=== PATIENT | male | born 1950 | race Caucasian/White ===

== ENCOUNTER 2018-03-09 10:58 | Observation (INO) ==
[2018-03-09 11:50] LABS: Basophils # 0.1 K/mcL (0.0-0.2); Basophils % 0.8 %; Eosinophils # 0.2 K/mcL (0.0-0.6); Eosinophils % 2.4 %; Hematocrit 43.9 % (37.5-50.1); Hemoglobin 13.9 g/dL (12.9-16.9); Immature Granulocytes % 0.3 % (0-4); Lymphocytes # 0.6 K/mcL (0.6-4.6); Lymphocytes % 8.3 %; Mean Corpuscular HGB Conc 31.7 g/dL (31.6-35.5); Mean Corpuscular Hemoglobin 28.5 pg (28.0-33.3); Mean Platelet Volume 10.4 fL (9.4-12.4); Monocytes # 0.8 K/mcL (0.0-1.3); Monocytes % 10.8 %; Neutrophils # 5.6 K/mcL (1.6-8.9); Platelet Count 167 K/mcL (140-400); Red Blood Count 4.88 M/mcL (4.19-5.50); Segmented Neutrophils % 77.4 %
--- NOTE | 2018-03-09 12:16 | Emergency Department Note ---
Disposition Clinical Impression: Atrial fibrillation with slow ventricular response, CHF (congestive heart failure) Disposition: Admitted As Inpatient Condition: Fair Time of Disposition: 12:30 General Adult HPI - General Chief complaint: ED Shortness of Breath/Dyspnea Stated complaint: "chf" Time Seen by Provider: 03/09/18 11:01 Source: patient Mode of arrival: ambulatory Limitations: no limitations Nursing Notes Reviewed: Yes Vital Signs Reviewed: Yes - History of Present Illness HPI Narrative: 67-year-old male presents emergency department for further evaluation. Patient states he has had recent weight gain which is consistent with his previous CHF exacerbations. Patient states his vital signs and weight are taken daily and sent to the real estate investment analyst. The cardiology ASSISTANT BOYS TRACK COACH, Rudi Neri, noted the increased weight gain and called the patient to be evaluated in the emergency department. Patient states that he had his diuretics changed within the past week and he has noticed 4 pounds of weight loss and he is actually ambulating better than he had earlier in the week. Patient states he has some mild abdominal pain which occurs with eating and happens every time he has fluid overload from his congestive heart failure. Patient denies any vomiting or diarrhea or hematochezia or melena. No recent trauma. Pain Scale: 0 - Related Data Home Medications Medication Instructions Recorded Confirmed Aspirin [Lo-Dose Aspirin EC] 81 mg PO QAM 02/18/16 02/18/16 Bromocriptine Mesylate [Parlodel] 2.5 mg PO BID 02/18/16 02/18/16 Levothyroxine [Synthroid] 88 mcg PO QAM 02/18/16 02/18/16 Morphine Sulfate 15 mg PO BID PRN 02/18/16 02/26/16 Ondansetron HCl [Zofran] 4 mg PO TID PRN 02/18/16 02/18/16 Phenytoin ER [Dilantin ER] 300 mg PO HS 02/18/16 02/18/16 Previous Rx's Medication Instructions Recorded Docusate [Colace] 100 mg PO BID PRN #60 capsule 02/29/16 Fludrocortisone Acetate [Florinef] 0.1 mg PO BID #60 tablet 02/29/16 Furosemide [Lasix] 40 mg PO DAILY #60 tab 02/29/16 Gabapentin [Neurontin] 300 mg PO BID #60 capsule 02/29/16 Insulin DETEMIR [Levemir] 30 unit SQ HS 30 Days 02/29/16 Insulin LISPRO [Humalog Kwikpen 20 unit SQ ACHS 30 Days 02/29/16 U-100] Morphine Sulfate SR (12 HR) [MS 15 mg PO Q12HR tablet.er 02/29/16 Contin] Potassium Chloride [K-Tab ER] 20 meq PO BID #60 tablet.er 02/29/16 metOLazone [Zaroxolyn] 2.5 mg PO DAILY #30 tablet 02/29/16 predniSONE [PredniSONE] 10 mg PO BID #90 tablet 02/29/16 Allergies Allergy/AdvReac Type Severity Reaction Status Date / Time Penicillins Allergy Hives Verified 03/09/18 11:00 Sulfa (Sulfonamide Allergy Nausea Verified 03/09/18 11:00 Antibiotics) carvedilol [From Coreg] AdvReac Hypotension Verified 03/09/18 11:00 lisinopril AdvReac Hypotension Verified 03/09/18 11:00 All systems ED: reviewed and negative except as stated. Review of Systems: As Per [facility] Past Medical History - Past Medical History Attestation: Yes The following information was validated with the patient. Source: patient Medical history: Reports: arthritis, atrial fibrillation, CHF, diabetes, GERD, hyperlipidemia, hypertension, myocardial infarction, peripheral artery disease, thyroid disease, syncope Surgical history: Reports: angioplasty/stent, appendectomy, cholecystectomy, coronary bypass (CABG) Psychiatric history: Reports: no psych history - Social History Smoking Status: Never smoker Smokeless Tobacco Status: No Alcohol use: Reports: occasionally Drug use: Reports: none Physical Exam General: Alert and in no acute distress Skin: Warm, dry, intact Head: Normocephalic and atraumatic Neck: Supple, trachea midline and no tenderness Cardiovascular: RRR, no murmur, normal perfusion Respiratory: Crackles in the bilateral posterior lung bases, no respiratory distress noted on exam. No wheezing, no cough Musculoskeletal: Normal strength, no tenderness, swelling or deformity GI: Soft, nontender, nondistended. Bowel sounds present Neuro: A&O to person, place, time and situation. No focal deficits noted on exam Psychiatric: cooperative and appropriate mood and affect. Course Vital Signs Temperature 98.1 F 03/09/18 10:59 Pulse Rate 66 03/09/18 10:59 Respiratory Rate 20 03/09/18 10:59 Blood Pressure 128/71 03/09/18 10:59 O2 Sat by Pulse Oximetry 92 03/09/18 10:59 Temperature 98.1 F 03/09/18 11:04 Pulse Rate 53 03/09/18 11:25 Respiratory Rate 16 03/09/18 11:25 Blood Pressure 144/89 03/09/18 11:25 O2 Sat by Pulse Oximetry 94 03/09/18 11:25 Oxygen Delivery Oxygen Delivery Room Air Medical Decision Making - MDM Narrative Medical decision making narrative: 67-year-old male presents with worsening congestive heart failure. Patient does state that he started to improve mildly while taking the Bumex. Patient has atrial fibrillation with a slow ventricular response in the emergency department. I spoke with real estate investment analyst who agreed with the plan for admission to the hospital for further care and evaluation - Medical Records Medical records reviewed: Yes I reviewed the patient's medical records. - Lab Data Lab results reviewed: Yes I reviewed the patient's lab results. Result diagrams: 03/09/18 11:35 Lab Results 03/09/18 03/09/18 Range/Units 11:35 11:35 WBC 7.2 (4.3-11.1) K/mcL RBC 4.88 (4.19-5.50) M/mcL Hgb 13.9 (12.9-16.9) g/dL Hct 43.9 (37.5-50.1) % MCV 90.0 (83.0-100.0) fL MCH 28.5 (28.0-33.3) pg MCHC 31.7 (31.6-35.5) g/dL RDW 15.0 H (11.5-14.5) % Plt Count 167 (140-400) K/mcL MPV 10.4 (9.4-12.4) fL Immature Gran % 0.3 (0-4) % Seg Neutrophils % 77.4 % Lymphocytes % 8.3 % Monocytes % 10.8 % Eosinophils % 2.4 % Basophils % 0.8 % Neutrophils # 5.6 (1.6-8.9) K/mcL Lymphocytes # 0.6 (0.6-4.6) K/mcL Monocytes # 0.8 (0.0-1.3) K/mcL Eosinophils # 0.2 (0.0-0.6) K/mcL Basophils # 0.1 (0.0-0.2) K/mcL Lactic Acid 1.6 (0.5-2.2) mmol/L - Radiology Data Radiology results reviewed: Yes I reviewed the patient's radiology results. - EKG Data EKG #1 EKG attestation: Yes I reviewed and interpreted this EKG. EKG results narrative: ECG - interpreted by ED physician. Rate 57 atrial fibrillation with a slow ventricular response with a rate of 57. Patient has T-wave inversion of lead 3 which is new from previous EKG in 2015.
[2018-03-09 12:18] LABS: Troponin I 0.03 ng/mL (< 0.04)
[2018-03-09 12:37] LABS: Alanine Aminotransferase 27 Units/L (7-52); Albumin/Globulin Ratio 1.3 (1.1-2.2); Alkaline Phosphatase 136 Units/L (34-104); Aspartate Amino Transferase 48 Units/L (13-39); BUN/Creatinine Ratio 18 (6-26); Bilirubin,Direct 0.3 mg/dL (0.0-0.2); Bilirubin,Indirect 0.9 mg/dL (0.0-1.2); Bilirubin,Total 1.2 mg/dL (0.3-1.0); Blood Urea Nitrogen 25 mg/dL (8-23); Calcium 9.5 mg/dL (8.6-10.3); Carbon Dioxide 30 mEq/L (23-29); Chloride 95 mEq/L (98-107); Glucose 109 mg/dL (70-105); Osmolality,Calculated 285 (280-300); Potassium 4.7 mEq/L (3.5-5.1); Sodium 135 mEq/L (136-145); eGFR For Non-African Americans 52 (> 60)
[2018-03-09] MEDS ORDERED: *HR* Heparin 5,000 UNIT/ML VIAL IVP PRN ×2 (12:41)
[2018-03-09] MEDS ORDERED: *HR* Heparin 5,000 UNIT/ML VIAL IVP ONE (12:41)
[2018-03-09 13:09] LABS: Thyroid Stimulating Hormone 0.335 mcIU/mL (0.340-5.600)
[2018-03-09] MEDS ORDERED: Naloxone 0.4 MG/ML INJ IVP PRN (13:22)
--- NOTE | 2018-03-09 13:25 | Internal Med History&Physical ---
Date of Encounter: 03/09/18 Time of Encounter: 12:50 Internal Medicine - H&P: HPI Chief complaint: weight gain History of present illness: Mr. Noriega is a 67 year old male with PMHx of diastolic heart failure, DM, adrenal insufficiency, presented to the ED for progressive weight gain. He states that he gradually gained ~ 20lbs over 1.5 months and also developed mild SOB with it. Last Thursday, he spoke to his home care nurse who, in conjunction with cardiology ELECTRICAL PROJECT ENGINEER, recommended to increase his bumex dose to a total of 5mg/ day. He states that since he was started on higher dose of bumex, he lost 4lbs already and his breathing also improved. Denies fever/chills, sick contacts, cough, sputum production, chest pain, N/V, diaphoresis. No abdominal pain, dysuria, or change in bowel habits. No joint pain or rash. He felt much improved since Thursday but he was specifically instructed by cardiology ELECTRICAL PROJECT ENGINEER to come to the ED for further evaluation. In the ED, he was afebrile and hemodynamically stable. Saturating >92% on RA. Labs revealed normal CBC, Cr around his baseline, and BNP 255 which is actually lower than his usual numbers. Troponin -ve, EKG showed Afib with SVR. TSH 0.335 (mildly suppressed). He was started on heparin in view of new finding of afib and admitted for further management. Past Med Surg Social Fam HX - Past Medical History Attestation: Yes The following information was validated with the patient. Medical history: arthritis, atrial fibrillation, CHF, diabetes, GERD, hyperlipidemia, hypertension, myocardial infarction, peripheral artery disease, thyroid disease, syncope Psychiatric history: no psych history - Past Surgical History Surgical History: angioplasty/stent, appendectomy, cholecystectomy, coronary bypass (CABG) Additional surgical history: tonsilectomy, pituitary tumor removed, exploratory for possible cyst in stomach ( scar tissue ), triple bypass, R BKA, heart stent - Social History Smoking Status: Never smoker Smokeless Tobacco Status: No Alcohol use: occasionally Drug use: none - Family History Father Adopted: No Family Member Ethnicity: Non- Living Status: Hx Family Cardiac Disorders: No Hx Family Respiratory Disorders: No Hx Family Cancer: Yes Hx Family GI Disorders: No Hx Family Endocrine Disorder: No Hx Family Neuromuscular Disorders: No Hx Family Neurologic Disorders: No Hx Family HEENT Disorders: No Hx Family Autoimmune Disorders: No Internal Medicine - H&P: Meds Bromocriptine Mesylate [Parlodel] 2.5 mg PO BID 02/18/16 [History] Levothyroxine [Synthroid] 88 mcg PO QAM 02/18/16 [History] Morphine Sulfate SR (12 HR) [MS Contin] 15 mg PO Q12HR tablet.er 02/29/16 [Rx] Aspirin Enteric Coated [Aspirin EC] 81 mg PO DAILY 03/09/18 [History] Potassium Chloride [K-Tab ER] 20 meq PO QID 03/09/18 [History] 3 Allergy/AdvReac Type Severity Reaction Status Date / Time Penicillins Allergy Hives Verified 03/09/18 11:00 Sulfa (Sulfonamide Allergy Nausea Verified 03/09/18 11:00 Antibiotics) carvedilol [From Coreg] AdvReac Hypotension Verified 03/09/18 11:00 lisinopril AdvReac Hypotension Verified 03/09/18 11:00 All Systems PM: A 10-system review of systems was performed and is negative for pertinent findings except as documented above in the HPI. - Constitutional Vitals: Temp Pulse Resp BP Pulse Ox 98.1 F 59 20 141/80 94 03/09/18 11:04 03/09/18 12:23 03/09/18 12:23 03/09/18 12:23 03/09/18 12:23 Exam: General: Alert and oriented HEENT:EOM, pupils equal, round, and reactive. Cardiovascular:Normal S1 & S2, No JVD. irregular pulse but normal rate. No appreciable L LE edema. R leg amputated Lungs:Normal breath sounds, minimal rales at the bases Abdomen:Soft, non-tender, no rigidity. Extremities:RLE amputated, no joint swelling Neurological:Normal cognition and motor skills. Skin:Normal color, no rash, no lesions. Pulses:Carotid and radial pulses normal +2. Rest of the physical exam is non-contributory Internal Med - H&P Results - Labs CBC & Chem 7: 03/09/18 11:35 03/09/18 11:35 - Assessment and plan (1) Atrial fibrillation with slow ventricular response Current Visit: Yes Status: Acute Assessment and plan: new finding, CHADSVasc score of 4 no RVR, may have had runs of asymptomatic RVR that could have contributed to mild decompensated heart failure TSH 0.335, mildly suppressed. Doubt that it is the cause of afib but will check fT4 started on heparin gtt per discussion between ER and cardiology trend troponin Echocardiogram (2) CHF (congestive heart failure) Current Visit: Yes Status: Acute Assessment and plan: symptomatically improved on increased dosage of bumex BNP lower than his baseline, no O2 requirement currently CXR is reported to show mild CHF continue home dose of bumex Echocardiogram as above follow with cardiology Qualifiers: Heart failure type: diastolic Heart failure chronicity: acute on chronic Qualified Code(s): I50.33 - Acute on chronic diastolic (congestive) heart failure (3) Adrenal insufficiency Current Visit: No Status: Acute Assessment and plan: resume home dose of prednisone (4) CKD (chronic kidney disease) stage 3, GFR 30-59 ml/min Current Visit: No Status: Acute Assessment and plan: stable at baseline resume home dose of bumex (5) DVT prophylaxis Current Visit: No Status: Acute Assessment and plan: on heparin gtt - Time Spent With Patient Total time spent is greater than 50% in coordination of care (as documented) at patient's floor/unit and/or counseling patient:
[2018-03-09] MEDS: Heparin 25,000 UNIT/500 ML D5W 25,000 UNIT/500 ML BAG IVC SCH (13:33)
[2018-03-09] MEDS ORDERED: D5% in Water 1,000 ML IVC PRN (13:37)
[2018-03-09] MEDS ORDERED: Dextrose Gel 15 GM/37.5 ML TUBE PO PRN ×2 (13:37)
[2018-03-09] MEDS ORDERED: *HR* Dextrose 50 % in Water (Syg) 50 ML SYRINGE IVP PRN (13:37)
[2018-03-09] MEDS ORDERED: Nitroglycerin 0.4 MG TAB.SUBL SL PRN (15:25)
--- NOTE | 2018-03-09 15:28 | Cardiology Consult Note ---
Date of Encounter: 03/09/18 Time of Encounter: 15:22 Assessment and Plan (1) Atrial fibrillation with slow ventricular response Current Visit: Yes Status: Acute Presented A-Fib slow ventricular response, HR 57 on admission EKG, new diagnosis. Was on Toprol XL 25mg daily at home, currently held. [id number] is 5 (Age, HTN, CAD, CHF, DM). High CVA risk. Currently on heparin gtt. Discussed Coumadin vs NOAC. Pt would like to think about it. Continue heparin gtt for now. K WNL, TSH 0.335--management per primary team. Check Mag. Most recent TTE 02/2016 EF 55%, moderate-severe TR, moderate-severe phtn. Recheck TTE. Continue to follow. (2) CHF (congestive heart failure) Current Visit: Yes Status: Acute Known hx of diastolic and right sided CHF. TTE 02/2016 moderate LVDD and dilated RV with moderate reduction in function, moderate-severe phtn. Reports compliance with Na and fluid restriction. BNP 225, CXR low grade CHF, small pleural effusion. Recently increased Bumex outpt to total of 10mg/day with improvement in symptoms , but reports he is still ~15 pounds heavier than baseline weight and dyspnea is still mildly worse than baseline. Agree with continuing PO Bumex--hospitalist ordered for 5mg total/day. Re- evaluate in AM to see if pt needs IV diuresis. Recommend strict I/O, Na and fluid restriction, daily weights. Recheck TTE. Qualifiers: Heart failure type: diastolic Heart failure chronicity: acute on chronic Qualified Code(s): I50.33 - Acute on chronic diastolic (congestive) heart failure (3) CAD (coronary artery disease) Current Visit: No Status: Acute Hx CABG then PCI in 2014. Continue ASA and Statin. No BB due to bradycardia. Qualifiers: Coronary Disease-Associated Artery/Lesion type: [place] artery [place] vs. transplanted heart: [place] heart Associated angina: without angina Qualified Code(s): I25.10 - Atherosclerotic heart disease of [place] coronary artery without angina pectoris Discussion w patient/family: The assessment and plan as outlined above was discussed with the patient and/or family members who expressed understanding and agreement. All questions were answered. Thank you for involving us in the care of your patient. Please call with any questions. I will discuss all the above with Dr. Chandra and make changes as necessary. History of Present Illness Consult date: 03/09/18 Requesting physician: Cali Sethi Consult reason: CHF Chief complaint: dyspnea, weight gain History of present illness: Mr. Noriega is a 67 year old male PMHx of diastolic CHF, CAD s/p CABG, DM, adrenal insufficiency, HLD, hypothyroidism, history of right BKA, MELVI, GERD presented to the ED for progressive weight gain. He states that he gradually gained ~ 20lbs over 1.5 months and also developed progressive dyspnea. Last Thursday, he spoke to his home care nurse who, in conjunction with cardiology DENTAL SCHEDULER, recommended to increase his bumex dose to 5mg BID. He states that since he was started on higher dose of bumex, he lost 4lbs and his breathing also improved. Denies palpitations or chest pain. BNP 255 which is actually lower than his usual. Troponin negative. EKG showed Afib with slow ventricular response, which is a new diagnosis. He denies palpitations. On heparin gtt. Cardiology consulted for further recs. Prior CV testing: TTE 02/20/16: Technically challenging study without Apical 2 or 3CH views. Overall , LV systolic function appears normal in views provided EF 55%. There is evidence of moderate diastolic dysfunction of the left ventricle. No aortic stenosis on this study, MG 6 mmHg. Dilated RV with moderate reduction in function. Moderate-severe functional tricuspid regurgitation. Moderate to severe pulmonary hypertension with TR gradient 55 mmHg. IVC not visualized. [facility] [place] 01/02/15: Double vessel coronary artery disease. S/P CABG 3 of 3 patent bypass grafts. The left ventricle is normal and has normal contractility EF 55% . Patient had successful PTCA/Drug-Eluting Stent placement in the proximal 1st Diagonal. Past Med Surg Social Fam HX - Past Medical History Medical history: arthritis, CHF, diabetes, GERD, hyperlipidemia, hypertension, myocardial infarction, peripheral artery disease, thyroid disease, syncope Psychiatric history: no psych history - Past Surgical History Surgical History: angioplasty/stent, appendectomy, cholecystectomy, coronary bypass (CABG) Additional surgical history: tonsilectomy, pituitary tumor removed, exploratory for possible cyst in stomach ( scar tissue ), triple bypass, R BKA, heart stent - Social History Smoking Status: Never smoker Smokeless Tobacco Status: No Alcohol use: occasionally Drug use: none - Family History Father Adopted: No Family Member Ethnicity: Non- Living Status: Hx Family Cardiac Disorders: No Hx Family Respiratory Disorders: No Hx Family Cancer: Yes Hx Family GI Disorders: No Hx Family Endocrine Disorder: No Hx Family Neuromuscular Disorders: No Hx Family Neurologic Disorders: No Hx Family HEENT Disorders: No Hx Family Autoimmune Disorders: No Medications and Allergies Bromocriptine Mesylate [Parlodel] 2.5 mg PO BID 02/18/16 [History] Levothyroxine [Synthroid] 88 mcg PO QAM 02/18/16 [History] Morphine Sulfate SR (12 HR) [MS Contin] 15 mg PO Q12HR tablet.er 02/29/16 [Rx] Aspirin Enteric Coated [Aspirin EC] 81 mg PO DAILY 03/09/18 [History] Atorvastatin [Lipitor] 10 mg PO HS 03/09/18 [History] Bumetanide [Bumex] 2 mg PO 2100 03/09/18 [History] Bumetanide [Bumex] 4 mg PO 0900,1500 03/09/18 [History] Insulin ASPART [NovoLOG] 0 - 12 unit SQ TIDAC 03/09/18 [History] Metoprolol Succinate [Toprol Xl] 25 mg PO DAILY 03/09/18 [History] Multivitamin [One Daily Essential] 1 tab PO DAILY 03/09/18 [History] Nitroglycerin [Nitrostat] 0.4 mg SL Q5MIN PRN 03/09/18 [History] Polyethylene Glycol 3350 [MiraLAX] 17 gm PO DAILY 03/09/18 [History] Potassium Chloride [K-Tab ER] 60 meq PO QID 03/09/18 [History] PredniSONE [Adry] 5 mg PO BID 03/09/18 [History] 3 Allergy/AdvReac Type Severity Reaction Status Date / Time Penicillins Allergy Hives Verified 03/09/18 13:46 Sulfa (Sulfonamide Allergy Nausea Verified 03/09/18 13:46 Antibiotics) carvedilol [From Coreg] AdvReac Hypotension Verified 03/09/18 13:46 lisinopril AdvReac Hypotension Verified 03/09/18 13:46 All Systems Review: The remainder of the systems were reviewed and are negative - Constitutional Constitutional: weight gain - Cardiovascular Cardiovascular: as per HPI, dyspnea at rest, dyspnea on exertion - Respiratory Respiratory: dyspnea Physical Examination Vital Signs, Last 4 Hours Temp Pulse Resp BP Pulse Ox 03/09/18 15:02 98.3 F 78 18 120/74 91 03/09/18 13:36 53 17 124/87 93 Vital Signs Temp Pulse Resp BP Pulse Ox 03/09/18 15:02 98.3 F 78 18 120/74 91 03/09/18 13:36 53 17 124/87 93 03/09/18 12:23 59 20 141/80 94 03/09/18 11:25 53 16 144/89 94 03/09/18 11:04 98.1 F 66 20 128/71 92 03/09/18 10:59 98.1 F 66 20 128/71 92 Intake and Output 03/08/18 03/09/18 03/09/18 23:59 07:59 15:59 Other: Weight 106.4 kg Blood Glucose* 76 Patient Weight 03/09/18 23:59 Weight 106.4 kg General: Conversant, No Apparent Distress HEENT: Atraumatic, Normocephaly, Mucus Membranes Moist Neck: Normal carotid pulses Cardiac: Other (irregularly irregular rhythm 2/6 murmur) Lungs: Other (bibasilar wheezes) Neuro: Alert and responsive, No focal deficits noted Abdomen: Soft, Non-Tender Skin: No rashes noted on visualized skin Musculoskeletal: No Chest Wall Tenderness Extremities: Other (right BKA) Results 03/09/18 11:35 03/09/18 11:35 Short CBC 03/09/18 Range/Units 11:35 WBC 7.2 (4.3-11.1) K/mcL Hgb 13.9 (12.9-16.9) g/dL Hct 43.9 (37.5-50.1) % Plt Count 167 (140-400) K/mcL Neutrophils # 5.6 (1.6-8.9) K/mcL BMP 03/09/18 Range/Units 11:35 Sodium 135 L (136-145) mEq/L Potassium 4.7 (3.5-5.1) mEq/L Chloride 95 L (98-107) mEq/L Carbon Dioxide 30 H (23-29) mEq/L BUN 25 H (8-23) mg/dL Creatinine 1.37 H (0.70-1.30) mg/dL Glucose 109 H (70-105) mg/dL Calcium 9.5 (8.6-10.3) mg/dL Cardiac Enzymes 03/09/18 Range/Units 11:35 Troponin I 0.03 (< 0.04) ng/mL Liver Function 03/09/18 Range/Units 11:35 Total Bilirubin 1.2 H (0.3-1.0) mg/dL Direct Bilirubin 0.3 H (0.0-0.2) mg/dL AST 48 H (13-39) Units/L ALT 27 (7-52) Units/L Alkaline Phosphatase 136 H (34-104) Units/L Albumin 4.0 (3.5-5.7) g/dL Impressions Chest X-Ray 03/09/18 11:05 IMPRESSION: Low-grade CHF with small left pleural effusion D/ / Marcin Elkins MD / Marcin Elkins MD Interpreting Provider: Marcin Elkins MD Active Medications Aspirin (Aspirin Ec) 81 mg PO DAILY [place] Stop: 09/09/18 09:01 Atorvastatin Calcium (Lipitor) 10 mg PO HS [place] Stop: 09/08/18 21:01 Bromocriptine Mesylate (Parlodel) 2.5 mg PO BID [place] Stop: 09/08/18 21:01 Bumetanide (Bumex) 2 mg PO 0900,1500 [place] Stop: 09/08/18 15:01 Bumetanide (Bumex) 1 mg PO HS [place] Stop: 09/08/18 21:01 Dextrose/Water (Dextrose 50% (Syg)) 25 ml IVP AD PRN PRN Reason: Hypoglycemia Stop: 09/08/18 13:38 Glucagon (Glucagen) 1 mg IM ONCE PRN PRN Reason: Hypoglycemia Stop: 09/08/18 13:38 Glucose (Gluctose) 15 gm PO ONCE PRN PRN Reason: Hypoglycemia Stop: 09/08/18 13:38 Glucose (Gluctose) 30 gm PO ONCE PRN PRN Reason: Hypoglycemia Stop: 09/08/18 13:38 Heparin Sodium (Porcine) (Heparin) 4,000 unit IVP Q6HR PRN PRN Reason: SEE COMMENTS Stop: 09/08/18 12:42 Heparin Sodium (Porcine) (Heparin) 2,000 unit IVP Q6H PRN PRN Reason: SEE COMMENTS Stop: 09/08/18 12:42 Heparin Sodium/Dextrose (Heparin 25,000 Unit/500 Ml D5w) 25,000 unit in 500 mls @ 20.08 mls/hr IVC .Q24H [place]; 9.3 UNIT/KG/HR PRN Reason: Protocol Stop: 09/08/18 12:46 Last Admin: 03/09/18 13:33 Dose: 9.3 unit/kg/hr, 20.08 mls/hr Dextrose (Dextrose 5%) 1,000 mls @ 100 mls/hr IVC .Q10H PRN PRN Reason: HYPOGLYCEMIA Stop: 09/08/18 13:38 Insulin Human Lispro (Humalog) 0 units SQ TIDAC [place] PRN Reason: Protocol Stop: 09/08/18 16:31 Levothyroxine Sodium (Synthroid) 88 mcg PO QAM [facility] Stop: 09/09/18 09:01 Morphine Sulfate (Ms Contin) 15 mg PO Q12HR [facility] Stop: 09/08/18 18:01 Naloxone HCl (Narcan) 0.4 mg IVP Q2MIN PRN PRN Reason: SEE COMMENTS Stop: 09/08/18 13:23 Nitroglycerin (Nitroglycerin) 0.4 mg SL Q5MIN PRN PRN Reason: Chest Pain Stop: 09/08/18 15:26 Non-Formulary Medication (Multivitamin [One Daily Essential]) 1 tab PO DAILY [facility] Stop: 09/09/18 09:01 Non-Formulary Medication (Prednisone [Adry]) 5 mg PO BID [facility] Stop: 09/08/18 21:01 - Imaging and Cardiology Echo: report reviewed Cardiac cath: report reviewed - EKG Interpretation EKG results cardiology: personally reviewed (A-Fib, rate 57) Consult Discharge Plan - Plan Referrals: Parrish Galindo DO [Primary Care Provider] -
[2018-03-09] MEDS: Bumetanide 1 MG TABLET PO SCH (16:41)
[2018-03-09] MEDS: Insulin LISPRO 300 UNITS/3 ML VIAL SQ SCH (16:41)
[2018-03-09] MEDS: *HR* Morphine Sulfate SR (12 HR) 15 MG TABLET.ER PO SCH (18:06)
[2018-03-09] MEDS ORDERED: Perflutren Lipid Microsphere 1.3 ML in 0.9 % Sodium Chloride 8.7 ML IVP ONE (19:14)
[2018-03-09] MEDS ORDERED: Bumetanide 1 MG TABLET PO SCH (21:00)
[2018-03-09] MEDS: predniSONE 5 MG TABLET PO SCH (21:09)
[2018-03-09] MEDS ORDERED: Insulin LISPRO 300 UNITS/3 ML VIAL SQ SCH (21:30)
[2018-03-10 01:56] LABS: Basophils # 0.1 K/mcL (0.0-0.2); Basophils % 0.7 %; Eosinophils # 0.1 K/mcL (0.0-0.6); Eosinophils % 1.6 %; Hematocrit 39.6 % (37.5-50.1); Hemoglobin 12.9 g/dL (12.9-16.9); Immature Granulocytes % 0.1 % (0-4); Lymphocytes # 0.8 K/mcL (0.6-4.6); Lymphocytes % 10.7 %; Mean Corpuscular HGB Conc 32.6 g/dL (31.6-35.5); Mean Corpuscular Hemoglobin 29.1 pg (28.0-33.3); Mean Corpuscular Volume 89.4 fL (83.0-100.0); Mean Platelet Volume 10.4 fL (9.4-12.4); Monocytes # 0.7 K/mcL (0.0-1.3); Monocytes % 9.9 %; Neutrophils # 5.7 K/mcL (1.6-8.9); Platelet Count 141 K/mcL (140-400); Red Blood Count 4.43 M/mcL (4.19-5.50); Red Cell Distribution Width 14.7 % (11.5-14.5)
[2018-03-10 02:34] LABS: BUN/Creatinine Ratio 17 (6-26); Blood Urea Nitrogen 22 mg/dL (8-23); Calcium 8.7 mg/dL (8.6-10.3); Carbon Dioxide 34 mEq/L (23-29); Chloride 93 mEq/L (98-107); Glucose 267 mg/dL (70-105); Magnesium 2.4 mg/dL (1.6-2.6); Osmolality,Calculated 289 (280-300); Potassium 3.5 mEq/L (3.5-5.1); Sodium 133 mEq/L (136-145); eGFR For Non-African Americans 57 (> 60)
[2018-03-10] MEDS: *HR* Morphine Sulfate SR (12 HR) 15 MG TABLET.ER PO SCH ×3 (05:49→17:47)
[2018-03-10] MEDS: Insulin LISPRO 300 UNITS/3 ML VIAL SQ SCH ×3 (07:56→16:49)
[2018-03-10] MEDS: Aspirin Enteric Coated 81 MG Tablet PO SCH (07:58)
[2018-03-10] MEDS: Multivit/Ca/Min/Fe/FA 1 TAB TABLET PO SCH (07:58)
[2018-03-10] MEDS: predniSONE 5 MG TABLET PO SCH ×2 (07:58→20:46)
[2018-03-10] MEDS: Bumetanide 1 MG TABLET PO SCH (07:58)
--- NOTE | 2018-03-10 10:45 | Cardiology Progress Note ---
Date of Encounter: 03/10/18 Time of Encounter: 10:42 Assessment and Plan (1) CHF (congestive heart failure) Current Visit: Yes Status: Acute Known hx of diastolic and right sided CHF. TTE 02/2016 moderate LVDD and dilated RV with moderate reduction in function, moderate-severe phtn. Reports compliance with Na and fluid restriction. BNP 225, CXR low grade CHF, small pleural effusion. Recently increased Bumex outpt to total of 10mg/day with improvement in symptoms , but reports he is still ~15 pounds heavier than baseline weight and dyspnea is still mildly worse than baseline. Abdominal distention. Discussed with Dr. Chandra, will start IV diuresis--Lasix IV 80mg BID. Recommend strict I/O, Na and fluid restriction, daily weights. Recheck TTE. Continue to follow. Qualifiers: Heart failure type: diastolic Heart failure chronicity: acute on chronic Qualified Code(s): I50.33 - Acute on chronic diastolic (congestive) heart failure (2) Atrial fibrillation with slow ventricular response Current Visit: Yes Status: Acute Presented A-Fib slow ventricular response, HR 57 on admission EKG, new diagnosis. Was on Toprol XL 25mg daily at home, currently held. [id number] is 5 (Age, HTN, CAD, CHF, DM). High CVA risk. Currently on heparin gtt. Discussed Coumadin vs NOAC. Prefers NOAC. Given his fluctuating renal function, will plan to brewer check Eliquis 5mg BID once echo results. K WNL, TSH 0.335--management per primary team. Check Mag. Most recent TTE 02/2016 EF 55%, moderate-severe TR, moderate-severe phtn. Recheck TTE. (3) CAD (coronary artery disease) Current Visit: No Status: Acute Hx CABG then PCI in 2014. Troponins negative. Continue ASA and Statin. No BB due to bradycardia. Qualifiers: Coronary Disease-Associated Artery/Lesion type: [place] artery [place] vs. transplanted heart: [place] heart Associated angina: without angina Qualified Code(s): I25.10 - Atherosclerotic heart disease of [place] coronary artery without angina pectoris Discussion w patient/family: The assessment and plan as outlined above was discussed with the patient and/or family members who expressed understanding and agreement. All questions were answered. Thank you for involving us in the care of your patient. Please call with any questions. I will discuss all the above with Dr. Chandra and make changes as necessary. Subjective Principal diagnosis: A-Fib, CHF Interval history: TTE pending. Pt reports his dyspnea is near baseline, but weight still increased ~15 pounds from his baseline with abdominal distention. Creatinine improved today. 12 hr tele AVG HR 51, A-Fib, longest pause 2.5 seconds. Objective Vital Signs, Last 4 Hours Temp Pulse Resp BP Pulse Ox 03/10/18 07:39 97.9 F 60 18 131/64 97 Vital Signs Temp Pulse Resp BP Pulse Ox 03/10/18 07:39 97.9 F 60 18 131/64 97 03/10/18 05:19 97.6 F 52 18 128/78 93 03/10/18 01:29 98.0 F 46 18 107/67 96 03/09/18 20:30 98.0 F 63 18 121/70 93 03/09/18 15:02 98.3 F 78 18 120/74 91 03/09/18 13:36 53 17 124/87 93 03/09/18 12:23 59 20 141/80 94 03/09/18 11:25 53 16 144/89 94 03/09/18 11:04 98.1 F 66 20 128/71 92 03/09/18 10:59 98.1 F 66 20 128/71 92 Intake and Output 03/09/18 03/10/18 03/10/18 23:59 07:59 15:59 Intake Total 499 / 499 114 / 114 360 / 360 Output Total 600 / 600 Balance 499 / 499 -486 / -486 360 / 360 Intake: IV Fluids 139 / 139 114 / 114 Heparin 25,000 UNIT/500 ML D5W 139 / 139 114 / 114 25,000 unit In 500 ml @ 9.3 UNIT/KG/HR 20.08 mls/hr IVC . Q24H [place] Rx#:[id number] Oral 360 / 360 360 / 360 Output: Urine 600 / 600 Other: Meal Dinner Breakfast Percent of Meal Consumed 100% 80% Weight 106.8 kg Blood Glucose* 274 298 Patient Weight 03/10/18 23:59 Weight 106.8 kg General: Conversant, No Apparent Distress HEENT: Atraumatic, Normocephaly, Mucus Membranes Moist Neck: Normal carotid pulses Cardiac: Other (irregularly irregular) Lungs: Other (diminished) Neuro: Alert and responsive, No focal deficits noted Abdomen: Soft, Non-Tender Skin: No rashes noted on visualized skin Musculoskeletal: No Chest Wall Tenderness Extremities: Other (right BKA ) Results 03/10/18 01:42 03/10/18 01:42 Lab Results 03/09/18 03/10/18 03/10/18 18:00 01:42 01:42 WBC 7.4 Hgb 12.9 Hct 39.6 Plt Count 141 Sodium 133 L Potassium 3.5 D Chloride 93 L Carbon Dioxide 34 H BUN 22 Creatinine 1.27 Glucose 267 H Calcium 8.7 Magnesium 2.4 Troponin I 0.03 Short CBC 03/10/18 03/09/18 Range/Units 01:42 11:35 WBC 7.4 7.2 (4.3-11.1) K/mcL Hgb 12.9 13.9 (12.9-16.9) g/dL Hct 39.6 43.9 (37.5-50.1) % Plt Count 141 167 (140-400) K/mcL Neutrophils # 5.7 5.6 (1.6-8.9) K/mcL BMP 03/10/18 03/09/18 Range/Units 01:42 11:35 Sodium 133 L 135 L (136-145) mEq/L Potassium 3.5 D 4.7 (3.5-5.1) mEq/L Chloride 93 L 95 L (98-107) mEq/L Carbon Dioxide 34 H 30 H (23-29) mEq/L BUN 22 25 H (8-23) mg/dL Creatinine 1.27 1.37 H (0.70-1.30) mg/dL Glucose 267 H 109 H (70-105) mg/dL Calcium 8.7 9.5 (8.6-10.3) mg/dL Cardiac Enzymes 03/09/18 03/09/18 Range/Units 18:00 11:35 Troponin I 0.03 0.03 (< 0.04) ng/mL Liver Function 03/09/18 Range/Units 11:35 Total Bilirubin 1.2 H (0.3-1.0) mg/dL Direct Bilirubin 0.3 H (0.0-0.2) mg/dL AST 48 H (13-39) Units/L ALT 27 (7-52) Units/L Alkaline Phosphatase 136 H (34-104) Units/L Albumin 4.0 (3.5-5.7) g/dL Impressions Chest X-Ray 03/09/18 11:05 IMPRESSION: Low-grade CHF with small left pleural effusion D/ / Marcin Elkins MD / Marcin Elkins MD Interpreting Provider: Marcin Elkins MD Active Medications Aspirin (Aspirin Ec) 81 mg PO DAILY [place] Stop: 09/09/18 09:01 Last Admin: 03/10/18 07:58 Dose: 81 mg Atorvastatin Calcium (Lipitor) 10 mg PO HS [place] Stop: 09/08/18 21:01 Last Admin: 03/09/18 21:09 Dose: 10 mg Dextrose/Water (Dextrose 50% (Syg)) 25 ml IVP AD PRN PRN Reason: Hypoglycemia Stop: 09/08/18 13:38 Furosemide (Lasix) 80 mg IVP BID [place] Stop: 09/09/18 10:46 Glucagon (Glucagen) 1 mg IM ONCE PRN PRN Reason: Hypoglycemia Stop: 09/08/18 13:38 Glucose (Gluctose) 15 gm PO ONCE PRN PRN Reason: Hypoglycemia Stop: 09/08/18 13:38 Glucose (Gluctose) 30 gm PO ONCE PRN PRN Reason: Hypoglycemia Stop: 09/08/18 13:38 Heparin Sodium (Porcine) (Heparin) 4,000 unit IVP Q6HR PRN PRN Reason: SEE COMMENTS Stop: 09/08/18 12:42 Heparin Sodium (Porcine) (Heparin) 2,000 unit IVP Q6H PRN PRN Reason: SEE COMMENTS Stop: 09/08/18 12:42 Heparin Sodium/Dextrose (Heparin 25,000 Unit/500 Ml D5w) 25,000 unit in 500 mls @ 20.08 mls/hr IVC .Q24H [place]; 9.3 UNIT/KG/HR PRN Reason: Protocol Stop: 09/08/18 12:46 Last Titration: 03/10/18 03:06 Dose: 9.63 unit/kg/hr, 20.8 mls/hr Dextrose (Dextrose 5%) 1,000 mls @ 100 mls/hr IVC .Q10H PRN PRN Reason: HYPOGLYCEMIA Stop: 09/08/18 13:38 Insulin Human Lispro (Humalog) 0 units SQ TIDAC [facility] PRN Reason: Protocol Stop: 09/08/18 16:31 Last Admin: 03/10/18 07:56 Dose: 8 units Insulin Human Lispro (Humalog) 0 units SQ HS [facility] PRN Reason: Protocol Stop: 09/08/18 21:31 Last Admin: 03/09/18 21:57 Dose: 4 unit Levothyroxine Sodium (Synthroid) 88 mcg PO QAM@0630 [facility] Stop: 09/09/18 06:31 Last Admin: 03/10/18 05:50 Dose: 88 mcg Morphine Sulfate (Ms Contin) 15 mg PO Q12HR [facility] Stop: 09/08/18 18:01 Last Admin: 03/10/18 08:03 Dose: 15 mg Multivitamins/Calcium (Thera M Plus) 1 tab PO DAILY [facility] Stop: 09/09/18 09:01 Last Admin: 03/10/18 07:58 Dose: 1 tab Naloxone HCl (Narcan) 0.4 mg IVP Q2MIN PRN PRN Reason: SEE COMMENTS Stop: 09/08/18 13:23 Nitroglycerin (Nitroglycerin) 0.4 mg SL Q5MIN PRN PRN Reason: Chest Pain Stop: 09/08/18 15:26 Prednisone (Prednisone) 5 mg PO BID [facility] Stop: 09/08/18 21:01 Last Admin: 03/10/18 07:58 Dose: 5 mg - Imaging and Cardiology Echo: pending - EKG Interpretation EKG results cardiology: other (12 hr tele AVG HR 51, A-Fib) Consult Discharge Plan - Plan Referrals: Parrish Galindo, [Primary Care Provider] -
[2018-03-10] MEDS: Furosemide 40 MG/4 ML VIAL IVP SCH ×2 (12:17→16:24)
--- NOTE | 2018-03-10 15:27 | Internal Med Progress Note ---
Date of Encounter: 03/10/18 Time of Encounter: 09:45 - Assessment and plan (1) CHF (congestive heart failure) Current Visit: Yes Status: Acute Assessment and plan: Cardiology following. Patient has been placed on IV Lasix at 80 mg twice a day. 2-D echocardiogram done shows EF of 60% with indeterminate diastolic function. Patient has mild to moderate aortic stenosis and moderate tricuspid regurgitation. He also has severe pulmonary hypertension. Moderate risk for complications. Qualifiers: Heart failure type: diastolic Heart failure chronicity: acute on chronic Qualified Code(s): I50.33 - Acute on chronic diastolic (congestive) heart failure (2) CKD (chronic kidney disease) stage 3, GFR 30-59 ml/min Current Visit: No Status: Acute Assessment and plan: Stable. Creatinine is 1.27 today. We will follow renal function closely as patient is receiving IV Lasix (3) DVT prophylaxis Current Visit: Yes Status: Acute Assessment and plan: Currently on IV heparin. May transition to oral anticoagulation per cardiology recommendations prior to discharge (4) Adrenal insufficiency Current Visit: Yes Status: Acute Assessment and plan: continue prednisone (5) Atrial fibrillation with slow ventricular response Current Visit: Yes Status: Acute Assessment and plan: New onset. Heart rate has improved after Toprol-XL held. Thyroid function appears to be normal. - Time Spent With Patient Total time spent is greater than 50% in coordination of care (as documented) at patient's floor/unit and/or counseling patient: - Subjective Interval history: Patient is awake and alert. He is concerned about his lower extremity edema Which appears to be worsening. He did have dizziness yesterday but is feeling better now. No chest pain or palpitations. - Constitutional Vitals: Temp Pulse Resp BP Pulse Ox 98.2 F 78 18 112/56 95 03/10/18 11:20 03/10/18 11:20 03/10/18 11:20 03/10/18 11:20 03/10/18 11:20 General appearance: Present: cooperative, A&O X 3, pleasant, answers questions appropriately - Neck Neck exam general surgery: Present: supple, trachea midline. Absent: lymphadenopathy - Respiratory Respiratory exam: Present: CTAB. Absent: accessory muscle use, rales, rhonchi, wheezes - Cardiovascular Cardiovascular exam: Present: RRR, +S1, +S2. Absent: diastolic murmur, gallop, rubs, systolic murmur - GI/Abdominal GI/Abdominal exam: Present: normal bowel sounds, soft, no peritoneal signs. Absent: distended, tenderness - Extremities Exam Extremities exam: Present: pedal edema, warm, radial pulses palpable and symmetrical. Absent: calf tenderness, cyanotic - Neurological Exam Neurological exam: Present: CN II-XII intact, oriented X3, no focal deficits. Absent: pronater drift, facial droop, speech deficit Internal Medicine: Result - Labs CBC & Chem 7: 03/10/18 01:42 03/10/18 01:42 Labs: Short CBC 03/10/18 Range/Units 01:42 WBC 7.4 (4.3-11.1) K/mcL Hgb 12.9 (12.9-16.9) g/dL Hct 39.6 (37.5-50.1) % Plt Count 141 (140-400) K/mcL Neutrophils # 5.7 (1.6-8.9) K/mcL BMP 03/10/18 01:42 Sodium 133 L Potassium 3.5 D Chloride 93 L Carbon Dioxide 34 H BUN 22 Creatinine 1.27 Glucose 267 H Calcium 8.7 Cardiac Enzymes 03/09/18 Range/Units 18:00 Troponin I 0.03 (< 0.04) ng/mL - Impressions Impressions Echocardiogram 03/10/18 13:23 Impressions: Technically challenging due to body habitus. LVEF 60%. Indeterminate diastolic function. RV size is is foreshortened and function is not optimally evaluated. Bi-atrial enlargement. Mild-moderate aortic stenosis. PV 2.7m/s, MG 14 mmHg, DI 0.39, JANEE 1.2cm2 Moderate tricuspid regurgitation. Mild pulmonic regurgitation. Severe pulmonary hypertension by TR gradient. IVC is not well visualized. Left Ventricular Wall Motion: Rest Echo Findings The apex, apical anterior, mid anterior and basal anterior dunham were not visualized. All other wall segments showed normal motion. Findings: Study Quality * Technically challenging due to body habitus. ECG Findings * Atrial fibrillation. Left Ventricle * LVEF 60%. * Indeterminate diastolic function. * Normal LV chamber size and wall thickness. Right Ventricle * RV size is is foreshortened and function is not optimally evaluated. Left Atrium * Moderately dilated left atrium. Right Atrium * Moderately dilated right atrium. Aortic Valve * No aortic regurgitation. * Moderately thickened/calcified aortic valve leaflets. * Mild-moderate aortic stenosis. PV 2.7m/s, MG 14 mmHg, DI 0.39, JANEE 1.2cm2 Mitral Valve * Normal mitral valve structure. * No mitral regurgitation. * No mitral stenosis. Tricuspid Valve * Tricuspid valve not well visualized. * Moderate-severe tricuspid regurgitation. Pulmonic Valve * Pulmonic valve not well visualized. * Mild pulmonic regurgitation. * Pulmonic valve is not well visualized. Pulmonary Artery * Normal visualized portions of the main pulmonary artery. Aorta * Normally sized aortic root. Pericardium * There is no pericardial effusion present. Consult Discharge Plan - Plan Referrals: Parrish Galindo DO [Primary Care Provider] -
[2018-03-10] MEDS: Heparin 25,000 UNIT/500 ML D5W 25,000 UNIT/500 ML BAG IVC SCH (15:39)
--- NOTE | 2018-03-10 20:05 | Electrocardiograph Report ---
[address] [address] Test Date: 2018-03-09 Pat Name: Kristopher Noriega Department: 103 Room: 2A26 Gender: M School Teacher: ROHAN : 1950 Requested By: Gareth Sam Order Number: [id number] Reading MD: Viri Man Measurements Intervals [place] Rate: 57 P: VT: 0 QRS: 130 QRSD: 112 T: -16 QT: 470 QTc: 465 Interpretive Statements ATRIAL FIBRILLATION WITH SLOW VENTRICULAR RESPONSE POSSIBLE RIGHT VENTRICULAR HYPERTROPHY [SOME/ALL OF: PROMINENT R IN V1, LATE TRANSITION, RAD, OSIRIS, SSS] NONSPECIFIC ST & T-WAVE ABNORMALITY PROLONGED QT INTERVAL Electronically Signed On 03-10-2018 20:04:02 EDT by Viri Man
[2018-03-10] MEDS ORDERED: Insulin LISPRO 300 UNITS/3 ML VIAL SQ SCH (21:00)
[2018-03-11 02:31] LABS: BUN/Creatinine Ratio 18 (6-26); Blood Urea Nitrogen 26 mg/dL (8-23); Calcium 8.9 mg/dL (8.6-10.3); Carbon Dioxide 32 mEq/L (23-29); Chloride 91 mEq/L (98-107); Glucose 163 mg/dL (70-105); Osmolality,Calculated 286 (280-300); Potassium 3.9 mEq/L (3.5-5.1); Sodium 134 mEq/L (136-145); eGFR For Non-African Americans 50 (> 60)
[2018-03-11] MEDS: *HR* Morphine Sulfate SR (12 HR) 15 MG TABLET.ER PO SCH (06:08)
[2018-03-11] MEDS: Insulin LISPRO 300 UNITS/3 ML VIAL SQ SCH ×2 (09:16→12:50)
[2018-03-11] MEDS: predniSONE 5 MG TABLET PO SCH (10:08)
[2018-03-11] MEDS: Multivit/Ca/Min/Fe/FA 1 TAB TABLET PO SCH (10:08)
[2018-03-11] MEDS: Aspirin Enteric Coated 81 MG Tablet PO SCH (10:08)
[2018-03-11] MEDS: Furosemide 40 MG/4 ML VIAL IVP SCH (10:08)
[2018-03-11 11:55] VITALS: BP 121/63
--- NOTE | 2018-03-11 12:50 | Cardiology Progress Note ---
Date of Encounter: 03/11/18 Time of Encounter: 12:00 Assessment and Plan (1) Atrial fibrillation with slow ventricular response Current Visit: Yes Status: Acute Per Cardiology: Presented A-Fib slow ventricular response, HR 57 on admission EKG, new diagnosis. Was on Toprol XL 25mg daily at home, currently off. Telemetry shows average heart rate 51 the past 12 hours-- continue to hold beta sabina. TSH 0.335--management per primary team. Magnesium stable. ECHO: Impressions: Technically challenging due to body habitus. LVEF 60%. Indeterminate diastolic function. RV size is is foreshortened and function is not optimally evaluated. Bi-atrial enlargement. Mild-moderate aortic stenosis. PV 2.7m/s, MG 14 mmHg, DI 0.39, JANEE 1.2cm2 Moderate tricuspid regurgitation. Mild pulmonic regurgitation. Severe pulmonary hypertension by TR gradient. IVC is not well visualized. Left Ventricular Wall Motion: Rest Echo Findings The apex, apical anterior, mid anterior and basal anterior dunham were not visualized. All other wall segments showed normal motion. [id number] is 5 (Age, HTN, CAD, CHF, DM). High CVA risk. Currently on heparin gtt. Discussed Coumadin vs NOAC. Prefers NOAC. Given his fluctuating renal function, Eliquis 5mg BID ~$40+/month, patient agreeable and assistance card provided. We will discontinue IV heparin drip. (2) CHF (congestive heart failure) Current Visit: Yes Status: Chronic Per Cardiology: Known hx of diastolic and right sided CHF. Reports compliance with Na and fluid restriction. BNP only 225, CXR low grade CHF, small pleural effusion. Recently increased Bumex outpt to total of 10mg/day with improvement in symptoms, but reports he is still ~15 pounds heavier than baseline. On IV Bumex 2 mg twice a day. I&O + almost 2L, will add strict I&O and start 1.5 L fluid restriction. Clinically he appears improving. Cardiology will sign off, reconsult as needed , follow-up arranged Qualifiers: Heart failure type: diastolic Heart failure chronicity: acute on chronic Qualified Code(s): I50.33 - Acute on chronic diastolic (congestive) heart failure (3) CAD (coronary artery disease) Current Visit: No Status: Acute Per Cardiology: Hx CABG then PCI in 2014. Troponins negative. Continue ASA and Statin. No BB due to bradycardia. Chest pain-free. Qualifiers: Coronary Disease-Associated Artery/Lesion type: [place] artery [place] vs. transplanted heart: [place] heart Associated angina: without angina Qualified Code(s): I25.10 - Atherosclerotic heart disease of [place] coronary artery without angina pectoris Discussion w patient/family: The assessment and plan as outlined above was discussed with the patient who expressed understanding and agreement. All questions were answered. Thank you for involving us in the care of your patient. Please call with any questions. Subjective Principal diagnosis: A-Fib, CHF Interval history: Patient reports overall short of breath has improved. Reports continues to experience some mild abdominal distention and scrotal swelling. Objective Vital Signs, Last 4 Hours Temp Pulse Resp BP Pulse Ox 03/11/18 11:54 97.6 F 52 18 121/63 100 General: Conversant, No Apparent Distress HEENT: Atraumatic, Normocephaly, Mucus Membranes Moist Neck: No JVD, Normal carotid pulses Cardiac: Normal S1 and S2, No Murmur, Other (Irregularly irregular) Lungs: Normal Breath Sounds, No Wheeze, Rales, Rhonchi Neuro: Alert and responsive, No focal deficits noted Abdomen: Soft, Non-Tender Skin: No rashes noted on visualized skin, Other (mild scrotal swelling noted) Musculoskeletal: No Chest Wall Tenderness Extremities: No Clubbing, No Cyanosis, Normal Pulses, Other (trace pitting R AKA edema and LLE) Results 03/10/18 01:42 03/11/18 01:53 Lab Results Laboratory Tests 06/26/17 03/09/18 03/11/18 08:35 11:35 01:53 Creatinine 1.46 H 1.37 H 1.42 H Est GFR (Non-Af Amer) 48 L 50 L Laboratory Tests 03/09/18 03/09/18 03/11/18 11:35 11:35 01:53 Magnesium 2.4 Total Bilirubin 1.2 H Direct Bilirubin 0.3 H AST 48 H ALT 27 Alkaline Phosphatase 136 H B-Natriuretic Peptide 255 H TSH 0.335 L Free T4 0.94 ITS Impressions Chest X-Ray 03/09/18 11:05 IMPRESSION: Low-grade CHF with small left pleural effusion D/ / Marcin Elkins MD / Marcin Elkins MD Interpreting Provider: Marcin Elkins MD Echocardiogram 03/10/18 13:23 Impressions: Technically challenging due to body habitus. LVEF 60%. Indeterminate diastolic function. RV size is is foreshortened and function is not optimally evaluated. Bi-atrial enlargement. Mild-moderate aortic stenosis. PV 2.7m/s, MG 14 mmHg, DI 0.39, JANEE 1.2cm2 Moderate tricuspid regurgitation. Mild pulmonic regurgitation. Severe pulmonary hypertension by TR gradient. IVC is not well visualized. Left Ventricular Wall Motion: Rest Echo Findings The apex, apical anterior, mid anterior and basal anterior dunham were not visualized. All other wall segments showed normal motion. Findings: Study Quality * Technically challenging due to body habitus. ECG Findings * Atrial fibrillation. Left Ventricle * LVEF 60%. * Indeterminate diastolic function. * Normal LV chamber size and wall thickness. Right Ventricle * RV size is is foreshortened and function is not optimally evaluated. Left Atrium * Moderately dilated left atrium. Right Atrium * Moderately dilated right atrium. Aortic Valve * No aortic regurgitation. * Moderately thickened/calcified aortic valve leaflets. * Mild-moderate aortic stenosis. PV 2.7m/s, MG 14 mmHg, DI 0.39, JANEE 1.2cm2 Mitral Valve * Normal mitral valve structure. * No mitral regurgitation. * No mitral stenosis. Tricuspid Valve * Tricuspid valve not well visualized. * Moderate-severe tricuspid regurgitation. Pulmonic Valve * Pulmonic valve not well visualized. * Mild pulmonic regurgitation. * Pulmonic valve is not well visualized. Pulmonary Artery * Normal visualized portions of the main pulmonary artery. Aorta * Normally sized aortic root. Pericardium * There is no pericardial effusion present. Intake & Output 03/08/18 03/09/18 03/10/18 03/11/18 23:59 23:59 23:59 23:59 Intake Total 499 / 499 1681 / 1681 1582 / 1582 Output Total 600 / 600 1200 / 1200 Balance 499 / 499 1081 / 1081 382 / 382 Weight 106.4 kg 107.2 kg Active Medications Aspirin (Aspirin Ec) 81 mg PO DAILY [place] Stop: 09/09/18 09:01 Last Admin: 03/11/18 10:08 Dose: 81 mg Atorvastatin Calcium (Lipitor) 10 mg PO HS [place] Stop: 09/08/18 21:01 Last Admin: 03/10/18 20:46 Dose: 10 mg Bumetanide (Bumex) 2 mg IVP BIDDIURETIC [facility] Stop: 09/10/18 17:01 Dextrose/Water (Dextrose 50% (Syg)) 25 ml IVP AD PRN PRN Reason: Hypoglycemia Stop: 09/08/18 13:38 Glucagon (Glucagen) 1 mg IM ONCE PRN PRN Reason: Hypoglycemia Stop: 09/08/18 13:38 Glucose (Gluctose) 15 gm PO ONCE PRN PRN Reason: Hypoglycemia Stop: 09/08/18 13:38 Glucose (Gluctose) 30 gm PO ONCE PRN PRN Reason: Hypoglycemia Stop: 09/08/18 13:38 Heparin Sodium (Porcine) (Heparin) 4,000 unit IVP Q6HR PRN PRN Reason: SEE COMMENTS Stop: 09/08/18 12:42 Heparin Sodium (Porcine) (Heparin) 2,000 unit IVP Q6H PRN PRN Reason: SEE COMMENTS Stop: 09/08/18 12:42 Heparin Sodium/Dextrose (Heparin 25,000 Unit/500 Ml D5w) 25,000 unit in 500 mls @ 20.08 mls/hr IVC .Q24H [place]; 9.3 UNIT/KG/HR PRN Reason: Protocol Stop: 09/08/18 12:46 Last Titration: 03/11/18 02:41 Dose: 9.63 unit/kg/hr, 20.8 mls/hr Dextrose (Dextrose 5%) 1,000 mls @ 100 mls/hr IVC .Q10H PRN PRN Reason: HYPOGLYCEMIA Stop: 09/08/18 13:38 Insulin Human Lispro (Humalog) 0 units SQ HS [place] PRN Reason: Protocol Stop: 09/09/18 21:01 Last Admin: 03/10/18 20:43 Dose: Not Given Insulin Human Lispro (Humalog) 0 units SQ TIDAC [facility] PRN Reason: Protocol Stop: 09/09/18 11:31 Last Admin: 03/11/18 09:16 Dose: 8 units Levothyroxine Sodium (Synthroid) 88 mcg PO QAM@0630 [facility] Stop: 09/09/18 06:31 Last Admin: 03/11/18 06:08 Dose: 88 mcg Morphine Sulfate (Ms Contin) 15 mg PO Q12HR [facility] Stop: 09/08/18 18:01 Last Admin: 03/11/18 06:08 Dose: 15 mg Multivitamins/Calcium (Thera M Plus) 1 tab PO DAILY [place] Stop: 09/09/18 09:01 Last Admin: 03/11/18 10:08 Dose: 1 tab Naloxone HCl (Narcan) 0.4 mg IVP Q2MIN PRN PRN Reason: SEE COMMENTS Stop: 09/08/18 13:23 Nitroglycerin (Nitroglycerin) 0.4 mg SL Q5MIN PRN PRN Reason: Chest Pain Stop: 09/08/18 15:26 Polyethylene Glycol (Miralax) 17 gm PO DAILY [facility] Stop: 09/09/18 16:31 Last Admin: 03/11/18 10:07 Dose: 17 gm Potassium Chloride (Potassium Chloride) 40 meq PO BIDWM [facility] Stop: 09/09/18 17:01 Last Admin: 03/11/18 10:07 Dose: 40 meq Prednisone (Prednisone) 5 mg PO BID [facility] Stop: 09/08/18 21:01 Last Admin: 03/11/18 10:08 Dose: 5 mg - Imaging and Cardiology Echo: report reviewed - EKG Interpretation EKG results cardiology: other (Telemetry shows average heart rate the past 12 hours 51, A. fib with slow ventricular response, longest pause 2.7 seconds, slowest HR 41 during nocturnal hrs) - VTE Documentation of Mechanical Device: Graduated compression elastic hosiery Consult Discharge Plan - Plan Referrals: Parrish Galindo DO [Primary Care Provider] -
[2018-03-11] MEDS ORDERED: Apixaban 5 MG TABLET PO SCH (13:00)
--- NOTE | 2018-03-11 14:03 | Discharge Summary ---
- NOTES TO OUTPATIENT PROVIDER Notes to Outpatient Provider: Patient was hospitalized here with acute on chronic diastolic heart failure and atrial fibrillation with slow ventricular response. He was evaluated by cardiology and his Toprol was held. He underwent 2-D echocardiogram which showed EF of 60% with indeterminate diastolic function. He did receive intravenous diuretics with improvement in his lower extremity edema. He is now been stable to be discharged home. He will be on eliquis 5 mg twice daily for anticoagulation due to his atrial fibrillation. With cardiology as outpatient for further management. Toprol remains discontinued. Orders not resulted at time of discharge: Pending orders 03/12/18 02:00 Heparin anti-factor XA UFH [COAG] Timed Date of Encounter: 03/11/18 Time of Encounter: 14:00 - Discharge Diagnosis (1) CHF (congestive heart failure) Priority: Primary Status: Chronic Qualifiers: Heart failure type: diastolic Heart failure chronicity: acute on chronic Qualified Code(s): I50.33 - Acute on chronic diastolic (congestive) heart failure (2) Atrial fibrillation with slow ventricular response Priority: Secondary Status: Acute (3) CKD (chronic kidney disease) stage 3, GFR 30-59 ml/min Priority: Secondary Status: Acute (4) DVT prophylaxis Priority: Secondary Status: Acute (5) Adrenal insufficiency Priority: Secondary Status: Acute Hospital course: Mr. Noriega is a 68 year old male Patient with history of congestive heart failure, coronary artery disease, peripheral artery disease, hypothyroidism, diabetes, atrial fibrillation was hospitalized here with acute on chronic diastolic heart failure and atrial fibrillation with slow ventricular response. He was evaluated by cardiology and his Toprol was held. He underwent 2-D echocardiogram which showed EF of 60% with indeterminate diastolic function. He did receive intravenous diuretics with improvement in his lower extremity edema. He is now been stable to be discharged home. He will be on eliquis 5 mg twice daily for anticoagulation due to his atrial fibrillation. With cardiology as outpatient for further management. Toprol remains discontinued. Discharge discussed with: patient - Time Spent with Patient Total time spent providing and/or coordinating discharge services: Less than 30 minutes (25 min) - Discharge Medications Prescriptions: Apixaban [Eliquis] 5 mg PO BID #60 tablet Home Medications: Bromocriptine Mesylate [Parlodel] 2.5 mg PO BID 02/18/16 [History] Levothyroxine [Synthroid] 88 mcg PO QAM 02/18/16 [History] Morphine Sulfate SR (12 HR) [MS Contin] 15 mg PO Q12HR tablet.er 02/29/16 [Rx] Aspirin Enteric Coated [Aspirin EC] 81 mg PO DAILY 03/09/18 [History] Atorvastatin [Lipitor] 10 mg PO HS 03/09/18 [History] Bumetanide [Bumex] 2 mg PO 2100 03/09/18 [History] Bumetanide [Bumex] 4 mg PO 0900,1500 03/09/18 [History] Insulin ASPART [NovoLOG] 0 - 12 unit SQ TIDAC 03/09/18 [History] Multivitamin [One Daily Essential] 1 tab PO DAILY 03/09/18 [History] Nitroglycerin [Nitrostat] 0.4 mg SL Q5MIN PRN 03/09/18 [History] Polyethylene Glycol 3350 [MiraLAX] 17 gm PO DAILY 03/09/18 [History] Potassium Chloride [K-Tab ER] 60 meq PO QID 03/09/18 [History] PredniSONE [Adry] 5 mg PO BID 03/09/18 [History] Apixaban [Eliquis] 5 mg PO BID #60 tablet 03/11/18 [Rx] Allergies/Adverse Reactions: 3 Allergy/AdvReac Type Severity Reaction Status Date / Time Penicillins Allergy Hives Verified 03/09/18 13:46 Sulfa (Sulfonamide Allergy Nausea Verified 03/09/18 13:46 Antibiotics) carvedilol [From Coreg] AdvReac Hypotension Verified 03/09/18 13:46 lisinopril AdvReac Hypotension Verified 03/09/18 13:46 Date of admission: 03/09/18 13:12 Primary care physician: Parrish Galindo DO Consults: 03/09/18 12:47 Consult to Cardiology [CONS] Stat Comment: Consulting Provider: Cardiology Letty Reason for Consult: Afib with Slow vent response Time Notified: 12:48 Call Completed: Yes Discharging clinician: Alexis Araiza Anticipated date of discharge: 03/11/18 - Constitutional Vitals: Temp Pulse Resp BP Pulse Ox 97.6 F 52 18 121/63 100 03/11/18 11:54 03/11/18 11:54 03/11/18 11:54 03/11/18 11:54 03/11/18 11:54 General appearance: Present: cooperative, A&O X 3, pleasant, answers questions appropriately - Neck Neck exam general surgery: Present: supple, trachea midline. Absent: lymphadenopathy - Respiratory Respiratory exam: Present: CTAB. Absent: accessory muscle use, rales, rhonchi, wheezes - Cardiovascular Cardiovascular exam: Present: irregular rhythm, +S1, +S2. Absent: diastolic murmur, gallop, rubs, systolic murmur - GI/Abdominal GI/Abdominal exam: Present: normal bowel sounds, soft, no peritoneal signs. Absent: distended, tenderness - Extremities Exam Extremities exam: Present: warm, radial pulses palpable and symmetrical. Absent : calf tenderness, cyanotic, pedal edema - Neurological Exam Neurological exam: Present: CN II-XII intact, oriented X3, no focal deficits. Absent: facial droop, speech deficit - Patient Status Disposition: Home, Self-Care Condition: Good Functional capacity at discharge: independent ambulation Overall status at discharge: patient is progressing back to baseline - Discharge Instructions Instructions: Heart Failure (DC), Atrial Fibrillation (DC) Follow Up With: Jose M Neri CNP [Advanced Practice Nurse] - (In 1 week Cardio office will call patient for an appt. per Jose M Marino) Parrish Galindo DO [Primary Care Provider] - (In one to 2 weeks) - Diet and Activity Activity: increase activity as tolerated Diet: advance to your usual diet, low fat, low cholesterol, low salt diet, other (Fluid restriction to 1.5 L per day) - VTE Documentation of Mechanical Device: Graduated compression elastic hosiery
[2018-03-11] MEDS ORDERED: Bumetanide 1 MG/4 ML VIAL IVP SCH (17:00)
== END 2018-03-11 16:19 | disposition home or self-care (01) ==
LOC: EMEROO 10:58 → 2ANU 10:58 → SUATTDRO 13:12 → 2ANU 14:35
PROVIDERS: ADMIT Internal Medicine; ATTEND Internal Medicine

== ENCOUNTER 2018-05-31 14:07 | Inpatient (IN) ==
--- NOTE | 2018-05-31 15:22 | Emergency Department Note ---
Disposition Clinical Impression: Chronic renal insufficiency, Dyspnea on exertion, Peripheral edema, Congestive heart failure Disposition: Admitted As Inpatient Condition: Good Referrals: Parrish Galindo DO [Primary Care Provider] - Forms: ED Satisfaction Letter Time of Disposition: 16:37 General Adult HPI - General Chief complaint: ED Shortness of Breath/Dyspnea Stated complaint: CHF, AFIB Time Seen by Provider: 05/31/18 14:39 Source: patient Mode of arrival: ambulatory Limitations: no limitations Nursing Notes Reviewed: Yes Vital Signs Reviewed: Yes - History of Present Illness HPI Narrative: 68-year-old male presents emergency room for multiple complaints. States he is complaining of swelling and shortness of breath. He notices his left lower extremity as well as his abdomen feels more swollen. It is not affecting his breathing [place] more short of breath. Onset is been 3-4 months. Is also feeling dizzy at times. He does have a history of congestive heart failure. He does take a water pill. He states he takes Bumex 3 times a day. He is gained around 20 pounds over the past couple months. He denies fevers. States he has more short of breath with activity. He denies any actual chest pain to me. Pain Scale: 5 - Related Data Home Medications Medication Instructions Recorded Confirmed Bromocriptine Mesylate [Parlodel] 2.5 mg PO BID 02/18/16 03/09/18 Levothyroxine [Synthroid] 88 mcg PO QAM 02/18/16 03/09/18 Aspirin Enteric Coated [Aspirin EC] 81 mg PO DAILY 03/09/18 03/09/18 Atorvastatin [Lipitor] 10 mg PO HS 03/09/18 03/09/18 Bumetanide [Bumex] 2 mg PO 2100 03/09/18 03/09/18 Bumetanide [Bumex] 4 mg PO 0900,1500 03/09/18 03/09/18 Insulin ASPART [NovoLOG] 0 - 12 unit SQ TIDAC 03/09/18 03/09/18 Multivitamin [One Daily Essential] 1 tab PO DAILY 03/09/18 03/09/18 Nitroglycerin [Nitrostat] 0.4 mg SL Q5MIN PRN 03/09/18 03/09/18 Polyethylene Glycol 3350 [MiraLAX] 17 gm PO DAILY 03/09/18 03/09/18 Potassium Chloride [K-Tab ER] 60 meq PO QID 03/09/18 03/09/18 PredniSONE [Adry] 5 mg PO BID 03/09/18 03/09/18 Previous Rx's Medication Instructions Recorded Morphine Sulfate SR (12 HR) [MS 15 mg PO Q12HR tablet.er 02/29/16 Contin] Apixaban [Eliquis] 5 mg PO BID #60 tablet 03/11/18 Allergies Allergy/AdvReac Type Severity Reaction Status Date / Time Penicillins Allergy Hives Verified 03/09/18 13:46 Sulfa (Sulfonamide Allergy Nausea Verified 03/09/18 13:46 Antibiotics) carvedilol [From Coreg] AdvReac Hypotension Verified 03/09/18 13:46 lisinopril AdvReac Hypotension Verified 03/09/18 13:46 All systems ED: reviewed and negative except as stated. Constitutional: Reports: weakness Eyes: Reports: as per HPI ENT ED: Reports: as per HPI Cardiovascular: Reports: palpitations, dyspnea on exertion, orthopnea. Denies: chest pain Respiratory: Reports: as per HPI, dyspnea Gastrointestinal: Reports: as per HPI, abdominal pain Genitourinary: Reports: as per HPI Musculoskeletal: Reports: as per HPI Integumentary: Reports: as per HPI Neurological: Reports: as per HPI Psychiatric: Reports: as per HPI Endocrine: Reports: as per HPI Hematological/Lymphatic: Reports: as per HPI Past Medical History - Past Medical History Medical history: Reports: arthritis, atrial fibrillation, CHF, diabetes, GERD, hyperlipidemia, hypertension, myocardial infarction, peripheral artery disease, thyroid disease, syncope Surgical history: Reports: angioplasty/stent, appendectomy, cholecystectomy, coronary bypass (CABG) Psychiatric history: Reports: no psych history - Social History Smoking Status: Never smoker Smokeless Tobacco Status: No Alcohol use: Reports: occasionally Drug use: Reports: none Physical Exam - General General appearance: alert, in no apparent distress - Head Head exam: atraumatic, normocephalic - ENT ENT exam: normal exam - Neck Neck exam: Present: normal inspection - Chest Chest inspection: Present: normal inspection, symmetric chest wall rise - Respiratory Respiratory exam: Present: normal lung sounds bilaterally, respiratory distress. Absent: wheezes, stridor - Cardiovascular Cardiovascular exam: Present: regular rate, normal rhythm - Abdominal Exam Abdominal exam: Present: soft, tenderness (Patient has some abdominal distention more consistent with just generalized swelling.). Absent: guarding, rebound, rigidity - Back Exam Back exam: Present: normal inspection - Neurological Exam Neurological exam: Present: alert, oriented X3 - Psychiatric Psychiatric exam: Present: normal affect - Skin Skin exam: Present: warm, dry, intact Course Vital Signs Temperature 98.7 F 05/31/18 14:16 Pulse Rate 78 05/31/18 14:16 Respiratory Rate 15 05/31/18 14:16 Blood Pressure 133/85 05/31/18 14:16 O2 Sat by Pulse Oximetry 94 05/31/18 14:16 Temperature 98.7 F 05/31/18 14:16 Pulse Rate 78 05/31/18 14:16 Respiratory Rate 15 05/31/18 14:16 Blood Pressure 133/85 05/31/18 14:16 O2 Sat by Pulse Oximetry 94 05/31/18 14:16 Oxygen Delivery Oxygen Delivery Room Air Medical Decision Making - MDM Narrative Medical decision making narrative: Due to the patient's weight gain and increasing dyspnea on as well as his abdominal distention we will go ahead and admit the patient workup for CHF. Chest x-ray confirms some pleural effusions and some signs of congestive heart failure on the chest x-ray. He has been compliant with his diuretic medications and his Bumex. Spoke to hospitalist. We will admit. - Medical Records Medical records reviewed: Yes I reviewed the patient's medical records. - Lab Data Lab results reviewed: Yes I reviewed the patient's lab results. Result diagrams: 05/31/18 15:38 05/31/18 15:38 Lab Results 05/31/18 05/31/18 05/31/18 Range/Units 15:38 15:38 15:38 WBC 9.1 (4.3-11.1) K/mcL RBC 4.83 (4.19-5.50) M/mcL Hgb 11.4 L (12.9-16.9) g/dL Hct 36.9 L (37.5-50.1) % MCV 76.4 L (83.0-100.0) fL MCH 23.6 L (28.0-33.3) pg MCHC 30.9 L (31.6-35.5) g/dL RDW 16.9 H (11.5-14.5) % Plt Count 232 (140-400) K/mcL MPV 10.4 (9.4-12.4) fL Immature Gran % 0.3 (0-4) % Seg Neutrophils % 83.0 % Lymphocytes % 7.3 % Monocytes % 7.8 % Eosinophils % 0.9 % Basophils % 0.7 % Neutrophils # 7.5 (1.6-8.9) K/mcL Lymphocytes # 0.7 (0.6-4.6) K/mcL Monocytes # 0.7 (0.0-1.3) K/mcL Eosinophils # 0.1 (0.0-0.6) K/mcL Basophils # 0.1 (0.0-0.2) K/mcL Sodium 133 L (136-145) mEq/L Potassium 3.8 (3.5-5.1) mEq/L Chloride 91 L (98-107) mEq/L Carbon Dioxide 34 H (23-29) mEq/L BUN 27 H (8-23) mg/dL Creatinine 1.52 H (0.70-1.30) mg/dL Est GFR ( Amer) 56 L (> 60) Est GFR (Non-Af Amer) 46 L (> 60) BUN/Creatinine Ratio 18 (6-26) Glucose 152 H (70-105) mg/dL Calculated Osmolality 284 (280-300) Calcium 8.7 (8.6-10.3) mg/dL Total Bilirubin 0.8 (0.3-1.0) mg/dL Direct Bilirubin 0.3 H (0.0-0.2) mg/dL Indirect Bilirubin 0.5 (0.0-1.2) mg/dL AST 28 (13-39) Units/L ALT 11 (7-52) Units/L Alkaline Phosphatase 97 (34-104) Units/L Troponin I 0.03 (< 0.04) ng/mL B-Natriuretic Peptide 221 H (Less than 100) pg/mL Serum Total Protein 6.3 L (6.4-8.9) g/dL Albumin 3.5 (3.5-5.7) g/dL Globulin 2.8 (2.4-3.5) g/dL Albumin/Globulin Ratio 1.3 (1.1-2.2) - Radiology Data Radiology results reviewed: Yes I reviewed the patient's radiology results. - EKG Data EKG #1 EKG attestation: Yes I reviewed and interpreted this EKG. EKG results narrative: EKG shows a rate of 81. Atrial fibrillation. QRS 121. QTC 471. No significant change from previous EKG in February 2018. Patient has a right bundle- branch block. Critical Care Time Critical Care Time: No
[2018-05-31 15:54] LABS: Basophils # 0.1 K/mcL (0.0-0.2); Basophils % 0.7 %; Eosinophils # 0.1 K/mcL (0.0-0.6); Eosinophils % 0.9 %; Hematocrit 36.9 % (37.5-50.1); Hemoglobin 11.4 g/dL (12.9-16.9); Immature Granulocytes % 0.3 % (0-4); Lymphocytes # 0.7 K/mcL (0.6-4.6); Lymphocytes % 7.3 %; Mean Corpuscular HGB Conc 30.9 g/dL (31.6-35.5); Mean Corpuscular Hemoglobin 23.6 pg (28.0-33.3); Mean Corpuscular Volume 76.4 fL (83.0-100.0); Mean Platelet Volume 10.4 fL (9.4-12.4); Monocytes # 0.7 K/mcL (0.0-1.3); Monocytes % 7.8 %; Neutrophils # 7.5 K/mcL (1.6-8.9); Platelet Count 232 K/mcL (140-400); Red Blood Count 4.83 M/mcL (4.19-5.50); Red Cell Distribution Width 16.9 % (11.5-14.5)
[2018-05-31 16:11] LABS: Troponin I 0.03 ng/mL (< 0.04)
[2018-05-31 16:12] LABS: Albumin 3.5 g/dL (3.5-5.7); Albumin/Globulin Ratio 1.3 (1.1-2.2); Bilirubin,Direct 0.3 mg/dL (0.0-0.2); Bilirubin,Indirect 0.5 mg/dL (0.0-1.2); Bilirubin,Total 0.8 mg/dL (0.3-1.0); Calcium 8.7 mg/dL (8.6-10.3); Globulin 2.8 g/dL (2.4-3.5); Potassium 3.8 mEq/L (3.5-5.1); Total Protein 6.3 g/dL (6.4-8.9)
[2018-05-31] MEDS ORDERED: Naloxone 0.4 MG/ML INJ IVP PRN (17:51)
--- NOTE | 2018-05-31 18:02 | Internal Med History&Physical ---
Date of Encounter: 05/31/18 Time of Encounter: 17:00 Internal Medicine - H&P: HPI Chief complaint: Shortness of breath/swelling Admitted From: Home History of present illness: Patient is a 68-year-old male past medical history significant for diastolic and right-sided heart failure, coronary arterial disease (CABG/stents), pulmonary hypertension, diabetes, anemia and recent acute kidney injury who presents to the ER on 05/31/18 due to worsening edema and shortness of breath. Patient reports that after being discharged on 03/11/18 for the same, his symptoms have gradually worsened. Patient reports of seeing cardiology as an outpatient but still with no improvement in lower extremity edema and worsening shortness of breath. Patient decided to come into the ER for further evaluation. In the ER, patient was found to have a BNP of 221 and mild vascular congestion on chest x-ray. Patient appears quiet overloaded on exam with 1+ pitting edema up to knee. Patient will be admitted to medical surgical floor for acute on chronic diastolic and right-sided heart failure. Past Med Surg Social Fam HX - Past Medical History Medical history: arthritis, atrial fibrillation, CHF, diabetes, GERD, hyperlipidemia, hypertension, myocardial infarction, peripheral artery disease, thyroid disease, syncope Psychiatric history: no psych history - Past Surgical History Surgical History: angioplasty/stent, appendectomy, cholecystectomy, coronary bypass (CABG) Additional surgical history: tonsilectomy, pituitary tumor removed, exploratory for possible cyst in stomach ( scar tissue ), triple bypass, R BKA, heart stent - Social History Smoking Status: Never smoker Smokeless Tobacco Status: No Alcohol use: occasionally Drug use: none - Family History Father Adopted: No Family Member Ethnicity: Non- Living Status: Hx Family Cardiac Disorders: No Hx Family Respiratory Disorders: No Hx Family Cancer: Yes Hx Family GI Disorders: No Hx Family Endocrine Disorder: No Hx Family Neuromuscular Disorders: No Hx Family Neurologic Disorders: No Hx Family HEENT Disorders: No Hx Family Autoimmune Disorders: No Internal Medicine - H&P: Meds Bromocriptine Mesylate [Parlodel] 2.5 mg PO BID 02/18/16 [History] Levothyroxine [Synthroid] 88 mcg PO QAM 02/18/16 [History] Morphine Sulfate SR (12 HR) [MS Contin] 15 mg PO Q12HR tablet.er 02/29/16 [Rx] Aspirin Enteric Coated [Aspirin EC] 81 mg PO DAILY 03/09/18 [History] Atorvastatin [Lipitor] 10 mg PO HS 03/09/18 [History] Bumetanide [Bumex] 2 mg PO 2100 03/09/18 [History] Bumetanide [Bumex] 4 mg PO 0900,1500 03/09/18 [History] Insulin ASPART [NovoLOG] 0 - 12 unit SQ TIDAC 03/09/18 [History] Multivitamin [One Daily Essential] 1 tab PO DAILY 03/09/18 [History] Nitroglycerin [Nitrostat] 0.4 mg SL Q5MIN PRN 03/09/18 [History] Polyethylene Glycol 3350 [MiraLAX] 17 gm PO DAILY 03/09/18 [History] Potassium Chloride [K-Tab ER] 60 meq PO QID 03/09/18 [History] PredniSONE [Adry] 5 mg PO BID 03/09/18 [History] Apixaban [Eliquis] 5 mg PO BID #60 tablet 03/11/18 [Rx] 3 Allergy/AdvReac Type Severity Reaction Status Date / Time Penicillins Allergy Hives Verified 03/09/18 13:46 Sulfa (Sulfonamide Allergy Nausea Verified 03/09/18 13:46 Antibiotics) carvedilol [From Coreg] AdvReac Hypotension Verified 03/09/18 13:46 lisinopril AdvReac Hypotension Verified 03/09/18 13:46 All Systems PM: A 10-system review of systems was performed and is negative for pertinent findings except as documented above in the HPI. - Constitutional Vitals: Temp Pulse Resp BP Pulse Ox 98.7 F 78 14 125/91 94 05/31/18 14:16 05/31/18 14:16 05/31/18 17:39 05/31/18 17:39 05/31/18 14:16 Exam: Gen.: Nonacute distress, alert and oriented 3 ENT: Mucosal membranes moist Respiratory: Lungs are clear to auscultation bilaterally without any wheezing rhonchi or rales Cardiovascular: Normal S1 and S2 regular rate rhythm no murmurs rubs or gallops Abdomen: Soft, nontender and nondistended with positive bowel sounds Extremities: Lower extremity 1+ edema up to knee Skin: Normal color Neuro: No neurological deficits Psych: Normal mood Internal Med - H&P Results - Labs CBC & Chem 7: 10/15/18 15:38 05/31/18 15:38 - Assessment and plan (1) Acute on chronic diastolic (congestive) heart failure Current Visit: Yes Status: Acute Assessment and plan: Patient with history of diastolic and right-sided heart failure with no improvement in shortness of breath and lower extremity edema after discharge on 03/11/10 for the same. Patient reports of being on by mouth Bumex 12 mg daily BNP of 221 and mild vascular congestion on chest x-ray. Patient with volume overloaded on exam. Will start IV Bumex 2 mg twice daily. Strict I's and O's and fluid restriction ordered in addition to daily weights Cardiology consulted and appreciate recommendations. (2) CAD (coronary artery disease) Current Visit: No Status: Acute Assessment and plan: Patient with past medical history significant for coronary arterial disease ( CABG/stents) Continue aspirin and statin Qualifiers: Coronary Disease-Associated Artery/Lesion type: [place] artery [place] vs. transplanted heart: [place] heart Associated angina: without angina Qualified Code(s): I25.10 - Atherosclerotic heart disease of [place] coronary artery without angina pectoris (3) Pulmonary hypertension, moderate to severe Current Visit: Yes Status: Acute Assessment and plan: Echocardiogram on 02/2018 revealed severe pulmonary hypertension (4) CKD (chronic kidney disease) stage 3, GFR 30-59 ml/min Current Visit: No Status: Acute Assessment and plan: Patient with a creatinine on admission of 1.52 Continue to monitor (5) Atrial fibrillation Current Visit: Yes Status: Acute Assessment and plan: Controlled; continue oral anticoagulation with Eliquis Qualifiers: Atrial fibrillation type: chronic Qualified Code(s): I48.2 - Chronic atrial fibrillation (6) Anemia Current Visit: Yes Status: Acute Assessment and plan: Hemoglobin at baseline; continue to monitor Qualifiers: Chronic kidney disease stage: stage 3 (moderate) Qualified Code(s): N18.3 - Chronic kidney disease, stage 3 (moderate); D63.1 - Anemia in chronic kidney disease (7) Adrenal insufficiency Current Visit: No Status: Acute Assessment and plan: Continue home dose of prednisone 5 mg twice daily (8) DVT prophylaxis Current Visit: No Status: Acute Assessment and plan: Continue patient's home dose of Eliquis - Time Spent With Patient Total time spent is greater than 50% in coordination of care (as documented) at patient's floor/unit and/or counseling patient:
[2018-05-31] MEDS: Bumetanide 1 MG/4 ML VIAL IVP SCH (18:17)
[2018-05-31] MEDS: Gabapentin 400 MG CAPSULE PO SCH (21:03)
[2018-05-31] MEDS ORDERED: Acetaminophen 325 MG TABLET PO PRN (22:39)
[2018-05-31] MEDS ORDERED: traMADol 50 MG TABLET PO ONE (22:45)
[2018-06-01 05:12] LABS: Hematocrit 35.8 % (37.5-50.1); Hemoglobin 10.9 g/dL (12.9-16.9); Mean Corpuscular HGB Conc 30.4 g/dL (31.6-35.5); Mean Corpuscular Hemoglobin 23.3 pg (28.0-33.3); Mean Corpuscular Volume 76.5 fL (83.0-100.0); Mean Platelet Volume 10.2 fL (9.4-12.4); Platelet Count 211 K/mcL (140-400); Red Blood Count 4.68 M/mcL (4.19-5.50); Red Cell Distribution Width 16.7 % (11.5-14.5)
[2018-06-01 05:13] LABS: Basophils # 0.1 K/mcL (0.0-0.2); Basophils % 1.2 %; Eosinophils # 0.2 K/mcL (0.0-0.6); Eosinophils % 2.6 %; Immature Granulocytes % 0.2 % (0-4); Lymphocytes % 12.4 %; Monocytes % 11.6 %
[2018-06-01 05:26] LABS: Calcium 8.4 mg/dL (8.6-10.3); Potassium 3.4 mEq/L (3.5-5.1)
[2018-06-01] MEDS ORDERED: Potassium Chloride Elixir 20 MEQ/15 ML UDC PO ONE (05:48)
--- NOTE | 2018-06-01 06:50 | Electrocardiograph Report ---
[facility] Test Date: 2018-05-31 Pat Name: Kristopher Noriega Department: EXAMC3 Room: 3B54 Gender: M Prospecting Observer: : 1950 Requested By: Margarito Boothe Order Number: [id number] Reading MD: Ricardo Hall Measurements Intervals [place] Rate: 81 P: [place]: QRS: 128 QRSD: 121 T: -32 QT: 405 QTc: 471 Interpretive Statements Atrial fibrillation Right bundle branch block Electronically Signed On 06-01-2018 6:48:45 EDT by Ricardo Hall
[2018-06-01] MEDS: Bumetanide 1 MG/4 ML VIAL IVP SCH ×2 (07:57→17:41)
[2018-06-01] MEDS: Gabapentin 400 MG CAPSULE PO SCH ×3 (07:58→20:34)
--- NOTE | 2018-06-01 08:00 | Cardiology Consult Note ---
<Jose M Neri - Last Filed: 06/01/18 11:03> Date of Encounter: 06/01/18 Time of Encounter: 08:00 Assessment and Plan (1) Acute on chronic diastolic (congestive) heart failure Current Visit: Yes Status: Acute Per Cardiology: BNP 200's. History of chronic diastolic CHF. On Bumex 4 mg by mouth every 8 hours at home. Baseline weight is high 230 to low 240 pound range-- current weight 255.6 pounds. Currently on Bumex 2 mg IV twice a day. Net I&O +30ml. Will initiate strict I&O, daily weights, 1.5 L fluid restriction. Currently wearing left leg KALEB hose. Discussed with Dre, will increase IV Bumex to 3 mg by mouth twice a day and add metolazone 2.5 mg by mouth daily. Will resume potassium (on at home). (2) Pulmonary hypertension, moderate to severe Current Visit: Yes Status: Chronic Per Cardiology: Severe PHTN on echo 02/2018 by TR gradient. Patient now agreeable to outpatient referral to [facility] advanced HF clinic-- will coordinate as outpatient. Discussed with Dr. Erickson. (3) Atrial fibrillation Current Visit: Yes Status: Chronic Per Cardiology: Recent diagnosis of atrial fibrillation. Had pending outpatient Holter to evaluate symptoms of dizziness to assess for A. fib burden with possible EP referral. Telemetry reviewed with average heart rate the past 12 hours 63, remains A. fib in the 50s to 60s. Can consider outpatient EP evaluation. Regarding long-term anticoagulation, remains anticoagulated with Eliquis 5mg PO BID. H&H stable, denies any active bleeding or blood loss. Continue to monitor. Qualifiers: Atrial fibrillation type: unspecified Qualified Code(s): I48.91 - Unspecified atrial fibrillation (4) CAD (coronary artery disease) Current Visit: No Status: Chronic Per Cardiology: History of CAD with CABG x 3 in 2008. Abnormal stress test 2014 with left heart catheterization status post drug-eluting stent to diagonal 1 lesion with patent 3 of 3 bypass grafts. Now back on aspirin, statin, beta sabina. Chest pain-free, troponin negative 1. Qualifiers: Coronary Disease-Associated Artery/Lesion type: [place] artery [place] vs. transplanted heart: [place] heart Associated angina: without angina Qualified Code(s): I25.10 - Atherosclerotic heart disease of [place] coronary artery without angina pectoris (5) CKD (chronic kidney disease) stage 3, GFR 30-59 ml/min Current Visit: No Status: Chronic Per Cardiology: Kidney function remains about baseline. Continue to monitor with IV diuresis. Discussion w patient/family: The assessment and plan as outlined above was discussed with the patient who expressed understanding and agreement. All questions were answered. Thank you for involving us in the care of your patient. Please call with any questions. History of Present Illness Consult date: 06/01/18 Requesting physician: Sheng Wolfe Consult reason: SOB, Edema Chief complaint: SOB, edema, abdominal distension History of present illness: Mr. Noriega is a 68 year old male with a relevant past medical history of CAD/ CABG, DPM 2, HLD, hypothyroidism, history of right BKA, chronic diastolic CHF, MELVI, GERD, severe pulmonary hypertension, and mild aortic stenosis. I last saw patient March 2018. Of note, the patient contacted cardiology office yesterday with concerns of 12 pound weight gain and increased overall abdominal distention with edema and shortness of breath. Cardiology consult for short of breath, edema, abdominal distention. Patient reports of past few weeks overall increase in weight of about 12 pounds. Reports worsening abdominal distention from baseline, currently now slightly improved with IV diuresis and recent bowel movement. He reports edema to left lower extremity overall worsened from baseline with slight improvement during hospital stay. He reports some mild improvement shortness of breath as well. Reports occasional dizziness, unchanged from baseline and denies any syncope or falls. Patient has pending Holter monitor ordered as outpatient. He denies any active bleeding or blood loss and remains on anticoagulation. He denies any recent infectious process. He denies any recent dietary indiscretion and continues to monitor sodium and fluid ejection. He does utilize left KALEB leg KALEB hose. Past Med Surg Social Fam HX - Past Medical History Attestation: Yes The following information was validated with the patient. Source: patient, old records reviewed Medical history: arthritis, atrial fibrillation, CHF, diabetes, GERD, hyperlipidemia, hypertension, myocardial infarction, peripheral artery disease, thyroid disease, syncope Psychiatric history: no psych history - Past Surgical History Surgical History: angioplasty/stent, appendectomy, cholecystectomy, coronary bypass (CABG) Additional surgical history: tonsilectomy, pituitary tumor removed, exploratory for possible cyst in stomach ( scar tissue ), triple bypass, R BKA, heart stent - Social History Smoking Status: Never smoker Smokeless Tobacco Status: No Alcohol use: occasionally Drug use: none - Family History Father Adopted: No Family Member Ethnicity: Non- Living Status: Hx Family Cardiac Disorders: No Hx Family Respiratory Disorders: No Hx Family Cancer: Yes Hx Family GI Disorders: No Hx Family Endocrine Disorder: No Hx Family Neuromuscular Disorders: No Hx Family Neurologic Disorders: No Hx Family HEENT Disorders: No Hx Family Autoimmune Disorders: No Medications and Allergies Levothyroxine [Synthroid] 88 mcg PO Q48H 02/18/16 [History] Morphine Sulfate SR (12 HR) [MS Contin] 15 mg PO Q12HR tablet.er 02/29/16 [Rx] Aspirin Enteric Coated [Aspirin EC] 81 mg PO DAILY 03/09/18 [History] Atorvastatin [Lipitor] 10 mg PO HS 03/09/18 [History] Insulin ASPART [NovoLOG] 0 - 12 unit SQ TIDAC 03/09/18 [History] Multivitamin [One Daily Essential] 1 tab PO DAILY 03/09/18 [History] Nitroglycerin [Nitrostat] 0.4 mg SL Q5MIN PRN 03/09/18 [History] Polyethylene Glycol 3350 [MiraLAX] 17 gm PO DAILY 03/09/18 [History] Potassium Chloride [K-Tab ER] 60 meq PO QID 03/09/18 [History] Apixaban [Eliquis] 5 mg PO BID #60 tablet 03/11/18 [Rx] Bumetanide 2 mg PO TID 05/31/18 [History] Cabergoline 0.5 mg PO Q7D 05/31/18 [History] Gabapentin [Neurontin] 800 mg PO TID 05/31/18 [History] Metoprolol Succinate 12.5 mg PO DAILY 05/31/18 [History] Torsemide [Demadex] 20 mg PO DAILY 05/31/18 [History] predniSONE [PredniSONE] 5 mg PO DAILY 05/31/18 [History] 3 Allergy/AdvReac Type Severity Reaction Status Date / Time Penicillins Allergy Hives Verified 03/09/18 13:46 Sulfa (Sulfonamide Allergy Nausea Verified 03/09/18 13:46 Antibiotics) carvedilol [From Coreg] AdvReac Hypotension Verified 03/09/18 13:46 lisinopril AdvReac Hypotension Verified 03/09/18 13:46 All Systems Review: The remainder of the systems were reviewed and are negative - Constitutional Constitutional: fatigue, weight gain - Cardiovascular Cardiovascular: as per HPI, dyspnea at rest, dyspnea on exertion, leg edema, lightheadedness - Gastrointestinal Gastrointestinal: constipation, other (Abdominal distention) Physical Examination Vital Signs, Last 4 Hours Temp Pulse Resp BP Pulse Ox 06/01/18 07:52 97.9 F 68 18 133/78 93 General: Conversant, No Apparent Distress HEENT: Atraumatic, Normocephaly, Mucus Membranes Moist Neck: No JVD, Normal carotid pulses Cardiac: Normal S1 and S2, No Murmur, Other (Irregularly irregular) Lungs: Normal Breath Sounds, No Wheeze, Rales, Rhonchi Neuro: Alert and responsive, No focal deficits noted Abdomen: Soft, Non-Tender Skin: No rashes noted on visualized skin Musculoskeletal: No Chest Wall Tenderness Extremities: No Clubbing, No Cyanosis, No Edema, Normal Pulses Results 06/01/18 04:44 06/01/18 04:44 Lab Results Laboratory Tests 05/31/18 05/31/18 06/01/18 15:38 15:38 04:44 Hgb 10.9 L Hct 35.8 L Potassium Creatinine Est GFR (Non-Af Amer) AST 28 ALT 11 Troponin I 0.03 B-Natriuretic Peptide 221 H 06/01/18 04:44 Hgb Hct Potassium 3.4 L Creatinine 1.54 H Est GFR (Non-Af Amer) 45 L AST ALT Troponin I B-Natriuretic Peptide ITS Impressions Chest X-Ray 05/31/18 15:11 IMPRESSION: 1. Left basilar airspace opacity most likely representing atelectasis. 2. Pulmonary vascular congestion with questionable perihilar edema, potentially congestive heart failure given mild cardiomegaly. 3. At least trace bilateral pleural effusions. D/ / Sergio Crenshaw MD / Sergio Crenshaw MD Interpreting Provider: Sergio Crenshaw MD Intake & Output 05/29/18 05/30/18 05/31/18 06/01/18 23:59 23:59 23:59 23:59 Intake Total 800 / 800 Output Total 680 / 680 Balance 120 / 120 Weight 116.2 kg 116.2 kg Active Medications Acetaminophen (Tylenol) 650 mg PO Q6HR PRN PRN Reason: Mild Pain Stop: 11/30/18 22:40 Bumetanide (Bumex) 2 mg IVP BIDDIURETIC [place] Stop: 11/30/18 18:01 Last Admin: 06/01/18 07:57 Dose: 2 mg Gabapentin (Neurontin) 800 mg PO TID [place] Stop: 11/30/18 21:01 Last Admin: 06/01/18 07:58 Dose: 800 mg Naloxone HCl (Narcan) 0.4 mg IVP Q2MIN PRN PRN Reason: SEE COMMENTS Stop: 11/30/18 17:52 - Imaging and Cardiology Chest Xray: report reviewed - EKG Interpretation EKG results cardiology: personally reviewed, other (Telemetry shows average heart rate past 24 hrs 63, atrial fibrillation, currently in A. fib in the 50s to 60s) Consult Discharge Plan - Plan Referrals: Parrish Galindo DO [Primary Care Provider] - 06/09/18 12:30 pm <Conner Erickson - Last Filed: 06/01/18 14:54> Date of Encounter: 06/01/18 - Attending Attestation Patient was seen and evaluated independently by me. Findings, assessment and plan were discussed at length with patient, questions answered. Agree with nurse practitioner's documentation. Addition as follows, 68 yoCM ho CABG (3/3 patent grafts, JON to Diag 2014), HFpEF, severe PH, mod , severe TR; chronic Afib, DM, CKD, hypothryoidism, R-BKA P/w worsening edema, wt gain, NGUYEN. Recent diuretics adjustment of unclear regimen with PCP. BP ok, unable to assess JVP due to body habitus, coarse BS, IR, 3/6 SM LSB, abd distention, NT, 3+ edema LLE Neg trop, BNP 220, K 3.4 Cr 1.5 GFR 55 A: ADHF, HFpEF, suspected medication non-compliance, possible refractory to loop diuretics Severe PH, group unclear, suspected RV dysfunction chronic Afib on A/C, low VR CKD III P: add metolazone, c/w bumex for I/O neg 1L/d till baseline wt K>4, Mg>2 ? digoxin if refractory to diuretics will need further w/u ([facility] after euvolemia) at [facility] outpatient Conner Erickson MD, PhD [phone] Impressions: Technically challenging due to body habitus. LVEF 60%. Indeterminate diastolic function. RV size is is foreshortened and function is not optimally evaluated. Bi-atrial enlargement. Mild-moderate aortic stenosis. PV 2.7m/s, MG 14 mmHg, DI 0.39, JANEE 1.2cm2 Moderate tricuspid regurgitation. Mild pulmonic regurgitation. Severe pulmonary hypertension by TR gradient. IVC is not well visualized. Assessment and Plan Discussion w patient/family: The assessment and plan as outlined above was discussed with the patient and/or family members who expressed understanding and agreement. All questions were answered. Thank you for involving us in the care of your patient. Please call with any questions. History of Present Illness History of present illness: Mr. Noriega is a 68 year old male All Systems Review: The remainder of the systems were reviewed and are negative Physical Examination Vital Signs, Last 4 Hours Temp Pulse Resp BP Pulse Ox 06/01/18 10:52 97.7 F 73 16 120/75 100 Results 06/01/18 04:44 06/01/18 04:44 Lab Results 06/01/18 06/01/18 04:44 04:44 WBC 8.4 Hgb 10.9 L Hct 35.8 L Plt Count 211 Sodium 132 L Potassium 3.4 L Chloride 90 L Carbon Dioxide 33 H BUN 29 H Creatinine 1.54 H Glucose 217 H Calcium 8.4 L
[2018-06-01] MEDS ORDERED: Nitroglycerin 0.4 MG TAB.SUBL SL PRN (10:14)
[2018-06-01] MEDS ORDERED: Cabergoline [Cabergoline] 0.5 MG PO SCH (10:15)
[2018-06-01] MEDS ORDERED: *HR* Dextrose 50 % in Water (Syg) 50 ML SYRINGE IVP PRN (10:25)
[2018-06-01] MEDS ORDERED: Dextrose Gel 15 GM/37.5 ML TUBE PO PRN ×2 (10:25)
[2018-06-01] MEDS ORDERED: D5% in Water 1,000 ML IVC PRN (10:25)
--- NOTE | 2018-06-01 10:41 | Internal Med Progress Note ---
Hospitalist Progress Note - Encounter Date of Encounter: 06/01/18 Time of Encounter: 10:39 - Subjective Interval History: Skin exam at the bedside today. Discussed plan of care. Patient is in agreement and verbalized understanding. Continues to endorse LLE pitting edema , shortness of breath and increased abdominal swelling. - Exam Vitals: Temp Pulse Resp BP Pulse Ox 97.9 F 68 18 133/78 93 06/01/18 07:52 06/01/18 07:52 06/01/18 07:52 06/01/18 07:52 06/01/18 07:52 Exam: Gen.: Nonacute distress, alert and oriented 3 ENT: Mucosal membranes moist Respiratory: Lungs are clear/diminished to auscultation bilaterally without any wheezing rhonchi or rales Cardiovascular: Normal S1 and S2 RRR, with 2+ systolic murmur Abdomen: Soft, nontender and nondistended with positive bowel sounds Extremities: Lower extremity 1+ edema up to knee Skin: Normal color Neuro: No neurological deficits Psych: Normal mood - Assessment and Plan (1) CAD (coronary artery disease) Current Visit: No Status: Chronic Assessment and Plan: Patient with past medical history significant for coronary arterial disease ( CABG/stents) Continue aspirin and statin, BB (2) CKD (chronic kidney disease) stage 3, GFR 30-59 ml/min Current Visit: No Status: Chronic Assessment and Plan: Patient with a creatinine on admission of 1.52, today 06/01 1.54 which reflects baseline SCR, continue to avoid nephrotoxins. Nephrology is seeing in consultation to assist with diuresis and to monitor renal function. Recommendations are to increase metolazone and obtain retroperitoneal ultrasound to rule out obstruction. Continue to monitor (3) Adrenal insufficiency Current Visit: No Status: Acute Assessment and Plan: Continue prednisone 5 mg twice daily (4) Acute on chronic diastolic (congestive) heart failure Current Visit: Yes Status: Acute Assessment and Plan: Patient with history of diastolic and right-sided heart failure with no improvement in shortness of breath and lower extremity edema after discharge on 03/11/10 for the same. Patient reports of being on oral Bumex 6 mg daily; 2 mg Bumex 3 times a day BNP of 221 and mild vascular congestion on chest x-ray Patient with volume overloaded on exam. Continue IV Bumex 3 mg twice daily Nephrology consulted to assist with further evaluation recommendations; appreciate recommendations; pertinent for increased dose of metolazone Strict I's and O's and an 0.5 L fluid restriction ordered in addition to daily weights Cardiology consulted and appreciate recommendations; increased Bumex from 2 mg to IV Bumex 3 mg twice a day, continue wearing KALEB hose on LLE Today 06/01--patient lungs clear/diminished throughout AP and L without wheezes rales or rhonchi. Continues to have abdominal distention and left lower extremity 2+ pitting edema. We will continue with plan as stated above and closely monitor weight and I&O. (5) Atrial fibrillation Current Visit: Yes Status: Chronic Assessment and Plan: Recent diagnosis of A. fib Outpatient Holter evaluation pending for improvement and possible EP referral per cardiology Average HR 63 per 12 are reviewed remains A. fib Continue telemetry continue oral anticoagulation with Eliquis Setup outpatient EP evaluation at [place] (6) Anemia Current Visit: Yes Status: Acute Assessment and Plan: History of anemia , Hemoglobin at baseline; continue to monitor, no S/SX of bleeding (7) Pulmonary hypertension, moderate to severe Current Visit: Yes Status: Chronic Assessment and Plan: TTE on 02/2018 revealed severe pulmonary hypertension Cardiology following, setting up outpatient referral to [facility] advanced HF clinic (8) DVT prophylaxis Current Visit: No Status: Acute Assessment and Plan: Continue home dose of Eliquis - Time Spent with Patient Total time spent is greater than 50% in coordination of care (as documented) at patient's floor/unit and/or counseling patient: less than 15 minutes Plan of Care Discussed with: patient Internal Medicine: Result - Labs CBC & Chem 7: 06/01/18 04:44 06/01/18 04:44 Labs: Short CBC 06/01/18 Range/Units 04:44 WBC 8.4 (4.3-11.1) K/mcL Hgb 10.9 L (12.9-16.9) g/dL Hct 35.8 L (37.5-50.1) % Plt Count 211 (140-400) K/mcL Neutrophils # 6.0 (1.6-8.9) K/mcL BMP 06/01/18 04:44 Sodium 132 L Potassium 3.4 L Chloride 90 L Carbon Dioxide 33 H BUN 29 H Creatinine 1.54 H Glucose 217 H Calcium 8.4 L Consult Discharge Plan - Plan Referrals: Parrish Galindo DO [Primary Care Provider] - 06/09/18 12:30 pm (1) CAD (coronary artery disease) Qualifiers: Coronary Disease-Associated Artery/Lesion type: [place] artery [place] vs. transplanted heart: [place] heart Associated angina: without angina Qualified Code(s): I25.10 - Atherosclerotic heart disease of [place] coronary artery without angina pectoris (5) Atrial fibrillation Qualifiers: Atrial fibrillation type: unspecified Qualified Code(s): I48.91 - Unspecified atrial fibrillation (6) Anemia Qualifiers: Chronic kidney disease stage: stage 3 (moderate) Qualified Code(s): N18.3 - Chronic kidney disease, stage 3 (moderate); D63.1 - Anemia in chronic kidney disease
[2018-06-01] MEDS ORDERED: metOLazone 2.5 MG TABLET PO SCH (10:45)
[2018-06-01] MEDS ORDERED: predniSONE 5 MG TABLET PO ONE (10:53)
[2018-06-01] MEDS ORDERED: *HR* Morphine Sulfate SR (12 HR) 15 MG TABLET.ER PO ONE (10:56)
[2018-06-01] MEDS: Aspirin Enteric Coated 81 MG Tablet PO SCH (11:11)
[2018-06-01] MEDS: Metoprolol XL (24 HR) Succ 25 MG TAB.ER.24H PO SCH ×2 (11:11→11:14)
[2018-06-01] MEDS: Apixaban 5 MG TABLET PO SCH ×2 (11:12→20:34)
[2018-06-01] MEDS: Multivit/Ca/Min/Fe/FA 1 TAB TABLET PO SCH (11:12)
[2018-06-01] MEDS: Insulin LISPRO 300 UNITS/3 ML VIAL SQ SCH ×2 (12:49→16:37)
[2018-06-01] MEDS ORDERED: POTASSIUM CHLORIDE 60 MEQ PO SCH (13:00)
--- NOTE | 2018-06-01 13:15 | Nephrology Consult Note ---
Date of Encounter: 06/01/18 Time of Encounter: 13:02 Assessment and Plan (1) CKD (chronic kidney disease) Current Visit: Yes Status: Acute Was seen by Dr. Doshi in 2014 for CKD. EMR reflects a baseline GFR of approximately 50. Avoid nephrotoxins and renal dose. Metolazone increased. Retroperitoneal US ordered to rule out obstruction. UA ordered. Strict I/O 1.5 Liter fluid restriction. Cardiac/renal diet. Qualifiers: Qualified Code(s): N18.9 - Chronic kidney disease, unspecified (2) Acute on chronic diastolic (congestive) heart failure Current Visit: Yes Status: Acute see above. (3) Dyspnea on exertion Current Visit: Yes Status: Acute Per primary. (4) Peripheral edema Current Visit: Yes Status: Acute Per primary. History of Present Illness - Reason for Consult Consult date: 06/01/18 Chronic Kidney Disease - Chief Complaint swelling/shortness of breath - History of Present Illness Mr. Noriega is a 68 year old male who presented to ED for swelling to LLE and shortness of breath. PMH: arthritis, atrial fibrillation, CHF, diabetes, GERD, hyperlipidemia, hypertension, myocardial infarction, peripheral artery disease, thyroid disease. He has not seen a intravenous therapy nurse outpatient recently, he did see Dr. Doshi in 2015, but decided to f/u with PCP instead. He reports that his swelling and shortness of breath has gotten worse in the past 2 weeks. Is not on home oxygen. Reports that he is voiding "okay" but does have some hesitation with initiating urine stream. Denies dysuria or hematuria. Denies nausea/ vomiting/diarrhea. Denies chronic use of NSAIDs at home. FH: he had a brother (now ) on HD. He lives at home with his . Denies smoking, etoh, or illicit drug use. Past Med Surg Social Fam HX - Past Medical History Medical history: arthritis, atrial fibrillation, CHF, diabetes, GERD, hyperlipidemia, hypertension, myocardial infarction, peripheral artery disease, thyroid disease, syncope Psychiatric history: no psych history - Past Surgical History Surgical History: angioplasty/stent, appendectomy, cholecystectomy, coronary bypass (CABG) Additional surgical history: tonsilectomy, pituitary tumor removed, exploratory for possible cyst in stomach ( scar tissue ), triple bypass, R BKA, heart stent - Social History Smoking Status: Never smoker Smokeless Tobacco Status: No Alcohol use: occasionally Drug use: none - Family History Father Adopted: No Family Member Ethnicity: Non- Living Status: Hx Family Cardiac Disorders: No Hx Family Respiratory Disorders: No Hx Family Cancer: Yes Hx Family GI Disorders: No Hx Family Endocrine Disorder: No Hx Family Neuromuscular Disorders: No Hx Family Neurologic Disorders: No Hx Family HEENT Disorders: No Hx Family Autoimmune Disorders: No Medications and Allergies Levothyroxine [Synthroid] 88 mcg PO Q48H 02/18/16 [History] Morphine Sulfate SR (12 HR) [MS Contin] 15 mg PO Q12HR tablet.er 02/29/16 [Rx] Aspirin Enteric Coated [Aspirin EC] 81 mg PO DAILY 03/09/18 [History] Atorvastatin [Lipitor] 10 mg PO HS 03/09/18 [History] Insulin ASPART [NovoLOG] 0 - 12 unit SQ TIDAC 03/09/18 [History] Multivitamin [One Daily Essential] 1 tab PO DAILY 03/09/18 [History] Nitroglycerin [Nitrostat] 0.4 mg SL Q5MIN PRN 03/09/18 [History] Polyethylene Glycol 3350 [MiraLAX] 17 gm PO DAILY 03/09/18 [History] Potassium Chloride [K-Tab ER] 60 meq PO QID 03/09/18 [History] Apixaban [Eliquis] 5 mg PO BID #60 tablet 03/11/18 [Rx] Bumetanide 2 mg PO TID 05/31/18 [History] Cabergoline 0.5 mg PO Q7D 05/31/18 [History] Gabapentin [Neurontin] 800 mg PO TID 05/31/18 [History] Metoprolol Succinate 12.5 mg PO DAILY 05/31/18 [History] Torsemide [Demadex] 20 mg PO DAILY 05/31/18 [History] predniSONE [PredniSONE] 5 mg PO DAILY 05/31/18 [History] 3 Allergy/AdvReac Type Severity Reaction Status Date / Time Penicillins Allergy Hives Verified 03/09/18 13:46 Sulfa (Sulfonamide Allergy Nausea Verified 03/09/18 13:46 Antibiotics) carvedilol [From Coreg] AdvReac Hypotension Verified 03/09/18 13:46 lisinopril AdvReac Hypotension Verified 03/09/18 13:46 Review of Systems All Systems review (narrative): The remainder of the systems are negative. Constitutional: no chills, no fatigue, no fever(s) Cardiovascular: dyspnea, edema, orthopnea, pedal edema, no chest pain Respiratory: dyspnea, no cough Gastrointestinal: no change in bowel habits, no diarrhea, no nausea, no vomiting Genitourinary Male: urinary hesitancy, no urinary frequency, no urinary incontinence, no urinary urgency Exam - Vital Signs Vital signs: Initial Vital Signs Temp Pulse Resp BP Pulse Ox 98.7 F 78 15 133/85 94 05/31/18 14:16 05/31/18 14:16 05/31/18 14:16 05/31/18 14:16 05/31/18 14:16 Vital Signs - Last 8 Hours Temp Pulse Resp BP Pulse Ox 06/01/18 10:52 97.7 F 73 16 120/75 100 06/01/18 07:52 97.9 F 68 18 133/78 93 Intake and Output 05/31/18 06/01/18 06/01/18 23:59 07:59 15:59 Intake Total 800 / 800 360 / 360 Output Total 680 / 680 450 / 450 Balance 120 / 120 -90 / -90 Intake: Oral 800 / 800 360 / 360 Output: Urine 680 / 680 450 / 450 Other: Meal water pitcher Breakfast Percent of Meal Consumed 100% Stool Size Large Stool Color Brown # Voids 1 1 # Bowel Movements 1 Weight 116.2 kg Blood Glucose* 139 216 338 Patient Weight 06/01/18 23:59 Weight 116.2 kg - General Appearance General appearance: well-developed, well-nourished EENT: ATNC, hearing intact, vision intact Neck: supple Respiratory: clear Cardiology: edema (+2 pitting edema to entire RLE up to level of umbiculus.), normal S1, normal S2 Gastrointestinal: normoactive bowel sounds, no tenderness, no guarding Integumentary: no rash, warm and dry Neurologic: alert and oriented x3 Psychiatric: mood/affect appropriate, cooperative Results - Lab Results 06/01/18 04:44 06/01/18 04:44 Most recent lab results Calcium 8.4 mg/dL (8.6-10.3) L 06/01/18 04:44 Consult Discharge Plan - Plan Referrals: Parrish Galindo DO [Primary Care Provider] - 06/09/18 12:30 pm
[2018-06-01 15:03] LABS: Bilirubin,Urine Negative (Negative); Blood,Urine Trace (Negative); Clarity,Urine Clear (Clear); Color,Urine Yellow (Yellow); Glucose,Urine (UA) 100 mg/dL (Normal); Ketones,Urine Negative (Negative); Leukocyte Esterase,Urine Negative (Negative); Nitrite,Urine Negative (Negative); PH,Urine 6.5 pH Units (5.0-8.0); Protein,Urine Negative (Neg-Trace); Specific Gravity,Urine 1.016 (1.010-1.025); Urobilinogen,Urine Normal (Normal)
[2018-06-01 15:06] LABS: Bacteria,Urine None Seen per hpf (None-Few); Hyaline Casts,Urine None Seen per lpf (None-Few); Squamous Epithelial Cell,Urine None Seen per lpf (None-Few); WBC,Urine 0-3 per hpf (0-3)
[2018-06-01] MEDS: *HR* Morphine Sulfate SR (12 HR) 15 MG TABLET.ER PO SCH (17:41)
[2018-06-01] MEDS ORDERED: Insulin LISPRO 300 UNITS/3 ML VIAL SQ SCH (21:00)
[2018-06-01] MEDS ORDERED: Artificial Tears SOLN 15 ML BOTTLE BOTH EYES ONE (23:27)
[2018-06-02] MEDS: *HR* Morphine Sulfate SR (12 HR) 15 MG TABLET.ER PO SCH ×2 (05:33→17:54)
[2018-06-02] MEDS: Insulin LISPRO 300 UNITS/3 ML VIAL SQ SCH ×5 (07:19→22:01)
[2018-06-02] MEDS: metOLazone 5 MG TABLET PO SCH (07:23)
[2018-06-02] MEDS: Gabapentin 400 MG CAPSULE PO SCH ×3 (07:23→21:58)
[2018-06-02] MEDS: predniSONE 5 MG TABLET PO SCH (07:24)
[2018-06-02] MEDS: Aspirin Enteric Coated 81 MG Tablet PO SCH (07:24)
[2018-06-02] MEDS: Metoprolol XL (24 HR) Succ 25 MG TAB.ER.24H PO SCH (07:24)
[2018-06-02] MEDS: Multivit/Ca/Min/Fe/FA 1 TAB TABLET PO SCH (07:24)
[2018-06-02] MEDS: Apixaban 5 MG TABLET PO SCH ×2 (07:24→21:58)
[2018-06-02] MEDS: Bumetanide 1 MG/4 ML VIAL IVP SCH ×2 (07:41→17:54)
[2018-06-02] MEDS ORDERED: Torsemide 20 MG TABLET PO SCH (09:00)
[2018-06-02 12:10] LABS: Calcium 8.7 mg/dL (8.6-10.3); Potassium 2.9 mEq/L (3.5-5.1)
--- NOTE | 2018-06-02 13:42 | Cardiology Progress Note ---
Date of Encounter: 06/02/18 Time of Encounter: 12:00 Assessment and Plan (1) Acute on chronic diastolic (congestive) heart failure Current Visit: Yes Status: Acute Per Cardiology: -BNP 200's. History of chronic diastolic CHF. -On Bumex 4 mg by mouth every 8 hours at home. -Baseline weight is high 230 to low 240 pound range-- current weight 253.8 pounds, improved from yesterday. -Currently on Bumex 3 mg IV twice a day, metalazone 5mg daily. K 2.9, replaced per primary service. -Net I&O -1600ml. Will initiate strict I&O, daily weights, 1.5 L fluid restriction. Currently wearing left leg KALEB hose. -Renal function stable. -Reports symptoms improvement, however not quite back to baseline. -Continue IV diuresis. -Monitor K closely. -Strict i/os, fluid restriction, daily weights. -Will continue to monitor. (2) CAD (coronary artery disease) Current Visit: No Status: Chronic Per Cardiology: -History of CAD with CABG x 3 in 2008. -Abnormal stress test 2014 with left heart catheterization status post drug- eluting stent to diagonal 1 lesion with patent 3 of 3 bypass grafts. -Now back on aspirin, statin, beta sabina. -Chest pain-free, troponin negative 1. Qualifiers: Coronary Disease-Associated Artery/Lesion type: [place] artery [place] vs. transplanted heart: [place] heart Associated angina: without angina Qualified Code(s): I25.10 - Atherosclerotic heart disease of [place] coronary artery without angina pectoris (3) Atrial fibrillation Current Visit: Yes Status: Chronic Per Cardiology: -Recent diagnosis of atrial fibrillation. -Had pending outpatient Holter to evaluate symptoms of dizziness to assess for A. fib burden with possible EP referral. -Telemetry reviewed with average heart rate the past 12 hours 62, remains A. fib in the 50s to 60s. Rate controlled with BB. -Regarding long-term anticoagulation, remains anticoagulated with Eliquis 5mg PO BID. H&H stable, denies any active bleeding or blood loss. -Continue to monitor. Qualifiers: Atrial fibrillation type: unspecified Qualified Code(s): I48.91 - Unspecified atrial fibrillation (4) Pulmonary hypertension, moderate to severe Current Visit: Yes Status: Chronic Per Cardiology: -Severe PHTN on echo 02/2018 by TR gradient. -Patient now agreeable to outpatient referral to [facility] advanced HF clinic-- will coordinate as outpatient. Discussed with Dr. Erickson. (5) CKD (chronic kidney disease) Current Visit: Yes Status: Chronic Per cardiology: -Known CKD. -Renal function stable. -Nephrology following. -Appreciate nephrology recommendations and assistance. Qualifiers: Chronic kidney disease stage: unspecified stage Qualified Code(s): N18.9 - Chronic kidney disease, unspecified Discussion w patient/family: The assessment and plan as outlined above was discussed with the patient who expressed understanding and agreement. All questions were answered. Thank you for involving us in the care of your patient. Please call with any questions. Discussed and reviewed with . Subjective Principal diagnosis: diastolic CHF Interval history: Patient reports improvement in shortness of breath. Patient also reports abdominal distention is less. Patient states his symptoms are slightly improved from admission. Objective Vital Signs, Last 4 Hours Temp Pulse Resp BP Pulse Ox 06/02/18 10:56 98.2 F 74 18 102/64 91 General: Conversant, No Apparent Distress HEENT: Atraumatic, Normocephaly, Mucus Membranes Moist Neck: No JVD, Normal carotid pulses Cardiac: Normal S1 and S2, No Murmur, Other (Irregularly irregular ) Lungs: Normal Breath Sounds, No Wheeze, Rales, Rhonchi Neuro: Alert and responsive, No focal deficits noted Abdomen: Non-Tender, Other (Firm) Skin: No rashes noted on visualized skin Musculoskeletal: No Chest Wall Tenderness Extremities: No Clubbing, No Cyanosis, No Edema, Normal Pulses, Other (Right BKA. ) Results 06/01/18 04:44 06/02/18 11:16 Lab Results Impressions Retroperitoneum Ultrasound 06/01/18 17:30 IMPRESSION: Grossly unremarkable appearance of the kidneys with no evidence of hydronephrosis. D/ / Jame Norris MD / Jame Norris MD Interpreting Provider: Jame Norris MD Active Medications Acetaminophen (Tylenol) 650 mg PO Q6HR PRN PRN Reason: Mild Pain Stop: 11/30/18 22:40 Apixaban (Eliquis) 5 mg PO BID [place] Stop: 12/01/18 10:16 Last Admin: 06/02/18 07:24 Dose: 5 mg Aspirin (Aspirin Ec) 81 mg PO DAILY [facility] Stop: 12/01/18 10:16 Last Admin: 06/02/18 07:24 Dose: 81 mg Atorvastatin Calcium (Lipitor) 10 mg PO HS [facility] Stop: 12/01/18 21:01 Last Admin: 06/01/18 20:34 Dose: 10 mg Bumetanide (Bumex) 3 mg IVP BIDDIURETIC [facility] Stop: 12/01/18 10:39 Last Admin: 06/02/18 07:41 Dose: 3 mg Dextrose/Water (Dextrose 50% (Syg)) 25 ml IVP AD PRN PRN Reason: Hypoglycemia Stop: 12/01/18 10:26 Gabapentin (Neurontin) 800 mg PO TID [facility] Stop: 11/30/18 21:01 Last Admin: 06/02/18 07:23 Dose: 800 mg Glucagon (Glucagen) 1 mg IM ONCE PRN PRN Reason: Hypoglycemia Stop: 12/01/18 10:26 Glucose (Gluctose) 15 gm PO ONCE PRN PRN Reason: Hypoglycemia Stop: 12/01/18 10:26 Glucose (Gluctose) 30 gm PO ONCE PRN PRN Reason: Hypoglycemia Stop: 12/01/18 10:26 Dextrose (Dextrose 5%) 1,000 mls @ 100 mls/hr IVC .Q10H PRN PRN Reason: HYPOGLYCEMIA Stop: 12/01/18 10:26 Insulin Human Lispro (Humalog) 0 units SQ [facility] PRN Reason: Protocol Stop: 12/01/18 21:01 Last Admin: 06/01/18 20:33 Dose: 4 units Insulin Human Lispro (Humalog) 0 units SQ TIDAC [facility] PRN Reason: Protocol Stop: 12/01/18 11:31 Last Admin: 06/02/18 11:50 Dose: 8 units Levothyroxine Sodium (Synthroid) 88 mcg PO Q48H [facility] Stop: 12/01/18 06:31 Last Admin: 06/01/18 11:11 Dose: 88 mcg Metolazone (Zaroxolyn) 5 mg PO DAILY [facility] Stop: 12/02/18 09:01 Last Admin: 06/02/18 07:23 Dose: 5 mg Metoprolol Succinate (Toprol Xl) 12.5 mg PO DAILY [facility] Stop: 12/01/18 10:16 Last Admin: 06/02/18 07:24 Dose: 12.5 mg Morphine Sulfate (Ms Contin) 15 mg PO Q12HR [place] Stop: 12/01/18 18:01 Last Admin: 06/02/18 05:33 Dose: 15 mg Multivitamins/Calcium (Thera M Plus) 1 tab PO DAILY [place] Stop: 12/01/18 10:16 Last Admin: 06/02/18 07:24 Dose: 1 tab Naloxone HCl (Narcan) 0.4 mg IVP Q2MIN PRN PRN Reason: SEE COMMENTS Stop: 11/30/18 17:52 Nitroglycerin (Nitroglycerin) 0.4 mg SL Q5MIN PRN PRN Reason: Chest Pain Stop: 12/01/18 10:15 Pharmacy Profile Note (Patient Taking Own Medication) 1 each PO Q7D [facility] Stop: 12/01/18 10:16 Last Admin: 06/01/18 11:12 Dose: Not Given Polyethylene Glycol (Miralax) 17 gm PO DAILY [place] Stop: 12/02/18 09:01 Last Admin: 06/02/18 07:23 Dose: 17 gm Potassium Chloride (Potassium Chloride) 40 meq PO BIDWM [place] Stop: 12/01/18 17:01 Last Admin: 06/02/18 07:24 Dose: 40 meq Prednisone (Prednisone) 5 mg PO DAILY [place] Stop: 12/02/18 09:01 Last Admin: 06/02/18 07:24 Dose: 5 mg Laboratory Tests 06/01/18 06/02/18 04:44 11:16 Creatinine 1.54 H 1.52 H - Imaging and Cardiology Chest Xray: report reviewed Echo: report reviewed - EKG Interpretation EKG results cardiology: other (Telemetry reviewed with average HR previous 12 hours noted to be 62, a.fib. PVCs noted.) Consult Discharge Plan - Plan Referrals: Parrish Galindo DO [Primary Care Provider] - 06/09/18 12:30 pm
--- NOTE | 2018-06-02 14:29 | Internal Med Progress Note ---
Hospitalist Progress Note - Encounter Date of Encounter: 06/02/18 Time of Encounter: 14:34 - Subjective Interval History: Skin exam at the bedside today. Discussed plan of care. Patient is in agreement and verbalized understanding. Continues to endorse LLE pitting edema , shortness of breath and increased abdominal swelling. - Exam Vitals: Temp Pulse Resp BP Pulse Ox 98.2 F 74 18 102/64 91 06/02/18 10:56 06/02/18 10:56 06/02/18 10:56 06/02/18 10:56 06/02/18 10:56 Exam: Gen.: Nonacute distress, alert and oriented 3 ENT: Mucosal membranes moist Respiratory: Lungs are clear/diminished to auscultation bilaterally without any wheezing rhonchi or rales Cardiovascular: Normal S1 and S2 RRR, with 2+ systolic murmur Abdomen: Soft, nontender and nondistended with positive bowel sounds, abdominal swelling improving GI/: Scrotal edema Extremities: Persistent Left Lower extremity 1+ edema up to knee Skin: Normal color Neuro: No neurological deficits Psych: Normal mood - Assessment and Plan (1) CAD (coronary artery disease) Current Visit: No Status: Chronic Assessment and Plan: Patient with past medical history significant for coronary arterial disease ( CABG/stents) Continue aspirin and statin, BB Chest pain free cardiology following A/P as above (2) CKD (chronic kidney disease) stage 3, GFR 30-59 ml/min Current Visit: No Status: Chronic Assessment and Plan: Patient with a creatinine on admission of 1.52, today 06/01 1.54 which reflects baseline SCR, continue to avoid nephrotoxins. Nephrology is seeing in consultation to assist with diuresis and to monitor renal function. Recommendations are to increase metolazone and obtain retroperitoneal ultrasound to rule out obstruction. Continue to monitor 06/02- renal function stable, nephrology following. [place]IRA negative for acute findings. Continue as we are continuing diuretics. Serum creatinine 1.5 to, BUN 30 and GFR 46 (3) Adrenal insufficiency Current Visit: No Status: Acute Assessment and Plan: Continue prednisone 5 mg twice daily (4) Acute on chronic diastolic (congestive) heart failure Current Visit: Yes Status: Acute Assessment and Plan: Patient with history of diastolic and right-sided heart failure with no improvement in shortness of breath and lower extremity edema after discharge on 03/11/10 for the same. Patient reports of being on oral Bumex 6 mg daily; 2 mg Bumex 3 times a day BNP of 221 and mild vascular congestion on chest x-ray Patient with volume overloaded on exam. Continue IV Bumex 3 mg twice daily Nephrology consulted to assist with further evaluation recommendations; appreciate recommendations; pertinent for increased dose of metolazone Strict I's and O's and an 0.5 L fluid restriction ordered in addition to daily weights Cardiology consulted and appreciate recommendations; increased Bumex from 2 mg to IV Bumex 3 mg twice a day, continue wearing KALEB hose on LLE Today 06/01--patient lungs clear/diminished throughout AP and L without wheezes rales or rhonchi. Continues to have abdominal distention and left lower extremity 2+ pitting edema. We will continue with plan as stated above and closely monitor weight and I&O. --clinically patient is stable. Slight improvement in left lower extremity edema. Continue KALEB hose at this time. Cardiology and nephrology continuing to follow. Continue with IV Bumex 3 mg twice a day as well as increased dose of metolazone. Patient diuresing appropriately, weight decrease overnight and stable at 115.4kg, negative fluid volume -1610. Continue strictly monitor intake and output, daily weights. (5) Atrial fibrillation Current Visit: Yes Status: Chronic Assessment and Plan: Recent diagnosis of A. fib Outpatient Holter evaluation pending for improvement and possible EP referral per cardiology Average HR 63 per 12 are reviewed remains A. fib Continue telemetry continue oral anticoagulation with Eliquis Setup outpatient EP evaluation at [place] (6) Anemia Current Visit: Yes Status: Acute Assessment and Plan: History of anemia , Hemoglobin at baseline; continue to monitor, no S/SX of bleeding (7) Pulmonary hypertension, moderate to severe Current Visit: Yes Status: Chronic Assessment and Plan: TTE on 02/2018 revealed severe pulmonary hypertension Cardiology following, setting up outpatient referral to [facility] advanced HF clinic (8) DVT prophylaxis Current Visit: No Status: Acute Assessment and Plan: Continue home dose of Eliquis - Time Spent with Patient Total time spent is greater than 50% in coordination of care (as documented) at patient's floor/unit and/or counseling patient: less than 15 minutes Plan of Care Discussed with: patient Internal Medicine: Result - Labs CBC & Chem 7: 06/01/18 04:44 06/02/18 11:16 Labs: BMP 06/02/18 11:16 Sodium 133 L Potassium 2.9 L Chloride 86 L Carbon Dioxide 38 H BUN 30 H Creatinine 1.52 H Glucose 246 H Calcium 8.7 Urine 06/01/18 Range/Units 14:46 Urine Color Yellow (Yellow) Urine Clarity Clear (Clear) Urine pH 6.5 (5.0-8.0) pH Units Ur Specific [place] 1.016 (1.010-1.025) Urine Protein Negative (Neg-Trace) mg/dL Urine Glucose (UA) 100 H (Normal) mg/dL - Impressions Impressions Retroperitoneum Ultrasound 06/01/18 17:30 IMPRESSION: Grossly unremarkable appearance of the kidneys with no evidence of hydronephrosis. D/ / Jame Norris MD / Jame Norris MD Interpreting Provider: Jame Norris MD Consult Discharge Plan - Plan Referrals: Parrish Galindo DO [Primary Care Provider] - 06/09/18 12:30 pm (1) CAD (coronary artery disease) Qualifiers: Coronary Disease-Associated Artery/Lesion type: [place] artery [place] vs. transplanted heart: [place] heart Associated angina: without angina Qualified Code(s): I25.10 - Atherosclerotic heart disease of [place] coronary artery without angina pectoris (5) Atrial fibrillation Qualifiers: Atrial fibrillation type: unspecified Qualified Code(s): I48.91 - Unspecified atrial fibrillation (6) Anemia Qualifiers: Chronic kidney disease stage: stage 3 (moderate) Qualified Code(s): N18.3 - Chronic kidney disease, stage 3 (moderate); D63.1 - Anemia in chronic kidney disease
[2018-06-03 11:41] LABS: Basophils # 0.1 K/mcL (0.0-0.2); Basophils % 1.4 %; Eosinophils # 0.2 K/mcL (0.0-0.6); Eosinophils % 3.2 %; Hematocrit 35.5 % (37.5-50.1); Hemoglobin 10.9 g/dL (12.9-16.9); Immature Granulocytes % 0.3 % (0-4); Immature Platelets 3.1 % (1.1-6.1); Lymphocytes % 13.5 %; Mean Corpuscular HGB Conc 30.7 g/dL (31.6-35.5); Mean Corpuscular Hemoglobin 23.6 pg (28.0-33.3); Mean Platelet Volume 10.1 fL (9.4-12.4); Monocytes # 1.1 K/mcL (0.0-1.3); Monocytes % 14.6 %; Platelet Count 218 K/mcL (140-400); Red Blood Count 4.61 M/mcL (4.19-5.50); Red Cell Distribution Width 16.8 % (11.5-14.5)
[2018-06-03 11:49] LABS: Potassium 2.8 mEq/L (3.5-5.1)
[2018-06-03] MEDS: *HR* Morphine Sulfate SR (12 HR) 15 MG TABLET.ER PO SCH ×2 (12:06→16:25)
[2018-06-03] MEDS: Bumetanide 1 MG/4 ML VIAL IVP SCH ×2 (12:06→16:25)
[2018-06-03] MEDS: Apixaban 5 MG TABLET PO SCH ×2 (12:07→20:04)
[2018-06-03] MEDS: Aspirin Enteric Coated 81 MG Tablet PO SCH (12:07)
[2018-06-03] MEDS: predniSONE 5 MG TABLET PO SCH (12:08)
[2018-06-03] MEDS: Insulin LISPRO 300 UNITS/3 ML VIAL SQ SCH ×3 (12:08→20:04)
[2018-06-03] MEDS: Metoprolol XL (24 HR) Succ 25 MG TAB.ER.24H PO SCH (12:08)
[2018-06-03] MEDS: Gabapentin 400 MG CAPSULE PO SCH ×3 (12:08→20:03)
[2018-06-03] MEDS: Multivit/Ca/Min/Fe/FA 1 TAB TABLET PO SCH (12:08)
[2018-06-03] MEDS: metOLazone 5 MG TABLET PO SCH (12:08)
[2018-06-03] MEDS ORDERED: LIDOCAINE 1% IVPB ONE (12:43)
[2018-06-03] MEDS ORDERED: POTASSIUM CHLORIDE IVPB ONE (12:43)
[2018-06-03] MEDS ORDERED: D5 IVPB ONE (12:43)
[2018-06-03] MEDS ORDERED: WATER IVPB ONE (12:43)
--- NOTE | 2018-06-03 12:49 | Event Note ---
Date of Encounter: 06/03/18 Time of Encounter: 08:45 - Cardiology Event Note [employer] system down today, please see note on chart. Laboratory Tests 06/03/18 06/03/18 05:05 05:05 Hgb 10.9 L Hct 35.5 L Potassium 2.8 L Creatinine 1.61 H Est GFR (Non-Af Amer) 43 L Home dose: "Potassium Chloride 20 MEQ Tablet 3 Tablets Orally Four times per day". Will increase potassium to 80 mEq by mouth twice a day-- actually taking higher dose at home. We will give potassium 40 meq by mouth 1 now and K rider 40 mEq over 4 hours. Telemetry shows average heart rate 62 the past 24 hours, no ventricular arrhythmias noted. Continue to monitor kidney function closely with diuresis. Discussed with nephrology service. Will continue to follow.
[2018-06-03] MEDS ORDERED: POTASSIUM CHLORIDE IVC ONE (13:45)
[2018-06-03] MEDS ORDERED: SODIUM CHLORIDE 0.9% IVC ONE (13:45)
--- NOTE | 2018-06-03 15:25 | Internal Med Progress Note ---
Hospitalist Progress Note - Encounter Date of Encounter: 06/03/18 Time of Encounter: 15:22 - Subjective Interval History: No acute changes overnight. Lower extremity swelling persistent, abdominal swelling persistent. Denies any shortness of breath. Reporting an increase in urinary output with diuretics. - Exam Vitals: Temp Pulse Resp BP Pulse Ox 98.0 F 64 18 115/62 93 06/03/18 15:20 06/03/18 15:20 06/03/18 15:20 06/03/18 15:20 06/03/18 15:20 Exam: Gen.: Nonacute distress, alert and oriented 3 ENT: Mucosal membranes moist Respiratory: Lungs are clear/diminished to auscultation bilaterally without any wheezing rhonchi or rales Cardiovascular: Normal S1 and S2 RRR, with 2+ systolic murmur Abdomen: Soft, nontender and nondistended with positive bowel sounds, abdominal swelling without appreciable changes overnight GI/: Scrotal edema is persistent Extremities: Persistent Left Lower extremity 1+ edema up to knee with no improvement overnight Skin: Normal color Neuro: No neurological deficits Psych: Normal mood - Assessment and Plan (1) Acute on chronic diastolic (congestive) heart failure Current Visit: Yes Status: Acute Assessment and Plan: Patient with history of diastolic and right-sided heart failure with no improvement in shortness of breath and lower extremity edema after discharge on 03/11/10 for the same. Patient reports of being on oral Bumex 6 mg daily; 2 mg Bumex 3 times a day BNP of 221 and mild vascular congestion on chest x-ray Patient with volume overloaded on exam. Continue IV Bumex 3 mg twice daily Nephrology consulted to assist with further evaluation recommendations; appreciate recommendations; pertinent for increased dose of metolazone Strict I's and O's and an 0.5 L fluid restriction ordered in addition to daily weights Cardiology consulted and appreciate recommendations; increased Bumex from 2 mg to IV Bumex 3 mg twice a day, continue wearing KALEB hose on E 06/03--left lower extremity edema and abdominal edema without appreciable changes overnight. Weight stable 253.9 pounds, no negative fluid volume -2815. Urinary output increasing with IV Bumex 3 mg twice a day and metolazone that increased dose of 5 mg. Strictly monitor intake and output, continue fluid restriction, continue daily weights. No change in medication at this time. Nephrology and cardiology continued to follow, thank you (2) CAD (coronary artery disease) Current Visit: No Status: Chronic Assessment and Plan: Patient with past medical history significant for coronary arterial disease (CABG/stents) Continue aspirin and statin, BB Remains Chest pain free cardiology following A/P as above (3) CKD (chronic kidney disease) stage 3, GFR 30-59 ml/min Current Visit: No Status: Chronic Assessment and Plan: Patient with a creatinine on admission of 1.52, today 06/01 1.54 which reflects baseline SCR, continue to avoid nephrotoxins. Nephrology is seeing in consultation to assist with diuresis and to monitor renal function. Recommendations are to increase metolazone and obtain retroperitoneal ultrasound to rule out obstruction. Retroperitoneal US negative for obstruction 06/03--renal function stable, SCR 1.61. Nephrology continuing to follow. Continue diuretics at this time. [facility] monitor intake and output as well as daily weight. (4) Adrenal insufficiency Current Visit: No Status: Acute Assessment and Plan: Continue prednisone 5 mg twice daily (5) Atrial fibrillation Current Visit: Yes Status: Chronic Assessment and Plan: Recent diagnosis of A. fib Outpatient Holter evaluation pending for improvement and possible EP referral per cardiology Average HR 63 per 12 are reviewed remains A. fib Continue telemetry continue oral anticoagulation with Eliquis Setup outpatient EP evaluation at [place] (6) Anemia Current Visit: Yes Status: Acute Assessment and Plan: History of anemia , Hemoglobin stable and at baseline; continue to monitor, no S/SX of bleeding (7) Pulmonary hypertension, moderate to severe Current Visit: Yes Status: Chronic Assessment and Plan: TTE on 02/2018 revealed severe pulmonary hypertension Cardiology following, setting up outpatient referral to [facility] clinic (8) Hypokalemia Current Visit: Yes Status: Acute Assessment and Plan: In the setting of potassium wasting diuretics Pericardial patient started on potassium 80 MEQ by mouth twice a day This is actually less than home dose of 60 MEQ 3 times a day Continue to closely monitor Regular rate and rhythm, no abnormalities noted on telemetry Give 40 MEQ K rider now recheck K this evening (9) DVT prophylaxis Current Visit: No Status: Acute Assessment and Plan: Taking Eliquis - Time Spent with Patient Total time spent is greater than 50% in coordination of care (as documented) at patient's floor/unit and/or counseling patient: Internal Medicine: Result - Labs CBC & Chem 7: 06/03/18 05:05 06/03/18 05:05 Labs: Short CBC 06/03/18 Range/Units 05:05 WBC 7.4 (4.3-11.1) K/mcL Hgb 10.9 L (12.9-16.9) g/dL Hct 35.5 L (37.5-50.1) % Plt Count 218 (140-400) K/mcL Neutrophils # 5.0 (1.6-8.9) K/mcL BMP 06/02/18 06/03/18 16:45 05:05 Sodium 139 Potassium 3.3 L 2.8 L Chloride 86 L Carbon Dioxide 45 H* BUN 30 H Creatinine 1.61 H Glucose 83 Calcium 9.0 Consult Discharge Plan - Plan Referrals: Parrish Galindo DO [Primary Care Provider] - 06/09/18 12:30 pm (2) CAD (coronary artery disease) Qualifiers: Coronary Disease-Associated Artery/Lesion type: [place] artery [place] vs. transplanted heart: [place] heart Associated angina: without angina Qualified Code(s): I25.10 - Atherosclerotic heart disease of [place] coronary artery without angina pectoris (5) Atrial fibrillation Qualifiers: Atrial fibrillation type: unspecified Qualified Code(s): I48.91 - Unspecified atrial fibrillation (6) Anemia Qualifiers: Chronic kidney disease stage: stage 3 (moderate) Qualified Code(s): N18.3 - Chronic kidney disease, stage 3 (moderate); D63.1 - Anemia in chronic kidney disease
[2018-06-03] MEDS ORDERED: predniSONE 5 MG TABLET PO ONE (17:11)
[2018-06-03] MEDS ORDERED: Apixaban 5 MG TABLET PO ONE (17:11)
[2018-06-03] MEDS ORDERED: Multivit/Ca/Min/Fe/FA 1 TAB TABLET PO ONE (17:11)
[2018-06-03] MEDS ORDERED: Aspirin Enteric Coated 81 MG Tablet PO ONE (17:11)
[2018-06-03] MEDS ORDERED: Gabapentin 400 MG CAPSULE PO ONE (17:11)
[2018-06-03] MEDS ORDERED: *HR* Morphine Sulfate SR (12 HR) 15 MG TABLET.ER PO ONE (17:11)
[2018-06-03] MEDS ORDERED: Bumetanide 1 MG/4 ML VIAL IVP ONE (17:11)
[2018-06-03] MEDS ORDERED: metOLazone 5 MG TABLET PO ONE (17:11)
[2018-06-03] MEDS ORDERED: Metoprolol XL (24 HR) Succ 25 MG TAB.ER.24H PO ONE (17:11)
[2018-06-03] MEDS ORDERED: Insulin LISPRO 300 UNITS/3 ML VIAL SQ SCH (21:00)
[2018-06-04 04:15] LABS: Basophils # 0.1 K/mcL (0.0-0.2); Basophils % 0.8 %; Eosinophils # 0.2 K/mcL (0.0-0.6); Eosinophils % 2.5 %; Hematocrit 38.4 % (37.5-50.1); Hemoglobin 11.4 g/dL (12.9-16.9); Immature Granulocytes % 0.4 % (0-4); Lymphocytes % 12.8 %; Mean Corpuscular HGB Conc 29.7 g/dL (31.6-35.5); Mean Corpuscular Hemoglobin 22.8 pg (28.0-33.3); Mean Corpuscular Volume 76.6 fL (83.0-100.0); Mean Platelet Volume 10.1 fL (9.4-12.4); Monocytes # 1.1 K/mcL (0.0-1.3); Monocytes % 13.9 %; Neutrophils # 5.6 K/mcL (1.6-8.9); Platelet Count 217 K/mcL (140-400); Red Blood Count 5.01 M/mcL (4.19-5.50); Red Cell Distribution Width 16.9 % (11.5-14.5); Segmented Neutrophils % 69.6 %
[2018-06-04 04:40] LABS: BUN/Creatinine Ratio 21 (6-26); Blood Urea Nitrogen 35 mg/dL (8-23); Calcium 9.3 mg/dL (8.6-10.3); Carbon Dioxide > 45 mEq/L (23-29); Chloride 82 mEq/L (98-107); Glucose 299 mg/dL (70-105); Osmolality,Calculated 297 (280-300); Potassium 3.3 mEq/L (3.5-5.1); Sodium 134 mEq/L (136-145); eGFR For Non-African Americans 41 (> 60)
--- NOTE | 2018-06-04 08:22 | Nephrology Progress Note ---
Date of Encounter: 06/04/18 Time of Encounter: 08:20 - Assessment and Plan (1) CKD (chronic kidney disease) Current Visit: Yes Status: Chronic Was seen by Dr. Doshi in 2015 for CKD. EMR reflects a baseline GFR of approximately 50. Avoid nephrotoxins and renal dose. Metolazone increased. Strict I/O 1.5 Liter fluid restriction. Cardiac/renal diet. Stable in the face of diuresis. Qualifiers: Chronic kidney disease stage: unspecified stage Qualified Code(s): N18.9 - Chronic kidney disease, unspecified (2) Acute on chronic diastolic (congestive) heart failure Current Visit: Yes Status: Acute see above. Patient tolerating diuretics after metolazone increased. He has hypokalemia and potassium supplementation has been ordered. Will add spironolactone. (3) Dyspnea on exertion Current Visit: Yes Status: Acute Per primary. (4) Peripheral edema Current Visit: Yes Status: Acute Per primary. Subjective Principal diagnosis: diastolic CHF Interval history: Patient seen. No new complaint. He still feels swollen. He thinks his urine output has decreased. Objective - Vital Signs Vital signs: Vital Signs Temp Pulse Resp BP Pulse Ox 06/04/18 07:46 97.8 F 61 15 111/66 92 06/04/18 04:49 98.3 F 73 16 132/72 92 06/03/18 22:37 97.9 F 57 15 119/73 91 06/03/18 19:05 98.0 F 69 15 115/60 94 06/03/18 15:20 98.0 F 64 18 115/62 93 Intake and Output 06/03/18 06/04/18 06/04/18 23:59 07:59 15:59 Intake Total 820 / 820 120 / 120 Output Total 420 / 420 Balance 819 / 819 -300 / -300 Intake: Oral 820 / 820 120 / 120 Output: Urine 420 / 420 Other: Stool Size Moderate Stool Consistency soft Stool Color Brown # Bowel Movements 2 Weight 113 kg Blood Glucose* 316 328 Patient Weight 06/04/18 23:59 Weight 113 kg - General Appearance General appearance: Present: well-developed, well-nourished EENT: Present: ATNC Neck: Present: supple Respiratory: Present: wheezing (occasional scattered wheezing) Cardiology: Present: edema (2+ on the left leg), regular rate Integumentary: Present: warm and dry Neurologic: Present: alert and oriented x3 Musculoskeletal: Present: no cyanosis Psychiatric: Present: mood/affect appropriate - Lab 06/04/18 04:01 06/04/18 04:01 Most recent lab results Calcium 9.3 mg/dL (8.6-10.3) 06/04/18 04:01 Consult Discharge Plan - Plan Referrals: Parrish Galindo DO [Primary Care Provider] - 06/09/18 12:30 pm
[2018-06-04] MEDS ORDERED: Spironolactone 25 MG TABLET PO SCH (09:00)
[2018-06-04] MEDS: Gabapentin 400 MG CAPSULE PO SCH ×3 (09:26→21:31)
[2018-06-04] MEDS: Apixaban 5 MG TABLET PO SCH ×2 (09:26→21:30)
[2018-06-04] MEDS: Multivit/Ca/Min/Fe/FA 1 TAB TABLET PO SCH (09:26)
[2018-06-04] MEDS: predniSONE 5 MG TABLET PO SCH (09:27)
[2018-06-04] MEDS: metOLazone 5 MG TABLET PO SCH (09:27)
[2018-06-04] MEDS: Aspirin Enteric Coated 81 MG Tablet PO SCH (09:27)
[2018-06-04] MEDS: Metoprolol XL (24 HR) Succ 25 MG TAB.ER.24H PO SCH (09:27)
[2018-06-04] MEDS: Insulin LISPRO 300 UNITS/3 ML VIAL SQ SCH ×4 (09:28→21:31)
[2018-06-04] MEDS: Bumetanide 1 MG/4 ML VIAL IVP SCH ×2 (09:29→16:37)
[2018-06-04] MEDS: *HR* Morphine Sulfate SR (12 HR) 15 MG TABLET.ER PO SCH ×2 (09:34→21:31)
--- NOTE | 2018-06-04 10:05 | Internal Med Progress Note ---
Hospitalist Progress Note - Encounter Date of Encounter: 06/04/18 Time of Encounter: 10:04 - Subjective Interval History: No acute changes overnight. Reporting dyspnea has subsided. - Exam Vitals: Temp Pulse Resp BP Pulse Ox 97.8 F 61 15 111/66 92 06/04/18 07:46 06/04/18 07:46 06/04/18 07:46 06/04/18 07:46 06/04/18 07:46 Exam: Gen.: Nonacute distress, alert and oriented 3 ENT: Mucosal membranes moist Respiratory: Lungs are clear/diminished to auscultation bilaterally without any wheezing rhonchi or rales Cardiovascular: Normal S1 and S2 RRR, with 2+ systolic murmur Abdomen: Soft, nontender and nondistended with NABS, positive for abdominal swelling without appreciable changes overnight GI/: Scrotal edema is persistent Extremities: Persistent Left Lower extremity 1+ edema up to knee with no improvement overnight Skin: Normal color Neuro: No neurological deficits Psych: Normal mood - Assessment and Plan (1) Acute on chronic diastolic (congestive) heart failure Current Visit: Yes Status: Acute Assessment and Plan: Patient with history of diastolic and right-sided heart failure with no improvement in shortness of breath and lower extremity edema after discharge on 03/11/10 for the same. Patient reports of being on oral Bumex 6 mg daily; 2 mg Bumex 3 times a day BNP of 221 and mild vascular congestion on chest x-ray Patient with volume overloaded on exam. Strict I's and O's and an 1.5 L fluid restriction ordered in addition to daily weights 06/04--left lower extremity edema persistent as well as abdominal edema without appreciable changes overnight. Weight 245 pounds this morning. Continuous downtrend. Net negative fluid volume -2771. Cardiology and nephrology continued to follow. Continue diuretics with IV Bumex 3 mg twice a day, a telephone. Nephrology had inspiratory lactam. Continue strict I's and O's and fluid restriction. (2) CAD (coronary artery disease) Current Visit: No Status: Chronic Assessment and Plan: Patient with past medical history significant for coronary arterial disease (CABG/stents) Continue aspirin and statin, BB Continues to be chest pain-free cardiology following A/P as above (3) CKD (chronic kidney disease) stage 3, GFR 30-59 ml/min Current Visit: No Status: Chronic Assessment and Plan: Patient with a creatinine on admission of 1.52, today 06/01 1.54 which reflects baseline SCR, continue to avoid nephrotoxins. Nephrology is seeing in consultation to assist with diuresis and to monitor renal function. Recommendations are to increase metolazone and obtain retroperitoneal ultrasound to rule out obstruction. Retroperitoneal US negative for obstruction 06/03--renal function stable, SCR 1.61. Nephrology continuing to follow. C ontinue diuretics at this time. Vianey monitor intake and output as well as daily weight. 06/04--renal function stable SCR 1.68. Follows with obtained nephrology. Nephrology seeing in consultation, thank you appreciate recommendations. Continue diuresis with Lasix and metolazone. Metolazone dose increased by nephrology, nephrology adding spironolactone. Continue to closely monitor. Wit h the need for continued diuresis and hypokalemia patient remain overnight for further monitoring. (4) Adrenal insufficiency Current Visit: No Status: Acute Assessment and Plan: Continue prednisone 5 mg twice daily (5) Atrial fibrillation Current Visit: Yes Status: Chronic Assessment and Plan: Recent diagnosis of A. fib Outpatient Holter evaluation pending for improvement and possible EP referral per cardiology Her 12 hour Review average heart rate is 63, no events noted on telemetry Continue telemetry continue oral anticoagulation with Eliquis Setup outpatient EP evaluation at [place] (6) Anemia Current Visit: Yes Status: Acute Assessment and Plan: Chronic anemia, hemoglobin and hematocrit stable and at baseline, continue to monitor, no S/SX of bleeding (7) Pulmonary hypertension, moderate to severe Current Visit: Yes Status: Chronic Assessment and Plan: TTE on 02/2018 revealed severe pulmonary hypertension Cardiology following, setting up outpatient referral to [facility] advanced HF clinic (8) Hypokalemia Current Visit: Yes Status: Acute Assessment and Plan: In the setting of potassium wasting diuretics Pericardial patient started on potassium 80 MEQ by mouth twice a day This is actually less than home dose of 60 MEQ 3 times a day Continue to closely monitor Regular rate and rhythm, no abnormalities noted on telemetry Give 40 MEQ K rider now recheck K this evening 06/04-hypokalemia persists, serum potassium 3.3 this morning. Continue 80 MEQ potassium twice a day and monitor. (9) DVT prophylaxis Current Visit: No Status: Acute Assessment and Plan: Taking Eliquis - Time Spent with Patient Total time spent is greater than 50% in coordination of care (as documented) at patient's floor/unit and/or counseling patient: less than 15 minutes Plan of Care Discussed with: patient Internal Medicine: Result - Labs CBC & Chem 7: 06/04/18 04:01 06/04/18 04:01 Labs: Short CBC 06/03/18 06/04/18 Range/Units 05:05 04:01 WBC 7.4 8.0 (4.3-11.1) K/mcL Hgb 10.9 L 11.4 L (12.9-16.9) g/dL Hct 35.5 L 38.4 (37.5-50.1) % Plt Count 218 217 (140-400) K/mcL Neutrophils # 5.0 5.6 (1.6-8.9) K/mcL BMP 06/03/18 06/04/18 05:05 04:01 Sodium 139 134 L Potassium 2.8 L 3.3 L Chloride 86 L 82 L Carbon Dioxide 45 H* > 45 H* BUN 30 H 35 H Creatinine 1.61 H 1.68 H Glucose 83 299 H Calcium 9.0 9.3 Consult Discharge Plan - Plan Referrals: Parrish Galindo DO [Primary Care Provider] - 06/09/18 12:30 pm (2) CAD (coronary artery disease) Qualifiers: Coronary Disease-Associated Artery/Lesion type: [place] artery [place] vs[place] heart: [place] heart Associated angina: without angina Qualified Code(s): I25.10 - Atherosclerotic heart disease of [place] coronary artery without angina pectoris (5) Atrial fibrillation Qualifiers: Atrial fibrillation type: unspecified Qualified Code(s): I48.91 - Unspecified atrial fibrillation (6) Anemia Qualifiers: Chronic kidney disease stage: stage 3 (moderate) Qualified Code(s): N18.3 - Chronic kidney disease, stage 3 (moderate); D63.1 - Anemia in chronic kidney disease
--- NOTE | 2018-06-04 10:33 | Cardiology Progress Note ---
Date of Encounter: 06/04/18 Time of Encounter: 09:00 Assessment and Plan (1) Acute on chronic diastolic (congestive) heart failure Current Visit: Yes Status: Acute Per Cardiology: -BNP 200's. History of chronic diastolic CHF. -On Bumex 4 mg by mouth every 8 hours at home. -Baseline weight is high 230 to low 240 pound range-- current weight 245 pounds, improved from yesterday. -Currently on Bumex 3 mg IV twice a day, metalazone 5mg daily. K 3.3, replaced per primary service. -Net I&O -3371ml. Will initiate strict I&O, daily weights, 1.5 L fluid restriction. Recommend wearing left leg KALEB hose. -Renal function stable. Nephrology following. -Reports symptoms improvement, however not quite back to baseline. -Continue IV diuresis, spironolactone added per nephrology. Recommend continuing IV diuresis until back to baseline weight, as tolerated. -Monitor K closely. -Strict i/os, fluid restriction, daily weights. -Cardiology will sign off and will follow in outpatient setting, follow up set. Of note, has penidng OP referral to [facility] for advanced heart failure per primary cardiology provider. (2) CAD (coronary artery disease) Current Visit: No Status: Chronic Per Cardiology: -History of CAD with CABG x 3 in 2008. -Abnormal stress test 2014 with left heart catheterization status post drug- eluting stent to diagonal 1 lesion with patent 3 of 3 bypass grafts. -Now back on aspirin, statin, beta sabina. -Chest pain-free, troponin negative 1. Qualifiers: Coronary Disease-Associated Artery/Lesion type: [place] artery [place] vs. transplanted heart: [place] heart Associated angina: without angina Qualified Code(s): I25.10 - Atherosclerotic heart disease of [place] coronary artery without angina pectoris (3) Atrial fibrillation Current Visit: Yes Status: Chronic Per Cardiology: -Recent diagnosis of atrial fibrillation. -Had pending outpatient Holter to evaluate symptoms of dizziness to assess for A. fib burden with possible EP referral. -Telemetry reviewed with average heart rate the past 12 hours 62, remains A. fib in the 50s to 60s. Rate controlled with BB. -Regarding long-term anticoagulation, remains anticoagulated with Eliquis 5mg PO BID. H&H stable, denies any active bleeding or blood loss. -Continue telemetry Qualifiers: Atrial fibrillation type: unspecified Qualified Code(s): I48.91 - Uns pecified atrial fibrillation (4) Pulmonary hypertension, moderate to severe Current Visit: Yes Status: Chronic Per Cardiology: -Severe PHTN on echo 02/2018 by TR gradient. -Patient now agreeable to outpatient referral to [facility] advanced HF clinic-- will coordinate as outpatient. (5) CKD (chronic kidney disease) Current Visit: Yes Status: Chronic Per cardiology: -Known CKD. -Renal function stable. -Nephrology following. -Appreciate nephrology recommendations and assistance. Qualifiers: Chronic kidney disease stage: unspecified stage Qualified Code(s): N18.9 - Chronic kidney disease, unspecified Discussion w patient/family: The assessment and plan as outlined above was discussed with the patient who expressed understanding and agreement. All questions were answered. Thank you for involving us in the care of your patient. Please call with any questions. Discussed and reviewed with Dr.John Seay. Subjective Principal diagnosis: diastolic CHF Interval history: Patient reports improvement in breathing anf volume status. Denies complaints today. Objective Vital Signs, Last 4 Hours Temp Pulse Resp BP Pulse Ox 06/04/18 07:46 97.8 F 61 15 111/66 92 General: Conversant, No Apparent Distress HEENT: Atraumatic, Normocephaly, Mucus Membranes Moist Neck: No JVD, Normal carotid pulses Cardiac: Normal S1 and S2, No Murmur, Other (Irregularly irregular ) Lungs: Normal Breath Sounds, No Wheeze, Rales, Rhonchi Neuro: Alert and responsive, No focal deficits noted Abdomen: Soft, Non-Tender Skin: No rashes noted on visualized skin Musculoskeletal: No Chest Wall Tenderness Extremities: No Clubbing, No Cyanosis, Normal Pulses, Other (2+ left lower extremity pitting edema noted. ) Results 06/04/18 04:01 06/04/18 04:01 Lab Results Active Medications Acetaminophen (Tylenol) 650 mg PO Q6HR PRN PRN Reason: Mild Pain Stop: 11/30/18 22:40 Apixaban (Eliquis) 5 mg PO BID [facility] Stop: 12/01/18 10:16 Last Admin: 06/04/18 09:26 Dose: 5 mg Aspirin (Aspirin Ec) 81 mg PO DAILY [place] Stop: 12/01/18 10:16 Last Admin: 06/04/18 09:27 Dose: 81 mg Atorvastatin Calcium (Lipitor) 10 mg PO HS [facility] Stop: 12/01/18 21:01 Last Admin: 06/03/18 20:04 Dose: 10 mg Bumetanide (Bumex) 3 mg IVP BIDDIURETIC [facility] Stop: 12/01/18 10:39 Last Admin: 06/04/18 09:29 Dose: 3 mg Dextrose/Water (Dextrose 50% (Syg)) 25 ml IVP AD PRN PRN Reason: Hypoglycemia Stop: 12/01/18 10:26 Gabapentin (Neurontin) 800 mg PO TID [facility] Stop: 11/30/18 21:01 Last Admin: 06/04/18 09:26 Dose: 800 mg Glucagon (Glucagen) 1 mg IM ONCE PRN PRN Reason: Hypoglycemia Stop: 12/01/18 10:26 Glucose (Gluctose) 15 gm PO ONCE PRN PRN Reason: Hypoglycemia Stop: 12/01/18 10:26 Glucose (Gluctose) 30 gm PO ONCE PRN PRN Reason: Hypoglycemia Stop: 12/01/18 10:26 Dextrose (Dextrose 5%) 1,000 mls @ 100 mls/hr IVC .Q10H PRN PRN Reason: HYPOGLYCEMIA Stop: 12/01/18 10:26 Insulin Human Lispro (Humalog) 0 units SQ TIDAC [facility]; Protocol Stop: 12/03/18 07:31 Last Admin: 06/04/18 09:28 Dose: 14 units Insulin Human Lispro (Humalog) 0 units SQ [facility]; Protocol Stop: 12/02/18 21:56 Last Admin: 06/03/18 20:04 Dose: 5 units Levothyroxine Sodium (Synthroid) 88 mcg PO Q48H [facility] Stop: 12/01/18 06:31 Last Admin: 06/03/18 12:06 Dose: Not Given Metolazone (Zaroxolyn) 5 mg PO DAILY [facility] Stop: 12/02/18 09:01 Last Admin: 06/04/18 09:27 Dose: 5 mg Metoprolol Succinate (Toprol Xl) 12.5 mg PO DAILY [facility] Stop: 12/01/18 10:16 Last Admin: 06/04/18 09:27 Dose: 12.5 mg Morphine Sulfate (Ms Contin) 15 mg PO Q12H [facility] Stop: 12/04/18 09:01 Last Admin: 06/04/18 09:34 Dose: 15 mg Multivitamins/Calcium (Thera M Plus) 1 tab PO DAILY [facility] Stop: 12/01/18 10:16 Last Admin: 06/04/18 09:26 Dose: 1 tab Naloxone HCl (Narcan) 0.4 mg IVP Q2MIN PRN PRN Reason: SEE COMMENTS Stop: 11/30/18 17:52 Nitroglycerin (Nitroglycerin) 0.4 mg SL Q5MIN PRN PRN Reason: Chest Pain Stop: 12/01/18 10:15 Pharmacy Profile Note (Patient Taking Own Medication) 1 each PO Q7D [facility] Stop: 12/01/18 10:16 Last Admin: 06/01/18 11:12 Dose: Not Given Polyethylene Glycol (Miralax) 17 gm PO DAILY [facility] Stop: 12/02/18 09:01 Last Admin: 06/04/18 09:28 Dose: 17 gm Potassium Chloride (Potassium Chloride) 80 meq PO BIDWM [facility] Stop: 12/03/18 17:01 Last Admin: 06/04/18 09:28 Dose: 80 meq Prednisone (Prednisone) 5 mg PO DAILY [facility] Stop: 12/02/18 09:01 Last Admin: 06/04/18 09:27 Dose: 5 mg Spironolactone (Aldactone) 25 mg PO DAILY [facility] Stop: 12/04/18 09:01 Last Admin: 06/04/18 09:39 Dose: 25 mg Laboratory Tests 06/02/18 06/03/18 06/04/18 11:16 05:05 04:01 Hgb 11.4 L Potassium Creatinine 1.52 H 1.61 H 06/04/18 04:01 Hgb Potassium 3.3 L Creatinine 1.68 H - Imaging and Cardiology Chest Xray: report reviewed Echo: report reviewed - EKG Interpretation EKG results cardiology: other (Telemetry reviewed with average HR previous 12 hours noted to be 56, a.fib. PVCs noted.) Consult Discharge Plan - Plan Referrals: Parrish Galindo DO [Primary Care Provider] - 06/09/18 12:30 pm
[2018-06-04] MEDS ORDERED: *HR* Promethazine 25 MG/ML VIAL IVP PRN (12:54)
[2018-06-04 16:17] LABS: BUN/Creatinine Ratio 21 (6-26); Blood Urea Nitrogen 35 mg/dL (8-23); Calcium 9.4 mg/dL (8.6-10.3); Chloride 80 mEq/L (98-107); Glucose 208 mg/dL (70-105); Magnesium 2.2 mg/dL (1.6-2.6); Osmolality,Calculated 294 (280-300); Potassium 2.6 mEq/L (3.5-5.1); Sodium 135 mEq/L (136-145); eGFR For Non-African Americans 40 (> 60)
[2018-06-04 16:20] LABS: Carbon Dioxide > 45 mEq/L (23-29)
[2018-06-05 04:25] LABS: Basophils # 0.1 K/mcL (0.0-0.2); Basophils % 0.9 %; Eosinophils # 0.3 K/mcL (0.0-0.6); Immature Granulocytes % 0.2 % (0-4); Lymphocytes # 1.3 K/mcL (0.6-4.6); Lymphocytes % 14.7 %; Mean Corpuscular HGB Conc 30.8 g/dL (31.6-35.5); Mean Corpuscular Hemoglobin 23.3 pg (28.0-33.3); Mean Corpuscular Volume 75.9 fL (83.0-100.0); Mean Platelet Volume 10.4 fL (9.4-12.4); Monocytes % 11.2 %; Neutrophils # 6.2 K/mcL (1.6-8.9); Platelet Count 237 K/mcL (140-400); Red Blood Count 5.14 M/mcL (4.19-5.50); Red Cell Distribution Width 17.5 % (11.5-14.5)
[2018-06-05 05:32] LABS: BUN/Creatinine Ratio 22 (6-26); Blood Urea Nitrogen 38 mg/dL (8-23); Calcium 9.6 mg/dL (8.6-10.3); Carbon Dioxide > 45 mEq/L (23-29); Chloride 81 mEq/L (98-107); Glucose 127 mg/dL (70-105); Osmolality,Calculated 295 (280-300); Potassium 3.3 mEq/L (3.5-5.1); Sodium 137 mEq/L (136-145); eGFR For Non-African Americans 39 (> 60)
[2018-06-05] MEDS ORDERED: Potassium Chloride 40 MEQ, Lidocaine 1% 2 ML in D5% in Water 500 ML IVPB ONE (06:37)
[2018-06-05] MEDS: Aspirin Enteric Coated 81 MG Tablet PO SCH (07:53)
[2018-06-05] MEDS: Gabapentin 400 MG CAPSULE PO SCH ×3 (07:53→20:35)
[2018-06-05] MEDS: Apixaban 5 MG TABLET PO SCH ×2 (07:53→20:35)
[2018-06-05] MEDS: predniSONE 5 MG TABLET PO SCH (07:53)
[2018-06-05] MEDS: Multivit/Ca/Min/Fe/FA 1 TAB TABLET PO SCH (07:53)
[2018-06-05] MEDS: Bumetanide 1 MG/4 ML VIAL IVP SCH ×2 (07:54→17:44)
[2018-06-05] MEDS: Insulin LISPRO 300 UNITS/3 ML VIAL SQ SCH ×4 (07:54→20:36)
[2018-06-05] MEDS: Spironolactone 25 MG TABLET PO SCH (07:54)
[2018-06-05] MEDS: metOLazone 5 MG TABLET PO SCH (07:54)
[2018-06-05] MEDS: Metoprolol XL (24 HR) Succ 25 MG TAB.ER.24H PO SCH (07:55)
--- NOTE | 2018-06-05 08:00 | Nephrology Progress Note ---
Date of Encounter: 06/05/18 Time of Encounter: 07:59 - Assessment and Plan (1) CKD (chronic kidney disease) Current Visit: Yes Status: Chronic Was seen by Dr. Doshi in 2015 for CKD. EMR reflects a baseline GFR of approximately 50. Avoid nephrotoxins and renal dose. Diuretics adjusted. Strict I/O 1.5 Liter fluid restriction. Cardiac/renal diet. Creatinine increasing. Will decrease zaroxolyn and change bumex to po with reduced dose Qualifiers: Chronic kidney disease stage: unspecified stage Qualified Code(s): N18.9 - Chronic kidney disease, unspecified (2) Acute on chronic diastolic (congestive) heart failure Current Visit: Yes Status: Acute see above. Patient tolerating diuretics after metolazone increased, but now with slightly worsened creatinine will adjust diuretics. He has hypokalemia and potassium supplementation has been ordered. Will add and titrate spironolactone. (3) Dyspnea on exertion Current Visit: Yes Status: Acute (4) Peripheral edema Current Visit: Yes Status: Acute Improving. Subjective Principal diagnosis: diastolic CHF Interval history: Patient seen. No new complaint. He still feels swollen. He thinks his urine output has decreased. Objective - Vital Signs Vital signs: Vital Signs Temp Pulse Resp BP Pulse Ox 06/05/18 07:52 111/64 06/05/18 07:27 97.6 F 60 15 92/51 90 06/05/18 02:45 97.9 F 77 16 116/65 91 06/04/18 23:30 97.9 F 58 16 116/66 93 06/04/18 18:51 98.5 F 53 16 117/62 93 06/04/18 16:38 98.1 F 55 16 109/67 98 06/04/18 15:52 98.3 F 56 18 96/58 94 Intake and Output 06/04/18 06/04/18 06/05/18 15:59 23:59 07:59 Intake Total 960 / 960 530 / 530 840 / 840 Output Total 1250 / 1250 1225 / 1225 Balance -290 / -290 -695 / -695 840 / 840 Intake: IV Fluids 220 / 220 Oral 960 / 960 530 / 530 620 / 620 Output: Urine 1250 / 1250 1225 / 1225 Other: Meal Lunch Dinner Percent of Meal Consumed 100% 100% # Voids 1 Weight 111.4 kg 107.683 kg Blood Glucose* 168 101 129 Patient Weight 06/05/18 23:59 Weight 107.683 kg - General Appearance General appearance: Present: well-developed, well-nourished EENT: Present: ATNC Neck: Present: supple Cardiology: Present: edema, regular rate Integumentary: Present: warm and dry Neurologic: Present: alert and oriented x3 Psychiatric: Present: mood/affect appropriate - Lab 06/05/18 04:09 06/05/18 14:46 Most recent lab results Calcium 9.6 mg/dL (8.6-10.3) 06/05/18 04:09 Magnesium 2.2 mg/dL (1.6-2.6) 06/04/18 15:10 Consult Discharge Plan - Plan Referrals: Parrish Galindo DO [Primary Care Provider] - 06/09/18 12:30 pm
[2018-06-05] MEDS: *HR* Morphine Sulfate SR (12 HR) 15 MG TABLET.ER PO SCH ×2 (09:03→20:35)
--- NOTE | 2018-06-05 10:37 | Internal Med Progress Note ---
Hospitalist Progress Note - Encounter Date of Encounter: 06/05/18 Time of Encounter: 10:18 - Subjective Interval History: No acute changes overnight. Reporting dyspnea has subsided. LLE swelling improving, abdominal swelling improving. Denies concerns regarding UOP - Exam Vitals: Temp Pulse Resp BP Pulse Ox 97.6 F 60 15 109/71 90 06/05/18 07:27 06/05/18 07:27 06/05/18 07:27 06/05/18 09:03 06/05/18 07:27 Exam: Gen.: Nonacute distress, alert and oriented 3 ENT: Mucosal membranes moist Respiratory: Lungs are clear to auscultation bilaterally without any wheezing rhonchi or rales Cardiovascular: Normal S1 and S2 RRR, with 2+ systolic murmur Abdomen: Soft, nontender and nondistended with NABS, positive for abdominal swelling improving GI/: Scrotal edema is persistent without appreciable change overnight Extremities: Persistent Left Lower extremity 1+ edema up to knee with no improvement overnight Skin: Normal color Neuro: No neurological deficits Psych: Normal mood - Assessment and Plan (1) Acute on chronic diastolic (congestive) heart failure Current Visit: Yes Status: Acute Assessment and Plan: Patient with history of diastolic and right-sided heart failure with no improvement in shortness of breath and lower extremity edema after discharge on 03/11/10 for the same. Patient reports of being on oral Bumex 6 mg daily; 2 mg Bumex 3 times a day BNP of 221 and mild vascular congestion on chest x-ray Patient with volume overloaded on exam. Strict I's and O's and an 1.5 L fluid restriction ordered in addition to daily weights 06/05--clinically, patient remains stable. Weight improving 237.82 pounds, that negative fluid volume -3196 mL. He is without dyspnea and stable on room air without any distress. Urinary output improving. Continue strict I's and O's and 1.5 L fluid restriction. Her reticulocyte dose changing per nephrology, continue Bumex at 3 mg twice a day, decrease metolazone to 2.5 mg daily, increase spironolactone to 50 mg daily. He will likely need diuresis throughout the weekend and consider discharging early next week. Continue to closely monitor electrolytes and replete as necessary. Replacing potassium this morning. Cardiology signed off. (2) CAD (coronary artery disease) Current Visit: No Status: Chronic Assessment and Plan: Patient with past medical history significant for coronary arterial disease (CABG/stents) Continue aspirin and statin, BB Continues to be chest pain-free cardiology following A/P as above (3) CKD (chronic kidney disease) stage 3, GFR 30-59 ml/min Current Visit: No Status: Chronic Assessment and Plan: Patient with a creatinine on admission of 1.52, today 06/01 1.54 which reflects baseline SCR, continue to avoid nephrotoxins. Nephrology is seeing in consultation to assist with diuresis and to monitor renal function. Recommendations are to increase metolazone and obtain retroperitoneal ultrasound to rule out obstruction. Retroperitoneal US negative for obstruction 06/03--renal function stable, SCR 1.61. Nephrology continuing to follow. Continue diuretics at this time. [place] monitor intake and output as well as daily weight. 06/05--renal function stable SCR 1.74. Nephrology seeing in consultation, diuretic doses changed per recommendations of nephrology as above, continue to monitor renal function (4) Adrenal insufficiency Current Visit: No Status: Acute Assessment and Plan: Continue prednisone 5 mg twice daily (5) Atrial fibrillation Current Visit: Yes Status: Chronic Assessment and Plan: Recent diagnosis of A. fib Outpatient Holter evaluation pending for improvement and possible EP referral per cardiology Her 12 hour Review average heart rate is 63, no events noted on telemetry Continue telemetry continue oral anticoagulation with Eliquis Setup outpatient EP evaluation at [place] (6) Anemia Current Visit: Yes Status: Acute Assessment and Plan: Chronic anemia, hemoglobin and hematocrit stable and at baseline, continue to monitor, no S/SX of bleeding (7) Pulmonary hypertension, moderate to severe Current Visit: Yes Status: Chronic Assessment and Plan: TTE on 02/2018 revealed severe pulmonary hypertension Cardiology following, setting up outpatient referral to [facility] advanced HF clinic (8) Hypokalemia Current Visit: Yes Status: Acute Assessment and Plan: Continue to replete as necessary, continue twice a day 80 MEQ potassium (9) DVT prophylaxis Current Visit: No Status: Acute Assessment and Plan: Taking Eliquis - Time Spent with Patient Total time spent is greater than 50% in coordination of care (as documented) at patient's floor/unit and/or counseling patient: less than 15 minutes Plan of Care Discussed with: patient Internal Medicine: Result - Labs CBC & Chem 7: 06/05/18 04:09 06/05/18 04:09 Labs: Short CBC 06/05/18 Range/Units 04:09 WBC 8.9 (4.3-11.1) K/mcL Hgb 12.0 L (12.9-16.9) g/dL Hct 39.0 (37.5-50.1) % Plt Count 237 (140-400) K/mcL Neutrophils # 6.2 (1.6-8.9) K/mcL BMP 06/04/18 06/05/18 15:10 04:09 Sodium 135 L 137 Potassium 2.6 L 3.3 L D Chloride 80 L 81 L Carbon Dioxide > 45 H* > 45 H* BUN 35 H 38 H Creatinine 1.70 H 1.74 H Glucose 208 H 127 H Calcium 9.4 9.6 Consult Discharge Plan - Plan Referrals: Parrish Galindo DO [Primary Care Provider] - 06/09/18 12:30 pm (2) CAD (coronary artery disease) Qualifiers: Coronary Disease-Associated Artery/Lesion type: [place] artery [place] vs. transplanted heart: [place] heart Associated angina: without angina Qualified Code(s): I25.10 - Atherosclerotic heart disease of [place] coronary artery without angina pectoris (5) Atrial fibrillation Qualifiers: Atrial fibrillation type: unspecified Qualified Code(s): I48.91 - Unspecified atrial fibrillation (6) Anemia Qualifiers: Chronic kidney disease stage: stage 3 (moderate) Qualified Code(s): N18.3 - Chronic kidney disease, stage 3 (moderate); D63.1 - Anemia in chronic kidney disease
[2018-06-05 15:26] LABS: Potassium 3.9 mEq/L (3.5-5.1)
--- NOTE | 2018-06-05 21:01 | Event Note ---
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 Using Miralax on daily basis. However, requesting stool softner as well Ducolax 10 mg qhs prn
--- NOTE | 2018-06-05 21:53 | Event Note ---
Date of Encounter: 06/05/18 Time of Encounter: 21:44 Nursing staff reports that patient states has had tremors, and muscle cramps in bilateral arm for the past 2 days. States knows when his potassium is low or blood sugar is low with these s/s at home. Potassium normal @ 3.9, received 80 meq bid today, and blood glucose is 342. Received 5 units of coverage for hyperglycemia @ 20:36. Discussed normal results of potassium with patient, and he stated that the s/s of muscle spasms, and tremors had resolved. He denied chest pain , shortness of breath, dizziness, blurred vision. PE: irregular regular rhythm noted lungs CTAB A/A/ O negative for tremors of upper extremity, with extended hands, negative Romberg. Will continue with current medications regimen of potassium of 80 meq bid
[2018-06-06] MEDS: Insulin LISPRO 300 UNITS/3 ML VIAL SQ SCH ×4 (07:14→20:56)
--- NOTE | 2018-06-06 07:37 | Nephrology Progress Note ---
Date of Encounter: 06/06/18 Time of Encounter: 07:34 - Assessment and Plan (1) CKD (chronic kidney disease) Current Visit: Yes Status: Chronic Was seen by Dr. Doshi in 2015 for CKD. EMR reflects a baseline GFR of approximately 50. Avoid nephrotoxins and renal dose. Diuretics adjusted. Strict I/O 1.5 Liter fluid restriction. Cardiac/renal diet. Creatinine increasing. Decreased zaroxolyn and changed bumex to po with reduced dose. Awaiting labs today 06/06/2018. Qualifiers: Chronic kidney disease stage: unspecified stage Qualified Code(s): N18.9 - Chronic kidney disease, unspecified (2) Acute on chronic diastolic (congestive) heart failure Current Visit: Yes Status: Acute (3) Dyspnea on exertion Current Visit: Yes Status: Acute (4) Peripheral edema Current Visit: Yes Status: Acute Subjective Principal diagnosis: diastolic CHF Interval history: Patient seen. No new complaint. He feels well. Objective - Vital Signs Vital signs: Vital Signs Temp Pulse Resp BP Pulse Ox 06/06/18 07:04 97.7 F 52 16 116/68 100 06/06/18 03:36 97.7 F 50 15 110/63 99 06/05/18 23:07 98.2 F 61 15 109/57 92 06/05/18 19:16 98.2 F 60 15 106/57 98 06/05/18 15:13 97.8 F 65 16 97/63 97 06/05/18 11:21 98.3 F 77 18 91/56 95 06/05/18 09:03 109/71 06/05/18 07:52 111/64 Intake and Output 06/05/18 06/05/18 06/06/18 15:59 23:59 07:59 Intake Total 1342 / 1342 240 / 240 120 / 120 Output Total 1825 / 1825 1425 / 1425 600 / 600 Balance -483 / -483 -1185 / -1185 -480 / -480 Intake: IV Fluids 522 / 522 KCl 40 MEQ Xylocaine 2 ML In 522 / 522 Dextrose 5% 500 ML @ 130.5 mls/ hr IVPB ONCE ONE Rx#:[id number] Oral 820 / 820 240 / 240 120 / 120 Output: Urine 1825 / 1825 1425 / 1425 600 / 600 Other: Meal Lunch Dinner Percent of Meal Consumed 60% 100% Stool Size Moderate Stool Consistency soft Stool Characteristics Normal for Patient Stool Color Brown # Voids 1 # Bowel Movements 1 Weight 108.136 kg 105.8 kg Blood Glucose* 336 342 64 Patient Weight 06/06/18 23:59 Weight 105.8 kg - General Appearance General appearance: Present: well-developed, well-nourished EENT: Present: ATNC Neck: Present: supple Cardiology: Present: regular rate Integumentary: Present: warm and dry Neurologic: Present: alert and oriented x3 Musculoskeletal: Present: no cyanosis Psychiatric: Present: mood/affect appropriate - Lab 06/05/18 04:09 06/05/18 14:46 Most recent lab results Calcium 9.0 mg/dL (8.6-10.3) 06/05/18 14:46 Magnesium 2.2 mg/dL (1.6-2.6) 06/04/18 15:10 Consult Discharge Plan - Plan Referrals: Parrish Galindo DO [Primary Care Provider] - 06/09/18 12:30 pm
[2018-06-06] MEDS: Metoprolol XL (24 HR) Succ 25 MG TAB.ER.24H PO SCH (07:45)
[2018-06-06] MEDS: Aspirin Enteric Coated 81 MG Tablet PO SCH (08:22)
[2018-06-06] MEDS: Spironolactone 25 MG TABLET PO SCH (08:23)
[2018-06-06] MEDS: Gabapentin 400 MG CAPSULE PO SCH ×3 (08:23→20:55)
[2018-06-06] MEDS: Bumetanide 1 MG TABLET PO SCH ×2 (08:23→17:24)
[2018-06-06] MEDS: metOLazone 5 MG TABLET PO SCH (08:23)
[2018-06-06] MEDS: *HR* Morphine Sulfate SR (12 HR) 15 MG TABLET.ER PO SCH ×2 (08:23→20:55)
[2018-06-06] MEDS: predniSONE 5 MG TABLET PO SCH (08:24)
[2018-06-06] MEDS: Apixaban 5 MG TABLET PO SCH ×2 (08:24→20:55)
[2018-06-06] MEDS: Multivit/Ca/Min/Fe/FA 1 TAB TABLET PO SCH (08:24)
[2018-06-06 08:30] LABS: Albumin 3.6 g/dL (3.5-5.7); BUN/Creatinine Ratio 24 (6-26); Blood Urea Nitrogen 36 mg/dL (8-23); Calcium 9.5 mg/dL (8.6-10.3); Carbon Dioxide > 45 mEq/L (23-29); Chloride 82 mEq/L (98-107); Glucose 89 mg/dL (70-105); Osmolality,Calculated 294 (280-300); Sodium 138 mEq/L (136-145); eGFR For Non-African Americans 46 (> 60)
[2018-06-06] MEDS ORDERED: Potassium Chloride 40 MEQ, Lidocaine 1% 2 ML in D5% in Water 500 ML IVPB ONE (09:38)
--- NOTE | 2018-06-06 11:43 | Internal Med Progress Note ---
Hospitalist Progress Note - Encounter Date of Encounter: 06/06/18 Time of Encounter: 11:42 - Subjective Interval History: No acute changes overnight. LLE swelling improving, abdominal swelling improving. - Exam Vitals: Temp Pulse Resp BP Pulse Ox 97.7 F 52 16 116/68 100 06/06/18 07:04 06/06/18 07:04 06/06/18 07:04 06/06/18 07:04 06/06/18 08:34 Exam: Gen.: Nonacute distress, alert and oriented 3 ENT: Mucosal membranes moist Respiratory: Lungs are clear to auscultation bilaterally without any wheezing rhonchi or rales Cardiovascular: Normal S1 and S2 RRR, with 2+ systolic murmur Abdomen: Soft, nontender and nondistended with NABS, positive for abdominal swelling continuing to improve overnight GI/: Scrotal edema proving overnight Extremities: Persistent Left Lower extremity 1+ edema up to knee without Skin: Normal color Neuro: No neurological deficits Psych: Normal mood - Assessment and Plan (1) Acute on chronic diastolic (congestive) heart failure Current Visit: Yes Status: Acute Assessment and Plan: Patient with history of diastolic and right-sided heart failure with no improvement in shortness of breath and lower extremity edema after discharge on 03/11/10 for the same. Patient reports of being on oral Bumex 6 mg daily; 2 mg Bumex 3 times a day BNP of 221 and mild vascular congestion on chest x-ray Patient with volume overloaded on exam. Strict I's and O's and an 1.5 L fluid restriction ordered in addition to daily weights 06/06--clinically, patient remains stable. Neck negative for fluid volume - 5354 Weight improving overnight 232.76 pounds Nephrology following, adjusting diuretics 3 mg IVP Bumex stopped, start 2 mg by mouth twice a day Bumex now conditions of nephrology Continue metolazone 2.5 mg by mouth daily Continue Aldactone 50 mg by mouth daily Continue 1.5 L fluid restriction and strict I's and O's as well as daily weights Replete electrolytes as necessary If patient continues to improve overnight and consider discharge tomorrow if okay with nephrology (2) CAD (coronary artery disease) Current Visit: No Status: Chronic Assessment and Plan: Patient with past medical history significant for coronary arterial disease (CABG/stents) Continue aspirin and statin, BB Continues to be chest pain-free cardiology following A/P as above (3) CKD (chronic kidney disease) stage 3, GFR 30-59 ml/min Current Visit: No Status: Chronic Assessment and Plan: CKD III per history Follows with Dr. Glenda Guerra following in consultation Continue to avoid nephrotoxins and renally dose Continue diuretics per nephrology Continue strict I's and O's 1.5 L fluid restriction and daily weights Repeat labs show stable renal function Hypokalemia; replete as necessary; taking 80 MEQ PO potassium twice a day, given additional 40 MEQ K rider now Recheck potassium at 1400 (4) Adrenal insufficiency Current Visit: No Status: Acute Assessment and Plan: Continue prednisone 5 mg twice daily (5) Atrial fibrillation Current Visit: Yes Status: Chronic Assessment and Plan: Recent diagnosis of A. fib Outpatient Holter evaluation pending for improvement and possible EP referral per cardiology Her 12 hour Review average heart rate is 63, no events noted on telemetry Continue telemetry continue oral anticoagulation with Eliquis Setup outpatient EP evaluation at [facility] (6) Anemia Current Visit: Yes Status: Acute Assessment and Plan: Chronic anemia, hemoglobin and hematocrit stable and at baseline, continue to monitor, no S/SX of bleeding (7) Pulmonary hypertension, moderate to severe Current Visit: Yes Status: Chronic Assessment and Plan: TTE on 02/2018 revealed severe pulmonary hypertension Cardiology following, setting up outpatient referral to [facility] (8) Hypokalemia Current Visit: Yes Status: Acute Assessment and Plan: Continue to replete as necessary, continue twice a day 80 MEQ potassium, getting 40 MEQ K rider 1 now, recheck K at 1400 (9) DVT prophylaxis Current Visit: No Status: Acute Assessment and Plan: Taking Eliquis - Time Spent with Patient Total time spent is greater than 50% in coordination of care (as documented) at patient's floor/unit and/or counseling patient: less than 15 minutes Plan of Care Discussed with: patient Internal Medicine: Result - Labs CBC & Chem 7: 06/05/18 04:09 06/06/18 07:34 Labs: BMP 06/05/18 06/06/18 14:46 07:34 Sodium 131 L 138 Potassium 3.9 3.0 L Chloride 79 L 82 L Carbon Dioxide 45 H* > 45 H* BUN 40 H 36 H Creatinine 1.80 H 1.51 H Glucose 479 H 89 Calcium 9.0 9.5 Liver Function 06/06/18 Range/Units 07:34 Albumin 3.6 (3.5-5.7) g/dL Consult Discharge Plan - Plan Referrals: Parrish Galindo DO [Primary Care Provider] - 06/09/18 12:30 pm (2) CAD (coronary artery disease) Qualifiers: Coronary Disease-Associated Artery/Lesion type: [place] artery [place] vs. transplanted heart: [place] heart Associated angina: without angina Qualified Code(s): I25.10 - Atherosclerotic heart disease of [place] coronary artery without angina pectoris (5) Atrial fibrillation Qualifiers: Atrial fibrillation type: unspecified Qualified Code(s): I48.91 - Unspecified atrial fibrillation (6) Anemia Qualifiers: Chronic kidney disease stage: stage 3 (moderate) Qualified Code(s): N18.3 - Chronic kidney disease, stage 3 (moderate); D63.1 - Anemia in chronic kidney disease
[2018-06-06 17:19] LABS: BUN/Creatinine Ratio 24 (6-26); Blood Urea Nitrogen 39 mg/dL (8-23); Calcium 9.5 mg/dL (8.6-10.3); Carbon Dioxide > 45 mEq/L (23-29); Chloride 80 mEq/L (98-107); Glucose 508 mg/dL (70-105); Osmolality,Calculated 306 (280-300); Sodium 132 mEq/L (136-145); eGFR For Non-African Americans 42 (> 60)
[2018-06-07 06:28] LABS: Albumin 3.4 g/dL (3.5-5.7); BUN/Creatinine Ratio 23 (6-26); Blood Urea Nitrogen 35 mg/dL (8-23); Calcium 9.5 mg/dL (8.6-10.3); Carbon Dioxide > 45 mEq/L (23-29); Chloride 82 mEq/L (98-107); Glucose 150 mg/dL (70-105); Osmolality,Calculated 297 (280-300); Phosphorous 3.8 mg/dL (2.7-4.5); Sodium 138 mEq/L (136-145); eGFR For Non-African Americans 46 (> 60)
[2018-06-07] MEDS: Metoprolol XL (24 HR) Succ 25 MG TAB.ER.24H PO SCH (08:44)
[2018-06-07] MEDS: *HR* Morphine Sulfate SR (12 HR) 15 MG TABLET.ER PO SCH (08:44)
[2018-06-07] MEDS: predniSONE 5 MG TABLET PO SCH (08:44)
[2018-06-07] MEDS: Multivit/Ca/Min/Fe/FA 1 TAB TABLET PO SCH (08:44)
[2018-06-07] MEDS: metOLazone 5 MG TABLET PO SCH (08:44)
[2018-06-07] MEDS: Apixaban 5 MG TABLET PO SCH (08:44)
[2018-06-07] MEDS: Aspirin Enteric Coated 81 MG Tablet PO SCH (08:44)
[2018-06-07] MEDS: Gabapentin 400 MG CAPSULE PO SCH ×2 (08:44→13:08)
[2018-06-07] MEDS: Spironolactone 25 MG TABLET PO SCH (08:45)
[2018-06-07] MEDS: Insulin LISPRO 300 UNITS/3 ML VIAL SQ SCH ×3 (08:46→15:09)
[2018-06-07] MEDS: Bumetanide 1 MG TABLET PO SCH ×2 (08:47→15:49)
[2018-06-07] MEDS ORDERED: Potassium Chloride 40 MEQ, Lidocaine 1% 2 ML in D5% in Water 500 ML IVPB ONE (10:23)
[2018-06-07] MEDS ORDERED: Insulin DETEMIR 100 UNIT/ML X5UNITS SQ SCH (10:30)
--- NOTE | 2018-06-07 11:00 | Nephrology Progress Note ---
Addendum entered and electronically signed by Rex Hernandez DO 06/07/18 15:22: I have personally performed a face to face evaluation on this patient. I have reviewed and agree with the care plan. History and Exam by me shows: CKD stage III with chronic respiratory acidosis and compensatory metabolic alkalosis, which appears stable. He is also chronically hypokalemic: agree with recent addition of spironolactone, plus I discussed his KCl requirements with the primary team by phone and in person. We'll work on setting up a [facility] follow up appt. The pt requested [place], [place], location, if this is available soon enough ([place] site often has quicker availability). Thank you. Original Note: Date of Encounter: 06/07/18 Time of Encounter: 10:55 - Assessment and Plan (1) CKD (chronic kidney disease) Current Visit: Yes Status: Chronic Was seen by Dr. Doshi in 2014 for CKD. EMR reflects a baseline GFR of approximately 50. Avoid nephrotoxins and renal dose. Diuretics adjusted. Strict I/O 1.5 Liter fluid restriction. Cardiac/renal diet. Potassium continues to be low. Is receiving 80 meq po BID now, as well as 40 meq IV. Continue 80 meq BID at home per Dr. Hernandez. BMP and Magnesium in 7 days and f/u in [place] with any of the [facility] providers. We will sign off at this time. Please reconsult as needed. Qualifiers: Chronic kidney disease stage: unspecified stage Qualified Code(s): N18.9 - Chronic kidney disease, unspecified (2) Dyspnea on exertion Current Visit: Yes Status: Acute Per primary. (3) Peripheral edema Current Visit: Yes Status: Acute Improving. (4) Acute on chronic diastolic (congestive) heart failure Current Visit: Yes Status: Acute see above. Subjective Principal diagnosis: diastolic CHF Interval history: Pt seen and examined, doing well. Asks when he can go home. Objective - Vital Signs Vital signs: Vital Signs Temp Pulse Resp BP Pulse Ox 06/07/18 07:05 97.7 F 56 16 100 06/07/18 04:09 97.5 F L 63 15 118/61 99 06/06/18 23:15 97.5 F L 60 16 122/73 99 06/06/18 19:10 97.9 F 71 16 112/63 98 06/06/18 16:07 98.1 F 69 18 130/71 95 06/06/18 12:15 98.4 F 78 18 119/63 96 Intake and Output 06/06/18 06/07/18 06/07/18 23:59 07:59 15:59 Intake Total 672 / 672 60 / 60 Output Total 1800 / 1800 600 / 600 Balance -1128 / -1128 -540 / -540 Intake: IV Fluids 522 / 522 KCl 40 MEQ Xylocaine 2 ML In 522 / 522 Dextrose 5% 500 ML @ 130.5 mls/ hr IVPB ONCE ONE Rx#:[id number] Oral 150 / 150 60 / 60 Output: Urine 1800 / 1800 600 / 600 Other: Stool Size Moderate Stool Consistency soft formed Stool Characteristics Normal for Patient Stool Color Brown Weight 103.2 kg Blood Glucose* 384 116 Patient Weight 06/07/18 23:59 Weight 103.2 kg - General Appearance General appearance: Present: well-developed, well-nourished EENT: Present: ATNC, hearing intact, vision intact Neck: Present: supple Cardiology: Present: edema (+1 pitting edema noted to LLE. ), normal S1, normal S2 Gastrointestinal: Present: normoactive bowel sounds, no tenderness, no guarding Integumentary: Present: no rash, warm and dry Neurologic: Present: alert and oriented x3 Psychiatric: Present: mood/affect appropriate, cooperative - Lab 06/05/18 04:09 06/07/18 05:01 Most recent lab results Calcium 9.5 mg/dL (8.6-10.3) 06/07/18 05:01 Phosphorus 3.8 mg/dL (2.7-4.5) 06/07/18 05:01 Magnesium 2.2 mg/dL (1.6-2.6) 06/04/18 15:10 Consult Discharge Plan - Plan Instructions: Spironolactone (By mouth), Metolazone (By mouth), Heart Failure (DC), Atrial Fibrillation (DC) Referrals: Parrish Galindo DO [Primary Care Provider] - 06/09/18 12:30 pm Prescriptions: metOLazone [Zaroxolyn] 2.5 mg PO DAILY 30 Days #15 tablet Spironolactone [Aldactone] 50 mg PO DAILY 30 Days #60 tablet
[2018-06-07 11:14] VITALS: BP 109/58
--- NOTE | 2018-06-07 12:05 | Discharge Summary ---
- NOTES TO OUTPATIENT PROVIDER Notes to Outpatient Provider: Discuss monitoring for s/sx of CHF/Fluid overload, fluid restriction, and low sodium diet. Hypokalemic; on multiple diuretics; Please f/u with repeat BMP. Aldactone added to daily diuretic regimen Date of Encounter: 06/07/18 Time of Encounter: 12:01 - Discharge Diagnosis (1) Acute on chronic diastolic (congestive) heart failure Priority: Primary Status: Acute (2) CAD (coronary artery disease) Priority: Secondary Status: Chronic Qualifiers: Coronary Disease-Associated Artery/Lesion type: [place] artery [place] vs. transplanted heart: [place] heart Associated angina: without angina Qualified Code(s): I25.10 - Atherosclerotic heart disease of [place] coronary artery without angina pectoris (3) CKD (chronic kidney disease) stage 3, GFR 30-59 ml/min Priority: Secondary Status: Chronic (4) Adrenal insufficiency Priority: Secondary Status: Acute (5) Atrial fibrillation Priority: Secondary Status: Chronic Qualifiers: Atrial fibrillation type: unspecified Qualified Code(s): I48.91 - Unspecified atrial fibrillation (6) Anemia Priority: Secondary Status: Acute Qualifiers: Chronic kidney disease stage: stage 3 (moderate) Qualified Code(s): N18.3 - Chronic kidney disease, stage 3 (moderate); D63.1 - Anemia in chronic kidney disease (7) Pulmonary hypertension, moderate to severe Priority: Secondary Status: Chronic (8) Hypokalemia Priority: Secondary Status: Acute (9) DVT prophylaxis Priority: Secondary Status: Acute Hospital course: Mr. Noriega is a 68 year old male who presented on 05/31/18 due to worsening edema, increasing abdominal girth, dyspnea, weight gain. This is his second admission since February 2018 for CHF exacerbation. On admission the patient was found to be profoundly fluid overloaded with abdominal swelling, 1-2+ pitting edema in left lower extremity, BNP of 221 and a weight of 255.64 pounds. The patient's baseline weight is 230 lbs. throughout stay he received IV Bumex, metolazone and spironolactone. Successfully diuresed, patient returning to baseline weight, left lower extremity swelling improving. No longer dyspneic, lungs clear/diminished throughout without crackles. Renal function stable. He has chronic hypokalemia and is on oral potassium supplementation at home. This is managed by his PCP and manager client. He required IV potassium and oral K replacement and received 40meq k-rider on day of d/c with a K of 3.0. Histological Illustrator Dr. Goodman following and aware of hypokalemia of 3.0. Recommendations to d/c on home dose of oral Potassium 60meq QID and have f/u BMP in 2-3 days. He will f/u with nephrology in 1-2 weeks of d/c. Results of BMP to be sent to nephrologiss to follow. With added aldactone potassium should correct. Uneventful hospital course, in stable condition on day of d/c. Please PCP in 1 week. Discharge discussed with: patient, nurse, senior safety management consultant - Time Spent with Patient Total time spent providing and/or coordinating discharge services: Less than 30 minutes - Discharge Medications Prescriptions: metOLazone [Zaroxolyn] 2.5 mg PO DAILY 30 Days #15 tablet Spironolactone [Aldactone] 50 mg PO DAILY 30 Days #60 tablet Home Medications: Levothyroxine [Synthroid] 88 mcg PO Q48H 02/18/16 [History] Morphine Sulfate SR (12 HR) [MS Contin] 15 mg PO Q12HR tablet.er 02/29/16 [Rx] Aspirin Enteric Coated [Aspirin EC] 81 mg PO DAILY 03/09/18 [History] Atorvastatin [Lipitor] 10 mg PO HS 03/09/18 [History] Insulin ASPART [NovoLOG] 0 - 12 unit SQ TIDAC 03/09/18 [History] Multivitamin [One Daily Essential] 1 tab PO DAILY 03/09/18 [History] Nitroglycerin [Nitrostat] 0.4 mg SL Q5MIN PRN 03/09/18 [History] Polyethylene Glycol 3350 [MiraLAX] 17 gm PO DAILY 03/09/18 [History] Potassium Chloride [K-Tab ER] 60 meq PO QID 03/09/18 [History] Apixaban [Eliquis] 5 mg PO BID #60 tablet 03/11/18 [Rx] Bumetanide 2 mg PO TID 05/31/18 [History] Cabergoline 0.5 mg PO Q7D 05/31/18 [History] Gabapentin [Neurontin] 800 mg PO TID 05/31/18 [History] Metoprolol Succinate 12.5 mg PO DAILY 05/31/18 [History] predniSONE [PredniSONE] 5 mg PO DAILY 05/31/18 [History] Spironolactone [Aldactone] 50 mg PO DAILY 30 Days #60 tablet 06/07/18 [Rx] metOLazone [Zaroxolyn] 2.5 mg PO DAILY 30 Days #15 tablet 06/07/18 [Rx] Allergies/Adverse Reactions: Allergy/AdvReac Type Severity Reaction Status Date / Time Penicillins Allergy Hives Verified 03/09/18 13:46 Sulfa (Sulfonamide Allergy Nausea Verified 03/09/18 13:46 Antibiotics) carvedilol [From Coreg] AdvReac Hypotension Verified 03/09/18 13:46 lisinopril AdvReac Hypotension Verified 03/09/18 13:46 Date of admission: 05/31/18 18:44 Primary care physician: Parrish Galindo DO Consults: 05/31/18 17:53 Consult to Cardiology [CONS] Routine Comment: Consulting Provider: Cardiology Letty Reason for Consult: Acute on chronic diastolic/right sided heart failure with pulmonary hypertension Call Completed: Yes 06/01/18 09:43 Consult to Nurse Navigator [CONS] Routine Comment: CHF 06/01/18 10:37 Consult to Nephrology [CONS] Routine Consulting Provider: Kidney Letty/RONNIE/RANDY/CHERI Reason for Consult: Assist with diuresis Time Notified: 10:38 Call Completed: Yes Discharging clinician: Julian Carbone Anticipated date of discharge: 06/07/18 - Constitutional Vitals: Temp Pulse Resp BP Pulse Ox 98.1 F 71 15 109/58 98 06/07/18 11:13 06/07/18 11:13 06/07/18 11:13 06/07/18 11:13 06/07/18 11:13 Exam: Gen.: Nonacute distress, alert and oriented 3 ENT: Mucosal membranes moist Respiratory: Lungs are clear to auscultation bilaterally without any wheezing rhonchi or rales Cardiovascular: Normal S1 and S2 RRR, with 2+ systolic murmur Abdomen: Soft, nontender and nondistended with NABS, positive for abdominal swelling resolving GI/: Scrotal edema resolving Extremities: LLE pitting edema improving Skin: Normal color Neuro: No neurological deficits Psych: Normal mood - Patient Status Disposition: Home, Self-Care Condition: Good Functional capacity at discharge: uses cane/walker Overall status at discharge: patient is progressing back to baseline - Discharge Instructions Instructions: Heart Failure (DC), Atrial Fibrillation (DC) Follow Up With: Parrish Galindo DO [Primary Care Provider] - 06/09/18 12:30 pm - Diet and Activity Activity: increase activity as tolerated, resume usual activities as tolerated Diet: diabetic diet, low fat, low cholesterol, low salt diet
--- NOTE | 2018-06-07 13:31 | Physician Discharge Referral ---
Home Health/Hosp Referral Info Transfer to: Home Health Attending Provider: JULISA - Diagnosis (1) Acute on chronic diastolic (congestive) heart failure Priority: Primary Status: Acute (2) CAD (coronary artery disease) Priority: Secondary Status: Chronic (3) CKD (chronic kidney disease) stage 3, GFR 30-59 ml/min Priority: Secondary Status: Chronic (4) Adrenal insufficiency Priority: Secondary Status: Acute (5) Atrial fibrillation Priority: Secondary Status: Chronic (6) Anemia Priority: Secondary Status: Acute (7) Pulmonary hypertension, moderate to severe Priority: Secondary Status: Chronic (8) Hypokalemia Priority: Secondary Status: Acute (9) DVT prophylaxis Priority: Secondary Status: Acute - Respiratory Orders Smoking Cessation: Smoking cessation has been advised. For more information, call the [employer] Tobacco Quit Line at 0-438-NMVY-NOW. - Diet/Nutrition Diet/Nutrition Orders: No Added Salt (VALENTINE), Renal, Cardiac, No Concentrated Sweets - Activity Activity Orders: Ambulate - Services Needed Following services are medically necessary services: Nursing, Physical Therapy, Occupational Therapy - Transfer Medications Prescriptions: metOLazone [Zaroxolyn] 2.5 mg PO DAILY 30 Days #15 tablet Spironolactone [Aldactone] 50 mg PO DAILY 30 Days #60 tablet Home Medications: Levothyroxine [Synthroid] 88 mcg PO Q48H 02/18/16 [History] Morphine Sulfate SR (12 HR) [MS Contin] 15 mg PO Q12HR tablet.er 02/29/16 [Rx] Aspirin Enteric Coated [Aspirin EC] 81 mg PO DAILY 03/09/18 [History] Atorvastatin [Lipitor] 10 mg PO HS 03/09/18 [History] Insulin ASPART [NovoLOG] 0 - 12 unit SQ TIDAC 03/09/18 [History] Multivitamin [One Daily Essential] 1 tab PO DAILY 03/09/18 [History] Nitroglycerin [Nitrostat] 0.4 mg SL Q5MIN PRN 03/09/18 [History] Polyethylene Glycol 3350 [MiraLAX] 17 gm PO DAILY 03/09/18 [History] Potassium Chloride [K-Tab ER] 60 meq PO QID 03/09/18 [History] Apixaban [Eliquis] 5 mg PO BID #60 tablet 03/11/18 [Rx] Bumetanide 2 mg PO TID 05/31/18 [History] Cabergoline 0.5 mg PO Q7D 05/31/18 [History] Gabapentin [Neurontin] 800 mg PO TID 05/31/18 [History] Metoprolol Succinate 12.5 mg PO DAILY 05/31/18 [History] predniSONE [PredniSONE] 5 mg PO DAILY 05/31/18 [History] Spironolactone [Aldactone] 50 mg PO DAILY 30 Days #60 tablet 06/07/18 [Rx] metOLazone [Zaroxolyn] 2.5 mg PO DAILY 30 Days #15 tablet 06/07/18 [Rx] Allergies/Adverse Reactions: Allergy/AdvReac Type Severity Reaction Status Date / Time Penicillins Allergy Hives Verified 03/09/18 13:46 Sulfa (Sulfonamide Allergy Nausea Verified 03/09/18 13:46 Antibiotics) carvedilol [From Coreg] AdvReac Hypotension Verified 03/09/18 13:46 lisinopril AdvReac Hypotension Verified 03/09/18 13:46 Certification: Further, I certify that my clinical findings support that this patient is homebound (i.e. absences from home require considerable and taxing effort and are for medical reasons or religion services or infrequently or short duration when for other reasons) because: Homebound Reason: Patient requires assistance of a person or device to safely leave home Attestation: My signature below is to certify that this patient is under my care and that I, or nurse practitioner, or a physician's corporate legal assistant working with me, has a [id number] encounter with this patient.
[2018-06-07] MEDS ORDERED: Insulin Regular, Human 100 UNIT/ML SQ ONE (15:10)
== END 2018-06-07 17:12 | disposition home or self-care (01) | DRG 291 ==
LOC: EMEROOARM 14:07 → 3BNU 14:07
PROVIDERS: ADMIT Internal Medicine; ATTEND Internal Medicine

== ENCOUNTER 2018-07-04 21:56 | Observation (INO) ==
--- NOTE | 2018-07-04 22:20 | Emergency Department Note ---
Disposition Clinical Impression: Chest pain Qualifiers: Chest pain type: other chest pain Qualified Code(s): R07.89 - Other chest pain Disposition: Admitted As Inpatient Condition: Fair Referrals: Parrish Galindo DO [Primary Care Provider] - Time of Disposition: 23:45 Chest Pain HPI - General Stated Complaint: Chest Pain Time Seen by Provider: 07/04/18 22:08 Source: patient, family Mode of arrival: private vehicle Vital Signs Reviewed: Yes Nursing Notes Reviewed: Yes - History of Present Illness HPI Narrative: 68 y/o male with history of CAD, CABG, DM, and a fib presents to the ED with complaints of midsternal chest burning radiating into his neck bilaterally that developed an hour prior to arrival while patient was at rest. Patient states that the pain was accompanied with a sensation of warmth, but denies dyspnea, numbness, nausea, diaphoresis. Patient states that he took 3 sublingual nitroglcerin at home that did not offer relief. While his was driving him here, he states his chest pain began to resolve and his currently 4/10 from 10 10 at onset. Patient reports that this pain is different from the pain he had with previous MT's and does not feel like his normal GERD. Patient notes that he was significantly more active today than he normally he is. Patient was admitted two months ago with a CHF exacerbation and has been taking a diuretic since. Patient states that since admission he is down 40 pounds and is down one pound today compared to yesterday. He has history of A. Fib and is on Eliquis. Patient states he was seen by both of his last cardiologists within in the past week and is scheduled to have a cardiac MRI next month. Patient denies chills, history of blood clots, urinary or bowel changes, abdominal pain. Pt complaint: chest pain Onset (ago): hour(s) (1) Duration: other (improving) Onset: during rest Pain Location: substernal Severity: severe Severity scale (1-10): 10 (at onset, currently 4/10) Quality: other (burning) Pain Radiation: neck Improves with: rest Worsens with: nothing Associated symptoms: Reports: fever. Denies: nausea, vomiting, diaphoresis, dyspnea, palpitations, cough, leg swelling Treatments prior to arrival chest pain: nitroglycerin - Related Data Home Medications Medication Instructions Recorded Confirmed Levothyroxine [Synthroid] 88 mcg PO Q48H 02/18/16 05/31/18 Aspirin Enteric Coated [Aspirin EC] 81 mg PO DAILY 03/09/18 05/31/18 Atorvastatin [Lipitor] 10 mg PO HS 03/09/18 05/31/18 Insulin ASPART [NovoLOG] 0 - 12 unit SQ TIDAC 03/09/18 06/01/18 Multivitamin [One Daily Essential] 1 tab PO DAILY 03/09/18 06/01/18 Nitroglycerin [Nitrostat] 0.4 mg SL Q5MIN PRN 03/09/18 05/31/18 Polyethylene Glycol 3350 [MiraLAX] 17 gm PO DAILY 03/09/18 06/01/18 Potassium Chloride [K-Tab ER] 60 meq PO QID 03/09/18 05/31/18 Bumetanide 2 mg PO TID 05/31/18 05/31/18 Cabergoline 0.5 mg PO Q7D 05/31/18 05/31/18 Gabapentin [Neurontin] 800 mg PO TID 05/31/18 05/31/18 Metoprolol Succinate 12.5 mg PO DAILY 05/31/18 05/31/18 predniSONE [PredniSONE] 5 mg PO DAILY 05/31/18 05/31/18 Albuterol Sulfate [Ventolin Hfa] 1 puff IH Q6H PRN 07/04/18 07/04/18 Budesonide/Formoterol 80/4.5 1 puff IH BID 07/04/18 07/04/18 [Symbicort 80/4.5] Metoclopramide [Reglan] 10 mg PO Q6HR 07/04/18 07/04/18 Previous Rx's Medication Instructions Recorded Morphine Sulfate SR (12 HR) [MS 15 mg PO Q12HR tablet.er 02/29/16 Contin] Apixaban [Eliquis] 5 mg PO BID #60 tablet 03/11/18 Spironolactone [Aldactone] 50 mg PO DAILY 30 Days #60 tablet 06/07/18 metOLazone [Zaroxolyn] 2.5 mg PO DAILY 30 Days #15 tablet 06/07/18 Allergies Allergy/AdvReac Type Severity Reaction Status Date / Time Penicillins Allergy Hives Verified 03/09/18 13:46 Sulfa (Sulfonamide Allergy Nausea Verified 03/09/18 13:46 Antibiotics) carvedilol [From Coreg] AdvReac Hypotension Verified 03/09/18 13:46 lisinopril AdvReac Hypotension Verified 03/09/18 13:46 Constitutional: Reports: fever, weight change (weight loss secondary to diuretic). Denies: chills (subjective sensation of warmth) Eyes: Denies: vision change ENT ED: Reports: throat pain. Denies: dysphagia Cardiovascular: Reports: chest pain, edema (improving). Denies: palpitations, dyspnea on exertion Respiratory: Denies: cough, dyspnea, wheezes Gastrointestinal: Denies: abdominal pain, nausea, vomiting, diarrhea, constipation Genitourinary: Denies: dysuria (chronic, improving), frequency, hematuria Musculoskeletal: Reports: joint swelling Integumentary: Reports: as per HPI Neurological: Denies: numbness, paresthesias Psychiatric: Denies: anxiety, depression Endocrine: Denies: fatigue Hematological/Lymphatic: Reports: as per HPI Chest Pain PMH - Past Medical History Medical history: Reports: arthritis, atrial fibrillation, CHF, diabetes, GERD, hyperlipidemia, hypertension, myocardial infarction, peripheral artery disease, thyroid disease, syncope Surgical history: Reports: angioplasty/stent, appendectomy, cholecystectomy, coronary bypass (CABG) Psychiatric history: Reports: no psych history - Social History Smoking Status: Never smoker Alcohol use: Reports: occasionally Drug use: Reports: none Physical Exam - General Limitations: no limitations General appearance: alert, in no apparent distress - Head Head exam: atraumatic, normocephalic - Eye Eye exam: Present: normal appearance, EOMI - ENT ENT exam: mucous membranes moist - Neck Neck exam: Present: trachea midline. Absent: tenderness - Chest Chest inspection: Present: symmetric chest wall rise. Absent: tenderness - Respiratory Respiratory exam: Present: normal lung sounds bilaterally. Absent: respiratory distress, wheezes, stridor - Cardiovascular Cardiovascular exam: Present: irregular rhythm, normal heart sounds - Abdominal Exam Abdominal exam: Present: soft, Non-Tender, distention (mildly distended). Absent: tenderness, guarding, rebound - Extremities Exam Extremities exam: Present: pedal edema (1+ bilaterally). Absent: joint swelling, calf tenderness - Neurological Exam Neurological exam: Present: alert, oriented X3 - Psychiatric Psychiatric exam: Present: normal affect, normal mood - Skin Skin exam: Present: warm, dry, intact, normal color Course Course Narrative: Heart score 6. Patient's history is concerning. EKG dated 07/04/2018 at 22:07 interpreted as atrial fibrillation with a rate of 67. QRS 131, QTC 451. Right axis. Right bundle branch block. Nonspecific ST- T changes. Compared to previous EKG dated 05/31/2018 showing no acute ischemic changes or comparison. Chest x-ray is unremarkable. There is left lower lobe pleural effusion however, this is also demonstrated chest CT several months ago as well as in 2014; this is a chronic and stable effusion. EKG shows no acute ischemic changes. Initial troponin below upper limit of normal. I discussed the above the patient and at bedside. Discussed in detail the meaning of an EKG as well as troponin as well as the window with certainty of troponin and the need for serial troponins. He agrees for admission for continued evaluation management for chest pain. I discussed the above with the admitting hospitalist. He agrees to accept the patient for chest pain rule out ACS. Chest X-Ray 07/04/18 22:12 IMPRESSION: No evidence of edema. Persistent left costophrenic blunting corresponding to a loculated pleural collection seen on the prior chest CT. D/ / 07/04/2018 22:44:33 Kiko Fried MD / kerrie Interpreting Provider: Kiko Fried MD Vital Signs Temperature 98.6 F 07/04/18 21:56 Pulse Rate 70 07/04/18 21:56 Respiratory Rate 16 07/04/18 21:56 Blood Pressure 139/78 07/04/18 21:56 O2 Sat by Pulse Oximetry 98 07/04/18 21:56 Temperature 98.6 F 07/04/18 22:16 Pulse Rate 75 07/04/18 23:37 Respiratory Rate 18 07/04/18 23:37 Blood Pressure 125/75 07/04/18 23:37 O2 Sat by Pulse Oximetry 92 07/04/18 23:37 Oxygen Delivery Oxygen Delivery Room Air Chest Pain - Lab Data Result diagrams: 07/04/18 22:26 07/04/18 22:26 Lab Results 07/04/18 07/04/18 07/04/18 Range/Units 22:26 22:26 22:26 WBC 11.0 (4.3-11.1) K/mcL RBC 5.79 H (4.19-5.50) M/mcL Hgb 13.4 (12.9-16.9) g/dL Hct 42.6 (37.5-50.1) % MCV 73.6 L (83.0-100.0) fL MCH 23.1 L (28.0-33.3) pg MCHC 31.5 L (31.6-35.5) g/dL RDW 19.7 H (11.5-14.5) % Plt Count 233 (140-400) K/mcL MPV 9.4 (9.4-12.4) fL Immature Gran % 0.5 (0-4) % Seg Neutrophils % 69.2 % Lymphocytes % 15.3 % Monocytes % 13.3 % Eosinophils % 1.1 % Basophils % 0.6 % Neutrophils # 7.6 (1.6-8.9) K/mcL Lymphocytes # 1.7 (0.6-4.6) K/mcL Monocytes # 1.5 H (0.0-1.3) K/mcL Eosinophils # 0.1 (0.0-0.6) K/mcL Basophils # 0.1 (0.0-0.2) K/mcL PT 12.7 H (9.4-12.1) Seconds INR 1.1 APTT 34.2 (26.0-36.0) Seconds Sodium (136-145) mEq/L Potassium (3.5-5.1) mEq/L Chloride (98-107) mEq/L Carbon Dioxide (23-29) mEq/L BUN (8-23) mg/dL Creatinine (0.70-1.30) mg/dL Est GFR ( Amer) (> 60) Est GFR (Non-Af Amer) (> 60) BUN/Creatinine Ratio (6-26) Glucose (70-105) mg/dL Calculated Osmolality (280-300) Calcium (8.6-10.3) mg/dL Total Bilirubin (0.3-1.0) mg/dL Direct Bilirubin (0.0-0.2) mg/dL Indirect Bilirubin (0.0-1.2) mg/dL AST (13-39) Units/L ALT (7-52) Units/L Alkaline Phosphatase (34-104) Units/L Troponin I (< 0.04) ng/mL B-Natriuretic Peptide 239 H (Less than 100) pg/mL Serum Total Protein (6.4-8.9) g/dL Albumin (3.5-5.7) g/dL Globulin (2.4-3.5) g/dL Albumin/Globulin Ratio (1.1-2.2) Lipase (11-82) Units/L 18/18 Range/Units 22:26 WBC (4.3-11.1) K/mcL RBC (4.19-5.50) M/mcL Hgb (12.9-16.9) g/dL Hct (37.5-50.1) % MCV (83.0-100.0) fL MCH (28.0-33.3) pg MCHC (31.6-35.5) g/dL RDW (11.5-14.5) % Plt Count (140-400) K/mcL MPV (9.4-12.4) fL Immature Gran % (0-4) % Seg Neutrophils % % Lymphocytes % % Monocytes % % Eosinophils % % Basophils % % Neutrophils # (1.6-8.9) K/mcL Lymphocytes # (0.6-4.6) K/mcL Monocytes # (0.0-1.3) K/mcL Eosinophils # (0.0-0.6) K/mcL Basophils # (0.0-0.2) K/mcL PT (9.4-12.1) Seconds INR APTT (26.0-36.0) Seconds Sodium 128 L (136-145) mEq/L Potassium 3.7 (3.5-5.1) mEq/L Chloride 83 L (98-107) mEq/L Carbon Dioxide 36 H (23-29) mEq/L BUN 32 H (8-23) mg/dL Creatinine 1.29 (0.70-1.30) mg/dL Est GFR ( Amer) > 60 (> 60) Est GFR (Non-Af Amer) 56 L (> 60) BUN/Creatinine Ratio 25 (6-26) Glucose 51 L (70-105) mg/dL Calculated Osmolality 270 L (280-300) Calcium 9.5 (8.6-10.3) mg/dL Total Bilirubin 0.7 (0.3-1.0) mg/dL Direct Bilirubin 0.2 (0.0-0.2) mg/dL Indirect Bilirubin 0.5 (0.0-1.2) mg/dL AST 34 (13-39) Units/L ALT 16 (7-52) Units/L Alkaline Phosphatase 100 (34-104) Units/L Troponin I 0.03 (< 0.04) ng/mL B-Natriuretic Peptide (Less than 100) pg/mL Serum Total Protein 7.5 (6.4-8.9) g/dL Albumin 4.1 (3.5-5.7) g/dL Globulin 3.4 (2.4-3.5) g/dL Albumin/Globulin Ratio 1.2 (1.1-2.2) Lipase 13 (11-82) Units/L Heart Score - Score History: Moderately Suspicious EKG: Non Specific repolarisation Disturbance Age: Greater than 65 Risk Factors: Equal/Greater than 3 risk factor or history of atherosclerotic disease Troponin: Less than normal limit HEART Score Total: 6 Attestation Statement - Attestation Attestation: I examined this patient and my medical decision-making was reviewed with the R taiwo Physician. I agree with the documented findings, disposition and treatment plan as described except to the extent set forth below. Findings consistent with chest pain. Possibly related to underlying loculated effusion. We will admit for cardiac consultation and further management.
[2018-07-04 22:57] LABS: Basophils # 0.1 K/mcL (0.0-0.2); Basophils % 0.6 %; Eosinophils # 0.1 K/mcL (0.0-0.6); Eosinophils % 1.1 %; Hematocrit 42.6 % (37.5-50.1); Hemoglobin 13.4 g/dL (12.9-16.9); Immature Granulocytes % 0.5 % (0-4); Lymphocytes # 1.7 K/mcL (0.6-4.6); Lymphocytes % 15.3 %; Mean Corpuscular HGB Conc 31.5 g/dL (31.6-35.5); Mean Corpuscular Hemoglobin 23.1 pg (28.0-33.3); Mean Corpuscular Volume 73.6 fL (83.0-100.0); Mean Platelet Volume 9.4 fL (9.4-12.4); Monocytes # 1.5 K/mcL (0.0-1.3); Monocytes % 13.3 %; Neutrophils # 7.6 K/mcL (1.6-8.9); Platelet Count 233 K/mcL (140-400); Red Blood Count 5.79 M/mcL (4.19-5.50); Red Cell Distribution Width 19.7 % (11.5-14.5); Segmented Neutrophils % 69.2 %
[2018-07-04 23:04] LABS: INR 1.1; Prothrombin Time 12.7 Seconds (9.4-12.1)
[2018-07-04 23:07] LABS: Activated Partial Thrombo Time 34.2 Seconds (26.0-36.0)
[2018-07-04 23:18] LABS: Alanine Aminotransferase 16 Units/L (7-52); Albumin 4.1 g/dL (3.5-5.7); Albumin/Globulin Ratio 1.2 (1.1-2.2); Alkaline Phosphatase 100 Units/L (34-104); Aspartate Amino Transferase 34 Units/L (13-39); BUN/Creatinine Ratio 25 (6-26); Bilirubin,Direct 0.2 mg/dL (0.0-0.2); Bilirubin,Indirect 0.5 mg/dL (0.0-1.2); Bilirubin,Total 0.7 mg/dL (0.3-1.0); Blood Urea Nitrogen 32 mg/dL (8-23); Calcium 9.5 mg/dL (8.6-10.3); Carbon Dioxide 36 mEq/L (23-29); Chloride 83 mEq/L (98-107); Globulin 3.4 g/dL (2.4-3.5); Glucose 51 mg/dL (70-105); Lipase 13 Units/L (11-82); Osmolality,Calculated 270 (280-300); Potassium 3.7 mEq/L (3.5-5.1); Sodium 128 mEq/L (136-145); Total Protein 7.5 g/dL (6.4-8.9); Troponin I 0.03 ng/mL (< 0.04); eGFR For Non-African Americans 56 (> 60)
[2018-07-04] MEDS ORDERED: Aspirin 325 MG TABLET PO ONE (23:20)
--- NOTE | 2018-07-04 23:57 | Internal Med History&Physical ---
Date of Encounter: 07/04/18 Time of Encounter: 23:57 Internal Medicine - H&P: HPI Chief complaint: Chest pain Admitted From: Emergency Dept Plans for Post Hospital Care: Home History of present illness: Mr. Noriega is a 68 year old male with history of CAD s/p stents and CABG, DM, hypothyroidism, CKD 3, severe pulm, HLD, PAD, hypertension, diastolic HF, right BKA, and a fib on eliquis presents to the ED with complaints of midsternal chest burning radiating into his neck bilaterally that developed an hour prior to ar rival while patient was at rest. He denies dyspnea, numbness, nausea, diaphoresis. Patient states that he took 3 sublingual nitroglcerin at home that did not help him initially but he felt significant decrease in pain while in route while his was driving. Patient was admitted two months ago with a CHF exacerbation and has been taking a diuretic since. Patient states that since admission he is down 40 pounds and is down one pound today compared to yesterday. In the ED, he was hemodynamically stable. Labs were remarkable for a sodium of 128. Other labs were around baseline. Trops were >.03. EKG with no acute ST or T wave changes. CXR showed loculated left pleural effusion that seems chronic. Denies fever, chills, nausea, vomiting, headache, blurry vision, abdominal pain, diarrhea, constipation, urinary symptoms, or neurological symptoms. He was given aspirin 325 mg in the ED. Past Med Surg Social Fam HX - Past Medical History Medical history: arthritis, atrial fibrillation, CHF, diabetes, GERD, hyperlipidemia, hypertension, myocardial infarction, peripheral artery disease, thyroid disease, syncope Psychiatric history: no psych history - Past Surgical History Surgical History: angioplasty/stent, appendectomy, cholecystectomy, coronary bypass (CABG) Additional surgical history: tonsilectomy, pituitary tumor removed, exploratory for possible cyst in stomach ( scar tissue ), triple bypass, R BKA, heart stent - Social History Smoking Status: Never smoker Smokeless Tobacco Status: No Alcohol use: occasionally Drug use: none - Family History Father Adopted: No Family Member Ethnicity: Non- Living Status: Hx Family Cardiac Disorders: No Hx Family Respiratory Disorders: No Hx Family Cancer: Yes Hx Family GI Disorders: No Hx Family Endocrine Disorder: No Hx Family Neuromuscular Disorders: No Hx Family Neurologic Disorders: No Hx Family HEENT Disorders: No Hx Family Autoimmune Disorders: No Internal Medicine - H&P: Meds Levothyroxine [Synthroid] 88 mcg PO Q48H 02/18/16 [History] Morphine Sulfate SR (12 HR) [MS Contin] 15 mg PO Q12HR tablet.er 02/29/16 [Rx] Aspirin Enteric Coated [Aspirin EC] 81 mg PO DAILY 03/09/18 [History] Atorvastatin [Lipitor] 10 mg PO HS 03/09/18 [History] Insulin ASPART [NovoLOG] 0 - 12 unit SQ TIDAC 03/09/18 [History] Multivitamin [One Daily Essential] 1 tab PO DAILY 03/09/18 [History] Nitroglycerin [Nitrostat] 0.4 mg SL Q5MIN PRN 03/09/18 [History] Polyethylene Glycol 3350 [MiraLAX] 17 gm PO DAILY 03/09/18 [History] Potassium Chloride [K-Tab ER] 60 meq PO TID 03/09/18 [History] Apixaban [Eliquis] 5 mg PO BID #60 tablet 03/11/18 [Rx] Bumetanide 4 mg PO TID 05/31/18 [History] Cabergoline 0.5 mg PO Q7D 05/31/18 [History] Gabapentin [Neurontin] 800 mg PO BID 05/31/18 [History] Metoprolol Succinate 12.5 mg PO DAILY 05/31/18 [History] predniSONE [PredniSONE] 5 mg PO DAILY 05/31/18 [History] Spironolactone [Aldactone] 50 mg PO DAILY 30 Days #60 tablet 06/07/18 [Rx] metOLazone [Zaroxolyn] 2.5 mg PO DAILY 30 Days #15 tablet 06/07/18 [Rx] Albuterol Sulfate [Ventolin Hfa] 1 puff IH Q6H PRN 07/04/18 [History] Budesonide/Formoterol 80/4.5 [Symbicort 80/4.5] 1 puff IH BID 07/04/18 [History] Metoclopramide [Reglan] 10 mg PO Q6HR 07/04/18 [History] 3 Allergy/AdvReac Type Severity Reaction Status Date / Time Penicillins Allergy Hives Verified 03/09/18 13:46 Sulfa (Sulfonamide Allergy Nausea Verified 03/09/18 13:46 Antibiotics) carvedilol [From Coreg] AdvReac Hypotension Verified 03/09/18 13:46 lisinopril AdvReac Hypotension Verified 03/09/18 13:46 All Systems PM: A 10-system review of systems was performed and is negative for pertinent findings except as documented above in the HPI. Review of systems: All systems reviewed are negative except as mentioned above - Constitutional Vitals: Temp Pulse Resp BP Pulse Ox 98.6 F 75 18 125/75 92 07/04/18 22:16 07/04/18 23:37 07/04/18 23:37 07/04/18 23:37 07/04/18 23:37 Exam: GEN: NAD HEENT: AT, NC, No cyanosis, oral mucosa is moist, No JVD Lymphatics: No lymphadenoapthy Eyes: Extrocular muscles intact, anicteric CVS:RRR. S1, S2, No m/r/g RESP: CTAB ABD: Soft, NT, ND, +BS EXT:Trace LE edema, No rashes, 2+ DP. Right BKA noted NEURO: Nonfocal, CN II-XII intact, No focal motor or sensory deficits Psych: Cooperative, Not anxious or depressed Internal Med - H&P Results - Labs CBC & Chem 7: 07/05/18 04:43 07/05/18 04:43 Labs: Short CBC 07/04/18 Range/Units 22:26 WBC 11.0 (4.3-11.1) K/mcL Hgb 13.4 (12.9-16.9) g/dL Hct 42.6 (37.5-50.1) % Plt Count 233 (140-400) K/mcL Neutrophils # 7.6 (1.6-8.9) K/mcL BMP 07/04/18 22:26 Sodium 128 L Potassium 3.7 Chloride 83 L Carbon Dioxide 36 H BUN 32 H Creatinine 1.29 Glucose 51 L Calcium 9.5 Cardiac Enzymes 07/04/18 Range/Units 22:26 Troponin I 0.03 (< 0.04) ng/mL Liver Function 07/04/18 Range/Units 22:26 Total Bilirubin 0.7 (0.3-1.0) mg/dL Direct Bilirubin 0.2 (0.0-0.2) mg/dL AST 34 (13-39) Units/L ALT 16 (7-52) Units/L Alkaline Phosphatase 100 (34-104) Units/L Albumin 4.1 (3.5-5.7) g/dL - Impressions ITS Impressions Chest X-Ray 07/04/18 22:12 IMPRESSION: No evidence of edema. Persistent left costophrenic blunting corresponding to a loculated pleural collection seen on the prior chest CT. D/ / 07/04/2018 22:44:33 Kiko Fried MD / kerrie Interpreting Provider: Kiko Fried MD - Assessment and plan (1) Chest pain Current Visit: Yes Status: Acute Assessment and plan: Admit to Tele. NPO. Stress test in am. Trend cardiac enzymes. Got ASA in ED. Resumed home ASA. SL nitro PRN. Qualifiers: Chest pain type: unspecified Qualified Code(s): R07.9 - Chest pain, unspecified (2) Hyponatremia Current Visit: No Status: Acute Assessment and plan: I think he is overdiuresed with meds. I have cut down bumex to once a day for now. Hold aldactone. Fluid restriction 1500 mL/24 hours. Labs in am. (3) CHF (congestive heart failure) Current Visit: No Status: Chronic Assessment and plan: Patient seems mostly euvolemic. He has trace LE edema on the left side. Has chronic left pleural effusion. With his hyponatremia, I think he maybe overdiuresed. I have cut down bumex to daily from TID while he's hospitalized. This can be looked at prior to d/c. Holding aldactone as well due to hyponatremia. Qualifiers: Heart failure type: diastolic Heart failure chronicity: chronic Qualified Code(s): I50.32 - Chronic diastolic (congestive) heart failure (4) COPD (chronic obstructive pulmonary disease) Current Visit: No Status: Acute Assessment and plan: Not in exacerbation. Resumed home inhalers Qualifiers: COPD type: unspecified COPD Qualified Code(s): J44.9 - Chronic obstructive pulmonary disease, unspecified (5) Adrenal insufficiency Current Visit: No Status: Acute Assessment and plan: On chronic prednisone (6) Chronic renal insufficiency Current Visit: No Status: Acute Assessment and plan: Will monitor. Stable for now Qualifiers: Chronic kidney disease stage: stage 3 (moderate) Qualified Code(s): N18.3 - Chronic kidney disease, stage 3 (moderate) (7) Atrial fibrillation Current Visit: No Status: Chronic Assessment and plan: c/w home meds. On eliquis for anticoagulation. On BB Qualifiers: Atrial fibrillation type: unspecified Qualified Code(s): I48.91 - Unspecified atrial fibrillation (8) CAD (coronary artery disease) Current Visit: No Status: Chronic Assessment and plan: Resume cardiac meds Qualifiers: Coronary Disease-Associated Artery/Lesion type: [place] artery [place] vs. transplanted heart: [place] heart Associated angina: without angina Qualified Code(s): I25.10 - Atherosclerotic heart disease of [place] coronary artery without angina pectoris (9) Diabetes Current Visit: No Status: Chronic Assessment and plan: Will put on SSI for now since NPO. Hold basal insulin Qualifiers: Diabetes mellitus type: type 2 Diabetes mellitus manager long term care insulin use: unspecified m[facility] insulin use status Diabetes mellitus complication status: with unspecified complications Qualified Code(s): E11.8 - Type 2 diabetes mellitus with unspecified complications (10) HTN (hypertension) Current Visit: No Status: Chronic Assessment and plan: Resume home meds Qualifiers: Hypertension type: essential hypertension Qualified Code(s): I10 - Essential (primary) hypertension (11) Hyperlipemia Current Visit: No Status: Chronic Assessment and plan: Resume atorvastatin Qualifiers: Hyperlipidemia type: unspecified Qualified Code(s): E78.5 - Hyperlipidemia, unspecified (12) DVT prophylaxis Current Visit: No Status: Acute Assessment and plan: On eliquis - Time Spent With Patient Total time spent is greater than 50% in coordination of care (as documented) at patient's floor/unit and/or counseling patient:
[2018-07-05] MEDS ORDERED: Naloxone 0.4 MG/ML INJ IVP PRN (00:10)
[2018-07-05] MEDS ORDERED: Acetaminophen 325 MG TABLET PO PRN (00:10)
[2018-07-05] MEDS ORDERED: Dextrose Gel 15 GM/37.5 ML TUBE PO PRN ×2 (00:11)
[2018-07-05] MEDS ORDERED: Nitroglycerin 0.4 MG TAB.SUBL SL PRN (00:11)
[2018-07-05] MEDS ORDERED: *HR* Dextrose 50 % in Water (Syg) 50 ML SYRINGE IVP PRN (00:11)
[2018-07-05] MEDS ORDERED: D5% in Water 1,000 ML IVC PRN (00:11)
[2018-07-05 04:57] LABS: Basophils # 0.1 K/mcL (0.0-0.2); Basophils % 0.7 %; Eosinophils # 0.1 K/mcL (0.0-0.6); Eosinophils % 1.5 %; Hematocrit 42.2 % (37.5-50.1); Hemoglobin 12.8 g/dL (12.9-16.9); Immature Granulocytes % 0.4 % (0-4); Lymphocytes # 1.1 K/mcL (0.6-4.6); Lymphocytes % 11.7 %; Mean Corpuscular HGB Conc 30.3 g/dL (31.6-35.5); Mean Corpuscular Hemoglobin 22.4 pg (28.0-33.3); Mean Corpuscular Volume 73.9 fL (83.0-100.0); Mean Platelet Volume 9.7 fL (9.4-12.4); Monocytes % 10.8 %; Neutrophils # 7.2 K/mcL (1.6-8.9); Platelet Count 205 K/mcL (140-400); Red Blood Count 5.71 M/mcL (4.19-5.50); Red Cell Distribution Width 19.8 % (11.5-14.5); Segmented Neutrophils % 74.9 %
[2018-07-05 05:22] LABS: BUN/Creatinine Ratio 25 (6-26); Blood Urea Nitrogen 31 mg/dL (8-23); Calcium 9.3 mg/dL (8.6-10.3); Carbon Dioxide 32 mEq/L (23-29); Chloride 86 mEq/L (98-107); Glucose 133 mg/dL (70-105); Magnesium 2.3 mg/dL (1.6-2.6); Osmolality,Calculated 272 (280-300); Potassium 3.9 mEq/L (3.5-5.1); Sodium 127 mEq/L (136-145); eGFR For Non-African Americans 57 (> 60)
[2018-07-05] MEDS ORDERED: Regadenoson 0.4 MG/5 ML SYRINGE IVP ONE (05:33)
[2018-07-05] MEDS ORDERED: *HR* Morphine Sulfate SR (12 HR) 15 MG TABLET.ER PO SCH (06:00)
[2018-07-05 06:45] VITALS: BP 101/62
[2018-07-05] MEDS: Insulin LISPRO 300 UNITS/3 ML VIAL SQ SCH ×2 (07:18→12:18)
[2018-07-05] MEDS ORDERED: Metoprolol XL (24 HR) Succ 25 MG TAB.ER.24H PO SCH (09:00)
[2018-07-05] MEDS ORDERED: Multivit/Ca/Min/Fe/FA 1 TAB TABLET PO SCH (09:00)
[2018-07-05] MEDS ORDERED: predniSONE 5 MG TABLET PO SCH (09:00)
[2018-07-05] MEDS ORDERED: metOLazone 5 MG TABLET PO SCH (09:00)
[2018-07-05] MEDS ORDERED: NON-FORMULARY MEDICATION 1 EACH EACH (Gabapentin [Neurontin] 800 MG) PO SCH (09:00)
[2018-07-05] MEDS ORDERED: CABERGOLINE 0.5 MG PO SCH (09:00)
[2018-07-05] MEDS ORDERED: Budesonide/Formoterol 80/4.5 MDI IH SCH (09:00)
[2018-07-05] MEDS ORDERED: Apixaban 5 MG TABLET PO SCH (09:00)
[2018-07-05] MEDS ORDERED: Bumetanide 1 MG TABLET PO SCH (09:00)
[2018-07-05] MEDS ORDERED: Aspirin Enteric Coated 81 MG Tablet PO SCH (09:00)
[2018-07-05] MEDS ORDERED: Gabapentin 400 MG CAPSULE PO SCH (09:15)
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
== END 2018-07-05 12:29 | disposition home or self-care (01) ==
LOC: EMEROOARM 21:56 → 3BNU 21:56
PROVIDERS: ADMIT Internal Medicine; ATTEND Internal Medicine

== ENCOUNTER 2018-07-22 10:34 | Inpatient (IN) ==
[2018-07-22] MEDS ORDERED: *HR* Midazolam HCl 2 MG/2 ML VIAL IV ONE (10:35)
[2018-07-22 11:57] LABS: ABG Base Excess 3 mEq/L (-2 to 3); ABG HCO3 33 mEq/L (21-27); ABG Oxygen Saturation 82 % (95-98); ABG PCO2 79 mmHg (35-45); ABG PH 7.23 pH Units (7.32-7.45); ABG PO2 58 mmHg (85-104); ABG TCO2 35 mEq/L (20-26)
[2018-07-22] MEDS ORDERED: 0.9 % Sodium Chloride 2,000 ML ONE (12:05)
[2018-07-22 12:13] LABS: Hematocrit 38.2 % (37.5-50.1); Hemoglobin 11.5 g/dL (12.9-16.9); Mean Corpuscular HGB Conc 30.1 g/dL (31.6-35.5); Mean Corpuscular Volume 79.6 fL (83.0-100.0); Mean Platelet Volume 10.4 fL (9.4-12.4); Nucleated Red Blood Cells 0.2 /100 WBC (0); Platelet Count 121 K/mcL (140-400); Red Cell Distribution Width 22.7 % (11.5-14.5)
[2018-07-22 12:19] LABS: INR 2.4; Prothrombin Time 27.6 Seconds (9.4-12.1)
[2018-07-22 12:22] LABS: Activated Partial Thrombo Time 53.5 Seconds (26.0-36.0)
--- NOTE | 2018-07-22 12:25 | Emergency Department Note ---
Disposition Clinical Impression: Cardiac arrest, Hyperkalemia, Elevated lactic acid level, Elevated troponin, Respiratory acidosis Respiratory failure Qualifiers: Chronicity: acute on chronic Respiratory failure complication: hypoxia and hypercapnia Qualified Code(s): J96.21 - Acute and chronic respiratory failure with hypoxia; J96.22 - Acute and chronic respiratory failure with hypercapnia Pulmonary edema Qualifiers: Chronicity: acute Qualified Code(s): J81.0 - Acute pulmonary edema Leukocytosis Qualifiers: Leukocytosis type: unspecified Qualified Code(s): D72.829 - Elevated white blood cell count, unspecified Disposition: Admitted As Inpatient Condition: Critical General Adult HPI - General Chief complaint: ED Nausea/Vomiting/Diarrhea Stated complaint: NVD/weakness Time Seen by Provider: 07/22/18 10:45 Nursing Notes Reviewed: Yes Vital Signs Reviewed: Yes - History of Present Illness HPI Narrative: 68-year-old male past medical history of chronic kidney disease, type 2 diabetes mellitus, hyperlipidemia, with scheduled heart catheterization today at [facility] for chest pain. Patient has had issues with his potassium. Patient currently takes 60 mEq of potassium 3 times daily according to his medication list. Patient's also had reported issues with fluid overload. Has been having his diuretics adjusted. Reports the patient has had severe nausea, vomiting, diarrhea and generalized weakness over the last 2 days. Reports that he has not urinated in the last 48 hours according to family. Family denies any recent URI symptoms such as cough, sputum production, fever. Pain Scale: 9 - Related Data Home Medications Medication Instructions Recorded Confirmed Levothyroxine [Synthroid] 88 mcg PO Q48H 02/18/16 07/22/18 Aspirin Enteric Coated [Aspirin EC] 81 mg PO DAILY 03/09/18 07/22/18 Atorvastatin [Lipitor] 10 mg PO HS 03/09/18 07/22/18 Insulin ASPART [NovoLOG] 4 - 18 unit SQ TIDAC 03/09/18 07/22/18 Multivitamin [One Daily Essential] 1 tab PO DAILY 03/09/18 07/22/18 Nitroglycerin [Nitrostat] 0.4 mg SL Q5MIN PRN 03/09/18 07/22/18 Polyethylene Glycol 3350 [MiraLAX] 17 gm PO DAILY 03/09/18 07/22/18 Potassium Chloride [K-Tab ER] 60 meq PO TID 03/09/18 07/22/18 Bumetanide 4 mg PO TID 05/31/18 07/22/18 Cabergoline 0.5 mg PO MALDONADO 05/31/18 07/22/18 Gabapentin [Neurontin] 800 mg PO BID 05/31/18 07/22/18 Metoprolol Succinate 12.5 mg PO DAILY 05/31/18 07/05/18 predniSONE [PredniSONE] 5 mg PO DAILY 05/31/18 07/22/18 Albuterol Sulfate [Ventolin Hfa] 2 puff IH Q6H PRN 07/04/18 07/22/18 Budesonide/Formoterol 80/4.5 2 puff IH BID 07/04/18 07/22/18 [Symbicort 80/4.5] Metoclopramide [Reglan] 10 mg PO DAILY 07/04/18 07/22/18 Previous Rx's Medication Instructions Recorded Morphine Sulfate SR (12 HR) [MS 15 mg PO Q12HR tablet.er 02/29/16 Contin] Apixaban [Eliquis] 5 mg PO BID #60 tablet 03/11/18 Spironolactone [Aldactone] 50 mg PO DAILY 30 Days #60 tablet 06/07/18 metOLazone [Zaroxolyn] 2.5 mg PO DAILY 30 Days #15 tablet 06/07/18 Allergies Allergy/AdvReac Type Severity Reaction Status Date / Time Penicillins Allergy Hives Verified 03/09/18 13:46 Sulfa (Sulfonamide Allergy Nausea Verified 03/09/18 13:46 Antibiotics) carvedilol [From Coreg] AdvReac Hypotension Verified 03/09/18 13:46 lisinopril AdvReac Hypotension Verified 03/09/18 13:46 All systems ED: reviewed and negative except as stated. Review of Systems: As Per HPI Limitations: ROS unobtainable due to patients medical condition Past Medical History - Past Medical History Medical history: Reports: arthritis, atrial fibrillation, CHF, diabetes, GERD, hyperlipidemia, hypertension, myocardial infarction, peripheral artery disease, thyroid disease, syncope Surgical history: Reports: angioplasty/stent, appendectomy, cholecystectomy, coronary bypass (CABG) Psychiatric history: Reports: no psych history - Social History Smoking Status: Never smoker Smokeless Tobacco Status: No Alcohol use: Reports: occasionally Drug use: Reports: none Physical Exam - General Limitations: other (Patient unresponsive) - Head Head exam: normocephalic - Eye Eye exam: Present: PERRL - Neck Neck exam: Present: trachea midline - Chest Chest inspection: Present: symmetric chest wall rise - Respiratory Respiratory exam: Present: other (Rales throughout) - Cardiovascular Cardiovascular exam: Present: other (Treatment: Bizarre, Wide complex ventricular tachycardia) - Abdominal Exam Abdominal exam: Present: soft. Absent: distention - Extremities Exam Extremities exam: Present: other (Pulseless) - Skin Skin exam: Present: mottled Course Vital Signs Temperature 97.8 F 07/22/18 10:47 Pulse Rate 46 07/22/18 10:47 Respiratory Rate 20 07/22/18 10:47 Blood Pressure 93/51 07/22/18 10:47 O2 Sat by Pulse Oximetry 95 07/22/18 10:47 Temperature 96.7 F L 07/22/18 19:00 Pulse Rate 68 07/22/18 19:59 Respiratory Rate 19 07/22/18 19:59 Blood Pressure 109/70 07/22/18 19:59 O2 Sat by Pulse Oximetry 99 07/22/18 19:59 Oxygen Delivery Oxygen Delivery Ventilator Procedures - ABG Interpretation ABG Interpretation 1 Interpretation: respiratory acidosis - Central Line Placement Right Femoral Central Line Inserted*: Yes Central Line Catheter Replacement*: Yes Central Line Insertion: emergent Procedural Pause: tarun and assess the site, perform hand hygiene Ultrasound Used for Placement: Yes Central Line Lumen Inserted: triple Post Procedure: sutured in place, good blood return, all ports aspirated, flushed, capped, guide wire removed and visualized Complications: other (This procedure was not done under sterile conditions. It was performed under emergent conditions via assistance by ultrasound.) Name of Clinician Inserting Central Line: Ernesto Laguerre D.O. Clinician Assisting/Completing Checklist: Dr. Margarito Boothe - Intubation Time out performed: Yes sedative: none Laryngoscope: Marta ET Tube Size: 7.5 Tube Placement Confirmation: equal breath sounds bilaterally, no breath sounds over epigastrium, confirmation by capnometry Patient Tolerated Procedure: well, no complications Intubation Complications: none Medical Decision Making - MDM Narrative Medical decision making narrative: 68-year-old male presents to the emergency department with concern for generalized weakness, nausea, vomiting, diarrhea. Patient, once he arrived in the room, began to have agonal breathing, became unresponsive, lost his pulse. Telemetry revealed a very wide, bizarre, slow ventricular tachycardia that is typically seen with hyperkalemia or drug overdoses. Patient known history of chronic kidney disease and reported electrolyte abnormalities that have been being sorted out on an outpatient basis. ACLS protocol was followed. Patient was given several rounds of epinephrine, approximately 13 A of sodium bicarbonate, 4g of calcium chloride, magnesium, and multiple rounds of chest compressions for over an hour. Patient had ROSC several times while in the emergency department. At those times, the QRS was narrow. Prior to patient becoming pulseless, his QRS was widened significantly, and he began to want to slow ventricular tachycardia, and at times went to ventricular fibrillation. Patient was defibrillated at least 4 times during ACLS. Patient was also given amiodarone bolus and drip as well as an epinephrine drip as patient would become hypotensive at times. Family was updated multiple times, they went into the room as patient was undergoing ACLS. Patient was also intubated initially during ACLS as he did not have definitive airway and did not appear to be being bagged effectively. Patient was cooled as this was witnessed V. tach/V. fib arrest. Chest x-ray revealed concerns by radiology for congestive heart failure, large, diffuse infection, cardiomegaly, with good tube placement. Patient was initially treated with vancomycin and cefepime for coverage of pneumonia. Patient had leukocytosis of 22.9. Lactic acid of 10. No cough or sputum production reported by family, however, clinically, we decided to come for pneumonia at this time. Labs are obtained over one hour after patient arrival revealed hyperkalemia with a potassium of 6.1. I anticipate, that his initial potassium was much higher than this. Patient was also given insulin and dextrose to address his hyperkalemia other than previous after mentioned sodium bicarbonate and calcium chloride. Patient had a troponin of 0.15. BNP of 691. I did speak with Dr. Gray, the log roller on the phone to explain the patient's case. He said to repeated EKG in 20 minutes and to call him back if there are any new ischemic changes. Repeat EKG 20 minutes not reveal any ischemic changes. No reported chest pain by the patient when discussed with family members. I spoke with Dr. Whitley, the ICU attending regarding admission to the intensive care unit. He requested that prior to admission to intensive care unit, to obtain a stat echocardiogram in the emergency department as he was concerned that patient may require heart catheterization catheterization on an emergent basis. Heart catheterization was obtained and revealed normal ejection fraction with concern for severe tricuspid regurgitation which was reported back to him and he accepted patient for admission. I discussed with the family how critical patient was and they understood. They agreed with plan for admission to our intensive care unit. Chest X-Ray 07/22/18 11:52 IMPRESSION: 1. Findings typical of congestive heart failure, ARDS or diffuse infection; correlate with history. 2. Cardiomegaly. 3. Life support appliances appear appropriately positioned. D/ / Joon Magallon / Joon Magallon Interpreting Provider: Joon Magallon Vital Signs Temperature 97.8 F 07/22/18 10:47 Pulse Rate 46 07/22/18 10:47 Respiratory Rate 20 07/22/18 10:47 Blood Pressure 93/51 07/22/18 10:47 O2 Sat by Pulse Oximetry 95 07/22/18 10:47 Temperature 97.8 F 07/22/18 10:58 Pulse Rate 46 07/22/18 10:58 Respiratory Rate 15 07/22/18 12:23 Blood Pressure 93/51 07/22/18 10:58 O2 Sat by Pulse Oximetry 100 07/22/18 12:23 Oxygen Delivery Oxygen Delivery Room Air - Lab Data Result diagrams: 07/22/18 17:00 07/22/18 17:00 Lab Results 07/22/18 07/22/18 07/22/18 Range/Units 11:04 11:52 11:53 WBC 22.9 H (4.3-11.1) K/mcL RBC 4.80 (4.19-5.50) M/mcL Hgb 11.5 L (12.9-16.9) g/dL Hct 38.2 (37.5-50.1) % MCV 79.6 L (83.0-100.0) fL MCH 24.0 L (28.0-33.3) pg MCHC 30.1 L (31.6-35.5) g/dL RDW 22.7 H (11.5-14.5) % Plt Count 121 L (140-400) K/mcL MPV 10.4 (9.4-12.4) fL Seg Neutrophils % 84.0 % Band Neutrophils % 10.0 H (0-4) % Lymphocytes % 6.0 % Neutrophils # 21.5 H (1.6-8.9) K/mcL Lymphocytes # 1.4 (0.6-4.6) K/mcL Nucleated RBCs/100 WBC 0.2 H (0) /100 WBC Platelet Estimate Slight Decrease L (Normal) PT (9.4-12.1) Seconds INR APTT (26.0-36.0) Seconds ABG pH 7.23 L (7.32-7.45) pH Units ABG pCO2 79 H* (35-45) mmHg ABG pO2 58 L (85-104) mmHg ABG HCO3 33 H (21-27) mEq/L ABG Total CO2 35 H (20-26) mEq/L ABG O2 Saturation 82 L (95-98) % ABG Base Excess 3 (-2 to 3) mEq/L O2 Delivery Device Bagging Inspired O2 100.0 (1-15=lpm [id number]=%) Sodium (136-145) mEq/L Potassium (3.5-5.1) mEq/L Chloride (98-107) mEq/L Carbon Dioxide (23-29) mEq/L BUN (8-23) mg/dL Creatinine (0.70-1.30) mg/dL Est GFR ( Amer) (> 60) Est GFR (Non-Af Amer) (> 60) BUN/Creatinine Ratio (6-26) Glucose (70-105) mg/dL POC Glucose 212 H (70-99) mg/dL Calculated Osmolality (280-300) Lactic Acid (0.5-2.2) mmol/L Calcium (8.6-10.3) mg/dL Phosphorus (2.7-4.5) mg/dL Magnesium (1.6-2.6) mg/dL Total Bilirubin (0.3-1.0) mg/dL Direct Bilirubin (0.0-0.2) mg/dL Indirect Bilirubin (0.0-1.2) mg/dL AST (13-39) Units/L ALT (7-52) Units/L Alkaline Phosphatase (34-104) Units/L Troponin I (< 0.04) ng/mL B-Natriuretic Peptide (Less than 100) pg/mL Serum Total Protein (6.4-8.9) g/dL Albumin (3.5-5.7) g/dL Globulin (2.4-3.5) g/dL Albumin/Globulin Ratio (1.1-2.2) Blood Type Antibody Screen 07/22/18 07/22/18 07/22/18 Range/Units 11:53 11:53 11:53 WBC (4.3-11.1) K/mcL RBC (4.19-5.50) M/mcL Hgb (12.9-16.9) g/dL Hct (37.5-50.1) % MCV (83.0-100.0) fL MCH (28.0-33.3) pg MCHC (31.6-35.5) g/dL RDW (11.5-14.5) % Plt Count (140-400) K/mcL MPV (9.4-12.4) fL Seg Neutrophils % % Band Neutrophils % (0-4) % Lymphocytes % % Neutrophils # (1.6-8.9) K/mcL Lymphocytes # (0.6-4.6) K/mcL Nucleated RBCs/100 WBC (0) /100 WBC Platelet Estimate (Normal) PT (9.4-12.1) Seconds INR APTT (26.0-36.0) Seconds ABG pH (7.32-7.45) pH Units ABG pCO2 (35-45) mmHg ABG pO2 (85-104) mmHg ABG HCO3 (21-27) mEq/L ABG Total CO2 (20-26) mEq/L ABG O2 Saturation (95-98) % ABG Base Excess (-2 to 3) mEq/L O2 Delivery Device Inspired O2 (1-15=lpm [id number]=%) Sodium 133 L (136-145) mEq/L Potassium 6.1 H (3.5-5.1) mEq/L Chloride 91 L (98-107) mEq/L Carbon Dioxide 27 (23-29) mEq/L BUN 54 H (8-23) mg/dL Creatinine 2.84 H (0.70-1.30) mg/dL Est GFR ( Amer) 27 L (> 60) Est GFR (Non-Af Amer) 22 L (> 60) BUN/Creatinine Ratio 19 (6-26) Glucose 320 H (70-105) mg/dL POC Glucose (70-99) mg/dL Calculated Osmolality 303 H (280-300) Lactic Acid 10.0 H* (0.5-2.2) mmol/L Calcium 12.3 H (8.6-10.3) mg/dL Phosphorus (2.7-4.5) mg/dL Magnesium (1.6-2.6) mg/dL Total Bilirubin (0.3-1.0) mg/dL Direct Bilirubin (0.0-0.2) mg/dL Indirect Bilirubin (0.0-1.2) mg/dL AST (13-39) Units/L ALT (7-52) Units/L Alkaline Phosphatase (34-104) Units/L Troponin I 0.15 H* (< 0.04) ng/mL B-Natriuretic Peptide 691 H (Less than 100) pg/mL Serum Total Protein (6.4-8.9) g/dL Albumin (3.5-5.7) g/dL Globulin (2.4-3.5) g/dL Albumin/Globulin Ratio (1.1-2.2) Blood Type Antibody Screen 07/22/18 07/22/18 07/22/18 Range/Units 11:53 11:53 11:53 WBC (4.3-11.1) K/mcL RBC (4.19-5.50) M/mcL Hgb (12.9-16.9) g/dL Hct (37.5-50.1) % MCV (83.0-100.0) fL MCH (28.0-33.3) pg MCHC (31.6-35.5) g/dL RDW (11.5-14.5) % Plt Count (140-400) K/mcL MPV (9.4-12.4) fL Seg Neutrophils % % Band Neutrophils % (0-4) % Lymphocytes % % Neutrophils # (1.6-8.9) K/mcL Lymphocytes # (0.6-4.6) K/mcL Nucleated RBCs/100 WBC (0) /100 WBC Platelet Estimate (Normal) PT 27.6 H (9.4-12.1) Seconds INR 2.4 APTT 53.5 H (26.0-36.0) Seconds ABG pH (7.32-7.45) pH Units ABG pCO2 (35-45) mmHg ABG pO2 (85-104) mmHg ABG HCO3 (21-27) mEq/L ABG Total CO2 (20-26) mEq/L ABG O2 Saturation (95-98) % ABG Base Excess (-2 to 3) mEq/L O2 Delivery Device Inspired O2 (1-15=lpm [id number]=%) Sodium (136-145) mEq/L Potassium (3.5-5.1) mEq/L Chloride (98-107) mEq/L Carbon Dioxide (23-29) mEq/L BUN (8-23) mg/dL Creatinine (0.70-1.30) mg/dL Est GFR ( Amer) (> 60) Est GFR (Non-Af Amer) (> 60) BUN/Creatinine Ratio (6-26) Glucose (70-105) mg/dL POC Glucose (70-99) mg/dL Calculated Osmolality (280-300) Lactic Acid (0.5-2.2) mmol/L Calcium Cancelled (8.6-10.3) mg/dL Phosphorus 9.1 H (2.7-4.5) mg/dL Magnesium 3.2 H (1.6-2.6) mg/dL Total Bilirubin 0.9 (0.3-1.0) mg/dL Direct Bilirubin 0.3 H (0.0-0.2) mg/dL Indirect Bilirubin 0.6 (0.0-1.2) mg/dL AST 92 H (13-39) Units/L ALT 46 (7-52) Units/L Alkaline Phosphatase 89 (34-104) Units/L Troponin I (< 0.04) ng/mL B-Natriuretic Peptide (Less than 100) pg/mL Serum Total Protein 4.8 L (6.4-8.9) g/dL Albumin 2.6 L (3.5-5.7) g/dL Globulin 2.2 L (2.4-3.5) g/dL Albumin/Globulin Ratio 1.2 (1.1-2.2) Blood Type A POSITIVE Antibody Screen NEGATIVE - EKG Data EKG #1 EKG attestation: Yes I reviewed and interpreted this EKG. EKG results narrative: EKG #1 This was right before patient lost pulse. Heart rate 103 bpm, no P waves, QRS duration 192 ms, QT 375 ms indeterminate axis Very wide, irregular, ventricular tachycardia with a rate of 103 bpm. Final EKG 13:117 Heart rate 83 bpm, HI interval 253 ms, QRS duration 127 ms, QT 385 ms, R axis deviation. First-degree heart block. When in comparison with previous EKG obtained on 05/31/2018, no new ischemic ST changes noted.
[2018-07-22 12:28] LABS: Lymphocytes # 1.4 K/mcL (0.6-4.6); Neutrophils # 21.5 K/mcL (1.6-8.9); Platelet Estimate Slight Decrease (Normal)
[2018-07-22 12:34] LABS: Calcium 12.3 mg/dL (8.6-10.3); Potassium 6.1 mEq/L (3.5-5.1)
[2018-07-22 12:37] LABS: Albumin 2.6 g/dL (3.5-5.7); Albumin/Globulin Ratio 1.2 (1.1-2.2); Bilirubin,Direct 0.3 mg/dL (0.0-0.2); Bilirubin,Indirect 0.6 mg/dL (0.0-1.2); Bilirubin,Total 0.9 mg/dL (0.3-1.0); Globulin 2.2 g/dL (2.4-3.5); Phosphorous 9.1 mg/dL (2.7-4.5); Total Protein 4.8 g/dL (6.4-8.9); Troponin I 0.15 ng/mL (< 0.04)
[2018-07-22 12:38] LABS: Magnesium 3.2 mg/dL (1.6-2.6)
[2018-07-22] MEDS ORDERED: *HR* Midazolam HCl 5 MG/5 ML VIAL IVP ONE ×2 (12:42→12:52)
[2018-07-22] MEDS ORDERED: Cefepime HCl 2,000 MG in Water for inj. (sterile) 20 ML 20 ML IVP SCH (13:00)
[2018-07-22] MEDS ORDERED: Naloxone 0.4 MG/ML INJ IVP PRN (13:36)
[2018-07-22] MEDS ORDERED: Artificial Tears SOLN 15 ML BOTTLE BOTH EYES PRN (13:39)
--- NOTE | 2018-07-22 14:03 | Emergency Department Note ---
Disposition Clinical Impression: Cardiac arrest, Respiratory failure, Hyperkalemia, Pulmonary edema, Leukocytosis Disposition: Admitted As Inpatient General Adult HPI - General Chief complaint: ED Nausea/Vomiting/Diarrhea Stated complaint: NVD/weakness Time Seen by Provider: 07/22/18 10:45 Source: patient, family Limitations: no limitations - History of Present Illness Pain Scale: 9 - Related Data Home Medications Medication Instructions Recorded Confirmed Levothyroxine [Synthroid] 88 mcg PO Q48H 02/18/16 07/05/18 Aspirin Enteric Coated [Aspirin EC] 81 mg PO DAILY 03/09/18 07/05/18 Atorvastatin [Lipitor] 10 mg PO HS 03/09/18 07/05/18 Insulin ASPART [NovoLOG] 4 - 18 unit SQ TIDAC 03/09/18 07/05/18 Multivitamin [One Daily Essential] 1 tab PO DAILY 03/09/18 07/05/18 Nitroglycerin [Nitrostat] 0.4 mg SL Q5MIN PRN 03/09/18 07/05/18 Polyethylene Glycol 3350 [MiraLAX] 17 gm PO DAILY 03/09/18 07/05/18 Potassium Chloride [K-Tab ER] 60 meq PO TID 03/09/18 07/05/18 Bumetanide 4 mg PO TID 05/31/18 07/05/18 Cabergoline 0.5 mg PO MALDONADO 05/31/18 07/05/18 Gabapentin [Neurontin] 800 mg PO BID 05/31/18 07/05/18 Metoprolol Succinate 12.5 mg PO DAILY 05/31/18 07/05/18 predniSONE [PredniSONE] 5 mg PO DAILY 05/31/18 07/05/18 Albuterol Sulfate [Ventolin Hfa] 2 puff IH Q6H PRN 07/04/18 07/05/18 Budesonide/Formoterol 80/4.5 2 puff IH BID 07/04/18 07/05/18 [Symbicort 80/4.5] Metoclopramide [Reglan] 10 mg PO DAILY 07/04/18 07/05/18 Previous Rx's Medication Instructions Recorded Morphine Sulfate SR (12 HR) [MS 15 mg PO Q12HR tablet.er 02/29/16 Contin] Apixaban [Eliquis] 5 mg PO BID #60 tablet 03/11/18 Spironolactone [Aldactone] 50 mg PO DAILY 30 Days #60 tablet 06/07/18 metOLazone [Zaroxolyn] 2.5 mg PO DAILY 30 Days #15 tablet 06/07/18 Allergies Allergy/AdvReac Type Severity Reaction Status Date / Time Penicillins Allergy Hives Verified 03/09/18 13:46 Sulfa (Sulfonamide Allergy Nausea Verified 03/09/18 13:46 Antibiotics) carvedilol [From Coreg] AdvReac Hypotension Verified 03/09/18 13:46 lisinopril AdvReac Hypotension Verified 03/09/18 13:46 Past Medical History - Past Medical History Medical history: Reports: arthritis, atrial fibrillation, CHF, diabetes, GERD, hyperlipidemia, hypertension, myocardial infarction, peripheral artery disease, thyroid disease, syncope Surgical history: Reports: angioplasty/stent, appendectomy, cholecystectomy, co ronary bypass (CABG) Psychiatric history: Reports: no psych history - Social History Smoking Status: Never smoker Smokeless Tobacco Status: No Alcohol use: Reports: occasionally Drug use: Reports: none Physical Exam - General Limitations: no limitations General appearance: in distress Course Vital Signs Temperature 97.8 F 07/22/18 10:47 Pulse Rate 46 07/22/18 10:47 Respiratory Rate 20 07/22/18 10:47 Blood Pressure 93/51 07/22/18 10:47 O2 Sat by Pulse Oximetry 95 07/22/18 10:47 Temperature 97.8 F 07/22/18 10:58 Pulse Rate 46 07/22/18 10:58 Respiratory Rate 15 07/22/18 12:23 Blood Pressure 93/51 07/22/18 10:58 O2 Sat by Pulse Oximetry 100 07/22/18 12:23 Oxygen Delivery Oxygen Delivery Room Air Medical Decision Making - Lab Data Result diagrams: 07/22/18 11:53 07/22/18 11:53 Lab Results 07/22/18 07/22/18 07/22/18 Range/Units 11:52 11:53 11:53 WBC 22.9 H (4.3-11.1) K/mcL RBC 4.80 (4.19-5.50) M/mcL Hgb 11.5 L (12.9-16.9) g/dL Hct 38.2 (37.5-50.1) % MCV 79.6 L (83.0-100.0) fL MCH 24.0 L (28.0-33.3) pg MCHC 30.1 L (31.6-35.5) g/dL RDW 22.7 H (11.5-14.5) % Plt Count 121 L (140-400) K/mcL MPV 10.4 (9.4-12.4) fL Seg Neutrophils % 84.0 % Band Neutrophils % 10.0 H (0-4) % Lymphocytes % 6.0 % Neutrophils # 21.5 H (1.6-8.9) K/mcL Lymphocytes # 1.4 (0.6-4.6) K/mcL Nucleated RBCs/100 WBC 0.2 H (0) /100 WBC Platelet Estimate Slight Decrease L (Normal) PT (9.4-12.1) Seconds INR APTT (26.0-36.0) Seconds ABG pH 7.23 L (7.32-7.45) pH Units ABG pCO2 79 H* (35-45) mmHg ABG pO2 58 L (85-104) mmHg ABG HCO3 33 H (21-27) mEq/L ABG Total CO2 35 H (20-26) mEq/L ABG O2 Saturation 82 L (95-98) % ABG Base Excess 3 (-2 to 3) mEq/L O2 Delivery Device Bagging Inspired O2 100.0 (1-15=lpm [id number]=%) Sodium 133 L (136-145) mEq/L Potassium 6.1 H (3.5-5.1) mEq/L Chloride 91 L (98-107) mEq/L Carbon Dioxide 27 (23-29) mEq/L BUN 54 H (8-23) mg/dL Creatinine 2.84 H (0.70-1.30) mg/dL Est GFR ( Amer) 27 L (> 60) Est GFR (Non-Af Amer) 22 L (> 60) BUN/Creatinine Ratio 19 (6-26) Glucose 320 H (70-105) mg/dL Calculated Osmolality 303 H (280-300) Lactic Acid (0.5-2.2) mmol/L Calcium 12.3 H (8.6-10.3) mg/dL Phosphorus (2.7-4.5) mg/dL Magnesium (1.6-2.6) mg/dL Total Bilirubin (0.3-1.0) mg/dL Direct Bilirubin (0.0-0.2) mg/dL Indirect Bilirubin (0.0-1.2) mg/dL AST (13-39) Units/L ALT (7-52) Units/L Alkaline Phosphatase (34-104) Units/L Troponin I 0.15 H* (< 0.04) ng/mL B-Natriuretic Peptide (Less than 100) pg/mL Serum Total Protein (6.4-8.9) g/dL Albumin (3.5-5.7) g/dL Globulin (2.4-3.5) g/dL Albumin/Globulin Ratio (1.1-2.2) Blood Type Antibody Screen 07/22/18 07/22/18 07/22/18 Range/Units 11:53 11:53 11:53 WBC (4.3-11.1) K/mcL RBC (4.19-5.50) M/mcL Hgb (12.9-16.9) g/dL Hct (37.5-50.1) % MCV (83.0-100.0) fL MCH (28.0-33.3) pg MCHC (31.6-35.5) g/dL RDW (11.5-14.5) % Plt Count (140-400) K/mcL MPV (9.4-12.4) fL Seg Neutrophils % % Band Neutrophils % (0-4) % Lymphocytes % % Neutrophils # (1.6-8.9) K/mcL Lymphocytes # (0.6-4.6) K/mcL Nucleated RBCs/100 WBC (0) /100 WBC Platelet Estimate (Normal) PT 27.6 H (9.4-12.1) Seconds INR 2.4 APTT 53.5 H (26.0-36.0) Seconds ABG pH (7.32-7.45) pH Units ABG pCO2 (35-45) mmHg ABG pO2 (85-104) mmHg ABG HCO3 (21-27) mEq/L ABG Total CO2 (20-26) mEq/L ABG O2 Saturation (95-98) % ABG Base Excess (-2 to 3) mEq/L O2 Delivery Device Inspired O2 (1-15=lpm aq36-075=%) Sodium (136-145) mEq/L Potassium (3.5-5.1) mEq/L Chloride (98-107) mEq/L Carbon Dioxide (23-29) mEq/L BUN (8-23) mg/dL Creatinine (0.70-1.30) mg/dL Est GFR ( Amer) (> 60) Est GFR (Non-Af Amer) (> 60) BUN/Creatinine Ratio (6-26) Glucose (70-105) mg/dL Calculated Osmolality (280-300) Lactic Acid 10.0 H* (0.5-2.2) mmol/L Calcium (8.6-10.3) mg/dL Phosphorus (2.7-4.5) mg/dL Magnesium (1.6-2.6) mg/dL Total Bilirubin (0.3-1.0) mg/dL Direct Bilirubin (0.0-0.2) mg/dL Indirect Bilirubin (0.0-1.2) mg/dL AST (13-39) Units/L ALT (7-52) Units/L Alkaline Phosphatase (34-104) Units/L Troponin I (< 0.04) ng/mL B-Natriuretic Peptide 691 H (Less than 100) pg/mL Serum Total Protein (6.4-8.9) g/dL Albumin (3.5-5.7) g/dL Globulin (2.4-3.5) g/dL Albumin/Globulin Ratio (1.1-2.2) Blood Type Antibody Screen 07/22/18 07/22/18 Range/Units 11:53 11:53 WBC (4.3-11.1) K/mcL RBC (4.19-5.50) M/mcL Hgb (12.9-16.9) g/dL Hct (37.5-50.1) % MCV (83.0-100.0) fL MCH (28.0-33.3) pg MCHC (31.6-35.5) g/dL RDW (11.5-14.5) % Plt Count (140-400) K/mcL MPV (9.4-12.4) fL Seg Neutrophils % % Band Neutrophils % (0-4) % Lymphocytes % % Neutrophils # (1.6-8.9) K/mcL Lymphocytes # (0.6-4.6) K/mcL Nucleated RBCs/100 WBC (0) /100 WBC Platelet Estimate (Normal) PT (9.4-12.1) Seconds INR APTT (26.0-36.0) Seconds ABG pH (7.32-7.45) pH Units ABG pCO2 (35-45) mmHg ABG pO2 (85-104) mmHg ABG HCO3 (21-27) mEq/L ABG Total CO2 (20-26) mEq/L ABG O2 Saturation (95-98) % ABG Base Excess (-2 to 3) mEq/L O2 Delivery Device Inspired O2 (1-15=lpm cn70-247=%) Sodium (136-145) mEq/L Potassium (3.5-5.1) mEq/L Chloride (98-107) mEq/L Carbon Dioxide (23-29) mEq/L BUN (8-23) mg/dL Creatinine (0.70-1.30) mg/dL Est GFR ( Amer) (> 60) Est GFR (Non-Af Amer) (> 60) BUN/Creatinine Ratio (6-26) Glucose (70-105) mg/dL Calculated Osmolality (280-300) Lactic Acid (0.5-2.2) mmol/L Calcium Cancelled (8.6-10.3) mg/dL Phosphorus 9.1 H (2.7-4.5) mg/dL Magnesium 3.2 H (1.6-2.6) mg/dL Total Bilirubin 0.9 (0.3-1.0) mg/dL Direct Bilirubin 0.3 H (0.0-0.2) mg/dL Indirect Bilirubin 0.6 (0.0-1.2) mg/dL AST 92 H (13-39) Units/L ALT 46 (7-52) Units/L Alkaline Phosphatase 89 (34-104) Units/L Troponin I (< 0.04) ng/mL B-Natriuretic Peptide (Less than 100) pg/mL Serum Total Protein 4.8 L (6.4-8.9) g/dL Albumin 2.6 L (3.5-5.7) g/dL Globulin 2.2 L (2.4-3.5) g/dL Albumin/Globulin Ratio 1.2 (1.1-2.2) Blood Type A POSITIVE Antibody Screen NEGATIVE Critical Care Time Critical Care Time: Yes Total Critical Care Time: 70 Attestation: Critical care time 70 min spent in full cardiac resuscitation measures for c ardiac arrest as well as treatment of hyperkalemia in consultation with cardiology and the business solution analyst. This time excluding procedures which included intubation and central venous catheter placement. Attestation Statement - Attestation Attestation: I examined this patient and my medical decision-making was reviewed with the Resident Physician. I agree with the documented findings, disposition and treatment plan as described except to the extent set forth below. 68 yo M presented to ER for weakness, concerns for vomiting and diarrhea. pt was scheduled to have cardiac cath today at [facility] for chest pain issues. they told him to come to ER due to his weakness complaints. Was called in the room upon patient arrival. This was placed on the monitor. They found him to be in a slow rhythm. When I walked in the room and appeared the patient was in a junctional rhythm. Patient was slow to respond. I could tell that he was beginning to lose consciousness. His monitor showed sinusoidal and then patient went into a V. fib. This was a witnessed ventricular fibrillation arrest. Patient initially was given atropine. We had to place a left humerus intraosseous line as he had poor peripheral access. Patient then was defibrillated. He underwent ACLS guidelines and treatment for a V. fib arr est. He was given 300 mg of IV amiodarone. Patient had a repeat dose of 150 mg of IV in the room. Patient was given multiple rounds of sodium bicarbonate. Patient went in and out of the fib arrest. He also had runs of PEA. Patient was also given multiple rounds of epinephrine during his cardiac arrest. Patient was intubated by Dr. Siegel to obtain a definitive airway. There were no complications. We also did a left femoral venous puncture to obtain blood. This was done by myself under nonsterile conditions secondary to the status of the patient. This was done to obtain blood. A right femoral central venous catheter was placed by Dr. Siegel under my supervision as well. This was done due to poor peripheral access and the fact that we had the patient on a amiodarone and epinephrine drip. Patient was also given 3 rounds of calcium chloride. He was also given insulin 10 units and an amp of D50. I was concerned initially on the initial rhythm for possible hyperkalemia as the cause of his cardiac arrest. They were reports of him having vomiting and diarrhea lead me to believe he might be dehydrated which in turn could have given him an elevated potassium. His EKG initially had that sinusoidal hyper K presentation. I elected to go down that route with him in and treatment. In doing so we have got the patient back on full life support. He is maintaining well at this time on the amiodarone and epinephrine drip. Patient will be admitted to the ICU. We did provide Versed for sedation purposes. Our total code time was around 1 hour and 20 min. We consulted with Dr. Gray with cardiology. He wanted the patient be admitted to the intensive care unit. We did speak with the indirect sales representative. He did come down and see the patient in the emergency room. We also did a stat cardiac echo. This showed good wall motion as well as in it ejection fraction greater than 60%. We did provide a definitive airway with endotracheal intubation that was done successfully by Dr. Siegel. There were no complications and the tube was passed successfully to the cords. This was under my supervision. There were no complications with the procedure. Right femoral central venous catheter placement was done by Dr. Siegel under my supervision. This was done under ultrasound guidance. A nonsterile fashion due to the acuity of the patient. Patient tolerated the procedure well with no complications. Patient's last EKG showed an underlying atrial fibrillation with a right bundle branch block but no signs of any ST elevation CT. In review of his lab work did show a potassium of 6.1. This is about 45 minutes after treating his potassium with multiple rounds of sodium bicarbonate, insulin and D50. In short, I feel the patient underwent cardiac arrest secondary to hyperkalemia. In our robust efforts to reverse this potassium patient eventually stabilized into a sustainable rhythm with a good blood pressure. pt to be admitted to ICU under Dr Elizabeth's care
[2018-07-22 14:11] LABS: ABG Base Excess 17 mEq/L (-2 to 3); ABG HCO3 43 mEq/L (21-27); ABG Oxygen Saturation 100 % (95-98); ABG PCO2 55 mmHg (35-45); ABG PO2 458 mmHg (85-104); ABG TCO2 45 mEq/L (20-26); Blood Gas Modality ASSIST CONTROL; Blood Gas PEEP 5 cm H2O; Blood Gas Respiration Rate 16; Blood Gas VT 550 cc
--- NOTE | 2018-07-22 14:18 | Electrocardiograph Report ---
[place] [facility] Test Date: 2018-07-22 Pat Name: Kristopher Noriega Department: EXAM19 Room: 09 Gender: M Telephone Clerks Supervisor: : 1950 Requested By: Margarito Boothe Order Number: [id number] Reading MD: Kaushal Epperson Measurements Intervals [place] Rate: 90 P: 239 AR: 189 QRS: -166 QRSD: 209 T: 27 QT: 464 QTc: 568 Interpretive Statements Sinus or ectopic atrial rhythm, consider electrolyte abnormality Right bundle branch block ST depr, consider ischemia, inferior leads Electronically Signed On 07-22-2018 14:17:34 EST by Kaushal Epperson
--- NOTE | 2018-07-22 14:19 | Electrocardiograph Report ---
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
--- NOTE | 2018-07-22 14:19 | Electrocardiograph Report ---
[place] Test Date: 2018-07-22 Pat Name: Kristopher Noriega Department: EXAM19 Room: 09 Gender: M Benefits Consultant: : 1950 Requested By: Margarito Boothe Order Number: [id number] Reading MD: Kaushal Epperson Measurements Intervals [place] Rate: 85 P: [place]: QRS: 147 QRSD: 115 T: 23 QT: 472 QTc: 562 Interpretive Statements Regular wide complex rhythm, consider electrolyte abnormality Nonspecific intraventricular conduction delay Lateral infarct, old Anteroseptal infarct, acute Electronically Signed On 07-22-2018 14:18:13 EST by Kaushal Epperson
[2018-07-22 14:51] LABS: Hematocrit 38.5 % (37.5-50.1); Mean Corpuscular HGB Conc 31.2 g/dL (31.6-35.5); Mean Corpuscular Hemoglobin 23.8 pg (28.0-33.3); Mean Corpuscular Volume 76.4 fL (83.0-100.0); Mean Platelet Volume 10.4 fL (9.4-12.4); Nucleated Red Blood Cells 0.1 /100 WBC (0); Platelet Count 171 K/mcL (140-400); Red Blood Count 5.04 M/mcL (4.19-5.50); Red Cell Distribution Width 22.5 % (11.5-14.5)
[2018-07-22 15:08] LABS: Albumin 2.8 g/dL (3.5-5.7); Bilirubin,Total 1.5 mg/dL (0.3-1.0); Calcium 10.4 mg/dL (8.6-10.3); Globulin 2.7 g/dL (2.4-3.5); Magnesium 2.6 mg/dL (1.6-2.6); Potassium 5.3 mEq/L (3.5-5.1); Total Protein 5.5 g/dL (6.4-8.9)
[2018-07-22 15:15] LABS: Lymphocytes # 0.6 K/mcL (0.6-4.6); Monocytes # 1.3 K/mcL (0.0-1.3); Neutrophils # 29.9 K/mcL (1.6-8.9); Platelet Estimate Normal (Normal)
[2018-07-22 15:17] LABS: Troponin I 0.51 ng/mL (< 0.04)
--- NOTE | 2018-07-22 15:28 | Cardiology Consult Note ---
Date of Encounter: 07/22/18 Time of Encounter: 15:26 Assessment and Plan (1) Cardiac arrest Current Visit: Yes Status: Acute Cardiopulmonary arrest in the setting of persistent nausea, vomiting, diarrhea. Metabolic acidosis, hyperkalemia, acute/chronic kidney disease noted. Post arrest TTE demonstrates preserved LV function. Presentation is not consis tent with ACS. Suspect dehydration and resultant metabolic issues are the culprit. Your medical management. No compelling indication for invasive cardiac intervention at this time. (2) CAD (coronary artery disease) Current Visit: No Status: Chronic [place] CAD, prior CABG, prior PCI. Preserved LVEF. Continue aspirin. Hold statin given elevated LFTs. Resume beta sabian if heart rate and blood pressure remained stable. Qualifiers: Qualified Code(s): I25.10 - Atherosclerotic heart disease of [place] coronary artery without angina pectoris (3) Pulmonary hypertension, moderate to severe Current Visit: No Status: Chronic Chronic pulmonary hypertension. Likely group II, related to diastolic dysfunction, although other etiologies cannot be excluded. Continue supportive care at this time. Patient was scheduled for an outpatient right heart catheterization to evaluate. This can be reconsidered pending his hopeful functional recovery. Discussion w patient/family: The assessment and plan as outlined above was discussed with the patient and/or family members who expressed understanding and agreement. All questions were answered. Thank you for involving us in the care of your patient. Please call with any questions. History of Present Illness Consult date: 07/22/18 Requesting physician: Margarito Boothe Consult reason: Arrest Chief complaint: Arrest History of present illness: Mr. Noriega is a 68 year old male with a history of chronic diastolic heart failure, severe pulmonary hypertension, atrial fibrillation, CAD status post previous three-vessel CABG in 2008. Recently referred on an outpatient basis to the advanced heart failure clinic at [facility]. Patient was scheduled for a right heart catheterization today, but presented to the ER here instead. Per family, patient had at least 12 episodes of diarrhea last evening as well as 4 episodes of vomiting. He attempted hydration, but was unable to keep anything down. This morning, family reports he was very frail, unable to stand on his own, decreased level of consciousness. He was mainly brought to the ER. After being placed on telemetry, she was noted to have a sinusoidal pattern to his heart rhythm. His condition deteriorated quickly. He was ultimately given ACLS therapy for up to nearly for up to 1.5 hours. Potassium elevated, leukocytosis, lactic acidosis, A/CKD. Stat TTE - LVEF 55-60%. Moderate diastolic dysfunction. Mildly dilated RV with mild RV hypokinesis. Moderate right atrial enlargement. Moderate aortic stenosis described, peak velocity 3 m/s, mean gradient 16 mmHg. Severe TR, severe pulmonary hypertension. Past Med Surg Social Fam HX - Past Medical History Medical history: arthritis, atrial fibrillation, CHF, diabetes, GERD, hyperlipidemia, hypertension, myocardial infarction, peripheral artery disease, thyroid disease, syncope Psychiatric history: no psych history - Past Surgical History Surgical History: angioplasty/stent, appendectomy, cholecystectomy, coronary bypass (CABG) Additional surgical history: tonsilectomy, pituitary tumor removed, exploratory for possible cyst in stomach ( scar tissue ), triple bypass, R BKA, heart stent - Social History Smoking Status: Never smoker Smokeless Tobacco Status: No Alcohol use: occasionally Drug use: none - Family History Father Adopted: No Family Member Ethnicity: Non- Living Status: Hx Family Cardiac Disorders: No Hx Family Respiratory Disorders: No Hx Family Cancer: Yes Hx Family GI Disorders: No Hx Family Endocrine Disorder: No Hx Family Neuromuscular Disorders: No Hx Family Neurologic Disorders: No Hx Family HEENT Disorders: No Hx Family Autoimmune Disorders: No Medications and Allergies Levothyroxine [Synthroid] 88 mcg PO Q48H 02/18/16 [History] Morphine Sulfate SR (12 HR) [MS Contin] 15 mg PO Q12HR tablet.er 02/29/16 [Rx] Aspirin Enteric Coated [Aspirin EC] 81 mg PO DAILY 03/09/18 [History] Atorvastatin [Lipitor] 10 mg PO HS 03/09/18 [History] Insulin ASPART [NovoLOG] 4 - 18 unit SQ TIDAC 03/09/18 [History] Multivitamin [One Daily Essential] 1 tab PO DAILY 03/09/18 [History] Nitroglycerin [Nitrostat] 0.4 mg SL Q5MIN PRN 03/09/18 [History] Polyethylene Glycol 3350 [MiraLAX] 17 gm PO DAILY 03/09/18 [History] Potassium Chloride [K-Tab ER] 60 meq PO TID 03/09/18 [History] Apixaban [Eliquis] 5 mg PO BID #60 tablet 03/11/18 [Rx] Bumetanide 4 mg PO TID 05/31/18 [History] Cabergoline 0.5 mg PO MALDONADO 05/31/18 [History] Gabapentin [Neurontin] 800 mg PO BID 05/31/18 [History] Metoprolol Succinate 12.5 mg PO DAILY 05/31/18 [History] predniSONE [PredniSONE] 5 mg PO DAILY 05/31/18 [History] Spironolactone [Aldactone] 50 mg PO DAILY 30 Days #60 tablet 06/07/18 [Rx] metOLazone [Zaroxolyn] 2.5 mg PO DAILY 30 Days #15 tablet 06/07/18 [Rx] Albuterol Sulfate [Ventolin Hfa] 2 puff IH Q6H PRN 07/04/18 [History] Budesonide/Formoterol 80/4.5 [Symbicort 80/4.5] 2 puff IH BID 07/04/18 [History] Metoclopramide [Reglan] 10 mg PO DAILY 07/04/18 [History] Allergy/AdvReac Type Severity Reaction Status Date / Time Penicillins Allergy Hives Verified 03/09/18 13:46 Sulfa (Sulfonamide Allergy Nausea Verified 03/09/18 13:46 Antibiotics) carvedilol [From Coreg] AdvReac Hypotension Verified 03/09/18 13:46 lisinopril AdvReac Hypotension Verified 03/09/18 13:46 ROS unobtainable: due to endotracheal tube All Systems Review: The remainder of the systems were reviewed and are negative Physical Examination Vital Signs, Last 4 Hours Temp Pulse Resp BP Pulse Ox 07/22/18 14:25 97.4 F L 79 12 143/83 97 07/22/18 13:55 14 154/89 07/22/18 12:23 15 100 General: No Apparent Distress HEENT: Atraumatic, Normocephaly, Mucus Membranes Moist Neck: No JVD, Normal carotid pulses Cardiac: Other (Distant, regular rate and rhythm, difficult to appreciate murmurs) Lungs: Other (Scattered rhonchi) Neuro: Other (Sedated) Abdomen: Soft, Other (Obese) Skin: No rashes noted on visualized skin Musculoskeletal: No Chest Wall Tenderness Extremities: No Clubbing, No Cyanosis, No Edema Results 07/22/18 14:35 07/22/18 14:35 Lab Results 07/22/18 07/22/1818 11:53 11:53 11:53 WBC 22.9 H Hgb 11.5 L Hct 38.2 Plt Count 121 L INR APTT Sodium 133 L Potassium 6.1 H Chloride 91 L Carbon Dioxide 27 BUN 54 H Creatinine 2.84 H Glucose 320 H Calcium 12.3 H Magnesium Total Bilirubin AST ALT Alkaline Phosphatase Troponin I 0.15 H* B-Natriuretic Peptide 691 H 07/22/18 07/22/18 07/22/18 11:53 11:53 14:35 WBC 31.8 H* Hgb 12.0 L Hct 38.5 Plt Count 171 INR 2.4 APTT 53.5 H Sodium Potassium Chloride Carbon Dioxide BUN Creatinine Glucose Calcium Cancelled Magnesium 3.2 H Total Bilirubin 0.9 AST 92 H ALT 46 Alkaline Phosphatase 89 Troponin I B-Natriuretic Peptide 07/22/18 07/22/18 14:35 14:35 WBC Hgb Hct Plt Count INR APTT Sodium 140 Potassium 5.3 H Chloride 86 L Carbon Dioxide 40 H* BUN 56 H Creatinine 2.90 H Glucose 294 H Calcium 10.4 H Magnesium 2.6 Total Bilirubin 1.5 H AST 165 H ALT 69 H Alkaline Phosphatase 112 H Troponin I 0.51 H* B-Natriuretic Peptide - Imaging and Cardiology Stress Test: report reviewed Echo: report reviewed - EKG Interpretation EKG results cardiology: personally reviewed Consult Discharge Plan - Plan Referrals: NONE,PCP [Primary Care Provider] -
[2018-07-22] MEDS: EPINEPHrine 5 MG in D5% in Water 250 ML IVC SCH (15:38)
--- NOTE | 2018-07-22 15:45 | Electrocardiograph Report ---
[address] [address] Test Date: 2018-07-22 Pat Name: Kristopher Noriega Department: EXAM19 Room: 09 Gender: M Solar Designer/Installer: : 1950 Requested By: Daphne Suarez Order Number: [id number] Reading MD: Conner Erickson Measurements Intervals [place] Rate: 42 P: [place]: QRS: 69 QRSD: 211 T: 82 QT: 375 QTc: 489 Interpretive Statements Atrial fibrillation with slow ventricular response with significant intraventricular conduction delay or ventricular escape rhythm Metabolic/electrolytes derrangment or drug effect Electronically Signed On 07-22-2018 15:44:16 EST by Conner Erickson
--- NOTE | 2018-07-22 15:59 | Electrocardiograph Report ---
[address] [place], [place] [address] Test Date: 2018-07-22 Pat Name: Kristopher Noriega Department: EXAM19 Room: 09 Gender: M Footwear Factory Worker: : 1950 Requested By: Ernesto Laguerre Order Number: [id number] Reading MD: Conner Erickson Measurements Intervals [place] Rate: 83 P: 97 [place]: 253 QRS: 134 QRSD: 127 T: -33 QT: 385 QTc: 453 Interpretive Statements Sinus rhythm with 1st degree AV block Right axis deviation Nonspecific intraventricular conduction delay Nonspecific repol abnormality, inferior leads Electronically Signed On 07-22-2018 15:58:01 EST by Conner Erickson
--- NOTE | 2018-07-22 16:10 | Pulmonology History & Physical ---
<Edel Navarro - Last Filed: 07/22/18 17:13> Date of Encounter: 07/22/18 Time of Encounter: 14:30 Assessment and Plan (1) Respiratory failure Current visit: Yes Status: Acute Likely secondary to cardiac arrest and pulmonary edema/pneumonia. On presentation, respiratory acidosis with ABG 7.23/79/58/33. CXR shows diffuse bilateral consolidation, CHF vs ARDS vs PNA. Patient is intubated under sedation. After intubation, metabolic alkalosis with ABG 7.50/55/458/43. Likely secondary to bicarb administration during cardiac arrest. Vent settings optimized to correct alkalosis. Recheck ABG. Qualifiers: Respiratory failure complication: hypoxia and hypercapnia Qualified Code(s): J96.01 - Acute respiratory failure with hypoxia; J96.22 - Acute and chronic respiratory failure with hypercapnia (2) Cardiac arrest Current visit: Yes Status: Acute Possibly secondary to hyperkalemia in setting of dehydration from vomiting/diarrhea. On presentation, bradycardia at 46. Then had runs of V-fib and PEA. Patient was given atropine. ACLS was performed. Patient was intubated. Potassium level was 6.1. Was given amiodarone, bicarb, epi, calcium chloride, insulin, and D50. Placed on amiodarone and epi drip. Cardiology consulted and following. (3) Pneumonia Current visit: Yes Status: Suspected CXR shows diffuse bilateral consolidation, possible pneumonia. On presentation, no fever/hypothermia, tachycardia, or tachypnea. Does not meet SIRS criteria. Leukocytosis of 22.9. Lactic acidosis of 10.0 Continue day 1 of cefepime and vanc. Qualifiers: Laterality: bilateral Qualified Code(s): J18.9 - Pneumonia, unspecified organism (4) Hyperkalemia Current visit: No Status: Acute On presentation, K elevated at 6.1. Likely secondary to ARCAIDO. Given insulin in ED. Received IVF. Potassium improved to 5.3. Continue to monitor. (5) ARCADIO (acute kidney injury) Current visit: No Status: Acute On presentation, Cr of 2.84. On 07/05, Cr of 1.26. Likely secondary to dehydration in setting of vomiting/diarrhea. Received 3L IVF in ED. Do not give more as patient has history of diastolic CHF. Continue to monitor. Avoid nephrotoxins as able. (6) Elevated troponin Current visit: Yes Status: Acute Likely secondary to demand ischemia and ARCADIO. EKG shows no signs of acute ischemia. Trend troponin. Cardiology consulted and following. (7) Hyperglycemia Current visit: Yes Status: Acute History of diabetes. On presentation, glucose of 320. Received insulin in ED. Med SSI. (8) CHF (congestive heart failure) Current visit: No Status: Chronic History of diastolic CHF. Patient had appt today at [facility] for right heart cath for evaluation of worsening dCHF. Echo 07/22 shows LVEF 55-60% with moderate LV diastolic dysfunction. Severe tricuspid regurgitation. Severe pulmonary HTN. CXR shows diffuse bilateral consolidation, possible CHF. Hold diuresis. Cardiology consulted and following. Qualifiers: Heart failure type: diastolic Heart failure chronicity: chronic Qualified Code(s): I50.32 - Chronic diastolic (congestive) heart failure (9) Adrenal insufficiency Current visit: No Status: Chronic History of adrenal insufficiency, on prednisone 5mg daily. Start solu-cortef 50 q6h in setting of acute illness. (10) DVT prophylaxis Current visit: No Status: Acute Heparin SQ History of Present Illness HPI: 68 year old male with medical history of A-fib, CHF, DM, HTN, HLD, GERD, AR, PAD, thyroid disease, arthritis. He had diarrhea and vomiting yesterday. states he vomited 4 times and had 10-12 episodes of diarrhea. states that his blood sugar was all over the place yesterday. Patient was scheduled to have right heart cath at [facility] today for evaluation of worsening dCHF. He rescheduled due to not feeling well. Patient presented to [facility] today for weakness and not feeling well. He walked into ER and spoke with a nurse for 10 minutes. Then his eyes rolled back and he coded with V-fib and PEA on/off for 1-1.5 hours. Patient was found to be hyperkalemic at 6.1. Patient was given 15 amp bicarb, Mg, D50, calcium. Patient was intubated and central line placed. CXR showed diffuse consolidation bilaterally. Patient was started on cefepime and vanc. Cardiology was consulted. Echo showed preserved EF with severe tricuspid regurg and severe pHTN. Patient was transferred to ICU. Patient seen and examined. Patient is intubated under sedation. Patient cannot provide any history or ROS. He does not follow commands. Nursing reports that patient shows purposeful movements in trying to remove endotracheal tube. Also grimaces when hes rolled. states that patient is DNR. Does not know what type, will send someone home for advance directive. Past Med Surg Social Fam HX - Past Medical History Medical history: arthritis, atrial fibrillation, CHF, diabetes, GERD, hyperlipidemia, hypertension, myocardial infarction, peripheral artery disease, thyroid disease, syncope Psychiatric history: no psych history - Past Surgical History Surgical History: angioplasty/stent, appendectomy, cholecystectomy, coronary bypass (CABG) Additional surgical history: tonsilectomy, pituitary tumor removed, exploratory for possible cyst in stomach ( scar tissue ), triple bypass, R BKA, heart stent - Social History Smoking Status: Never smoker Smokeless Tobacco Status: No Alcohol use: occasionally Drug use: none - Family History Father Adopted: No Family Member Ethnicity: Non- Living Status: Hx Family Cardiac Disorders: No Hx Family Respiratory Disorders: No Hx Family Cancer: Yes Hx Family GI Disorders: No Hx Family Endocrine Disorder: No Hx Family Neuromuscular Disorders: No Hx Family Neurologic Disorders: No Hx Family HEENT Disorders: No Hx Family Autoimmune Disorders: No Medications and Allergies RX: Levothyroxine [Synthroid] 88 mcg PO Q48H 02/18/16 [History] RX: Morphine Sulfate SR (12 HR) [MS Contin] 15 mg PO Q12HR tablet.er 02/29/16 [Rx] RX: Aspirin Enteric Coated [Aspirin EC] 81 mg PO DAILY 03/09/18 [History] RX: Atorvastatin [Lipitor] 10 mg PO HS 03/09/18 [History] RX: Insulin ASPART [NovoLOG] 4 - 18 unit SQ TIDAC 03/09/18 [History] RX: Multivitamin [One Daily Essential] 1 tab PO DAILY 03/09/18 [History] RX: Nitroglycerin [Nitrostat] 0.4 mg SL Q5MIN PRN 03/09/18 [History] RX: Polyethylene Glycol 3350 [MiraLAX] 17 gm PO DAILY 03/09/18 [History] RX: Potassium Chloride [K-Tab ER] 60 meq PO TID 03/09/18 [History] RX: Apixaban [Eliquis] 5 mg PO BID #60 tablet 03/11/18 [Rx] RX: Bumetanide 4 mg PO TID 05/31/18 [History] RX: Cabergoline 0.5 mg PO MALDONADO 05/31/18 [History] RX: Gabapentin [Neurontin] 800 mg PO BID 05/31/18 [History] RX: Metoprolol Succinate 12.5 mg PO DAILY 05/31/18 [History] RX: predniSONE [PredniSONE] 5 mg PO DAILY 05/31/18 [History] RX: Spironolactone [Aldactone] 50 mg PO DAILY 30 Days #60 tablet 06/07/18 [Rx] RX: metOLazone [Zaroxolyn] 2.5 mg PO DAILY 30 Days #15 tablet 06/07/18 [Rx] RX: Albuterol Sulfate [Ventolin Hfa] 2 puff IH Q6H PRN 07/04/18 [History] RX: Budesonide/Formoterol 80/4.5 [Symbicort 80/4.5] 2 puff IH BID 07/04/18 [History] RX: Metoclopramide [Reglan] 10 mg PO DAILY 07/04/18 [History] Allergy/AdvReac Type Severity Reaction Status Date / Time Penicillins Allergy Hives Verified 03/09/18 13:46 Sulfa (Sulfonamide Allergy Nausea Verified 03/09/18 13:46 Antibiotics) carvedilol [From Coreg] AdvReac Hypotension Verified 03/09/18 13:46 lisinopril AdvReac Hypotension Verified 03/09/18 13:46 ROS unobtainable: due to mental status All Systems: The remainder of the systems were reviewed and are negative Physical Examination Vital Signs: Vital Signs, Last 4 Hours Temp Pulse Resp BP Pulse Ox 07/22/18 16:08 14 113/83 99 07/22/18 15:00 67 12 108/78 99 07/22/18 14:25 97.4 F L 79 12 143/83 97 07/22/18 14:15 97.4 F L 90 12 143/83 97 07/22/18 13:55 14 154/89 07/22/18 13:45 80 12 146/84 100 07/22/18 13:30 81 12 132/89 100 07/22/18 13:20 85 14 146/80 100 07/22/18 12:23 15 100 General appearance: no acute distress, other (under sedation) Eyes: nonicteric Neck: supple Effort: normal Auscultation: bilateral: clear Cardiovascular: regular rate and rhythm Gastrointestinal: normoactive bowel sounds, soft, non-tender Integumentary: normal Extremities: no cyanosis, no edema, no clubbing, pink and warm Musculoskeletal: no deformities unable to assess due to mental status Results - Laboratory Findings CBC and BMP: 07/22/18 14:35 07/22/18 14:35 ABG ABG pH 7.50 pH Units (7.32-7.45) H D 07/22/18 14:07 ABG pCO2 55 mmHg (35-45) H D 07/22/18 14:07 ABG pO2 458 mmHg (85-104) H D 07/22/18 14:07 ABG O2 Saturation 100 % (95-98) H 07/22/18 14:07 PT/INR, D-dimer PT 27.6 Seconds (9.4-12.1) H 07/22/18 11:53 Abnormal lab findings: Abnormal lab results WBC 31.8 K/mcL (4.3-11.1) H* 07/22/18 14:35 Hgb 12.0 g/dL (12.9-16.9) L 07/22/18 14:35 MCV 76.4 fL (83.0-100.0) L 07/22/18 14:35 MCH 23.8 pg (28.0-33.3) L 07/22/18 14:35 MCHC 31.2 g/dL (31.6-35.5) L 07/22/18 14:35 RDW 22.5 % (11.5-14.5) H 07/22/18 14:35 Band Neutrophils % 18.0 % (0-4) H 07/22/18 14:35 Neutrophils # 29.9 K/mcL (1.6-8.9) H 07/22/18 14:35 Nucleated RBCs/100 WBC 0.1 /100 WBC (0) H 07/22/18 14:35 PT 27.6 Seconds (9.4-12.1) H 07/22/18 11:53 APTT 53.5 Seconds (26.0-36.0) H 07/22/18 11:53 ABG pH 7.50 pH Units (7.32-7.45) H D 07/22/18 14:07 ABG pCO2 55 mmHg (35-45) H D 07/22/18 14:07 ABG pO2 458 mmHg (85-104) H D 07/22/18 14:07 ABG HCO3 43 mEq/L (21-27) H 07/22/18 14:07 ABG Total CO2 45 mEq/L (20-26) H 07/22/18 14:07 ABG O2 Saturation 100 % (95-98) H 07/22/18 14:07 ABG Base Excess 17 mEq/L (-2 to 3) H 07/22/18 14:07 Potassium 5.3 mEq/L (3.5-5.1) H 07/22/18 14:35 Chloride 86 mEq/L (98-107) L 07/22/18 14:35 Carbon Dioxide 40 mEq/L (23-29) H* 07/22/18 14:35 BUN 56 mg/dL (8-23) H 07/22/18 14:35 Creatinine 2.90 mg/dL (0.70-1.30) H 07/22/18 14:35 Est GFR ( Amer) 26 (> 60) L 07/22/18 14:35 Est GFR (Non-Af Amer) 22 (> 60) L 07/22/18 14:35 Glucose 294 mg/dL (70-105) H 07/22/18 14:35 POC Glucose 229 mg/dL (70-99) H 07/22/18 14:28 Calculated Osmolality 316 (280-300) H 07/22/18 14:35 Lactic Acid 9.1 mmol/L (0.5-2.2) H* 07/22/18 14:35 Calcium 10.4 mg/dL (8.6-10.3) H 07/22/18 14:35 Phosphorus 9.1 mg/dL (2.7-4.5) H 07/22/18 11:53 Total Bilirubin 1.5 mg/dL (0.3-1.0) H 07/22/18 14:35 Direct Bilirubin 0.3 mg/dL (0.0-0.2) H 07/22/18 11:53 AST 165 Units/L (13-39) H 07/22/18 14:35 ALT 69 Units/L (7-52) H 07/22/18 14:35 Alkaline Phosphatase 112 Units/L (34-104) H 07/22/18 14:35 Troponin I 0.51 ng/mL (< 0.04) H* 07/22/18 14:35 B-Natriuretic Peptide 691 pg/mL (Less than 100) H 07/22/18 11:53 Serum Total Protein 5.5 g/dL (6.4-8.9) L 07/22/18 14:35 Albumin 2.8 g/dL (3.5-5.7) L 07/22/18 14:35 Albumin/Globulin Ratio 1.0 (1.1-2.2) L 07/22/18 14:35 <Mona Whitley M - Last Filed: 07/23/18 09:32> Date of Encounter: 07/23/18 History of Present Illness HPI: Mr. Noriega is a 68 year old male All Systems: The remainder of the systems were reviewed and are negative Physical Examination Vital Signs: Vital Signs, Last 4 Hours Temp Pulse Resp BP Pulse Ox 07/22/18 16:08 14 113/83 99 07/22/18 15:00 67 12 108/78 99 07/22/18 14:25 97.4 F L 79 12 143/83 97 07/22/18 14:15 97.4 F L 90 12 143/83 97 07/22/18 13:55 14 154/89 07/22/18 13:45 80 12 146/84 100 07/22/18 13:30 81 12 132/89 100 07/22/18 13:20 85 14 146/80 100 07/22/18 12:23 15 100 Results - Laboratory Findings CBC and BMP: 07/23/18 03:55 07/23/18 03:55 ABG ABG pH 7.50 pH Units (7.32-7.45) H D 07/22/18 14:07 ABG pCO2 55 mmHg (35-45) H D 07/22/18 14:07 ABG pO2 458 mmHg (85-104) H D 07/22/18 14:07 ABG O2 Saturation 100 % (95-98) H 07/22/18 14:07 PT/INR, D-dimer PT 27.6 Seconds (9.4-12.1) H 07/22/18 11:53 Abnormal lab findings: Abnormal lab results WBC 31.8 K/mcL (4.3-11.1) H* 07/22/18 14:35 Hgb 12.0 g/dL (12.9-16.9) L 07/22/18 14:35 MCV 76.4 fL (83.0-100.0) L 07/22/18 14:35 MCH 23.8 pg (28.0-33.3) L 07/22/18 14:35 MCHC 31.2 g/dL (31.6-35.5) L 07/22/18 14:35 RDW 22.5 % (11.5-14.5) H 07/22/18 14:35 Band Neutrophils % 18.0 % (0-4) H 07/22/18 14:35 Neutrophils # 29.9 K/mcL (1.6-8.9) H 07/22/18 14:35 Nucleated RBCs/100 WBC 0.1 /100 WBC (0) H 07/22/18 14:35 PT 27.6 Seconds (9.4-12.1) H 07/22/18 11:53 APTT 53.5 Seconds (26.0-36.0) H 07/22/18 11:53 ABG pH 7.50 pH Units (7.32-7.45) H D 07/22/18 14:07 ABG pCO2 55 mmHg (35-45) H D 07/22/18 14:07 ABG pO2 458 mmHg (85-104) H D 07/22/18 14:07 ABG HCO3 43 mEq/L (21-27) H 07/22/18 14:07 ABG Total CO2 45 mEq/L (20-26) H 07/22/18 14:07 ABG O2 Saturation 100 % (95-98) H 07/22/18 14:07 ABG Base Excess 17 mEq/L (-2 to 3) H 07/22/18 14:07 Potassium 5.3 mEq/L (3.5-5.1) H 07/22/18 14:35 Chloride 86 mEq/L (98-107) L 07/22/18 14:35 Carbon Dioxide 40 mEq/L (23-29) H* 07/22/18 14:35 BUN 56 mg/dL (8-23) H 07/22/18 14:35 Creatinine 2.90 mg/dL (0.70-1.30) H 07/22/18 14:35 Est GFR ( Amer) 26 (> 60) L 07/22/18 14:35 Est GFR (Non-Af Amer) 22 (> 60) L 07/22/18 14:35 Glucose 294 mg/dL (70-105) H 07/22/18 14:35 POC Glucose 229 mg/dL (70-99) H 07/22/18 14:28 Calculated Osmolality 316 (280-300) H 07/22/18 14:35 Lactic Acid 9.1 mmol/L (0.5-2.2) H* 07/22/18 14:35 Calcium 10.4 mg/dL (8.6-10.3) H 07/22/18 14:35 Phosphorus 9.1 mg/dL (2.7-4.5) H 07/22/18 11:53 Total Bilirubin 1.5 mg/dL (0.3-1.0) H 07/22/18 14:35 Direct Bilirubin 0.3 mg/dL (0.0-0.2) H 07/22/18 11:53 AST 165 Units/L (13-39) H 07/22/18 14:35 ALT 69 Units/L (7-52) H 07/22/18 14:35 Alkaline Phosphatase 112 Units/L (34-104) H 07/22/18 14:35 Troponin I 0.51 ng/mL (< 0.04) H* 07/22/18 14:35 B-Natriuretic Peptide 691 pg/mL (Less than 100) H 07/22/18 11:53 Serum Total Protein 5.5 g/dL (6.4-8.9) L 07/22/18 14:35 Albumin 2.8 g/dL (3.5-5.7) L 07/22/18 14:35 Albumin/Globulin Ratio 1.0 (1.1-2.2) L 07/22/18 14:35 - Attending Attestation I examined this patient and my medical decision-making was reviewed with the Resident Physician. I agree with the documented findings, disposition and treatment plan as described except to the extent set forth below. Patient seen and examined. I was called by the emergency room physician to evaluate this patient and he was seen and evaluated in the emergency room department as well as in ICU Labs, radiology, chart personally reviewed. 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 GI: Nutrition per dietary and GI prophylaxis per routine Heme: DVT prophylaxis per routine ID: Continue antibiotics and plan to de-escalation Renal; urine out put and renal funtion reviewed. Patient has significant combined metabolic and acute respiratory alkalosis and this is dangerous as this can lead to seizure and also electrolytes abnormalities. Patient has received significant amount of sodium bicarbonate during resuscitation. Patient respirat ory component was treated with lowering minute ventilation and metabolic alkalosis was treated with acetazolamide. Endorcine: blood glucose is monitored Lines: all lines checked and no evidence of infections. Hopefully be able to remove his left femoral line as soon as stabilized. Skin: skin care to prevent pressure ulcers per nursing routine care Overall prognosis is very poor for this patient. I spent 40 min of Critical Care time with this patient. It involved decision making of high complexity to assess, manipulate, and support vital organ system failure and/or to prevent further life threatening deterioration of the patient's condition. The time involved in the performance of separately reportable procedures was not counted toward critical care time.
[2018-07-22 16:13] LABS: Bilirubin,Urine Negative (Negative); Blood,Urine Large (Negative); Clarity,Urine Turbid (Clear); Color,Urine Yellow (Yellow); Glucose,Urine (UA) 250 mg/dL (Normal); Ketones,Urine Negative (Negative); Leukocyte Esterase,Urine Negative (Negative); Nitrite,Urine Negative (Negative); PH,Urine 6.5 pH Units (5.0-8.0); Protein,Urine 30 mg/dL (Neg-Trace); Specific Gravity,Urine 1.013 (1.010-1.025); Urobilinogen,Urine Normal (Normal)
[2018-07-22 16:15] LABS: Bacteria,Urine None Seen per hpf (None-Few); Hyaline Casts,Urine None Seen per lpf (None-Few); RBC,Urine 50-100 per hpf (0-3); Squamous Epithelial Cell,Urine Moderate per lpf (None-Few); WBC,Urine 50-100 per hpf (0-3)
[2018-07-22] MEDS: Pantoprazole 40 MG VIAL IVP SCH (16:48)
[2018-07-22] MEDS: Artificial Tears SOLN 15 ML BOTTLE BOTH EYES SCH ×3 (16:49→23:27)
[2018-07-22] MEDS: Hydrocortisone Sodium Succ 100 MG/2 ML VIAL IVP SCH ×2 (16:49→23:28)
[2018-07-22] MEDS ORDERED: *HR* Dextrose 50 % in Water (Syg) 50 ML SYRINGE IVP PRN (17:08)
[2018-07-22] MEDS ORDERED: D5% in Water 1,000 ML IVC PRN (17:08)
[2018-07-22] MEDS ORDERED: Dextrose Gel 15 GM/37.5 ML TUBE PO PRN ×2 (17:08)
[2018-07-22 17:14] LABS: Basophils % 0.2 %; Hematocrit 39.7 % (37.5-50.1); Hemoglobin 12.6 g/dL (12.9-16.9); Immature Granulocytes % 1.7 % (0-4); Lymphocytes # 0.3 K/mcL (0.6-4.6); Lymphocytes % 1.1 %; Mean Corpuscular HGB Conc 31.7 g/dL (31.6-35.5); Mean Corpuscular Volume 75.8 fL (83.0-100.0); Mean Platelet Volume 10.2 fL (9.4-12.4); Monocytes # 0.9 K/mcL (0.0-1.3); Monocytes % 3.7 %; Platelet Count 141 K/mcL (140-400); Red Blood Count 5.24 M/mcL (4.19-5.50); Red Cell Distribution Width 21.9 % (11.5-14.5); Segmented Neutrophils % 93.3 %
[2018-07-22 17:18] LABS: Basophils # 0.1 K/mcL (0.0-0.2); Neutrophils # 21.9 K/mcL (1.6-8.9)
[2018-07-22 17:34] LABS: ABG Base Excess 19 mEq/L (-2 to 3); ABG HCO3 42 mEq/L (21-27); ABG Oxygen Saturation 99 % (95-98); ABG PCO2 37 mmHg (35-45); ABG PH 7.65 pH Units (7.32-7.45); ABG PO2 116 mmHg (85-104); ABG TCO2 43 mEq/L (20-26); Blood Gas Modality ASSIST CONTROL; Blood Gas PEEP 5 cm H2O; Blood Gas Respiration Rate 12; Blood Gas VT 500 cc
[2018-07-22] MEDS ORDERED: Amiodarone Premix 360 MG/200 ML BAG IVC ONE (17:35)
[2018-07-22 17:37] LABS: Albumin 2.8 g/dL (3.5-5.7); Bilirubin,Total 1.7 mg/dL (0.3-1.0); Calcium 10.4 mg/dL (8.6-10.3); Globulin 2.8 g/dL (2.4-3.5); Magnesium 2.6 mg/dL (1.6-2.6); Potassium 5.6 mEq/L (3.5-5.1); Total Protein 5.6 g/dL (6.4-8.9)
[2018-07-22 17:38] LABS: Large Platelets Present (Not Present); Polychromasia 1+ (Not Present)
[2018-07-22 18:16] LABS: Estimated Average Glucose 203 mg/dl; Hemoglobin A1C 8.7 %
[2018-07-22] MEDS: Amiodarone Premix 360 MG/200 ML BAG IVC SCH (18:20)
[2018-07-22] MEDS: *HR* Heparin 5,000 UNIT/ML VIAL SQ SCH (18:22)
[2018-07-22] MEDS: Insulin LISPRO 300 UNITS/3 ML VIAL SQ SCH (18:25)
[2018-07-22] MEDS: Norepinephrine 4 MG in D5% in Water 250 ML IVC SCH (18:32)
[2018-07-22] MEDS: Chlorhexidine Rinse 15 ML MOUTHWASH MM SCH (19:56)
[2018-07-22 21:03] LABS: ABG Base Excess 23 mEq/L (-2 to 3); ABG HCO3 45 mEq/L (21-27); ABG Oxygen Saturation 100 % (95-98); ABG PCO2 37 mmHg (35-45); ABG PH 7.69 pH Units (7.32-7.45); ABG PO2 125 mmHg (85-104); ABG TCO2 46 mEq/L (20-26); Blood Gas Modality ASSIST CONTROL; Blood Gas PEEP 5 cm H2O; Blood Gas Respiration Rate 10; Blood Gas VT 400 cc
[2018-07-23] MEDS: Amiodarone Premix 360 MG/200 ML BAG IVC SCH (03:06)
[2018-07-23] MEDS: Artificial Tears SOLN 15 ML BOTTLE BOTH EYES SCH ×5 (03:07→21:05)
[2018-07-23 04:21] LABS: Basophils % 0.2 %; Hemoglobin 12.1 g/dL (12.9-16.9); Monocytes % 3.6 %
[2018-07-23 04:22] LABS: Enterococcus by PCR Not Detected (Not Detect); Staphylococcus aureus by PCR Not Detected (Not Detect); Staphylococcus by PCR Not Detected (Not Detect)
[2018-07-23 04:23] LABS: Acinetobacter baumannii by PCR Not Detected (Not Detect); Candida albicans by PCR Not Detected (Not Detect); Candida glabrata by PCR Not Detected (Not Detect); Candida krusei by PCR Not Detected (Not Detect); Candida parapsilosis by PCR Not Detected (Not Detect); Candida tropicalis by PCR Not Detected (Not Detect); Enterobacter cloacae Cmplx PCR Not Detected (Not Detect); Enterobacteriaceae by PCR Not Detected (Not Detect); Escherichia coli by PCR Not Detected (Not Detect); Klebsiella oxytoca by PCR Not Detected (Not Detect); Klebsiella pneumoniae by PCR Not Detected (Not Detect); Proteus by PCR Not Detected (Not Detect); Pseudomonas aeruginosa by PCR Not Detected (Not Detect); Serratia marcescens by PCR Not Detected (Not Detect); Streptococcus agalactiae(B)PCR Not Detected (Not Detect); Streptococcus by PCR DETECTED (Not Detect); Streptococcus pneumoniae PCR Not Detected (Not Detect); Streptococcus pyogenes (A) PCR Not Detected (Not Detect)
[2018-07-23 04:23] LABS: Hematocrit 38.2 % (37.5-50.1); Immature Granulocytes % 0.9 % (0-4); Immature Platelets 3.3 % (1.1-6.1); Lymphocytes # 0.4 K/mcL (0.6-4.6); Mean Corpuscular HGB Conc 31.7 g/dL (31.6-35.5); Mean Corpuscular Hemoglobin 23.8 pg (28.0-33.3); Mean Corpuscular Volume 75.2 fL (83.0-100.0); Mean Platelet Volume 11.2 fL (9.4-12.4); Monocytes # 0.7 K/mcL (0.0-1.3); Neutrophils # 17.2 K/mcL (1.6-8.9); Platelet Count 123 K/mcL (140-400); Red Blood Count 5.08 M/mcL (4.19-5.50); Red Cell Distribution Width 22.1 % (11.5-14.5); Segmented Neutrophils % 93.3 %
[2018-07-23 04:39] LABS: Albumin 2.8 g/dL (3.5-5.7); Bilirubin,Total 1.2 mg/dL (0.3-1.0); Calcium 9.7 mg/dL (8.6-10.3); Globulin 2.7 g/dL (2.4-3.5); Magnesium 2.4 mg/dL (1.6-2.6); Potassium 4.9 mEq/L (3.5-5.1); Total Protein 5.5 g/dL (6.4-8.9)
[2018-07-23 04:58] LABS: ABG Base Excess 20 mEq/L (-2 to 3); ABG HCO3 45 mEq/L (21-27); ABG Oxygen Saturation 100 % (95-98); ABG PCO2 48 mmHg (35-45); ABG PH 7.58 pH Units (7.32-7.45); ABG PO2 154 mmHg (85-104); ABG TCO2 46 mEq/L (20-26); Blood Gas Modality ASSIST CONTROL; Blood Gas PEEP 5 cm H2O; Blood Gas Respiration Rate 10; Blood Gas VT 380 cc
[2018-07-23 05:19] LABS: Anisocytosis 2+ (Not Present); Hypochromasia Present (Not Present); Platelet Estimate Slight Decrease (Normal); Polychromasia 1+ (Not Present)
[2018-07-23] MEDS: Hydrocortisone Sodium Succ 100 MG/2 ML VIAL IVP SCH ×3 (05:29→18:18)
[2018-07-23] MEDS: *HR* Heparin 5,000 UNIT/ML VIAL SQ SCH ×2 (05:29→18:18)
[2018-07-23] MEDS ORDERED: *HR* FentaNYL (PF) 100 MCG/2 ML VIAL IVP PRN ×2 (07:47→14:23)
[2018-07-23] MEDS: Pantoprazole 40 MG VIAL IVP SCH (08:10)
[2018-07-23] MEDS: Chlorhexidine Rinse 15 ML MOUTHWASH MM SCH ×2 (08:10→21:05)
[2018-07-23] MEDS: Insulin LISPRO 300 UNITS/3 ML VIAL SQ SCH ×4 (08:20→22:52)
--- NOTE | 2018-07-23 08:27 | Electrocardiograph Report ---
[address] [place], [place] [address] Test Date: 2018-07-22 Pat Name: Kristopher Noriega Department: [id number] Room: 09 Gender: M [employer] Functional Analyst: : 1950 Requested By: Edel Navarro Order Number: [id number] Reading MD: Conner Erickson Measurements Intervals [place] Rate: 105 P: AR: QRS: 142 QRSD: 150 T: -18 QT: 363 QTc: 480 Interpretive Statements Atrial fibrillation with rapid ventricular response Right axis deviation Nonspecific intraventricular conduction delay Cannot rule out lateral infarct, age indeterminate Electronically Signed On 07-23-2018 8:25:24 EST by Conner Erickson
--- NOTE | 2018-07-23 08:48 | Pulmonology Progress Note ---
Addendum entered and electronically signed by Daphne Herbert 07/28/18 06:26: Original Note: <Edel Navarro - Last Filed: 07/23/18 11:55> Date of Encounter: 07/23/18 Time of Encounter: 08:20 Assessment and Plan (1) Respiratory failure Current Visit: Yes Status: Acute Likely secondary to cardiac arrest and pulmonary edema/pneumonia. On presentation, respiratory acidosis with ABG 7.23/79/58/33. CXR shows diffuse bilateral consolidation, CHF vs ARDS vs PNA. Patient was intubated under sedation. Patient is off sedation, but is not alert. Patient is on CPAP since 6:30am this morning. Monitor neuro/mental status and metabolic alkalosis. Extubate as able. Qualifiers: Chronicity: acute on chronic Respiratory failure complication: hypoxia and hypercapnia Qualified Code(s): J96.21 - Acute and chronic respiratory failure with hypoxia; J96.22 - Acute and chronic respiratory failure with hypercapnia (2) Cardiac arrest Current Visit: Yes Status: Acute Secondary to hyperkalemia in setting of dehydration from vomiting/diarrhea. Had runs of V-fib and PEA. ACLS was performed. Patient was intubated. Potassium level was 6.1. Was given amiodarone, bicarb, epi, calcium chloride, insulin, and D50. Placed on amiodarone and epi drip. Stop amiodarone, per Cardiology. Fentanyl q2h prn pain. Cardiology consulted and following. (3) Metabolic alkalosis Current Visit: Yes Status: Acute Secondary to bicarb administration during cardiac arrest. On presentation, respiratory acidosis with ABG 7.23/79/58/33. After bicarb and intubation, ABG showed pH elevated at 7.50, pCO2 elevated at 55, pO2 elevated at 458, and HCO3 elevated at 43. Vent settings were optimized to improve metabolic alkalosis. Repeat ABG showed worsening alkalosis with pH 7.65. Acetazolamide was given. Repeat ABG showed worsening alkalosis with pH 7.69. Acetazolamide given again. This morning, ABG shows improved alkalosis with pH 7.58, pCO2 elevated at 48, pO2 elevated at 154, and HCO3 elevated at 45. Continue to monitor. (4) Pneumonia Current Visit: Yes Status: Suspected Causative organism: possibly strep species CXR shows diffuse bilateral consolidation, possible pneumonia. On presentation, no fever/hypothermia, tachycardia, or tachypnea. Does not meet SIRS criteria. Leukocytosis of 22.9. Lactic acidosis of 10.0 Serology shows strep species. Blood cultures drawn 07/22 x2 sets shows one growing gram positive cocci. Other is NGTD. Likely contaminant. Today, leukocytosis and lactic acidosis improved. CXR this morning shows improved aeration. Check Legionella and Strep pneumoniae antigens. Was given cefepime and vanc. Discontinue cefepime. Start rocephin 2g q24h. Qualifiers: Laterality: bilateral Qualified Code(s): J18.9 - Pneumonia, unspecified organism (5) Hyperkalemia Current Visit: No Status: Acute On presentation, K elevated at 6.1. Likely secondary to ARCADIO. Given insulin in ED. Potassium improved to 5.3. Today, K is normal at 4.9. Continue to monitor. (6) ARCADIO (acute kidney injury) Current Visit: No Status: Acute On presentation, Cr of 2.84. On 07/05, Cr of 1.26. Likely secondary to decreased perfusion from cardiac arrest and dehydration from vomiting/diarrhea. Received 3L IVF in ED. Do not give more as patient has history of diastolic CHF. Today, Cr worsened at 2.94. Continue to monitor. Avoid nephrotoxins as able. (7) Elevated troponin Current Visit: Yes Status: Acute Likely secondary to cardiac arrest for 1.5 hours. Troponin elevated: 0.15 --> 0.51 --> 0.85. EKG shows no signs of acute ischemia. Cardiology consulted and following. (8) Hyperglycemia Current Visit: Yes Status: Acute History of diabetes. On presentation, glucose of 320. Received insulin in ED. SSI low. (9) CHF (congestive heart failure) Current Visit: No Status: Chronic History of diastolic CHF. Patient had appt today at [facility] for right heart cath for evaluation of worsening dCHF. Echo 07/22 shows LVEF 55-60% with moderate LV diastolic dysfunction. Severe tricuspid regurgitation. Severe pulmonary HTN. CXR shows diffuse bilateral consolidation, possible CHF. Hold diuresis. Cardiology consulted and following. Qualifiers: Heart failure type: diastolic Heart failure chronicity: chronic Qualified Code(s): I50.32 - Chronic diastolic (congestive) heart failure (10) Adrenal insufficiency Current Visit: No Status: Chronic History of adrenal insufficiency, on prednisone 5mg daily. Continue solu-cortef 50 q6h in setting of acute illness. (11) DVT prophylaxis Current Visit: No Status: Acute Heparin SQ Subjective Interval history: Patient seen and examined. Patient is intubated without sedation. He is on CPAP. Patient is not alert. Patient cannot provide any history or ROS. He does not follow commands. Patient moves when he is disturbed. Living will states that patient is to be taken off life-saving measures if patient will be permanently unconscious. is power of sports attorney. Objective PUL Vital signs: Last Vital Signs Temp 97.4 F L 07/23/18 07:20 Pulse 66 07/23/18 08:00 Resp 20 07/23/18 08:02 BP 88/61 07/23/18 08:02 Pulse Ox 96 07/23/18 08:02 General appearance: no acute distress, other (not alert ) Eyes: nonicteric Neck: supple Effort: normal Auscultation: bilateral: clear Cardiovascular: regular rate and rhythm Gastrointestinal: normoactive bowel sounds, soft, non-tender Integumentary: normal Extremities: no cyanosis, no edema, no clubbing, pink and warm, other (right BKA ) Musculoskeletal: no deformities unable to assess due to mental status Ventilator Settings Ventilator Settings: Ventilator Settings, Last 8 Hours Ventilator Tidal Volume 380 Setting Ventilator Tidal Volume 380 Setting Ventilator Tidal Volume 380 Setting Ventilator Tidal Volume 380 Setting Ventilator Tidal Volume 380 Setting Ventilator Tidal Volume 380 Setting Ventilator Tidal Volume 380 Setting Ventilator Tidal Volume 380 Setting Ventilator Tidal Volume 380 Setting Ventilator Respiratory Rate 10 Setting Ventilator Respiratory Rate 10 Setting Ventilator Respiratory Rate 10 Setting Ventilator Respiratory Rate 10 Setting Ventilator Respiratory Rate 10 Setting Ventilator Respiratory Rate 10 Setting Ventilator Respiratory Rate 10 Setting Ventilator Respiratory Rate 10 Setting Ventilator Respiratory Rate 10 Setting Actual Respiratory Rate 30 Actual Respiratory Rate 27 Actual Respiratory Rate 30 Actual Respiratory Rate 28 Actual Respiratory Rate 14 Actual Respiratory Rate 15 Actual Respiratory Rate 17 Actual Respiratory Rate 17 Actual Respiratory Rate 21 Actual Respiratory Rate 19 Actual Respiratory Rate 20 Actual Respiratory Rate 20 Positive End Expiratory 5 Pressure Positive End Expiratory 5 Pressure Positive End Expiratory 5 Pressure Positive End Expiratory 5 Pressure Positive End Expiratory 5 Pressure Positive End Expiratory 5 Pressure Positive End Expiratory 5 Pressure Positive End Expiratory 5 Pressure Positive End Expiratory 5 Pressure Positive End Expiratory 5 Pressure Positive End Expiratory 5 Pressure Positive End Expiratory 5 Pressure Positive End Expiratory 5 Pressure Peak Inspiratory Airway 30 Pressure Peak Inspiratory Airway 30 Pressure Peak Inspiratory Airway 30 Pressure Peak Inspiratory Airway 20 Pressure Peak Inspiratory Airway 26 Pressure Peak Inspiratory Airway 26 Pressure Peak Inspiratory Airway 26 Pressure Peak Inspiratory Airway 25 Pressure Peak Inspiratory Airway 26 Pressure Peak Inspiratory Airway 26 Pressure Peak Inspiratory Airway 26 Pressure Peak Inspiratory Airway 26 Pressure Results - Laboratory Findings CBC and BMP: 07/23/18 03:55 07/23/18 03:55 ABG ABG pH 7.58 pH Units (7.32-7.45) H 07/23/18 04:54 ABG pCO2 48 mmHg (35-45) H 07/23/18 04:54 ABG pO2 154 mmHg (85-104) H 07/23/18 04:54 ABG O2 Saturation 100 % (95-98) H 07/23/18 04:54 PT/INR, D-dimer PT 27.6 Seconds (9.4-12.1) H 07/22/18 11:53 Abnormal lab findings: Abnormal lab results WBC 18.4 K/mcL (4.3-11.1) H 07/23/18 03:55 Hgb 12.1 g/dL (12.9-16.9) L 07/23/18 03:55 MCV 75.2 fL (83.0-100.0) L 07/23/18 03:55 MCH 23.8 pg (28.0-33.3) L 07/23/18 03:55 RDW 22.1 % (11.5-14.5) H 07/23/18 03:55 Plt Count 123 K/mcL (140-400) L 07/23/18 03:55 Band Neutrophils % 18.0 % (0-4) H 07/22/18 14:35 Neutrophils # 17.2 K/mcL (1.6-8.9) H 07/23/18 03:55 Lymphocytes # 0.4 K/mcL (0.6-4.6) L 07/23/18 03:55 Nucleated RBCs/100 WBC 0.1 /100 WBC (0) H 07/22/18 14:35 Platelet Estimate Slight Decrease (Normal) L 07/23/18 03:55 Large Platelets Present (Not Present) A 07/22/18 17:00 Polychromasia 1+ (Not Present) A 07/23/18 03:55 Hypochromasia Present (Not Present) A 07/23/18 03:55 Anisocytosis 2+ (Not Present) A 07/23/18 03:55 PT 27.6 Seconds (9.4-12.1) H 07/22/18 11:53 APTT 53.5 Seconds (26.0-36.0) H 07/22/18 11:53 ABG pH 7.58 pH Units (7.32-7.45) H 07/23/18 04:54 ABG pCO2 48 mmHg (35-45) H 07/23/18 04:54 ABG pO2 154 mmHg (85-104) H 07/23/18 04:54 ABG HCO3 45 mEq/L (21-27) H 07/23/18 04:54 ABG Total CO2 46 mEq/L (20-26) H 07/23/18 04:54 ABG O2 Saturation 100 % (95-98) H 07/23/18 04:54 ABG Base Excess 20 mEq/L (-2 to 3) H 07/23/18 04:54 Chloride 91 mEq/L (98-107) L 07/23/18 03:55 Carbon Dioxide 42 mEq/L (23-29) H* 07/23/18 03:55 BUN 63 mg/dL (8-23) H 07/23/18 03:55 Creatinine 2.94 mg/dL (0.70-1.30) H 07/23/18 03:55 Est GFR ( Amer) 26 (> 60) L 07/23/18 03:55 Est GFR (Non-Af Amer) 21 (> 60) L 07/23/18 03:55 Glucose 231 mg/dL (70-105) H 07/23/18 03:55 POC Glucose 248 mg/dL (70-99) H 07/23/18 08:17 Hemoglobin A1c 8.7 % (-5.6) H 07/22/18 17:00 Calculated Osmolality 321 (280-300) H 07/23/18 03:55 Lactic Acid 2.4 mmol/L (0.5-2.2) H 07/23/18 03:55 Phosphorus 9.1 mg/dL (2.7-4.5) H 07/22/18 11:53 Total Bilirubin 1.2 mg/dL (0.3-1.0) H 07/23/18 03:55 Direct Bilirubin 0.3 mg/dL (0.0-0.2) H 07/22/18 11:53 AST 188 Units/L (13-39) H 07/23/18 03:55 ALT 84 Units/L (7-52) H 07/23/18 03:55 Troponin I 0.85 ng/mL (< 0.04) H* 07/22/18 19:45 B-Natriuretic Peptide 691 pg/mL (Less than 100) H 07/22/18 11:53 Serum Total Protein 5.5 g/dL (6.4-8.9) L 07/23/18 03:55 Albumin 2.8 g/dL (3.5-5.7) L 07/23/18 03:55 Albumin/Globulin Ratio 1.0 (1.1-2.2) L 07/23/18 03:55 Urine Clarity Turbid (Clear) A 07/22/18 16:00 Urine Protein 30 mg/dL (Neg-Trace) H 07/22/18 16:00 Urine Glucose (UA) 250 mg/dL (Normal) H 07/22/18 16:00 Urine Blood Large (Negative) H 07/22/18 16:00 Urine Microscopic RBC 50-100 per hpf (0-3) H 07/22/18 16:00 Urine Microscopic WBC 50-100 per hpf (0-3) H 07/22/18 16:00 Ur Squamous Epith Cells Moderate per lpf (None-Few) H 07/22/18 16:00 Streptococcus sp PCR DETECTED (Not Detect) A 07/22/18 11:53 - Microbiology Findings Microbiology Findings: Microbiology, Last 48 Hours 07/22/18 11:53 Blood Culture - Preliminary Peripheral Venipuncture Gram Positive Cocci 07/22/18 11:53 Blood Culture - Preliminary Peripheral Venipuncture Culture is incubating and being continuously monitored for growth. Final report to follow. - Clinical Findings Intake & Output: Intake & Output 07/22/18 07/23/18 07/23/18 23:59 07:59 15:59 Intake Total 34 / 34 258 / 258 Output Total 2800 / 2800 800 / 800 Balance -2766 / -2766 -542 / -542 Weight 99.6 kg Consult Discharge Plan - Plan Referrals: NONE,PCP [Primary Care Provider] - <Mona Whitley - Last Filed: 07/23/18 22:39> Date of Encounter: 07/23/18 Objective PUL Vital signs: Last Vital Signs Temp 97.4 F L 07/23/18 07:20 Pulse 67 07/23/18 09:00 Resp 27 07/23/18 09:00 BP 96/62 07/23/18 09:00 Pulse Ox 96 07/23/18 09:00 Ventilator Settings Ventilator Settings: Ventilator Settings, Last 8 Hours Ventilator Tidal Volume 380 Setting Ventilator Tidal Volume 380 Setting Ventilator Tidal Volume 380 Setting Ventilator Tidal Volume 380 Setting Ventilator Tidal Volume 380 Setting Ventilator Tidal Volume 380 Setting Ventilator Tidal Volume 380 Setting Ventilator Respiratory Rate 10 Setting Ventilator Respiratory Rate 10 Setting Ventilator Respiratory Rate 10 Setting Ventilator Respiratory Rate 10 Setting Ventilator Respiratory Rate 10 Setting Ventilator Respiratory Rate 10 Setting Ventilator Respiratory Rate 10 Setting Actual Respiratory Rate 28 Actual Respiratory Rate 30 Actual Respiratory Rate 27 Actual Respiratory Rate 30 Actual Respiratory Rate 28 Actual Respiratory Rate 14 Actual Respiratory Rate 15 Actual Respiratory Rate 17 Actual Respiratory Rate 17 Actual Respiratory Rate 21 Actual Respiratory Rate 19 Positive End Expiratory 5 Pressure Positive End Expiratory 5 Pressure Positive End Expiratory 5 Pressure Positive End Expiratory 5 Pressure Positive End Expiratory 5 Pressure Positive End Expiratory 5 Pressure Positive End Expiratory 5 Pressure Positive End Expiratory 5 Pressure Positive End Expiratory 5 Pressure Positive End Expiratory 5 Pressure Positive End Expiratory 5 Pressure Positive End Expiratory 5 Pressure Peak Inspiratory Airway 30 Pressure Peak Inspiratory Airway 30 Pressure Peak Inspiratory Airway 30 Pressure Peak Inspiratory Airway 30 Pressure Peak Inspiratory Airway 20 Pressure Peak Inspiratory Airway 26 Pressure Peak Inspiratory Airway 26 Pressure Peak Inspiratory Airway 26 Pressure Peak Inspiratory Airway 25 Pressure Peak Inspiratory Airway 26 Pressure Peak Inspiratory Airway 26 Pressure Results - Laboratory Findings CBC and BMP: 07/23/18 03:55 07/23/18 03:55 ABG ABG pH 7.58 pH Units (7.32-7.45) H 07/23/18 04:54 ABG pCO2 48 mmHg (35-45) H 07/23/18 04:54 ABG pO2 154 mmHg (85-104) H 07/23/18 04:54 ABG O2 Saturation 100 % (95-98) H 07/23/18 04:54 PT/INR, D-dimer PT 27.6 Seconds (9.4-12.1) H 07/22/18 11:53 Abnormal lab findings: Abnormal lab results WBC 18.4 K/mcL (4.3-11.1) H 07/23/18 03:55 Hgb 12.1 g/dL (12.9-16.9) L 07/23/18 03:55 MCV 75.2 fL (83.0-100.0) L 07/23/18 03:55 MCH 23.8 pg (28.0-33.3) L 07/23/18 03:55 RDW 22.1 % (11.5-14.5) H 07/23/18 03:55 Plt Count 123 K/mcL (140-400) L 07/23/18 03:55 Band Neutrophils % 18.0 % (0-4) H 07/22/18 14:35 Neutrophils # 17.2 K/mcL (1.6-8.9) H 07/23/18 03:55 Lymphocytes # 0.4 K/mcL (0.6-4.6) L 07/23/18 03:55 Nucleated RBCs/100 WBC 0.1 /100 WBC (0) H 07/22/18 14:35 Platelet Estimate Slight Decrease (Normal) L 07/23/18 03:55 Large Platelets Present (Not Present) A 07/22/18 17:00 Polychromasia 1+ (Not Present) A 07/23/18 03:55 Hypochromasia Present (Not Present) A 07/23/18 03:55 Anisocytosis 2+ (Not Present) A 07/23/18 03:55 PT 27.6 Seconds (9.4-12.1) H 07/22/18 11:53 APTT 53.5 Seconds (26.0-36.0) H 07/22/18 11:53 ABG pH 7.58 pH Units (7.32-7.45) H 07/23/18 04:54 ABG pCO2 48 mmHg (35-45) H 07/23/18 04:54 ABG pO2 154 mmHg (85-104) H 07/23/18 04:54 ABG HCO3 45 mEq/L (21-27) H 07/23/18 04:54 ABG Total CO2 46 mEq/L (20-26) H 07/23/18 04:54 ABG O2 Saturation 100 % (95-98) H 07/23/18 04:54 ABG Base Excess 20 mEq/L (-2 to 3) H 07/23/18 04:54 Chloride 91 mEq/L (98-107) L 07/23/18 03:55 Carbon Dioxide 42 mEq/L (23-29) H* 07/23/18 03:55 BUN 63 mg/dL (8-23) H 07/23/18 03:55 Creatinine 2.94 mg/dL (0.70-1.30) H 07/23/18 03:55 Est GFR ( Amer) 26 (> 60) L 07/23/18 03:55 Est GFR (Non-Af Amer) 21 (> 60) L 07/23/18 03:55 Glucose 231 mg/dL (70-105) H 07/23/18 03:55 POC Glucose 248 mg/dL (70-99) H 07/23/18 08:17 Hemoglobin A1c 8.7 % (-5.6) H 07/22/18 17:00 Calculated Osmolality 321 (280-300) H 07/23/18 03:55 Lactic Acid 2.4 mmol/L (0.5-2.2) H 07/23/18 03:55 Phosphorus 9.1 mg/dL (2.7-4.5) H 07/22/18 11:53 Total Bilirubin 1.2 mg/dL (0.3-1.0) H 07/23/18 03:55 Direct Bilirubin 0.3 mg/dL (0.0-0.2) H 07/22/18 11:53 AST 188 Units/L (13-39) H 07/23/18 03:55 ALT 84 Units/L (7-52) H 07/23/18 03:55 Troponin I 0.85 ng/mL (< 0.04) H* 07/22/18 19:45 B-Natriuretic Peptide 691 pg/mL (Less than 100) H 07/22/18 11:53 Serum Total Protein 5.5 g/dL (6.4-8.9) L 07/23/18 03:55 Albumin 2.8 g/dL (3.5-5.7) L 07/23/18 03:55 Albumin/Globulin Ratio 1.0 (1.1-2.2) L 07/23/18 03:55 Urine Clarity Turbid (Clear) A 07/22/18 16:00 Urine Protein 30 mg/dL (Neg-Trace) H 07/22/18 16:00 Urine Glucose (UA) 250 mg/dL (Normal) H 07/22/18 16:00 Urine Blood Large (Negative) H 07/22/18 16:00 Urine Microscopic RBC 50-100 per hpf (0-3) H 07/22/18 16:00 Urine Microscopic WBC 50-100 per hpf (0-3) H 07/22/18 16:00 Ur Squamous Epith Cells Moderate per lpf (None-Few) H 07/22/18 16:00 Streptococcus sp PCR DETECTED (Not Detect) A 07/22/18 11:53 - Microbiology Findings Microbiology Findings: Microbiology, Last 48 Hours 07/22/18 11:53 Blood Culture - Preliminary Peripheral Venipuncture Gram Positive Cocci 07/22/18 11:53 Blood Culture - Preliminary Peripheral Venipuncture Culture is incubating and being continuously monitored for growth. Final report to follow. - Clinical Findings Intake & Output: Intake & Output 07/22/18 07/23/18 07/23/18 23:59 07:59 15:59 Intake Total 34 / 34 258 / 258 Output Total 2800 / 2800 800 / 800 Balance -2766 / -2766 -542 / -542 Weight 99.6 kg - Attending Attestation examined this patient and my medical decision-making was reviewed with the Resident Physician. I agree with the documented findings, disposition and treatment plan as described except to the extent set forth below. Patient seen and examined. Labs, radiology, chart personally reviewed. 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 There is a possibility we will extubate patient. I suspect his underlying pulmonary hypertension and its WHO group 2 and possible group 3, suspect sleep-disordered breathing. We need to discuss re-intubation question to the family before we extubate pateint. Cardiovascular: Patient with significant underlying cardiovascular disease and currently he remains stable on amiodarone and will defer management of his underlying cardiac problems to cardiology. Stop Amiodarone. GI: Nutrition per dietary and GI prophylaxis per routine Heme: DVT prophylaxis per routine ID: Continue antibiotics and plan to de-escalation. Change to Ceftriaxone for the Strep. Renal; urine out put and renal funtion reviewed. Diuresis as tolerated. Patient has received acetazolamide for his metabolic alkalosis. Endorcine: blood glucose is monitored Lines: all lines checked and no evidence of infections. Remove of the femoral line. Skin: skin care to prevent pressure ulcers per nursing routine care Overall prognosis is poor and need to meet with family regarding extubation. I have met with the family and we discussed different options for plan of care and stated he doesn't want to live like this and they wish pt to be comfort care only. Code status changed to DNR CC-DNI.
--- NOTE | 2018-07-23 11:17 | Cardiology Progress Note ---
Addendum entered and electronically signed by Adan Chandra DO 07/23/18 11:40: I have personally performed a face to face evaluation on this patient. I have reviewed and agree with the care plan. History and Exam by me shows: Seen/examined earlier this morning. He was on CPAP breathing trial, no sedation. Hemodynamics appear stable. No significant arrhythmias reported. Dehydration due to vomiting/diarrhea. [place] Hyperkalemia Resultant PEA arrest. VDRF currently Mild troponin elevation related to the above. Presentation not c/w ACS. Baseline pHTN, diastolic heart failure. Stop amiodarone. No compelling indication. LVEF is preserved. No further cardiac recommendations at this time. Please call with any questions or concerns. Prognosis appears guarded. Thanks, Adan Chandra DO, [facility] Original Note: Date of Encounter: 07/23/18 Time of Encounter: 11:15 Assessment and Plan (1) Cardiac arrest Current Visit: Yes Status: Acute Cardiopulmonary arrest in the setting of persistent nausea, vomiting, diarrhea. Metabolic acidosis, hyperkalemia, acute/chronic kidney disease noted. Post arrest TTE demonstrates preserved LV function. Presentation is not consistent with ACS. Suspect dehydration and resultant metabolic issues are the culprit. Your medical management. No compelling indication for invasive cardiac intervention at this time. Will stop amiodarone gtt. No events on tele. Will discuss and review with Dr. Chandra. (2) Elevated troponin Current Visit: Yes Status: Acute Troponins 0.15, 0.51, 0.85 in setting of above. TTE EF preserved. (3) CAD (coronary artery disease) Current Visit: No Status: Chronic [place] CAD, prior CABG, prior PCI. Preserved LVEF. Continue aspirin. Hold statin given elevated LFTs. Resume beta sabina if heart rate and blood pressure remained stable. Qualifiers: Coronary Disease-Associated Artery/Lesion type: [place] artery [place] vs. transplanted heart: [place] heart Associated angina: without angina Qualified Code(s): I25.10 - Atherosclerotic heart disease of [place] coronary artery without angina pectoris (4) Pulmonary hypertension, moderate to severe Current Visit: No Status: Chronic Chronic pulmonary hypertension. Likely group II, related to diastolic dysfunction, although other etiologies cannot be excluded. Continue supportive care at this time. Patient was scheduled for an outpatient right heart catheterization to evaluate. This can be reconsidered pending his hopeful functional recovery. Discussion w patient/family: The assessment and plan as outlined above was discussed with the patient and/or family members who expressed understanding and agreement. All questions were answered. Thank you for involving us in the care of your patient. Please call with any questions. I will discuss and review with Dr. Chandra and make changes as necessary. Subjective Principal diagnosis: cardiac arrest Interval history: Pt remains intubated and sedated. Objective Vital Signs, Last 4 Hours Temp Pulse Resp BP Pulse Ox 07/23/18 11:00 71 23 99/62 96 07/23/18 10:53 23 96/60 96 07/23/18 10:00 67 25 96/57 96 07/23/18 09:00 67 27 96/62 96 07/23/18 08:02 20 88/61 96 07/23/18 08:00 66 27 88/61 96 07/23/18 07:35 64 31 95/58 96 07/23/18 07:20 97.4 F L Vital Signs Temp Pulse Resp BP Pulse Ox 07/23/18 11:00 71 23 99/62 96 07/23/18 10:53 23 96/60 96 07/23/18 10:00 67 25 96/57 96 07/23/18 09:00 67 27 96/62 96 07/23/18 08:02 20 88/61 96 07/23/18 08:00 66 27 88/61 96 07/23/18 07:35 64 31 95/58 96 07/23/18 07:20 97.4 F L 07/23/18 06:30 28 110/71 97 07/23/18 06:00 64 14 108/68 98 07/23/18 05:00 63 16 98/67 98 07/23/18 04:00 65 17 98/65 99 07/23/18 03:50 17 87/71 99 07/23/18 02:59 97.6 F 61 21 105/67 99 07/23/18 02:00 57 19 99/66 99 07/23/18 01:25 20 100/64 99 07/23/18 01:00 58 20 97/66 99 07/22/18 23:58 61 20 102/65 100 07/22/18 23:40 20 109/67 100 07/22/18 23:00 97.4 F L 60 20 106/69 100 07/22/18 22:00 62 21 112/70 99 07/22/18 21:50 21 112/70 98 07/22/18 21:00 65 21 112/71 99 07/22/18 19:59 68 19 109/70 99 07/22/18 19:58 19 109/70 98 07/22/18 19:00 96.7 F L 68 18 113/71 99 07/22/18 18:00 67 10 123/80 98 07/22/18 17:13 17 115/83 99 07/22/18 16:55 67 12 124/81 99 07/22/18 16:08 14 113/83 99 07/22/18 16:00 65 12 113/83 99 07/22/18 15:00 67 12 108/78 99 07/22/18 14:25 97.4 F L 79 12 143/83 97 07/22/18 14:15 97.4 F L 90 12 143/83 97 07/22/18 13:55 14 154/89 07/22/18 13:45 80 12 146/84 100 07/22/18 13:30 81 12 132/89 100 07/22/18 13:20 85 14 146/80 100 07/22/18 12:23 15 100 Intake and Output 07/22/18 07/23/18 07/23/18 23:59 07:59 15:59 Intake Total 34 / 34 258 / 258 0 / 0 Output Total 2800 / 2800 800 / 800 Balance -2766 / -2766 -542 / -542 0 / 0 Intake: IV Fluids 34 / 34 258 / 258 Amiodarone Drip Premix 360mg/ 200 / 200 200mL 360 mg In 200 ml @ 0.5 MG /MIN 16.667 mls/hr IVC CONT [place] Rx#:[id number] Versed 50 MG In 0.9 % Sodium 34 / 34 58 / 58 Chloride 90 ML @ 2 MG/HR 4 mls/ hr IVC CONT [place] Rx#:[id number] Oral 0 / 0 0 / 0 Output: Catheter 2600 / 2600 800 / 800 Gastric Drainage 200 / 200 Other: Weight 99.6 kg Blood Glucose* 195 Patient Weight 07/23/18 23:59 Weight 99.6 kg General: Other (intubated and sedated) HEENT: Atraumatic, Normocephaly, Mucus Membranes Moist Neck: No JVD, Normal carotid pulses Cardiac: Reg Rate and Rhythm, Normal S1 and S2, No Murmur Lungs: Other (intubated and sedated) Neuro: Other (intubaed and sedated) Abdomen: Soft, Non-Tender Skin: No rashes noted on visualized skin Musculoskeletal: No Chest Wall Tenderness Extremities: No Clubbing, No Cyanosis, No Edema, Normal Pulses Results 07/23/18 03:55 07/23/18 03:55 Lab Results 07/22/18 07/22/18 07/22/18 11:53 11:53 11:53 WBC 22.9 H Hgb 11.5 L Hct 38.2 Plt Count 121 L INR APTT Sodium 133 L Potassium 6.1 H Chloride 91 L Carbon Dioxide 27 BUN 54 H Creatinine 2.84 H Glucose 320 H Calcium 12.3 H Magnesium Total Bilirubin AST ALT Alkaline Phosphatase Troponin I 0.15 H* B-Natriuretic Peptide 691 H 07/22/18 07/22/18 07/22/18 11:53 11:53 14:35 WBC 31.8 H* Hgb 12.0 L Hct 38.5 Plt Count 171 INR 2.4 APTT 53.5 H Sodium Potassium Chloride Carbon Dioxide BUN Creatinine Glucose Calcium Cancelled Magnesium 3.2 H Total Bilirubin 0.9 AST 92 H ALT 46 Alkaline Phosphatase 89 Troponin I B-Natriuretic Peptide 07/22/18 07/22/18 07/22/18 14:35 14:35 17:00 WBC Hgb Hct Plt Count INR APTT Sodium 140 141 Potassium 5.3 H 5.6 H Chloride 86 L 88 L Carbon Dioxide 40 H* 42 H* BUN 56 H 59 H Creatinine 2.90 H 2.96 H Glucose 294 H 251 H Calcium 10.4 H 10.4 H Magnesium 2.6 2.6 Total Bilirubin 1.5 H 1.7 H AST 165 H 193 H ALT 69 H 74 H Alkaline Phosphatase 112 H 105 H Troponin I 0.51 H* B-Natriuretic Peptide 07/22/18 07/22/18 07/23/18 17:00 19:45 03:55 WBC 23.5 H 18.4 H Hgb 12.6 L 12.1 L Hct 39.7 38.2 Plt Count 141 123 L INR APTT Sodium Potassium Chloride Carbon Dioxide BUN Creatinine Glucose Calcium Magnesium Total Bilirubin AST ALT Alkaline Phosphatase Troponin I 0.85 H* B-Natriuretic Peptide 07/23/18 03:55 WBC Hgb Hct Plt Count INR APTT Sodium 143 Potassium 4.9 Chloride 91 L Carbon Dioxide 42 H* BUN 63 H Creatinine 2.94 H Glucose 231 H Calcium 9.7 Magnesium 2.4 Total Bilirubin 1.2 H AST 188 H ALT 84 H Alkaline Phosphatase 94 Troponin I B-Natriuretic Peptide Short CBC 07/23/18 07/22/18 07/22/18 Range/Units 03:55 17:00 14:35 WBC 18.4 H 23.5 H 31.8 H* (4.3-11.1) K/mcL Hgb 12.1 L 12.6 L 12.0 L (12.9-16.9) g/dL Hct 38.2 39.7 38.5 (37.5-50.1) % Plt Count 123 L 141 171 (140-400) K/mcL Neutrophils # 17.2 H 21.9 H 29.9 H (1.6-8.9) K/mcL 07/22/18 Range/Units 11:53 WBC 22.9 H (4.3-11.1) K/mcL Hgb 11.5 L (12.9-16.9) g/dL Hct 38.2 (37.5-50.1) % Plt Count 121 L (140-400) K/mcL Neutrophils # 21.5 H (1.6-8.9) K/mcL BMP 07/23/18 07/22/18 07/22/18 Range/Units 03:55 17:00 14:35 Sodium 143 141 140 (136-145) mEq/L Potassium 4.9 5.6 H 5.3 H (3.5-5.1) mEq/L Chloride 91 L 88 L 86 L (98-107) mEq/L Carbon Dioxide 42 H* 42 H* 40 H* (23-29) mEq/L BUN 63 H 59 H 56 H (8-23) mg/dL Creatinine 2.94 H 2.96 H 2.90 H (0.70-1.30) mg/dL Glucose 231 H 251 H 294 H (70-105) mg/dL Calcium 9.7 10.4 H 10.4 H (8.6-10.3) mg/dL 07/22/18 07/22/18 Range/Units 11:53 11:53 Sodium 133 L (136-145) mEq/L Potassium 6.1 H (3.5-5.1) mEq/L Chloride 91 L (98-107) mEq/L Carbon Dioxide 27 (23-29) mEq/L BUN 54 H (8-23) mg/dL Creatinine 2.84 H (0.70-1.30) mg/dL Glucose 320 H (70-105) mg/dL Calcium Cancelled 12.3 H (8.6-10.3) mg/dL Cardiac Enzymes 07/22/18 07/22/18 07/22/18 Range/Units 19:45 14:35 11:53 Troponin I 0.85 H* 0.51 H* 0.15 H* (< 0.04) ng/mL Liver Function 07/23/18 07/22/18 07/22/18 Range/Units 03:55 17:00 14:35 Total Bilirubin 1.2 H 1.7 H 1.5 H (0.3-1.0) mg/dL Direct Bilirubin (0.0-0.2) mg/dL AST 188 H 193 H 165 H (13-39) Units/L ALT 84 H 74 H 69 H (7-52) Units/L Alkaline Phosphatase 94 105 H 112 H (34-104) Units/L Albumin 2.8 L 2.8 L 2.8 L (3.5-5.7) g/dL 07/22/18 Range/Units 11:53 Total Bilirubin 0.9 (0.3-1.0) mg/dL Direct Bilirubin 0.3 H (0.0-0.2) mg/dL AST 92 H (13-39) Units/L ALT 46 (7-52) Units/L Alkaline Phosphatase 89 (34-104) Units/L Albumin 2.6 L (3.5-5.7) g/dL Urine 07/22/18 Range/Units 16:00 Urine Color Yellow (Yellow) Urine Clarity Turbid A (Clear) Urine pH 6.5 (5.0-8.0) pH Units Ur Specific [place] 1.013 (1.010-1.025) Urine Protein 30 H (Neg-Trace) mg/dL Urine Glucose (UA) 250 H (Normal) mg/dL Impressions Chest X-Ray 07/22/18 11:52 IMPRESSION: 1. Findings typical of congestive heart failure, ARDS or diffuse infection; correlate with history. 2. Cardiomegaly. 3. Life support appliances appear appropriately positioned. D/ / Joon Magallon / Joon Magallon Interpreting Provider: Joon Magallon Echocardiogram 07/22/18 12:36 Impressions: LVEF 55-60%. Normal LV chamber size and wall thickness. Atypical septal motion consistent with post-operative status. Moderate left ventricular diastolic dysfunction. Mildly dilated right ventricle with mild right ventricular hypokinesis. Moderately dilated right atrium. Moderate aortic stenosis with pealk velocity of 3m/s and mean gradient of 16mmHg Severe tricuspid regurgitation. Severe pulmonary hypertension. Left Ventricular Wall Motion: Rest Echo Findings All wall segments showed normal motion. Findings: Study Quality * Technically sub-optimal due to clinical status. ECG Findings * Normal sinus rhythm. Left Ventricle * LVEF 55-60%. * Normal LV chamber size and wall thickness. * Atypical septal motion consistent with post-operative status. * Moderate left ventricular diastolic dysfunction. Right Ventricle * Mild right ventricular hypokinesis. * Mildly dilated right ventricle. Left Atrium * Mildly dilated left atrium. Right Atrium * Moderately dilated right atrium. Aortic Valve * Trileaflet aortic valve. * Moderately calcified aortic valve leaflets. * Moderate aortic stenosis with pealk velocity of 3m/s and mean gradient of 16mmHg Mitral Valve * Normal mitral valve structure. * No mitral regurgitation. * No mitral stenosis. Tricuspid Valve * Normal tricuspid valve structure. * Severe tricuspid regurgitation. * Severe pulmonary hypertension. * Estimated RVSP is 84 mmHg. * Estimated RA pressure is 10 mmHg. Pulmonic Valve * Normal pulmonic valve structure. * No pulmonic regurgitation. Aorta * Normally sized aortic root. Pericardium * The pericardium appears normal. IVC * The IVC is dilated. KUB X-Ray 07/22/18 17:41 IMPRESSION: Unremarkable limited KUB. NG tube tip projects at the left upper quadrant, overlying the expected location of the stomach. D/ / Joon Magallon / Joon Magallon Interpreting Provider: Joon Magallon Chest X-Ray 07/23/18 06:54 IMPRESSION: Improving aeration of the lungs since the prior exam. D/ / Ernie Matute MD / Ernie Matute MD Interpreting Provider: Ernie Matute MD Active Medications Artificial Tears (Akwa Tears) 1 drop BOTH EYES Q2HR PRN; Protocol PRN Reason: Dry Eyes Stop: 01/21/19 13:40 Artificial Tears ([place]wa Tears) 1 drop BOTH EYES Q4HR [place]; Protocol Stop: 01/21/19 16:01 Last Admin: 07/23/18 08:10 Dose: 1 drop Chlorhexidine Gluconate (Chlorhexidine Rinse) 15 ml MM BID [place] Stop: 01/21/19 21:01 Last Admin: 07/23/18 08:10 Dose: 15 ml Dextrose/Water (Dextrose 50% (Syg)) 25 ml IVP AD PRN PRN Reason: Hypoglycemia Stop: 01/21/19 17:09 Fentanyl Citrate (Fentanyl (Pf)) 50 mcg IVP Q2H PRN PRN Reason: Pain Stop: 01/22/19 07:48 Last Admin: 07/23/18 09:35 Dose: 50 mcg Glucagon (Glucagen) 1 mg IM ONCE PRN PRN Reason: Hypoglycemia Stop: 01/21/19 17:09 Glucose (Gluctose) 15 gm PO ONCE PRN PRN Reason: Hypoglycemia Stop: 01/21/19 17:09 Glucose (Gluctose) 30 gm PO ONCE PRN PRN Reason: Hypoglycemia Stop: 01/21/19 17:09 Heparin Sodium (Porcine) (Heparin) 5,000 unit SQ Q12HCO [place] Stop: 01/21/19 18:01 Last Admin: 07/23/18 05:29 Dose: 5,000 unit Hydrocortisone Sodium Succinate (Solu-Cortef) 50 mg IVP Q6HR [place] Stop: 01/21/19 18:01 Last Admin: 07/23/18 05:29 Dose: 50 mg Cefepime HCl 2,000 mg/ Sterile (Water) 20 mls @ 300 mls/hr IVP Q24H [place] Stop: 01/21/19 13:01 Last Infusion: 07/22/18 13:07 Dose: Infused Midazolam HCl 50 mg/ Sodium (Chloride) 100 mls @ 4 mls/hr IVC CONT [place]; Protocol Stop: 01/21/19 12:46 Last Admin: 07/23/18 03:09 Dose: 2 mg/hr, 4 mls/hr Epinephrine HCl 5 mg/ Dextrose 255 mls @ 15.3 mls/hr IVC CONT [place]; Protocol Stop: 01/21/19 14:31 Last Admin: 07/22/18 15:38 Dose: Not Given Norepinephrine Bitartrate 4 mg (/ Dextrose) 254 mls @ 30.48 mls/hr IVC CONT [place]; Protocol Stop: 01/21/19 14:46 Last Admin: 07/22/18 18:32 Dose: Not Given Amiodarone HCl/Dextrose (Amiodarone Drip Premix 360mg/200ml) 360 mg in 200 mls @ 16.667 mls/hr IVC CONT [place] Stop: 01/21/19 17:01 Last Admin: 07/23/18 03:06 Dose: 0.5 mg/min, 16.667 mls/hr Dextrose (Dextrose 5%) 1,000 mls @ 100 mls/hr IVC .Q10H PRN PRN Reason: HYPOGLYCEMIA Stop: 01/21/19 17:09 Insulin Human Lispro (Humalog) 0 units SQ Q6H [facility]; Protocol Stop: 01/22/19 08:31 Last Admin: 07/23/18 09:35 Dose: Not Given Naloxone HCl (Narcan) 0.4 mg IVP Q2MIN PRN PRN Reason: SEE COMMENTS Stop: 01/21/19 13:37 Pantoprazole Sodium (Protonix) 40 mg IVP DAILY [facility] Stop: 01/21/19 13:46 Last Admin: 07/23/18 08:10 Dose: 40 mg - Imaging and Cardiology Echo: report reviewed - EKG Interpretation EKG results cardiology: other (12 hr tele AVG HR 63, SR) Consult Discharge Plan - Plan Referrals: NONE,PCP [Primary Care Provider] -
[2018-07-23] MEDS: cefTRIAXone 2,000 MG in Water for inj. (sterile) 20 ML 20 ML IVP SCH (12:27)
[2018-07-23] MEDS ORDERED: *HR* LORazepam 2 MG/ML VIAL IVP ONE (14:02)
--- NOTE | 2018-07-23 14:04 | Palliative - Consult Note ---
Date of Encounter: 07/23/18 Time of Encounter: 14:01 - Assessment and Plan (1) Goals of care, counseling/discussion Current Visit: Yes Status: Acute Assessment and plan: Met with pt's Nery, daughter Brook, sister Eleni, [id number] and grand-son. Family was updated on current medical condition, trajectory of illnes s, overall poor prognosis and treatment options. stated that pt has been sick on and off for the last few years, and she believes he is tired. She states he never wanted to be resuscitated in a first place, and demanded palliative extubation. Discussed further planning if pt survives extubation, including hospice care. Will discontinue all orders not related to comfort. will give Ativan 4 mg and Fentanyl 50mcg IV and proceed with extubation. Ativan q1hr prn for agitation and anxiety Fentanyl 50 mcg q15 minprn for dyspnea and pain Glycopyrrolate 0.2mg prn for secretions (2) CHF (congestive heart failure) Current Visit: Yes Status: Chronic Qualifiers: Heart failure type: diastolic Heart failure chronicity: chronic Qualified Code(s): I50.32 - Chronic diastolic (congestive) heart failure (3) ARCADIO (acute kidney injury) Current Visit: No Status: Acute (4) Adrenal insufficiency Current Visit: No Status: Chronic Assessment and plan: will continue prenisone 5mg qd if pt stabilizes. (5) Respiratory failure Current Visit: Yes Status: Acute Qualifiers: Chronicity: acute on chronic Respiratory failure complication: hypoxia and hypercapnia Qualified Code(s): J96.21 - Acute and chronic respiratory failure with hypoxia; J96.22 - Acute and chronic respiratory failure with hypercapnia (6) Pneumonia Current Visit: Yes Status: Suspected Assessment and plan: will discontinue antibiotics. Qualifiers: Pneumonia type: due to unspecified organism Laterality: bilateral Lung location: unspecified part of lung Qualified Code(s): J18.9 - Pneumonia, unspecified organism Palliative-CN HPI - Data of Consult Consult date: 07/23/18 Requesting Physician: Mona Whitley MD Primary Care Provider: PCP NONE - Consult Narrative Palliative Care/Comfort Measures: Palliative care Reason for consult: goals of care, palliative extubation History of present illness: Mr. Noriega is a 68 year old male with medical history of A-fib, CHF, DM, HTN, HLD, GERD, ME, PAD, thyroid disease, arthritis. Pt prsented to the ED yesterday complaining of 4 episodes of vomiting and 10-12 episodes of diarrhea. While being evaluated by nurse, pt collapsed suddenly. He coded with V-fib and PEA on/off for 1-1.5 hours. Patient was found to be hyperkalemic at 6.1. Patient was given 15 amp bicarb, Mg, D50, calcium. Patient was intubated and central line placed. CXR showed diffuse consolidation bilaterally. Patient was started on cefepime and vanc. Cardiology was consulted. Echo showed preserved EF with severe tricuspid regurgitation and severe pHTN. Subsequent labs showed ARCADIO and metabolic alkalosis. Afterward disclosed that pt was DNR. Palliative care consult to define goals of care. At the time of exam, pt is supine, intubated and not sedated, not opening eyes. He moves extremities to painful stimuli, but does not follow commands. CC: Mona Whitley MD - Time Spent with Patient Time: Total time spent is greater than 50% in coordination of care (as documented) at patient's floor/unit and/or counseling patient: Time with patient: 75 minutes Past Med Surg Social Fam HX - Past Medical History Medical history: arthritis, atrial fibrillation, CHF, diabetes, GERD, hyper lipidemia, hypertension, myocardial infarction, peripheral artery disease, thyroid disease, syncope Psychiatric history: no psych history - Past Surgical History Surgical History: angioplasty/stent, appendectomy, cholecystectomy, coronary bypass (CABG) Additional surgical history: tonsilectomy, pituitary tumor removed, exploratory for possible cyst in stomach ( scar tissue ), triple bypass, R BKA, heart stent - Social History Smoking Status: Never smoker Smokeless Tobacco Status: No Alcohol use: occasionally Drug use: none - Family History Father Adopted: No Family Member Ethnicity: Non- Living Status: Hx Family Cardiac Disorders: No Hx Family Respiratory Disorders: No Hx Family Cancer: Yes Hx Family GI Disorders: No Hx Family Endocrine Disorder: No Hx Family Neuromuscular Disorders: No Hx Family Neurologic Disorders: No Hx Family HEENT Disorders: No Hx Family Autoimmune Disorders: No Medications and Allergies Levothyroxine [Synthroid] 88 mcg PO Q48H 02/18/16 [History] Morphine Sulfate SR (12 HR) [MS Contin] 15 mg PO Q12HR tablet.er 02/29/16 [Rx] Aspirin Enteric Coated [Aspirin EC] 81 mg PO DAILY 03/09/18 [History] Atorvastatin [Lipitor] 10 mg PO HS 03/09/18 [History] Insulin ASPART [NovoLOG] 4 - 18 unit SQ TIDAC 03/09/18 [History] Multivitamin [One Daily Essential] 1 tab PO DAILY 03/09/18 [History] Nitroglycerin [Nitrostat] 0.4 mg SL Q5MIN PRN 03/09/18 [History] Polyethylene Glycol 3350 [MiraLAX] 17 gm PO DAILY 03/09/18 [History] Potassium Chloride [K-Tab ER] 60 meq PO TID 03/09/18 [History] Apixaban [Eliquis] 5 mg PO BID #60 tablet 03/11/18 [Rx] Bumetanide 4 mg PO TID 05/31/18 [History] Cabergoline 0.5 mg PO MALDONADO 05/31/18 [History] Gabapentin [Neurontin] 800 mg PO BID 05/31/18 [History] Metoprolol Succinate 12.5 mg PO DAILY 05/31/18 [History] predniSONE [PredniSONE] 5 mg PO DAILY 05/31/18 [History] Spironolactone [Aldactone] 50 mg PO DAILY 30 Days #60 tablet 06/07/18 [Rx] metOLazone [Zaroxolyn] 2.5 mg PO DAILY 30 Days #15 tablet 06/07/18 [Rx] Albuterol Sulfate [Ventolin Hfa] 2 puff IH Q6H PRN 07/04/18 [History] Budesonide/Formoterol 80/4.5 [Symbicort 80/4.5] 2 puff IH BID 07/04/18 [History] Metoclopramide [Reglan] 10 mg PO DAILY 07/04/18 [History] Allergy/AdvReac Type Severity Reaction Status Date / Time Penicillins Allergy Hives Verified 03/09/18 13:46 Sulfa (Sulfonamide Allergy Nausea Verified 03/09/18 13:46 Antibiotics) carvedilol [From Coreg] AdvReac Hypotension Verified 03/09/18 13:46 lisinopril AdvReac Hypotension Verified 03/09/18 13:46 ROS unobtainable: due to endotracheal tube, due to mental status Palliative Care-Exam - Constitutional Vitals: Temp Pulse Resp BP Pulse Ox 98.0 F 71 25 95/60 96 07/23/18 12:15 07/23/18 13:00 07/23/18 13:00 07/23/18 13:00 07/23/18 13:00 Exam: General appearance: orally intubated, not following commands Eyes: nonicteric, pupils non reactive, + corneal relex. Neck: supple, + GAG Effort: mechanical breath Auscultation: bilateral rales Cardiovascular: regular rate and rhythm Gastrointestinal: normoactive bowel sounds, soft, non-tender Integumentary: normal Extremities: no cyanosis, + LE edema (right BKA ) Musculoskeletal: R BKA Neurology: moves to pain, not opening eyes or following commands. Internal Medicine - CN: Reslt - Labs CBC & Chem 7: 07/23/18 03:55 07/23/18 03:55 Labs: Short CBC 07/22/18 07/22/18 07/23/18 Range/Units 14:35 17:00 03:55 WBC 31.8 H* 23.5 H 18.4 H (4.3-11.1) K/mcL Hgb 12.0 L 12.6 L 12.1 L (12.9-16.9) g/dL Hct 38.5 39.7 38.2 (37.5-50.1) % Plt Count 171 141 123 L (140-400) K/mcL Neutrophils # 29.9 H 21.9 H 17.2 H (1.6-8.9) K/mcL BMP 07/22/18 07/22/18 07/23/18 14:35 17:00 03:55 Sodium 140 141 143 Potassium 5.3 H 5.6 H 4.9 Chloride 86 L 88 L 91 L Carbon Dioxide 40 H* 42 H* 42 H* BUN 56 H 59 H 63 H Creatinine 2.90 H 2.96 H 2.94 H Glucose 294 H 251 H 231 H Calcium 10.4 H 10.4 H 9.7 Cardiac Enzymes 07/22/18 07/22/18 Range/Units 14:35 19:45 Troponin I 0.51 H* 0.85 H* (< 0.04) ng/mL Liver Function 07/22/18 07/22/18 07/23/18 Range/Units 14:35 17:00 03:55 Total Bilirubin 1.5 H 1.7 H 1.2 H (0.3-1.0) mg/dL AST 165 H 193 H 188 H (13-39) Units/L ALT 69 H 74 H 84 H (7-52) Units/L Alkaline Phosphatase 112 H 105 H 94 (34-104) Units/L Albumin 2.8 L 2.8 L 2.8 L (3.5-5.7) g/dL Urine 07/22/18 Range/Units 16:00 Urine Color Yellow (Yellow) Urine Clarity Turbid A (Clear) Urine pH 6.5 (5.0-8.0) pH Units Ur Specific [place] 1.013 (1.010-1.025) Urine Protein 30 H (Neg-Trace) mg/dL Urine Glucose (UA) 250 H (Normal) mg/dL - ABG Interpretation ABG results: ABG ABG pH 7.58 pH Units (7.32-7.45) H 07/23/18 04:54 ABG pCO2 48 mmHg (35-45) H 07/23/18 04:54 ABG pO2 154 mmHg (85-104) H 07/23/18 04:54 ABG O2 Saturation 100 % (95-98) H 07/23/18 04:54 PT/INR, D-dimer PT 27.6 Seconds (9.4-12.1) H 07/22/18 11:53 - Impressions Impressions Echocardiogram 07/22/18 12:36 Impressions: LVEF 55-60%. Normal LV chamber size and wall thickness. Atypical septal motion consistent with post-operative status. Moderate left ventricular diastolic dysfunction. Mildly dilated right ventricle with mild right ventricular hypokinesis. Moderately dilated right atrium. Moderate aortic stenosis with pealk velocity of 3m/s and mean gradient of 16mmHg Severe tricuspid regurgitation. Severe pulmonary hypertension. Left Ventricular Wall Motion: Rest Echo Findings All wall segments showed normal motion. Findings: Study Quality * Technically sub-optimal due to clinical status. ECG Findings * Normal sinus rhythm. Left Ventricle * LVEF 55-60%. * Normal LV chamber size and wall thickness. * Atypical septal motion consistent with post-operative status. * Moderate left ventricular diastolic dysfunction. Right Ventricle * Mild right ventricular hypokinesis. * Mildly dilated right ventricle. Left Atrium * Mildly dilated left atrium. Right Atrium * Moderately dilated right atrium. Aortic Valve * Trileaflet aortic valve. * Moderately calcified aortic valve leaflets. * Moderate aortic stenosis with pealk velocity of 3m/s and mean gradient of 16mmHg Mitral Valve * Normal mitral valve structure. * No mitral regurgitation. * No mitral stenosis. Tricuspid Valve * Normal tricuspid valve structure. * Severe tricuspid regurgitation. * Severe pulmonary hypertension. * Estimated RVSP is 84 mmHg. * Estimated RA pressure is 10 mmHg. Pulmonic Valve * Normal pulmonic valve structure. * No pulmonic regurgitation. Aorta * Normally sized aortic root. Pericardium * The pericardium appears normal. IVC * The IVC is dilated. KUB X-Ray 07/22/18 17:41 IMPRESSION: Unremarkable limited KUB. NG tube tip projects at the left upper quadrant, overlying the expected location of the stomach. D/ / Joon Magallon / Joon Magallon Interpreting Provider: Joon Magallon Chest X-Ray 07/23/18 06:54 IMPRESSION: Improving aeration of the lungs since the prior exam. D/ / Ernie Matute MD / Ernie Matute MD Interpreting Provider: Ernie Matute MD Consult Discharge Plan - Plan Referrals: NONE,PCP [Primary Care Provider] - Palliative Quality Palliative Quality: Screen for Code Status: Yes, Screen for Goals of Care: Yes, Screen for Pain: Yes, If Pain Regimen Started, Initiate Bowel Regimen: NA, Screen for Nausea/Vomitting: NA Code Status: 07/22/18 16:06 CODE [Resuscitation Status: Active] [RES] Routine Comment: Resuscitation Status: DNR-Comfort Care-Arrest 07/23/18 11:01 CODE [Resuscitation Status: Active] [RES] Routine Comment: Resuscitation Status: [id number] Palliative Scale - Palliative Performance Scale How ambulatory is this patient?: Totally bed bound What is patient's level of activity and evidence of disease?: Unable to do any activity, Extensive disease How much self-care assistance does patient require?: Total care How much oral intake does the patient have?: Mouth care only Palliative Performance Score: 10 %
[2018-07-23] MEDS ORDERED: *HR* LORazepam 2 MG/ML VIAL IVP PRN (14:24)
[2018-07-23] MEDS: EPINEPHrine 5 MG in D5% in Water 250 ML IVC SCH (14:47)
[2018-07-23] MEDS: Norepinephrine 4 MG in D5% in Water 250 ML IVC SCH (14:47)
[2018-07-24] MEDS: Artificial Tears SOLN 15 ML BOTTLE BOTH EYES SCH ×6 (00:40→20:32)
[2018-07-24] MEDS: Insulin LISPRO 300 UNITS/3 ML VIAL SQ SCH ×4 (01:45→18:32)
[2018-07-24] MEDS: Hydrocortisone Sodium Succ 100 MG/2 ML VIAL IVP SCH ×4 (01:45→18:33)
[2018-07-24] MEDS: *HR* Heparin 5,000 UNIT/ML VIAL SQ SCH ×2 (06:11→18:31)
--- NOTE | 2018-07-24 11:14 | Pulmonology Progress Note ---
Date of Encounter: 07/24/18 Time of Encounter: 11:14 Assessment and Plan (1) Cardiac arrest Current Visit: Yes Status: Acute 68-year-old gentleman past medical history of heart failure surgery ejection fraction chronic kidney disease who presented with the PE arrest possibly from electronic abnormalities versus sepsis with shock and had to shock with m ultiorgan system failure which is resolved was intubated with plan for compassionate liberation yesterday patient has done remarkably well overnight is unclear what his overall prognosis is at this time but family wants to continue treatment with likely no escalation of care. He does have evidence of strep bacteremia is unclear if this is a contaminant or covering with ceftriaxone white count is trending down his been weaned off vasopressors Greater than the right now on 3-4 L nasal cannula with saturation in the high 90s we can wean this down to keep oxygen saturation around 94% Acute on chronic kidney injury for which we will recheck his BMP today and follow-up electrolyte profile he had severe metabolic alkalosis secondary to iatrogenic toxicity from use of bicarbonate Neurologically appears intact without any focal gross neurological deficit Continue hydrocortisone for adrenal insufficiency and with acute stress response continued to be tapered over the upcoming days Palliative care following plan to transition patient to 2A for ongoing care if worsens would not result in hospice measures current CODE STATUS is do not attempt resuscitation/DO NOT INTUBATE He does not want to pursue this patient could use CPAP with naps and with the sleeping current CPAP setting should be 6 cm H2O with FiO2 bleed to keep saturation greater than 89% Patient stable from critical care standpoint to go to 2A for ongoing care report will be called to the admitting hospitalist (2) Adrenal insufficiency Current Visit: No Status: Chronic (3) Acute on chronic diastolic (congestive) heart failure Current Visit: No Status: Acute (4) Respiratory failure Current Visit: Yes Status: Acute Qualifiers: Chronicity: acute on chronic Respiratory failure complication: hypoxia and hypercapnia Qualified Code(s): J96.21 - Acute and chronic respiratory failure with hypoxia; J96.22 - Acute and chronic respiratory failure with hypercapnia (5) Pneumonia Current Visit: Yes Status: Suspected Qualifiers: Pneumonia type: due to unspecified organism Laterality: bilateral Lung location: unspecified part of lung Qualified Code(s): J18.9 - Pneumonia, unspecified organism (6) Metabolic alkalosis Current Visit: Yes Status: Acute (7) Sleep disorder breathing Current Visit: Yes Status: Acute (8) Goals of care, counseling/discussion Current Visit: Yes Status: Acute Subjective Principal diagnosis: cardiac arrest Interval history: Patient has done surprisingly well overnight he is able to open his eyes follow commands his been having simple conversations with the family at bedside remains otherwise hemodynamically stable. Objective PUL Vital signs: Last Vital Signs Temp 99.3 F 07/24/18 09:00 Pulse 67 07/24/18 09:00 Resp 12 07/24/18 09:00 BP 114/68 07/24/18 09:00 Pulse Ox 99 07/24/18 09:00 General appearance: no acute distress Eyes: nonicteric ENT: oropharynx dry Neck: supple Auscultation: bilateral: rhonchi Cardiovascular: regular rate and rhythm Gastrointestinal: hypoactive bowel sounds, soft, non-tender Integumentary: normal Extremities: edema (Trace lower extremity edema) Musculoskeletal: no deformities non-focal exam, pupils equal and round mood appropriate Results - Laboratory Findings CBC and BMP: 07/23/18 03:55 07/23/18 03:55 ABG ABG pH 7.58 pH Units (7.32-7.45) H 07/23/18 04:54 ABG pCO2 48 mmHg (35-45) H 07/23/18 04:54 ABG pO2 154 mmHg (85-104) H 07/23/18 04:54 ABG O2 Saturation 100 % (95-98) H 07/23/18 04:54 PT/INR, D-dimer PT 27.6 Seconds (9.4-12.1) H 07/22/18 11:53 Abnormal lab findings: Abnormal lab results WBC 18.4 K/mcL (4.3-11.1) H 07/23/18 03:55 Hgb 12.1 g/dL (12.9-16.9) L 07/23/18 03:55 MCV 75.2 fL (83.0-100.0) L 07/23/18 03:55 MCH 23.8 pg (28.0-33.3) L 07/23/18 03:55 RDW 22.1 % (11.5-14.5) H 07/23/18 03:55 Plt Count 123 K/mcL (140-400) L 07/23/18 03:55 Band Neutrophils % 18.0 % (0-4) H 07/22/18 14:35 Neutrophils # 17.2 K/mcL (1.6-8.9) H 07/23/18 03:55 Lymphocytes # 0.4 K/mcL (0.6-4.6) L 07/23/18 03:55 Nucleated RBCs/100 WBC 0.1 /100 WBC (0) H 07/22/18 14:35 Platelet Estimate Slight Decrease (Normal) L 07/23/18 03:55 Large Platelets Present (Not Present) A 07/22/18 17:00 Polychromasia 1+ (Not Present) A 07/23/18 03:55 Hypochromasia Present (Not Present) A 07/23/18 03:55 Anisocytosis 2+ (Not Present) A 07/23/18 03:55 PT 27.6 Seconds (9.4-12.1) H 07/22/18 11:53 APTT 53.5 Seconds (26.0-36.0) H 07/22/18 11:53 ABG pH 7.58 pH Units (7.32-7.45) H 07/23/18 04:54 ABG pCO2 48 mmHg (35-45) H 07/23/18 04:54 ABG pO2 154 mmHg (85-104) H 07/23/18 04:54 ABG HCO3 45 mEq/L (21-27) H 07/23/18 04:54 ABG Total CO2 46 mEq/L (20-26) H 07/23/18 04:54 ABG O2 Saturation 100 % (95-98) H 07/23/18 04:54 ABG Base Excess 20 mEq/L (-2 to 3) H 07/23/18 04:54 Chloride 91 mEq/L (98-107) L 07/23/18 03:55 Carbon Dioxide 42 mEq/L (23-29) H* 07/23/18 03:55 BUN 63 mg/dL (8-23) H 07/23/18 03:55 Creatinine 2.94 mg/dL (0.70-1.30) H 07/23/18 03:55 Est GFR ( Amer) 26 (> 60) L 07/23/18 03:55 Est GFR (Non-Af Amer) 21 (> 60) L 07/23/18 03:55 Glucose 231 mg/dL (70-105) H 07/23/18 03:55 POC Glucose 220 mg/dL (70-99) H 07/23/18 23:58 Hemoglobin A1c 8.7 % (-5.6) H 07/22/18 17:00 Calculated Osmolality 321 (280-300) H 07/23/18 03:55 Lactic Acid 2.4 mmol/L (0.5-2.2) H 07/23/18 03:55 Phosphorus 9.1 mg/dL (2.7-4.5) H 07/22/18 11:53 Total Bilirubin 1.2 mg/dL (0.3-1.0) H 07/23/18 03:55 Direct Bilirubin 0.3 mg/dL (0.0-0.2) H 07/22/18 11:53 AST 188 Units/L (13-39) H 07/23/18 03:55 ALT 84 Units/L (7-52) H 07/23/18 03:55 Troponin I 0.85 ng/mL (< 0.04) H* 07/22/18 19:45 B-Natriuretic Peptide 691 pg/mL (Less than 100) H 07/22/18 11:53 Serum Total Protein 5.5 g/dL (6.4-8.9) L 07/23/18 03:55 Albumin 2.8 g/dL (3.5-5.7) L 07/23/18 03:55 Albumin/Globulin Ratio 1.0 (1.1-2.2) L 07/23/18 03:55 Urine Clarity Turbid (Clear) A 07/22/18 16:00 Urine Protein 30 mg/dL (Neg-Trace) H 07/22/18 16:00 Urine Glucose (UA) 250 mg/dL (Normal) H 07/22/18 16:00 Urine Blood Large (Negative) H 07/22/18 16:00 Urine Microscopic RBC 50-100 per hpf (0-3) H 07/22/18 16:00 Urine Microscopic WBC 50-100 per hpf (0-3) H 07/22/18 16:00 Ur Squamous Epith Cells Moderate per lpf (None-Few) H 07/22/18 16:00 Streptococcus sp PCR DETECTED (Not Detect) A 07/22/18 11:53 - Microbiology Findings Microbiology Findings: Microbiology, Last 48 Hours 07/22/18 11:53 Blood Culture - Preliminary Peripheral Venipuncture Gram Positive Cocci 07/22/18 11:53 Blood Culture - Preliminary Peripheral Venipuncture Culture is incubating and being continuously monitored for growth. Final report to follow. - Clinical Findings Intake & Output: Intake & Output 07/23/18 07/24/18 07/24/18 23:59 07:59 15:59 Intake Total 0 / 0 Output Total 250 / 250 250 / 250 Balance -250 / -250 -250 / -250 Weight 99.6 kg Consult Discharge Plan - Plan Referrals: NONE,PCP [Primary Care Provider] -
[2018-07-24] MEDS: Chlorhexidine Rinse 15 ML MOUTHWASH MM SCH ×2 (11:25→20:31)
[2018-07-24] MEDS: cefTRIAXone 2,000 MG in Water for inj. (sterile) 20 ML 20 ML IVP SCH (11:48)
[2018-07-24] MEDS: Pantoprazole 40 MG VIAL IVP SCH (11:48)
--- NOTE | 2018-07-24 11:48 | Palliative Progress Note ---
Date of Encounter: 07/24/18 Time of Encounter: 11:00 - Assessment and plan (1) Leukocytosis Current Visit: Yes Status: Acute Assessment and plan: BC+ x1. Continues treatment with IV Ceftriaxone. Monitor Qualifiers: Leukocytosis type: unspecified Qualified Code(s): D72.829 - Elevated white blood cell count, unspecified (2) Dyspnea Current Visit: Yes Status: Acute Assessment and plan: Currently on 4L O2 and oxygenating well. Has low dose Fentanyl boluses if needed for increased work of breathing (3) Generalized pain Current Visit: Yes Status: Acute Assessment and plan: Utilize Fentanyl PRN. Had x1 last 24 hours (4) Pulmonary hypertension, moderate to severe Current Visit: No Status: Chronic (5) CKD (chronic kidney disease) Current Visit: No Status: Chronic Qualifiers: Chronic kidney disease stage: unspecified stage Qualified Code(s): N18.9 - Chronic kidney disease, unspecified (6) Respiratory failure Current Visit: Yes Status: Acute Qualifiers: Chronicity: acute on chronic Respiratory failure complication: hypoxia and hypercapnia Qualified Code(s): J96.21 - Acute and chronic respiratory failure with hypoxia; J96.22 - Acute and chronic respiratory failure with hypercapnia (7) Goals of care, counseling/discussion Current Visit: Yes Status: Acute Assessment and plan: D/W at bedside. He is alert this am and interacting with family. Follows commands. Goals of care rediscussed. does not want heroic measures (Code status remains DNR/DNI) but would like to continue current treatment with IV antibiotics/solucortef and monitor him over the next few days to see how he does. If he does not progress, she would transition to comfort care only and likely hospice. Will follow closely. D/W Dr. Herbert and Dr. Pugh. Patient can transition to 2A bed, but will remain under hospitalist care for continued treatment. - Time Spent With Patient Total time spent is greater than 50% in coordination of care (as documented) at patient's floor/unit and/or counseling patient: - Subjective Interval history: Patient is sleeping on my arrival - awakens when name spoke. Able to answer simple questions, recognizes , follows simple commands. Denies discomfort. states that he did complain of chest soreness earlier. Multiple family members at bedside. - Constitutional Vitals: Abnormal lab results WBC 18.4 K/mcL (4.3-11.1) H 07/23/18 03:55 Hgb 12.1 g/dL (12.9-16.9) L 07/23/18 03:55 MCV 75.2 fL (83.0-100.0) L 07/23/18 03:55 MCH 23.8 pg (28.0-33.3) L 07/23/18 03:55 RDW 22.1 % (11.5-14.5) H 07/23/18 03:55 Plt Count 123 K/mcL (140-400) L 07/23/18 03:55 Band Neutrophils % 18.0 % (0-4) H 07/22/18 14:35 Neutrophils # 17.2 K/mcL (1.6-8.9) H 07/23/18 03:55 Lymphocytes # 0.4 K/mcL (0.6-4.6) L 07/23/18 03:55 Nucleated RBCs/100 WBC 0.1 /100 WBC (0) H 07/22/18 14:35 Platelet Estimate Slight Decrease (Normal) L 07/23/18 03:55 Large Platelets Present (Not Present) A 07/22/18 17:00 Polychromasia 1+ (Not Present) A 07/23/18 03:55 Hypochromasia Present (Not Present) A 07/23/18 03:55 Anisocytosis 2+ (Not Present) A 07/23/18 03:55 PT 27.6 Seconds (9.4-12.1) H 07/22/18 11:53 APTT 53.5 Seconds (26.0-36.0) H 07/22/18 11:53 ABG pH 7.58 pH Units (7.32-7.45) H 07/23/18 04:54 ABG pCO2 48 mmHg (35-45) H 07/23/18 04:54 ABG pO2 154 mmHg (85-104) H 07/23/18 04:54 ABG HCO3 45 mEq/L (21-27) H 07/23/18 04:54 ABG Total CO2 46 mEq/L (20-26) H 07/23/18 04:54 ABG O2 Saturation 100 % (95-98) H 07/23/18 04:54 ABG Base Excess 20 mEq/L (-2 to 3) H 07/23/18 04:54 Chloride 91 mEq/L (98-107) L 07/23/18 03:55 Carbon Dioxide 42 mEq/L (23-29) H* 07/23/18 03:55 BUN 63 mg/dL (8-23) H 07/23/18 03:55 Creatinine 2.94 mg/dL (0.70-1.30) H 07/23/18 03:55 Est GFR ( Amer) 26 (> 60) L 07/23/18 03:55 Est GFR (Non-Af Amer) 21 (> 60) L 07/23/18 03:55 Glucose 231 mg/dL (70-105) H 07/23/18 03:55 POC Glucose 220 mg/dL (70-99) H 07/23/18 23:58 Hemoglobin A1c 8.7 % (-5.6) H 07/22/18 17:00 Calculated Osmolality 321 (280-300) H 07/23/18 03:55 Lactic Acid 2.4 mmol/L (0.5-2.2) H 07/23/18 03:55 Phosphorus 9.1 mg/dL (2.7-4.5) H 07/22/18 11:53 Total Bilirubin 1.2 mg/dL (0.3-1.0) H 07/23/18 03:55 Direct Bilirubin 0.3 mg/dL (0.0-0.2) H 07/22/18 11:53 AST 188 Units/L (13-39) H 07/23/18 03:55 ALT 84 Units/L (7-52) H 07/23/18 03:55 Troponin I 0.85 ng/mL (< 0.04) H* 07/22/18 19:45 B-Natriuretic Peptide 691 pg/mL (Less than 100) H 07/22/18 11:53 Serum Total Protein 5.5 g/dL (6.4-8.9) L 07/23/18 03:55 Albumin 2.8 g/dL (3.5-5.7) L 07/23/18 03:55 Albumin/Globulin Ratio 1.0 (1.1-2.2) L 07/23/18 03:55 Urine Clarity Turbid (Clear) A 07/22/18 16:00 Urine Protein 30 mg/dL (Neg-Trace) H 07/22/18 16:00 Urine Glucose (UA) 250 mg/dL (Normal) H 07/22/18 16:00 Urine Blood Large (Negative) H 07/22/18 16:00 Urine Microscopic RBC 50-100 per hpf (0-3) H 07/22/18 16:00 Urine Microscopic WBC 50-100 per hpf (0-3) H 07/22/18 16:00 Ur Squamous Epith Cells Moderate per lpf (None-Few) H 07/22/18 16:00 Streptococcus sp PCR DETECTED (Not Detect) A 07/22/18 11:53 General appearance: Present: no acute distress - Respiratory Respiratory exam: Present: decreased breath sounds, CTAB - Cardiovascular Cardiovascular exam: Present: +S1, +S2 - GI/Abdominal GI/Abdominal exam: Present: diminished bowel sounds, soft - Additional comments: Todd with light tahir urine - Extremities Exam Additional comments: 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 - Neurological Exam Neurological exam: Present: alert Additional comments: Oriented to name only, but able to answer questions. Recognized and speaking some to and brother in room. BHATTI - patternmaker all around weak but equal bilaterally - Skin Skin exam: Present: dry, warm Palliative Quality Palliative Quality: Screen for Code Status: Yes, Screen for Goals of Care: Yes, Screen for Pain: Yes, If Pain Regimen Started, Initiate Bowel Regimen: NA, Screen for Nausea/Vomitting: NA Code Status: 07/22/18 16:06 CODE [Resuscitation Status: Active] [RES] Routine Comment: Resuscitation Status: DNR-Comfort Care-Arrest 07/23/18 11:01 CODE [Resuscitation Status: Active] [RES] Routine Comment: Resuscitation Status: QUS-[id number]-[id number] - Labs CBC & Chem 7: 07/23/18 03:55 07/23/18 03:55 Labs: Laboratory Results - last 24 hr 07/23/18 07/23/18 07/23/18 11:44 22:40 23:58 POC Glucose 211 H 223 H 220 H - ABG Interpretation ABG results: ABG ABG pH 7.58 pH Units (7.32-7.45) H 07/23/18 04:54 ABG pCO2 48 mmHg (35-45) H 07/23/18 04:54 ABG pO2 154 mmHg (85-104) H 07/23/18 04:54 ABG O2 Saturation 100 % (95-98) H 07/23/18 04:54 PT/INR, D-dimer PT 27.6 Seconds (9.4-12.1) H 07/22/18 11:53 Palliative Scale - Palliative Performance Scale How ambulatory is this patient?: Totally bed bound What is patient's level of activity and evidence of disease?: Unable to do any activity, Extensive disease How much self-care assistance does patient require?: Total care How much oral intake does the patient have?: Mouth care only Palliative Performance Score: 10 % Consult Discharge Plan - Plan Referrals: NONE,PCP [Primary Care Provider] -
[2018-07-24 15:26] LABS: Basophils % 0.1 %; Hemoglobin 11.5 g/dL (12.9-16.9); Immature Granulocytes % 0.8 % (0-4)
[2018-07-24 15:28] LABS: Hematocrit 38.3 % (37.5-50.1); Immature Platelets 3.3 % (1.1-6.1); Lymphocytes # 0.3 K/mcL (0.6-4.6); Lymphocytes % 2.3 %; Mean Corpuscular Hemoglobin 23.9 pg (28.0-33.3); Mean Corpuscular Volume 79.5 fL (83.0-100.0); Mean Platelet Volume 11.2 fL (9.4-12.4); Monocytes # 0.7 K/mcL (0.0-1.3); Monocytes % 4.5 %; Neutrophils # 13.4 K/mcL (1.6-8.9); Red Blood Count 4.82 M/mcL (4.19-5.50); Red Cell Distribution Width 22.6 % (11.5-14.5); Segmented Neutrophils % 92.3 %
[2018-07-24 15:42] LABS: Platelet Count 104 K/mcL (140-400); Platelet Estimate Decreased (Normal)
[2018-07-24 15:46] LABS: Calcium 8.5 mg/dL (8.6-10.3)
[2018-07-24] MEDS ORDERED: Insulin LISPRO 300 UNITS/3 ML VIAL SQ SCH ×2 (18:00→21:00)
[2018-07-24] MEDS: Budesonide/Formoterol 80/4.5 MDI IH SCH (20:08)
[2018-07-25] MEDS: Hydrocortisone Sodium Succ 100 MG/2 ML VIAL IVP SCH ×4 (00:05→17:57)
[2018-07-25] MEDS: Artificial Tears SOLN 15 ML BOTTLE BOTH EYES SCH ×6 (00:07→20:29)
[2018-07-25 04:46] LABS: Basophils % 0.1 %; Mean Corpuscular Hemoglobin 23.6 pg (28.0-33.3)
[2018-07-25 04:48] LABS: Hematocrit 38.6 % (37.5-50.1); Hemoglobin 11.5 g/dL (12.9-16.9); Immature Granulocytes % 0.7 % (0-4); Lymphocytes # 0.2 K/mcL (0.6-4.6); Lymphocytes % 1.9 %; Mean Corpuscular HGB Conc 29.8 g/dL (31.6-35.5); Mean Corpuscular Volume 79.3 fL (83.0-100.0); Monocytes # 0.5 K/mcL (0.0-1.3); Neutrophils # 9.7 K/mcL (1.6-8.9); Platelet Count 106 K/mcL (140-400); Red Blood Count 4.87 M/mcL (4.19-5.50); Red Cell Distribution Width 22.6 % (11.5-14.5); Segmented Neutrophils % 92.3 %
[2018-07-25 05:14] LABS: Calcium 8.4 mg/dL (8.6-10.3); Potassium 4.4 mEq/L (3.5-5.1)
[2018-07-25 05:21] LABS: Anisocytosis 1+ (Not Present); Large Platelets Present (Not Present); Platelet Estimate Slight Decrease (Normal)
[2018-07-25 05:32] LABS: Hypochromasia Present (Not Present)
[2018-07-25] MEDS: *HR* Heparin 5,000 UNIT/ML VIAL SQ SCH ×2 (05:43→17:57)
[2018-07-25] MEDS: Budesonide/Formoterol 80/4.5 MDI IH SCH ×2 (07:43→20:20)
[2018-07-25] MEDS: Insulin LISPRO 300 UNITS/3 ML VIAL SQ SCH ×5 (08:31→20:31)
[2018-07-25] MEDS: Aspirin Enteric Coated 81 MG Tablet PO SCH (08:33)
[2018-07-25] MEDS: Chlorhexidine Rinse 15 ML MOUTHWASH MM SCH ×2 (08:33→20:29)
--- NOTE | 2018-07-25 09:44 | Palliative Progress Note ---
Date of Encounter: 07/25/18 Time of Encounter: 09:40 - Assessment and plan (1) Generalized pain Current Visit: Yes Status: Acute Assessment and plan: Since taking po, will D/C IV Fentanyl, as he has not required this, and transit ion to low dose Oxycodone if needed. asking for Gabapentin to be restarted, will restart at lower dose r/t renal function. (2) Dyspnea Current Visit: Yes Status: Acute Assessment and plan: Oxygenating well on 4 L. No c/o shortness of breath. MOnitor (3) Leukocytosis Current Visit: Yes Status: Acute Assessment and plan: Improved. Continues treatment with IV Antibiotics Qualifiers: Leukocytosis type: unspecified Qualified Code(s): D72.829 - Elevated white blood cell count, unspecified (4) Pulmonary hypertension, moderate to severe Current Visit: No Status: Chronic Assessment and plan: Patient was scheduled at CHF clinic at [facility]. Became acutely ill and was admitted here. (5) CKD (chronic kidney disease) Current Visit: No Status: Chronic Qualifiers: Chronic kidney disease stage: unspecified stage Qualified Code(s): N18.9 - Chronic kidney disease, unspecified (6) Respiratory failure Current Visit: Yes Status: Acute Qualifiers: Chronicity: acute on chronic Respiratory failure complication: hypoxia and hypercapnia Qualified Code(s): J96.21 - Acute and chronic respiratory failure with hypoxia; J96.22 - Acute and chronic respiratory failure with hypercapnia (7) Goals of care, counseling/discussion Current Visit: Yes Status: Acute Assessment and plan: at bedside. She is very pleased with his progress and states he has became more alert and oriented with his surroundings since I saw him yesterday. He is taking po well. He will remain under hospitalist care for treatment and Palliative will continue to follow for support and symptom management. Discussed with he will likely need rehab and PT/OT consult soon. Patient has been in [facility] in [facility] in the past for rehab and they had good experience there. Will consult social service. - Time Spent With Patient Total time spent is greater than 50% in coordination of care (as documented) at patient's floor/unit and/or counseling patient: 25 - 35 minutes - Subjective Interval history: Patient is sleeping on my arrival - awakens when name spoke. Able to answer simple questions, recognizes , follows simple commands. states that he continues to be more alert and knows he is in hospital. He was originally scheduled for heart cath in [place] before his event that led him here, so he often thinks he is in [facility] [place]. He does recognize that he moved to a different room yesterday from ICU. C/o neuropathy foot pain that is chronic for him. Taking po full liquids well and able to swallow po medications. + BM last night. Leukocytosis improving and WBC down to 10.5 today. BUN/CR 120/3.6. - Constitutional Vitals: Abnormal lab results Hgb 11.5 g/dL (12.9-16.9) L 07/25/18 04:39 MCV 79.3 fL (83.0-100.0) L 07/25/18 04:39 MCH 23.6 pg (28.0-33.3) L 07/25/18 04:39 MCHC 29.8 g/dL (31.6-35.5) L 07/25/18 04:39 RDW 22.6 % (11.5-14.5) H 07/25/18 04:39 Plt Count 106 K/mcL (140-400) L 07/25/18 04:39 Band Neutrophils % 18.0 % (0-4) H 07/22/18 14:35 Neutrophils # 9.7 K/mcL (1.6-8.9) H 07/25/18 04:39 Lymphocytes # 0.2 K/mcL (0.6-4.6) L 07/25/18 04:39 Nucleated RBCs/100 WBC 0.1 /100 WBC (0) H 07/22/18 14:35 Platelet Estimate Slight Decrease (Normal) L 07/25/18 04:39 Large Platelets Present (Not Present) A 07/25/18 04:39 Polychromasia 1+ (Not Present) A 07/23/18 03:55 Hypochromasia Present (Not Present) A 07/25/18 04:39 Anisocytosis 1+ (Not Present) A 07/25/18 04:39 PT 27.6 Seconds (9.4-12.1) H 07/22/18 11:53 APTT 53.5 Seconds (26.0-36.0) H 07/22/18 11:53 ABG pH 7.58 pH Units (7.32-7.45) H 07/23/18 04:54 ABG pCO2 48 mmHg (35-45) H 07/23/18 04:54 ABG pO2 154 mmHg (85-104) H 07/23/18 04:54 ABG HCO3 45 mEq/L (21-27) H 07/23/18 04:54 ABG Total CO2 46 mEq/L (20-26) H 07/23/18 04:54 ABG O2 Saturation 100 % (95-98) H 07/23/18 04:54 ABG Base Excess 20 mEq/L (-2 to 3) H 07/23/18 04:54 Sodium 146 mEq/L (136-145) H 07/25/18 04:39 Chloride 93 mEq/L (98-107) L 07/25/18 04:39 Carbon Dioxide 45 mEq/L (23-29) H* 07/25/18 04:39 BUN 120 mg/dL (8-23) H 07/25/18 04:39 Creatinine 3.60 mg/dL (0.70-1.30) H 07/25/18 04:39 Est GFR ( Amer) 21 (> 60) L 07/25/18 04:39 Est GFR (Non-Af Amer) 17 (> 60) L 07/25/18 04:39 BUN/Creatinine Ratio 33 (6-26) H 07/25/18 04:39 Glucose 372 mg/dL (70-105) H 07/25/18 04:39 POC Glucose 220 mg/dL (70-99) H 07/23/18 23:58 Hemoglobin A1c 8.7 % (-5.6) H 07/22/18 17:00 Calculated Osmolality 356 (280-300) H 07/25/18 04:39 Lactic Acid 2.4 mmol/L (0.5-2.2) H 07/23/18 03:55 Calcium 8.4 mg/dL (8.6-10.3) L 07/25/18 04:39 Phosphorus 9.1 mg/dL (2.7-4.5) H 07/22/18 11:53 Total Bilirubin 1.2 mg/dL (0.3-1.0) H 07/23/18 03:55 Direct Bilirubin 0.3 mg/dL (0.0-0.2) H 07/22/18 11:53 AST 188 Units/L (13-39) H 07/23/18 03:55 ALT 84 Units/L (7-52) H 07/23/18 03:55 Troponin I 0.85 ng/mL (< 0.04) H* 07/22/18 19:45 B-Natriuretic Peptide 691 pg/mL (Less than 100) H 07/22/18 11:53 Serum Total Protein 5.5 g/dL (6.4-8.9) L 07/23/18 03:55 Albumin 2.8 g/dL (3.5-5.7) L 07/23/18 03:55 Albumin/Globulin Ratio 1.0 (1.1-2.2) L 07/23/18 03:55 Urine Clarity Turbid (Clear) A 07/22/18 16:00 Urine Protein 30 mg/dL (Neg-Trace) H 07/22/18 16:00 Urine Glucose (UA) 250 mg/dL (Normal) H 07/22/18 16:00 Urine Blood Large (Negative) H 07/22/18 16:00 Urine Microscopic RBC 50-100 per hpf (0-3) H 07/22/18 16:00 Urine Microscopic WBC 50-100 per hpf (0-3) H 07/22/18 16:00 Ur Squamous Epith Cells Moderate per lpf (None-Few) H 07/22/18 16:00 Streptococcus sp PCR DETECTED (Not Detect) A 07/22/18 11:53 General appearance: Present: no acute distress - Respiratory Additional comments: Crackles bilateral lower lobes. 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 - Skin Skin exam: Present: dry, pallor, warm Palliative Quality Palliative Quality: Screen for Code Status: Yes, Screen for Goals of Care: Yes, Screen for Pain: Yes, If Pain Regimen Started, Initiate Bowel Regimen: NA, Screen for Nausea/Vomitting: NA Code Status: 07/22/18 16:06 CODE [Resuscitation Status: Active] [RES] Routine Comment: Resuscitation Status: DNR-Comfort Care-Arrest 07/23/18 11:01 CODE [Resuscitation Status: Active] [RES] Routine Comment: Resuscitation Status: BAN-[id number]-ThrcnmSOT - Labs CBC & Chem 7: 07/25/18 04:39 07/25/18 04:39 Labs: Laboratory Results - last 24 hr 07/24/18 07/24/18 07/25/18 15:11 15:11 04:39 WBC 14.5 H 10.5 RBC 4.82 4.87 Hgb 11.5 L 11.5 L Hct 38.3 38.6 MCV 79.5 L 79.3 L MCH 23.9 L 23.6 L MCHC 30.0 L 29.8 L RDW 22.6 H 22.6 H Plt Count 104 L 106 L MPV 11.2 11.0 Immature Gran % 0.8 0.7 Seg Neutrophils % 92.3 92.3 Lymphocytes % 2.3 1.9 Monocytes % 4.5 5.0 Eosinophils % 0.0 0.0 Basophils % 0.1 0.1 Neutrophils # 13.4 H 9.7 H Lymphocytes # 0.3 L 0.2 L Monocytes # 0.7 0.5 Eosinophils # 0.0 0.0 Basophils # 0.0 0.0 Platelet Estimate Decreased L Slight Decrease L Large Platelets Present A Immature Plt Fraction 3.3 4.0 Hypochromasia Present A Anisocytosis 1+ A Sodium 144 Potassium 5.0 Chloride 91 L Carbon Dioxide 35 H BUN 106 H Creatinine 3.93 H Est GFR ( Amer) 19 L Est GFR (Non-Af Amer) 15 L BUN/Creatinine Ratio 27 H Glucose 338 H Calculated Osmolality 345 H Calcium 8.5 L 07/25/18 04:39 WBC RBC Hgb Hct MCV MCH MCHC RDW Plt Count MPV Immature Gran % Seg Neutrophils % Lymphocytes % Monocytes % Eosinophils % Basophils % Neutrophils # Lymphocytes # Monocytes # Eosinophils # Basophils # Platelet Estimate Large Platelets Immature Plt Fraction Hypochromasia Anisocytosis Sodium 146 H Potassium 4.4 Chloride 93 L Carbon Dioxide 45 H* BUN 120 H Creatinine 3.60 H Est GFR ( Amer) 21 L Est GFR (Non-Af Amer) 17 L BUN/Creatinine Ratio 33 H Glucose 372 H Calculated Osmolality 356 H Calcium 8.4 L - ABG Interpretation ABG results: ABG ABG pH 7.58 pH Units (7.32-7.45) H 07/23/18 04:54 ABG pCO2 48 mmHg (35-45) H 07/23/18 04:54 ABG pO2 154 mmHg (85-104) H 07/23/18 04:54 ABG O2 Saturation 100 % (95-98) H 07/23/18 04:54 PT/INR, D-dimer PT 27.6 Seconds (9.4-12.1) H 07/22/18 11:53 Palliative Scale - Palliative Performance Scale How ambulatory is this patient?: Totally bed bound What is patient's level of activity and evidence of disease?: Unable to do any activity, Extensive disease How much self-care assistance does patient require?: Total care How much oral intake does the patient have?: Mouth care only Palliative Performance Score: 10 % Consult Discharge Plan - Plan Referrals: NONE,PCP [Primary Care Provider] -
--- NOTE | 2018-07-25 10:55 | Nephrology Consult Note ---
Date of Encounter: 07/25/18 Time of Encounter: 10:45 Assessment and Plan (1) Acute kidney injury superimposed on chronic kidney disease Current Visit: Yes Status: Acute Patient with ARCADIO on CKD secondary to multiple causes. Renal function improving despite negative volume balance. Avoid nephrotoxins Adjust medications for renal function. (2) Elevated blood urea nitrogen Current Visit: Yes Status: Acute Patient with elevated BUN in the context of volume negative status and steroid use. According to his his mental status and apettite have been improving over the last few days which is inconsistent with uremia. He is lethargic at the time of my exam, but his reports he was alert and interactive this morning. Will give gentle fluids to stabilize or improve the BUN. (3) Cardiac arrest Current Visit: Yes Status: Acute (4) HTN (hypertension) Current Visit: No Status: Chronic Qualifiers: Hypertension type: essential hypertension Qualified Code(s): I10 - Essential (primary) hypertension History of Present Illness - Reason for Consult Consult date: 07/25/18 Acute Kidney Injury, Chronic Kidney Disease - Chief Complaint ARCADIO on CKD - History of Present Illness Mr. Noriega is a 68 yo man with a history of CKD followed by [facility] under the direction of Dr. Jaeger. He is asleep at the time of my evaluation and his history was provided by his at bedside, discussion with Dr. Sethi and review of the patient's chart. Past Med Surg Social Fam HX - Past Medical History Medical history: arthritis, atrial fibrillation, CHF, diabetes, GERD, hyperlipidemia, hypertension, myocardial infarction, peripheral artery disease, thyroid disease, syncope Psychiatric history: no psych history - Past Surgical History Surgical History: angioplasty/stent, appendectomy, cholecystectomy, coronary bypass (CABG) Additional surgical history: tonsilectomy, pituitary tumor removed, exploratory for possible cyst in stomach ( scar tissue ), triple bypass, R BKA, heart stent - Social History Smoking Status: Never smoker Smokeless Tobacco Status: No Alcohol use: occasionally Drug use: none - Family History Father Adopted: No Family Member Ethnicity: Non- Living Status: Hx Family Cardiac Disorders: No Hx Family Respiratory Disorders: No Hx Family Cancer: Yes Hx Family GI Disorders: No Hx Family Endocrine Disorder: No Hx Family Neuromuscular Disorders: No Hx Family Neurologic Disorders: No Hx Family HEENT Disorders: No Hx Family Autoimmune Disorders: No Medications and Allergies Levothyroxine [Synthroid] 88 mcg PO Q48H 02/18/16 [History] Morphine Sulfate SR (12 HR) [MS Contin] 15 mg PO Q12HR tablet.er 02/29/16 [Rx] Aspirin Enteric Coated [Aspirin EC] 81 mg PO DAILY 03/09/18 [History] Atorvastatin [Lipitor] 10 mg PO HS 03/09/18 [History] Insulin ASPART [NovoLOG] 4 - 18 unit SQ TIDAC 03/09/18 [History] Multivitamin [One Daily Essential] 1 tab PO DAILY 03/09/18 [History] Nitroglycerin [Nitrostat] 0.4 mg SL Q5MIN PRN 03/09/18 [History] Polyethylene Glycol 3350 [MiraLAX] 17 gm PO DAILY 03/09/18 [History] Potassium Chloride [K-Tab ER] 60 meq PO TID 03/09/18 [History] Apixaban [Eliquis] 5 mg PO BID #60 tablet 03/11/18 [Rx] Bumetanide 4 mg PO TID 05/31/18 [History] Cabergoline 0.5 mg PO MALDONADO 05/31/18 [History] Gabapentin [Neurontin] 800 mg PO BID 05/31/18 [History] Metoprolol Succinate 12.5 mg PO DAILY 05/31/18 [History] predniSONE [PredniSONE] 5 mg PO DAILY 05/31/18 [History] Spironolactone [Aldactone] 50 mg PO DAILY 30 Days #60 tablet 06/07/18 [Rx] metOLazone [Zaroxolyn] 2.5 mg PO DAILY 30 Days #15 tablet 06/07/18 [Rx] Albuterol Sulfate [Ventolin Hfa] 2 puff IH Q6H PRN 07/04/18 [History] Budesonide/Formoterol 80/4.5 [Symbicort 80/4.5] 2 puff IH BID 07/04/18 [History] Metoclopramide [Reglan] 10 mg PO DAILY 07/04/18 [History] Allergy/AdvReac Type Severity Reaction Status Date / Time Penicillins Allergy Hives Verified 03/09/18 13:46 Sulfa (Sulfonamide Allergy Nausea Verified 03/09/18 13:46 Antibiotics) carvedilol [From Coreg] AdvReac Hypotension Verified 03/09/18 13:46 lisinopril AdvReac Hypotension Verified 03/09/18 13:46 Review of Systems ROS unobtainable: due to mental status (Patient asleep. ) Exam - Vital Signs Vital signs: Initial Vital Signs Temp Pulse Resp BP Pulse Ox 97.8 F 46 20 93/51 95 07/22/18 10:47 07/22/18 10:47 07/22/18 10:47 07/22/18 10:47 07/22/18 10:47 Vital Signs - Last 8 Hours Temp Pulse Resp BP Pulse Ox 07/25/18 06:54 97.9 F 61 16 143/74 100 07/25/18 04:19 97.8 F 61 17 134/83 100 Intake and Output 07/24/18 07/25/18 07/25/18 23:59 07:59 15:59 Output Total 900 / 900 750 / 750 Balance -900 / -900 -750 / -750 Output: Catheter 900 / 900 750 / 750 Other: Stool Size Moderate # Bowel Movement Diapers 1 Weight 97.3 kg Blood Glucose* 323 379 Patient Weight 07/25/18 23:59 Weight 97.3 kg - General Appearance General appearance: well-developed, well-nourished, obese EENT: ATNC Neck: supple Respiratory: rhonchi Cardiology: edema (left lower extremity with trace to 1+ edema. ), regular rate Gastrointestinal: no tenderness, obese Integumentary: warm and dry Additional Comments: asleep Musculoskeletal: no cyanosis Additional Comments: resting comfortably. Results - Lab Results 07/25/18 04:39 07/25/18 04:39 Most recent lab results ABG pH 7.58 pH Units (7.32-7.45) H 07/23/18 04:54 ABG pCO2 48 mmHg (35-45) H 07/23/18 04:54 ABG pO2 154 mmHg (85-104) H 07/23/18 04:54 ABG HCO3 45 mEq/L (21-27) H 07/23/18 04:54 ABG O2 Saturation 100 % (95-98) H 07/23/18 04:54 Calcium 8.4 mg/dL (8.6-10.3) L 07/25/18 04:39 Phosphorus 9.1 mg/dL (2.7-4.5) H 07/22/18 11:53 Magnesium 2.4 mg/dL (1.6-2.6) 07/23/18 03:55 Consult Discharge Plan - Plan Referrals: NONE,PCP [Primary Care Provider] -
[2018-07-25] MEDS ORDERED: 0.9 % Sodium Chloride 1,000 ML IVC SCH (11:00)
[2018-07-25] MEDS: cefTRIAXone 2,000 MG in Water for inj. (sterile) 20 ML 20 ML IVP SCH (12:29)
[2018-07-25] MEDS: Insulin DETEMIR 100 UNIT/ML X5UNITS SQ SCH ×2 (12:29→20:30)
--- NOTE | 2018-07-25 13:25 | Internal Med Progress Note ---
Hospitalist Progress Note - Encounter Date of Encounter: 07/25/18 Time of Encounter: 10:30 - Subjective Interval History: Hospital course reviewed. Patient initially presented with weakness, vomiting, and diarrhea -> subsequently developed cardiac arrest requiring intubation and pressor support. Etiology suspected to be electrolyte abnormalities +/- septic shock with strep bacetermia. Extubated successfully and weaned to 4L O2. This morning, patient was lethargic but according to the at bedside, patient just went to bed after talking to her through the morning. No focal complaints, having adequate UOP. - Exam Vitals: Temp Pulse Resp BP Pulse Ox 97.7 F 66 20 149/78 100 07/25/18 11:08 07/25/18 11:08 07/25/18 11:08 07/25/18 11:08 07/25/18 11:08 Exam: General: lethargic but arousable with light touch, not in acute distress. Cardiovascular:Normal S1 & S2, No JVD. Pulse regular. Lungs: scattered rhonchi Abdomen:Soft, non-tender, no rigidity. : cline with clear urine - Assessment and Plan (1) Cardiac arrest Current Visit: Yes Status: Acute Assessment and Plan: ICU notes reviewed, attributed to electrolyte abnormalities versus sepsis with shock CXR with bilateral infiltrates, also with streptococcus bacteremia ?significance required intubation and pressors -> weaned off clinically improving on IV Rocephin, continue repeat culture 07/24 NGTD DNRCCA-DNI (2) Gram-positive bacteremia Current Visit: Yes Status: Acute Assessment and Plan: as above (3) Acute kidney injury superimposed on chronic kidney disease Current Visit: Yes Status: Acute Assessment and Plan: patient has waxing and waning mental status ?contributed by uremia however, Cr improving with adequate UOP discussed with nephrology, will gently hydrate the patient today. Appreciate input (4) Respiratory failure Current Visit: Yes Status: Acute Assessment and Plan: weaned down to 4L NC abx as above (5) Pneumonia Current Visit: Yes Status: Suspected Assessment and Plan: as above (6) Adrenal insufficiency Current Visit: No Status: Chronic Assessment and Plan: on stress dose steroids, D4 will start to taper, likely over a week, back to his home dose of 5mg QD (7) Pulmonary hypertension Current Visit: Yes Status: Acute Assessment and Plan: scheduled for outpatient RHC, to be done after recovery (8) Atrial fibrillation Current Visit: No Status: Chronic Assessment and Plan: bb yet to be confirmed, couldn't use it regardless due to shock apixaban on hold due to AoCKD, would wait till stabilization of his renal function prior to resuming it may have to consider heparin gtt in the mean time, to be discussed after GOS discussion tomorrow (9) Diabetes Current Visit: No Status: Chronic Assessment and Plan: uncontrolled, likel contributed by stress dose steroids taper as above add basal insulin and increase sliding scale to high dose DVT Prophylaxis: SQ heparin - Time Spent with Patient Total time spent is greater than 50% in coordination of care (as documented) at patient's floor/unit and/or counseling patient: 40 mins Plan of Care Discussed with: family (discussed with nephrology as well) Internal Medicine: Result - Labs CBC & Chem 7: 07/25/18 04:39 07/25/18 04:39 Labs: Short CBC 07/24/18 07/25/18 Range/Units 15:11 04:39 WBC 14.5 H 10.5 (4.3-11.1) K/mcL Hgb 11.5 L 11.5 L (12.9-16.9) g/dL Hct 38.3 38.6 (37.5-50.1) % Plt Count 104 L 106 L (140-400) K/mcL Neutrophils # 13.4 H 9.7 H (1.6-8.9) K/mcL BMP 07/24/18 07/25/18 15:11 04:39 Sodium 144 146 H Potassium 5.0 4.4 Chloride 91 L 93 L Carbon Dioxide 35 H 45 H* BUN 106 H 120 H Creatinine 3.93 H 3.60 H Glucose 338 H 372 H Calcium 8.5 L 8.4 L - ABG Interpretation ABG results: ABG ABG pH 7.58 pH Units (7.32-7.45) H 07/23/18 04:54 ABG pCO2 48 mmHg (35-45) H 07/23/18 04:54 ABG pO2 154 mmHg (85-104) H 07/23/18 04:54 ABG O2 Saturation 100 % (95-98) H 07/23/18 04:54 PT/INR, D-dimer PT 27.6 Seconds (9.4-12.1) H 07/22/18 11:53 Consult Discharge Plan - Plan Referrals: NONE,PCP [Primary Care Provider] - (4) Respiratory failure Qualifiers: Chronicity: acute on chronic Respiratory failure complication: hypoxia and hypercapnia Qualified Code(s): J96.21 - Acute and chronic respiratory failure with hypoxia; J96.22 - Acute and chronic respiratory failure with hypercapnia (5) Pneumonia Qualifiers: Pneumonia type: due to unspecified organism Laterality: bilateral Lung location: unspecified part of lung Qualified Code(s): J18.9 - Pneumonia, unspecified organism (8) Atrial fibrillation Qualifiers: Atrial fibrillation type: unspecified Qualified Code(s): I48.91 - Unspecified atrial fibrillation (9) Diabetes Qualifiers: Diabetes mellitus type: type 2 Diabetes mellitus terminal supervisor insulin use: unspecified terminal supervisor insulin use status Diabetes mellitus complication status: with unspecified complications Qualified Code(s): E11.8 - Type 2 diabetes claire itus with unspecified complications
[2018-07-25] MEDS: Gabapentin 300 MG CAPSULE PO SCH (20:31)
[2018-07-25] MEDS ORDERED: Insulin DETEMIR 100 UNIT/ML X5UNITS SQ SCH (21:00)
[2018-07-26] MEDS: Artificial Tears SOLN 15 ML BOTTLE BOTH EYES SCH ×6 (00:22→22:37)
[2018-07-26] MEDS: Hydrocortisone Sodium Succ 100 MG/2 ML VIAL IVP SCH ×4 (00:22→17:02)
[2018-07-26 05:24] LABS: Basophils % 0.1 %; Mean Corpuscular Volume 79.4 fL (83.0-100.0)
[2018-07-26 05:26] LABS: Eosinophils % 0.1 %; Hematocrit 38.2 % (37.5-50.1); Hemoglobin 11.4 g/dL (12.9-16.9); Immature Granulocytes % 0.6 % (0-4); Immature Platelets 5.2 % (1.1-6.1); Lymphocytes # 0.3 K/mcL (0.6-4.6); Lymphocytes % 2.3 %; Mean Corpuscular HGB Conc 29.8 g/dL (31.6-35.5); Mean Corpuscular Hemoglobin 23.7 pg (28.0-33.3); Mean Platelet Volume 11.3 fL (9.4-12.4); Monocytes # 0.5 K/mcL (0.0-1.3); Neutrophils # 10.7 K/mcL (1.6-8.9); Red Blood Count 4.81 M/mcL (4.19-5.50); Red Cell Distribution Width 22.7 % (11.5-14.5); Segmented Neutrophils % 92.9 %
[2018-07-26 05:36] LABS: VBG HCO3 40 mEq/L (21-27); VBG PCO2 43 mmHg (41-51); VBG PH 7.58 pH Units (7.32-7.42); VBG PO2 196 mmHg (25-50)
[2018-07-26 05:43] LABS: Calcium 8.5 mg/dL (8.6-10.3); Magnesium 2.8 mg/dL (1.6-2.6); Potassium 3.5 mEq/L (3.5-5.1)
[2018-07-26 05:47] LABS: Platelet Count 69 K/mcL (140-400)
[2018-07-26 05:51] LABS: Platelet Estimate Decreased (Normal)
[2018-07-26 05:52] LABS: Anisocytosis 1+ (Not Present)
[2018-07-26 05:53] LABS: Target Cells 1+ (Not Present)
[2018-07-26] MEDS: *HR* Heparin 5,000 UNIT/ML VIAL SQ SCH (06:18)
[2018-07-26] MEDS: Budesonide/Formoterol 80/4.5 MDI IH SCH ×2 (07:57→21:45)
[2018-07-26] MEDS: Chlorhexidine Rinse 15 ML MOUTHWASH MM SCH ×2 (08:28→22:38)
[2018-07-26] MEDS: Insulin LISPRO 300 UNITS/3 ML VIAL SQ SCH ×4 (08:28→22:38)
[2018-07-26] MEDS: Aspirin Enteric Coated 81 MG Tablet PO SCH (08:28)
[2018-07-26] MEDS: Insulin DETEMIR 100 UNIT/ML X5UNITS SQ SCH ×2 (08:29→22:37)
--- NOTE | 2018-07-26 10:20 | Nephrology Progress Note ---
Addendum entered and electronically signed by Rex Hernandez DO 07/26/18 16:34: I have personally performed a face to face evaluation on this patient. I have reviewed and agree with the care plan. History and Exam by me shows: He was prerenal with elevated BUN from the recent N/V/D, and he is now quickly bouncing back, with borderline low serum K+ today, so I recommend resuming both the Spironolactone and the Fluid Restriction. Likely by tomorrow, depending upon lab results and exam/UOP reportings, I may be ready to resume Bumex and possibly periodic Metolazone. Discussed with the pt's in detail. Original Note: Date of Encounter: 07/26/18 Time of Encounter: 10:17 - Assessment and Plan (1) Acute kidney injury superimposed on chronic kidney disease Current Visit: Yes Status: Acute Patient with ARCADIO on CKD multifactorial. Scr is 3.51 and GFR 26 both improved. 1.5 Liter fluid restriction ordered. Spoke with primary team, please continue Spironolactone home dose. Continue to hold Bumex and Metolazone for now. Renal function improving despite negative volume balance. Avoid nephrotoxins Adjust medications for renal function. (2) HTN (hypertension) Current Visit: No Status: Chronic 153/81, stable Qualifiers: Hypertension type: essential hypertension Qualified Code(s): I10 - Essential (primary) hypertension (3) Elevated blood urea nitrogen Current Visit: Yes Status: Acute IVF have been d/juancho, will monitor. (4) Cardiac arrest Current Visit: Yes Status: Acute Subjective Principal diagnosis: cardiac arrest Interval history: PT seen and examined, pt resting with eyes closed for exam. History obtained from significant other at bedside. Objective - Vital Signs Vital signs: Vital Signs Temp Pulse Resp BP Pulse Ox 07/26/18 08:45 97 07/26/18 07:58 18 97 07/26/18 07:16 97.6 F 61 20 153/81 100 07/26/18 04:17 98.1 F 57 18 164/78 100 07/25/18 23:45 97.6 F 59 18 153/77 100 07/25/18 21:45 62 149/83 07/25/18 20:22 20 98 07/25/18 19:24 97.6 F 64 18 191/97 100 07/25/18 15:15 97.5 F L 65 20 141/78 100 07/25/18 11:08 97.7 F 66 20 149/78 100 Intake and Output 07/25/18 07/26/18 07/26/18 23:59 07:59 15:59 Intake Total 120 / 120 500 / 500 Output Total 1100 / 1100 2250 / 2250 500 / 500 Balance -980 / -980 -1750 / -1750 -500 / -500 Intake: IV Fluids 500 / 500 0.9 % Sodium Chloride 1,000 ML 500 / 500 @ 50 mls/hr IVC .Q20H [place] Rx#: [id number] Oral 120 / 120 Output: Urine 1100 / 1100 600 / 600 Catheter 1650 / 1650 500 / 500 Urethral (Todd) 500 / 500 Other: Meal Milk shake Stool Size Moderate Stool Consistency soft Stool Characteristics Tarry Stool Color Brown # Bowel Movement Diapers 1 Weight 100.7 kg Blood Glucose* 458 210 - General Appearance General appearance: Present: chronically ill, frail EENT: Present: ATNC, hearing intact, vision intact Neck: Present: supple Respiratory: Present: clear Cardiology: Present: edema (Trace edema noted to bilat upper extremities. +1 pitting edema noted to bilat lower extremities.), normal S1, normal S2 Gastrointestinal: Present: normoactive bowel sounds, no tenderness, no guarding Integumentary: Present: no rash, warm and dry Additional Comments: Alert, but unable to converse due to fatigue. Family at bedside did state he was up for "3 hours" and is now resting. Psychiatric: Present: mood/affect appropriate, cooperative - Lab 07/26/18 05:11 07/26/18 05:11 Most recent lab results ABG pH 7.58 pH Units (7.32-7.45) H 07/23/18 04:54 ABG pCO2 48 mmHg (35-45) H 07/23/18 04:54 ABG pO2 154 mmHg (85-104) H 07/23/18 04:54 ABG HCO3 45 mEq/L (21-27) H 07/23/18 04:54 ABG O2 Saturation 100 % (95-98) H 07/23/18 04:54 Calcium 8.5 mg/dL (8.6-10.3) L 07/26/18 05:11 Phosphorus 9.1 mg/dL (2.7-4.5) H 07/22/18 11:53 Magnesium 2.8 mg/dL (1.6-2.6) H 07/26/18 05:11 Consult Discharge Plan - Plan Referrals: NONE,PCP [Primary Care Provider] -
--- NOTE | 2018-07-26 10:54 | Internal Med Progress Note ---
Hospitalist Progress Note - Encounter Date of Encounter: 07/26/18 Time of Encounter: 08:30 - Subjective Interval History: Hospital course reviewed. Patient initially presented with weakness, vomiting, and diarrhea -> subsequently developed cardiac arrest requiring intubation and pressor support. Etiology suspected to be electrolyte abnormalities +/- septic shock with strep bacetermia. Extubated successfully and weaned to 4L O2. This morning, patient was lethargic but according to the at bedside, patient just went to bed after talking to her through the morning. No focal complaints, having adequate UOP. - Exam Vitals: Temp Pulse Resp BP Pulse Ox 97.8 F 63 20 163/77 100 07/26/18 10:28 07/26/18 10:28 07/26/18 10:28 07/26/18 10:28 07/26/18 10:28 Exam: General: Much more alert and responsive than yesterday. Oriented 4, not in acute distress. Cardiovascular:Normal S1 & S2, No JVD. Pulse regular. Lungs: scattered rhonchi Abdomen:Soft, non-tender, no rigidity. : cline with clear urine - Assessment and Plan (1) Cardiac arrest Current Visit: Yes Status: Acute Assessment and Plan: ICU notes reviewed, attributed to electrolyte abnormalities versus sepsis with shock CXR with bilateral infiltrates, also with streptococcus salivarius and parasanguinis bacteremia required intubation and pressors -> weaned off clinically improving on IV Rocephin, both bacteria sen to Alexander. Will complete a total of 14 days through 08/07 repeat culture 07/24 NGTD DNRCCA-DNI (2) Gram-positive bacteremia Current Visit: Yes Status: Acute Assessment and Plan: as above (3) Acute kidney injury superimposed on chronic kidney disease Current Visit: Yes Status: Acute Assessment and Plan: improved after a small dose of IVF, adequate UOP and BUN finally decreasing appreciate nephrology input, will continue to monitor Cr as his oral intake improves Avoid nephrotoxins (4) Respiratory failure Current Visit: Yes Status: Acute Assessment and Plan: Improving, abx as above continue to wean down O2 (5) Atrial fibrillation Current Visit: Yes Status: Chronic Assessment and Plan: resume bb once reconciled apixaban on hold due to AoCKD. CHADSVASC 4-5 (unsure about PAD history) discussed with the patient and his at length regarding interim AC, would wait till stabilization of his Cr so that he can be resumed on apixaban rather than heparin gtt or coumadin despite understanding the risk of thromboembolism in the meantime (6) Pneumonia Current Visit: Yes Status: Suspected Assessment and Plan: as above (7) Adrenal insufficiency Current Visit: No Status: Chronic Assessment and Plan: on stress dose steroids, started to taper from yesterday aim to return to his home dose of 5mg QD later this week (8) Pulmonary hypertension Current Visit: Yes Status: Acute Assessment and Plan: scheduled for outpatient RHC, to be done after recovery (9) Diabetes Current Visit: No Status: Chronic Assessment and Plan: uncontrolled, likely contributed by stress dose steroids which is being tapered glycemic control also improving on the addition of basal insulin increase levemir to 10U BID, keep moderate dose sliding scale hold off on PO meds DVT Prophylaxis: SQ heparin - Time Spent with Patient Total time spent is greater than 50% in coordination of care (as documented) at patient's floor/unit and/or counseling patient: Plan of Care Discussed with: patient (discussed with the family member as well) Internal Medicine: Result - Labs CBC & Chem 7: 07/26/18 05:11 07/26/18 05:11 Labs: Short CBC 07/26/18 Range/Units 05:11 WBC 11.5 H (4.3-11.1) K/mcL Hgb 11.4 L (12.9-16.9) g/dL Hct 38.2 (37.5-50.1) % Plt Count 69 L (140-400) K/mcL Neutrophils # 10.7 H (1.6-8.9) K/mcL BMP 07/26/18 05:11 Sodium 145 Potassium 3.5 Chloride 96 L Carbon Dioxide 37 H BUN 103 H Creatinine 2.51 H Glucose 227 H Calcium 8.5 L - ABG Interpretation ABG results: ABG ABG pH 7.58 pH Units (7.32-7.45) H 07/23/18 04:54 ABG pCO2 48 mmHg (35-45) H 07/23/18 04:54 ABG pO2 154 mmHg (85-104) H 07/23/18 04:54 ABG O2 Saturation 100 % (95-98) H 07/23/18 04:54 PT/INR, D-dimer PT 27.6 Seconds (9.4-12.1) H 07/22/18 11:53 Consult Discharge Plan - Plan Referrals: NONE,PCP [Primary Care Provider] - (4) Respiratory failure Qualifiers: Chronicity: acute on chronic Respiratory failure complication: hypoxia and hypercapnia Qualified Code(s): J96.21 - Acute and chronic respiratory failure with hypoxia; J96.22 - Acute and chronic respiratory failure with hypercapnia (5) Atrial fibrillation Qualifiers: Atrial fibrillation type: unspecified Qualified Code(s): I48.91 - Unspecified atrial fibrillation (6) Pneumonia Qualifiers: Pneumonia type: due to unspecified organism Laterality: bilateral Lung location: unspecified part of lung Qualified Code(s): J18.9 - Pneumonia, un specified organism (9) Diabetes Qualifiers: Diabetes mellitus type: type 2 Diabetes mellitus shelter insulin use: unspecified shelter insulin use status Diabetes mellitus complication status: with unspecified complications Qualified Code(s): E11.8 - Type 2 diabetes mellitus with unspecified complications
[2018-07-26] MEDS: cefTRIAXone 2,000 MG in Water for inj. (sterile) 20 ML 20 ML IVP SCH (11:54)
[2018-07-26] MEDS: Spironolactone 25 MG TABLET PO SCH (11:55)
--- NOTE | 2018-07-26 16:49 | Palliative Progress Note ---
Date of Encounter: 07/26/18 Time of Encounter: 13:00 - Assessment and plan (1) Goals of care, counseling/discussion Current Visit: Yes Status: Acute Assessment and plan: at bedside, she is very happy with pt's improvement, and is now looking forward to possible discharge. Family at this point is not interested in hospice. As per SW note, pt was accepted to [facility]. (2) CHF (congestive heart failure) Current Visit: Yes Status: Chronic Assessment and plan: Patient was scheduled at CHF clinic at [facility]. Possible f/u will depend on recovery. Qualifiers: Heart failure type: diastolic Heart failure chronicity: chronic Qualified Code(s): I50.32 - Chronic diastolic (congestive) heart failure (3) ARCADIO (acute kidney injury) Current Visit: No Status: Acute (4) Adrenal insufficiency Current Visit: No Status: Chronic Assessment and plan: On prednisone taper, to return to baseline of 5mg qd (5) Respiratory failure Current Visit: Yes Status: Acute Qualifiers: Chronicity: acute on chronic Respiratory failure complication: hypoxia and hypercapnia Qualified Code(s): J96.21 - Acute and chronic respiratory failure with hypoxia; J96.22 - Acute and chronic respiratory failure with hypercapnia (6) Pneumonia Current Visit: Yes Status: Suspected Assessment and plan: On Ceftriaxone, breathing improving. Qualifiers: Pneumonia type: due to unspecified organism Laterality: bilateral Lung location: unspecified part of lung Qualified Code(s): J18.9 - Pneumonia, unspecified organism - Time Spent With Patient Total time spent is greater than 50% face to face with the pt, in coordination of care (as documented) at patient's floor/unit and/or counseling patient: 25 - 35 minutes - Subjective Interval history: Pt was sleeping, but arousable transiently. speaking in full sentences. in no acute distress, denies pin or sob. at the bedside, states he is taking PO well. - Constitutional Vitals: Abnormal lab results WBC 11.5 K/mcL (4.3-11.1) H 07/26/18 05:11 Hgb 11.4 g/dL (12.9-16.9) L 07/26/18 05:11 MCV 79.4 fL (83.0-100.0) L 07/26/18 05:11 MCH 23.7 pg (28.0-33.3) L 07/26/18 05:11 MCHC 29.8 g/dL (31.6-35.5) L 07/26/18 05:11 RDW 22.7 % (11.5-14.5) H 07/26/18 05:11 Plt Count 69 K/mcL (140-400) L 07/26/18 05:11 Band Neutrophils % 18.0 % (0-4) H 07/22/18 14:35 Neutrophils # 10.7 K/mcL (1.6-8.9) H 07/26/18 05:11 Lymphocytes # 0.3 K/mcL (0.6-4.6) L 07/26/18 05:11 Nucleated RBCs/100 WBC 0.1 /100 WBC (0) H 07/22/18 14:35 Platelet Estimate Decreased (Normal) L 07/26/18 05:11 Large Platelets Present (Not Present) A 07/25/18 04:39 Polychromasia 1+ (Not Present) A 07/23/18 03:55 Hypochromasia Present (Not Present) A 07/25/18 04:39 Anisocytosis 1+ (Not Present) A 07/26/18 05:11 Target Cells 1+ (Not Present) A 07/26/18 05:11 PT 27.6 Seconds (9.4-12.1) H 07/22/18 11:53 APTT 53.5 Seconds (26.0-36.0) H 07/22/18 11:53 ABG pH 7.58 pH Units (7.32-7.45) H 07/23/18 04:54 ABG pCO2 48 mmHg (35-45) H 07/23/18 04:54 ABG pO2 154 mmHg (85-104) H 07/23/18 04:54 ABG HCO3 45 mEq/L (21-27) H 07/23/18 04:54 ABG Total CO2 46 mEq/L (20-26) H 07/23/18 04:54 ABG O2 Saturation 100 % (95-98) H 07/23/18 04:54 ABG Base Excess 20 mEq/L (-2 to 3) H 07/23/18 04:54 VBG pH 7.58 pH Units (7.32-7.42) H 07/26/18 05:28 VBG pO2 196 mmHg (25-50) H 07/26/18 05:28 VBG HCO3 40 mEq/L (21-27) H 07/26/18 05:28 Chloride 96 mEq/L (98-107) L 07/26/18 05:11 Carbon Dioxide 37 mEq/L (23-29) H 07/26/18 05:11 BUN 103 mg/dL (8-23) H 07/26/18 05:11 Creatinine 2.51 mg/dL (0.70-1.30) H 07/26/18 05:11 Est GFR ( Amer) 31 (> 60) L 07/26/18 05:11 Est GFR (Non-Af Amer) 26 (> 60) L 07/26/18 05:11 BUN/Creatinine Ratio 41 (6-26) H 07/26/18 05:11 Glucose 227 mg/dL (70-105) H 07/26/18 05:11 POC Glucose 458 mg/dL (70-99) H* 07/25/18 20:26 Hemoglobin A1c 8.7 % (-5.6) H 07/22/18 17:00 Calculated Osmolality 339 (280-300) H 07/26/18 05:11 Lactic Acid 2.4 mmol/L (0.5-2.2) H 07/23/18 03:55 Calcium 8.5 mg/dL (8.6-10.3) L 07/26/18 05:11 Phosphorus 9.1 mg/dL (2.7-4.5) H 07/22/18 11:53 Magnesium 2.8 mg/dL (1.6-2.6) H 07/26/18 05:11 Total Bilirubin 1.2 mg/dL (0.3-1.0) H 07/23/18 03:55 Direct Bilirubin 0.3 mg/dL (0.0-0.2) H 07/22/18 11:53 AST 188 Units/L (13-39) H 07/23/18 03:55 ALT 84 Units/L (7-52) H 07/23/18 03:55 Troponin I 0.85 ng/mL (< 0.04) H* 07/22/18 19:45 B-Natriuretic Peptide 691 pg/mL (Less than 100) H 07/22/18 11:53 Serum Total Protein 5.5 g/dL (6.4-8.9) L 07/23/18 03:55 Albumin 2.8 g/dL (3.5-5.7) L 07/23/18 03:55 Albumin/Globulin Ratio 1.0 (1.1-2.2) L 07/23/18 03:55 Urine Clarity Turbid (Clear) A 07/22/18 16:00 Urine Protein 30 mg/dL (Neg-Trace) H 07/22/18 16:00 Urine Glucose (UA) 250 mg/dL (Normal) H 07/22/18 16:00 Urine Blood Large (Negative) H 07/22/18 16:00 Urine Microscopic RBC 50-100 per hpf (0-3) H 07/22/18 16:00 Urine Microscopic WBC 50-100 per hpf (0-3) H 07/22/18 16:00 Ur Squamous Epith Cells Moderate per lpf (None-Few) H 07/22/18 16:00 Streptococcus sp PCR DETECTED (Not Detect) A 07/22/18 11:53 Exam: no acute distress - Cardiovascular Cardiovascular exam: Present: +S1, +S2 - GI/Abdominal GI/Abdominal exam: Present: normal bowel sounds, soft. Absent: tenderness - Additional comments: cline in place - Extremities Exam Extremities exam: Present: pedal edema Additional comments: R MARYA Palliative Quality Palliative Quality: Screen for Code Status: Yes, Screen for Goals of Care: Yes, Screen for Pain: Yes, If Pain Regimen Started, Initiate Bowel Regimen: NA, Screen for Nausea/Vomitting: Yes Code Status: 07/22/18 16:06 CODE [Resuscitation Status: Active] [RES] Routine Comment: Resuscitation Status: DNR-Comfort Care-Arrest 07/23/18 11:01 CODE [Resuscitation Status: Active] [RES] Routine Comment: Resuscitation Status: [id number] - Labs CBC & Chem 7: 07/26/18 05:11 07/26/18 05:11 Labs: Laboratory Results - last 24 hr 07/24/18 07/25/18 07/25/18 18:02 07:06 11:17 WBC RBC Hgb Hct MCV MCH MCHC RDW Plt Count MPV Immature Gran % Seg Neutrophils % Lymphocytes % Monocytes % Eosinophils % Basophils % Neutrophils # Lymphocytes # Monocytes # Eosinophils # Basophils # Platelet Estimate Immature Plt Fraction Anisocytosis Target Cells VBG pH VBG pCO2 VBG pO2 VBG HCO3 Sodium Potassium Chloride Carbon Dioxide BUN Creatinine Est GFR ( Amer) Est GFR (Non-Af Amer) BUN/Creatinine Ratio Glucose POC Glucose 400 H 379 H 453 H* Calculated Osmolality Calcium Magnesium 07/25/18 07/25/18 07/26/18 17:04 20:26 05:11 WBC 11.5 H RBC 4.81 Hgb 11.4 L Hct 38.2 MCV 79.4 L MCH 23.7 L MCHC 29.8 L RDW 22.7 H Plt Count 69 L MPV 11.3 Immature Gran % 0.6 Seg Neutrophils % 92.9 Lymphocytes % 2.3 Monocytes % 4.0 Eosinophils % 0.1 Basophils % 0.1 Neutrophils # 10.7 H Lymphocytes # 0.3 L Monocytes # 0.5 Eosinophils # 0.0 Basophils # 0.0 Platelet Estimate Decreased L Immature Plt Fraction 5.2 Anisocytosis 1+ A Target Cells 1+ A VBG pH VBG pCO2 VBG pO2 VBG HCO3 Sodium Potassium Chloride Carbon Dioxide BUN Creatinine Est GFR ( Amer) Est GFR (Non-Af Amer) BUN/Creatinine Ratio Glucose POC Glucose 448 H* 458 H* Calculated Osmolality Calcium Magnesium 07/26/18 07/26/18 05:11 05:28 WBC RBC Hgb Hct MCV MCH MCHC RDW Plt Count MPV Immature Gran % Seg Neutrophils % Lymphocytes % Monocytes % Eosinophils % Basophils % Neutrophils # Lymphocytes # Monocytes # Eosinophils # Basophils # Platelet Estimate Immature Plt Fraction Anisocytosis Target Cells VBG pH 7.58 H VBG pCO2 43 VBG pO2 196 H VBG HCO3 40 H Sodium 145 Potassium 3.5 Chloride 96 L Carbon Dioxide 37 H BUN 103 H Creatinine 2.51 H Est GFR ( Amer) 31 L Est GFR (Non-Af Amer) 26 L BUN/Creatinine Ratio 41 H Glucose 227 H POC Glucose Calculated Osmolality 339 H Calcium 8.5 L Magnesium 2.8 H - ABG Interpretation ABG results: ABG ABG pH 7.58 pH Units (7.32-7.45) H 07/23/18 04:54 ABG pCO2 48 mmHg (35-45) H 07/23/18 04:54 ABG pO2 154 mmHg (85-104) H 07/23/18 04:54 ABG O2 Saturation 100 % (95-98) H 07/23/18 04:54 PT/INR, D-dimer PT 27.6 Seconds (9.4-12.1) H 07/22/18 11:53 Palliative Scale - Palliative Performance Scale How ambulatory is this patient?: Totally bed bound What is patient's level of activity and evidence of disease?: Unable to do any activity, Extensive disease How much self-care assistance does patient require?: Total care How much oral intake does the patient have?: Mouth care only Palliative Performance Score: 10 % Consult Discharge Plan - Plan Referrals: NONE,PCP [Primary Care Provider] -
[2018-07-26] MEDS: Gabapentin 300 MG CAPSULE PO SCH (22:37)
[2018-07-27] MEDS: Artificial Tears SOLN 15 ML BOTTLE BOTH EYES SCH ×6 (00:22→20:45)
[2018-07-27] MEDS: Hydrocortisone Sodium Succ 100 MG/2 ML VIAL IVP SCH ×4 (00:22→20:45)
[2018-07-27 06:04] LABS: Immature Granulocytes % 0.4 % (0-4)
[2018-07-27 06:06] LABS: Basophils % 0.1 %; Hematocrit 41.6 % (37.5-50.1); Hemoglobin 12.3 g/dL (12.9-16.9); Immature Platelets 3.3 % (1.1-6.1); Lymphocytes # 0.3 K/mcL (0.6-4.6); Mean Corpuscular HGB Conc 29.6 g/dL (31.6-35.5); Mean Corpuscular Hemoglobin 23.7 pg (28.0-33.3); Mean Platelet Volume 10.9 fL (9.4-12.4); Monocytes # 0.6 K/mcL (0.0-1.3); Neutrophils # 8.7 K/mcL (1.6-8.9); Platelet Count 110 K/mcL (140-400); Red Cell Distribution Width 22.9 % (11.5-14.5); Segmented Neutrophils % 90.5 %
[2018-07-27 06:43] LABS: BUN/Creatinine Ratio 50 (6-26); Blood Urea Nitrogen 63 mg/dL (8-23); Calcium 8.7 mg/dL (8.6-10.3); Carbon Dioxide 45 mEq/L (23-29); Glucose 140 mg/dL (70-105); eGFR For Non-African Americans 58 (> 60)
[2018-07-27 07:27] LABS: Chloride 102 mEq/L (98-107); Osmolality,Calculated 344 (280-300); Potassium 2.4 mEq/L (3.5-5.1); Sodium 157 mEq/L (136-145)
[2018-07-27] MEDS: Budesonide/Formoterol 80/4.5 MDI IH SCH ×2 (07:53→20:11)
[2018-07-27] MEDS: Insulin LISPRO 300 UNITS/3 ML VIAL SQ SCH ×4 (07:53→21:26)
[2018-07-27] MEDS ORDERED: D5% in Water 1,000 ML IVC SCH ×2 (08:45→11:09)
[2018-07-27] MEDS: Chlorhexidine Rinse 15 ML MOUTHWASH MM SCH ×2 (09:31→20:45)
[2018-07-27] MEDS: Insulin DETEMIR 100 UNIT/ML X5UNITS SQ SCH ×2 (09:32→20:46)
[2018-07-27] MEDS: Aspirin Enteric Coated 81 MG Tablet PO SCH (09:32)
[2018-07-27] MEDS: Spironolactone 25 MG TABLET PO SCH (09:32)
[2018-07-27 10:26] LABS: BUN/Creatinine Ratio 47 (6-26); Blood Urea Nitrogen 60 mg/dL (8-23); Calcium 8.4 mg/dL (8.6-10.3); Carbon Dioxide > 45 mEq/L (23-29); Chloride 99 mEq/L (98-107); Glucose 187 mg/dL (70-105); Osmolality,Calculated 332 (280-300); Potassium 2.5 mEq/L (3.5-5.1); Sodium 150 mEq/L (136-145); eGFR For Non-African Americans 56 (> 60)
--- NOTE | 2018-07-27 10:52 | Nephrology Progress Note ---
Addendum entered and electronically signed by Rex Hernandez DO 07/27/18 18:17: I have personally performed a face to face evaluation on this patient. I have reviewed and agree with the care plan. History and Exam by me shows: Prerenal ARCADIO is nicely improving. He developed hypernatremia likely secondary to minimal oral intake (i.e., free water fluid deficit) while having AMS yesterday. Agree with hypotonic fluids and recommend a slow, safe rate of correction; need to track PNa. Hypokalemia: replete and recheck; check [Mg] and he has resumed the Spironolactone. No indications for PRODUCTION MINER at this time. Other than the electrolyte changes, since his renal function is nicely improving, he is doing relatively okay from a Nephrology perspective. Original Note: Date of Encounter: 07/27/18 Time of Encounter: 10:50 - Assessment and Plan (1) Acute kidney injury superimposed on chronic kidney disease Current Visit: Yes Status: Acute Patient with ARCADIO on CKD multifactorial. Repeat BMP did prove K of 2.5, replace with IV potassium already ordered and I did order an additional 40 meq by mouth for this afternoon. Scr is 1.28 and GFR 60, both improved. Encourage free water to help with hypernatremia, please keep in mind the 1.5 Liter fluid restriction. Spoke with primary team, please continue Spironolactone home dose. Continue to hold Bumex and Metolazone for now. Avoid nephrotoxins Adjust medications for renal function. (2) HTN (hypertension) Current Visit: No Status: Chronic Stable Qualifiers: Hypertension type: essential hypertension Qualified Code(s): I10 - Essential (primary) hypertension (3) Elevated blood urea nitrogen Current Visit: Yes Status: Acute BUN is 60. (4) Cardiac arrest Current Visit: Yes Status: Acute (5) Edema, peripheral Current Visit: Yes Status: Acute D5W decreased to 60/hr. 1.5 Liter fluid restriction. Subjective Principal diagnosis: cardiac arrest Interval history: PT seen and examined is much more alert today. Answers questions appropriately. Denies chest pain or shortness of breath. Denies nausea, vomiting, diarrhea. Objective - Vital Signs Vital signs: Vital Signs Temp Pulse Resp BP Pulse Ox 07/27/18 07:53 18 99 07/27/18 07:11 97.6 F 62 18 165/74 100 07/27/18 04:14 97.7 F 58 18 162/70 100 07/27/18 00:20 97.6 F 63 18 157/73 100 07/26/18 21:45 16 100 07/26/18 19:55 97.9 F 64 18 155/75 100 07/26/18 15:28 97.9 F 64 20 131/75 100 Intake and Output 07/26/18 07/27/18 07/27/18 23:59 07:59 15:59 Intake Total 100 / 100 Output Total 950 / 950 1050 / 1050 600 / 600 Balance -950 / -950 -1050 / -1050 -500 / -500 Intake: IV Fluids 100 / 100 Potassium Chloride 10 mEq/100mL 100 / 100 10 meq In 100 ml @ 100 mls/hr IVPB Q1H [facility] Rx#:[id number] Output: Catheter 950 / 950 1050 / 1050 600 / 600 Urethral (Todd) 600 / 600 Other: Meal Breakfast Percent of Meal Consumed 100% Stool Size Large Stool Consistency soft Stool Color Brown Black # Bowel Movement Diapers 1 Blood Glucose* 341 101 - General Appearance General appearance: Present: fatigue, frail EENT: Present: ATNC, hearing intact, vision intact Neck: Present: supple Respiratory: Present: clear Cardiology: Present: no edema (+1 pitting edema noted to all extremities.), edema, normal S1, normal S2 Gastrointestinal: Present: normoactive bowel sounds, no tenderness, no guarding Integumentary: Present: no rash, warm and dry Neurologic: Present: alert and oriented x3 Psychiatric: Present: mood/affect appropriate, cooperative - Lab 07/27/18 05:39 07/27/18 09:46 Most recent lab results ABG pH 7.58 pH Units (7.32-7.45) H 07/23/18 04:54 ABG pCO2 48 mmHg (35-45) H 07/23/18 04:54 ABG pO2 154 mmHg (85-104) H 07/23/18 04:54 ABG HCO3 45 mEq/L (21-27) H 07/23/18 04:54 ABG O2 Saturation 100 % (95-98) H 07/23/18 04:54 Calcium 8.4 mg/dL (8.6-10.3) L 07/27/18 09:46 Phosphorus 9.1 mg/dL (2.7-4.5) H 07/22/18 11:53 Magnesium 2.8 mg/dL (1.6-2.6) H 07/26/18 05:11 Consult Discharge Plan - Plan Referrals: NONE,PCP [Primary Care Provider] -
--- NOTE | 2018-07-27 11:00 | Internal Med Progress Note ---
Hospitalist Progress Note - Encounter Date of Encounter: 07/27/18 Time of Encounter: 08:10 - Subjective Interval History: No acute events overnight, denies any chest pain, worsening SOB, headache, or blurring of vision. - Exam Vitals: Temp Pulse Resp BP Pulse Ox 97.6 F 62 18 165/74 99 07/27/18 07:11 07/27/18 07:11 07/27/18 07:53 07/27/18 07:11 07/27/18 07:53 Exam: General: alert and oriented 4, not in acute distress. Cardiovascular:Normal S1 & S2, No JVD. Pulse regular. Lungs: scattered rhonchi Abdomen:Soft, non-tender, no rigidity. : cline with clear urine - Assessment and Plan (1) Cardiac arrest Current Visit: Yes Status: Acute Assessment and Plan: ICU notes reviewed, attributed to electrolyte abnormalities versus sepsis with shock CXR with bilateral infiltrates, also with streptococcus salivarius and parasanguinis bacteremia required intubation and pressors -> weaned off clinically improving on IV Rocephin, both bacteria sen to Alexander. Will complete a total of 14 days through 08/07 repeat culture 07/24 NGTD [id number] (2) Acute kidney injury superimposed on chronic kidney disease Current Visit: Yes Status: Acute Assessment and Plan: improving, appears to be autodiuresing now with hypernatremia and hypokalemia, likely due to the above D5W and IV potassium. another dose of Potassium ordered by nephro, appreciate in put Avoid nephrotoxins (3) Hypokalemia Current Visit: No Status: Acute Assessment and Plan: Likely due to auto diuresing after ATN replete IV 40meq, followed by PO per nephro, appreciate input monitor BMP closely (4) Hypernatremia Current Visit: Yes Status: Acute Assessment and Plan: as above D5W for now, repeat BMP after potassium replacement (5) Gram-positive bacteremia Current Visit: Yes Status: Acute Assessment and Plan: as above (6) Respiratory failure Current Visit: Yes Status: Acute Assessment and Plan: Improving, abx as above continue to wean down O2 (7) Atrial fibrillation Current Visit: Yes Status: Chronic Assessment and Plan: resume bb once reconciled apixaban was on hold due to AoCKD. CHADSVASC 4-5 (unsure about PAD history). Cr improving, will resume AC (8) Pneumonia Current Visit: Yes Status: Suspected Assessment and Plan: as above (9) Adrenal insufficiency Current Visit: No Status: Chronic Assessment and Plan: on stress dose steroids, currently tapering will reduce to PO Prednisone 10mg from tomorrow for 3 days before going back to 5mg QD (10) Pulmonary hypertension Current Visit: Yes Status: Acute Assessment and Plan: scheduled for outpatient RHC, to be done after recovery (11) Diabetes Current Visit: No Status: Chronic Assessment and Plan: glycemic control improving, AM glucose 101 decrease levemir to 8U BID, keep moderate dose sliding scale hold off on PO meds DVT Prophylaxis: eliquis resumed - Time Spent with Patient Total time spent is greater than 50% in coordination of care (as documented) at patient's floor/unit and/or counseling patient: Internal Medicine: Result - Labs CBC & Chem 7: 07/27/18 05:39 07/27/18 09:46 Labs: Short CBC 07/27/18 Range/Units 05:39 WBC 9.6 (4.3-11.1) K/mcL Hgb 12.3 L (12.9-16.9) g/dL Hct 41.6 (37.5-50.1) % Plt Count 110 L D (140-400) K/mcL Neutrophils # 8.7 (1.6-8.9) K/mcL BMP 07/27/18 07/27/18 05:39 09:46 Sodium 157 H 150 H Potassium 2.4 L* 2.5 L* Chloride 102 99 Carbon Dioxide 45 H* > 45 H* BUN 63 H 60 H Creatinine 1.25 1.28 Glucose 140 H 187 H Calcium 8.7 8.4 L - ABG Interpretation ABG results: ABG ABG pH 7.58 pH Units (7.32-7.45) H 07/23/18 04:54 ABG pCO2 48 mmHg (35-45) H 07/23/18 04:54 ABG pO2 154 mmHg (85-104) H 07/23/18 04:54 ABG O2 Saturation 100 % (95-98) H 07/23/18 04:54 PT/INR, D-dimer PT 27.6 Seconds (9.4-12.1) H 07/22/18 11:53 Consult Discharge Plan - Plan Referrals: NONE,PCP [Primary Care Provider] - (6) Respiratory failure Qualifiers: Chronicity: acute on chronic Respiratory failure complication: hypoxia and hypercapnia Qualified Code(s): J96.21 - Acute and chronic respiratory failure with hypoxia; J96.22 - Acute and chronic respiratory failure with hypercapnia (7) Atrial fibrillation Qualifiers: Atrial fibrillation type: unspecified Qualified Code(s): I48.91 - Unspecified atrial fibrillation (8) Pneumonia Qualifiers: Pneumonia type: due to unspecified organism Laterality: bilateral Lung location: unspecified part of lung Qualified Code(s): J18.9 - Pneumonia, unspecified organism (11) Diabetes Qualifiers: Diabetes mellitus type: type 2 Diabetes mellitus long-term insulin use: unspecified intermediate school teacher insulin use status Diabetes mellitus complication status: with unspecified complications Qualified Code(s): E11.8 - Type 2 diabetes mellitus with unspecified complications
[2018-07-27 11:02] LABS: Magnesium 2.6 mg/dL (1.6-2.6)
[2018-07-27] MEDS: cefTRIAXone 2,000 MG in Water for inj. (sterile) 20 ML 20 ML IVP SCH (11:42)
[2018-07-27 15:29] LABS: BUN/Creatinine Ratio 42 (6-26); Blood Urea Nitrogen 50 mg/dL (8-23); Calcium 8.3 mg/dL (8.6-10.3); Carbon Dioxide 43 mEq/L (23-29); Chloride 97 mEq/L (98-107); Glucose 316 mg/dL (70-105); Osmolality,Calculated 323 (280-300); Potassium 2.6 mEq/L (3.5-5.1); Sodium 144 mEq/L (136-145); eGFR For Non-African Americans > 60 (> 60)
[2018-07-27] MEDS ORDERED: Potassium Chloride Elixir 20 MEQ/15 ML UDC PO ONE (20:00)
[2018-07-27] MEDS: Gabapentin 300 MG CAPSULE PO SCH (20:45)
[2018-07-27] MEDS: Apixaban 5 MG TABLET PO SCH (20:45)
[2018-07-27] MEDS ORDERED: Simethicone 80 MG TAB.CHEW PO ONE (21:13)
[2018-07-27 21:42] LABS: BUN/Creatinine Ratio 42 (6-26); Blood Urea Nitrogen 44 mg/dL (8-23); Calcium 8.3 mg/dL (8.6-10.3); Carbon Dioxide 43 mEq/L (23-29); Chloride 95 mEq/L (98-107); Glucose 268 mg/dL (70-105); Osmolality,Calculated 319 (280-300); Potassium 2.7 mEq/L (3.5-5.1); Sodium 144 mEq/L (136-145); eGFR For Non-African Americans > 60 (> 60)
[2018-07-28] MEDS: Artificial Tears SOLN 15 ML BOTTLE BOTH EYES SCH ×4 (00:54→11:19)
[2018-07-28] MEDS: Hydrocortisone Sodium Succ 100 MG/2 ML VIAL IVP SCH (00:55)
[2018-07-28 05:09] LABS: Mean Corpuscular Hemoglobin 23.7 pg (28.0-33.3)
[2018-07-28 05:11] LABS: Eosinophils # 0.1 K/mcL (0.0-0.6); Eosinophils % 1.1 %; Hematocrit 36.8 % (37.5-50.1); Immature Granulocytes % 0.7 % (0-4); Immature Platelets 4.1 % (1.1-6.1); Lymphocytes # 0.7 K/mcL (0.6-4.6); Lymphocytes % 9.3 %; Mean Corpuscular HGB Conc 29.9 g/dL (31.6-35.5); Mean Corpuscular Volume 79.3 fL (83.0-100.0); Mean Platelet Volume 10.1 fL (9.4-12.4); Monocytes # 0.7 K/mcL (0.0-1.3); Monocytes % 8.7 %; Neutrophils # 6.1 K/mcL (1.6-8.9); Platelet Count 104 K/mcL (140-400); Red Blood Count 4.64 M/mcL (4.19-5.50); Red Cell Distribution Width 22.6 % (11.5-14.5); Segmented Neutrophils % 80.2 %
[2018-07-28 05:28] LABS: BUN/Creatinine Ratio 36 (6-26); Blood Urea Nitrogen 35 mg/dL (8-23); Calcium 8.5 mg/dL (8.6-10.3); Carbon Dioxide 42 mEq/L (23-29); Chloride 99 mEq/L (98-107); Glucose 114 mg/dL (70-105); Magnesium 2.3 mg/dL (1.6-2.6); Osmolality,Calculated 305 (280-300); Potassium 2.9 mEq/L (3.5-5.1); Sodium 143 mEq/L (136-145); eGFR For Non-African Americans > 60 (> 60)
[2018-07-28] MEDS: *HR* OxyCODONE Immed Rel 5 MG TABLET PO PRN ×2 (05:59→14:15)
[2018-07-28 06:11] LABS: Platelet Estimate Slight Decrease (Normal)
[2018-07-28 06:12] LABS: Anisocytosis 1+ (Not Present); Hypochromasia Present (Not Present)
[2018-07-28] MEDS ORDERED: Simethicone 80 MG TAB.CHEW PO ONE (06:16)
[2018-07-28] MEDS: Budesonide/Formoterol 80/4.5 MDI IH SCH (07:49)
[2018-07-28] MEDS ORDERED: Insulin DETEMIR 100 UNIT/ML X5UNITS SQ SCH (09:00)
[2018-07-28] MEDS ORDERED: predniSONE 10 MG TABLET PO SCH (09:00)
[2018-07-28] MEDS: Insulin LISPRO 300 UNITS/3 ML VIAL SQ SCH ×2 (09:03→11:18)
[2018-07-28] MEDS: Aspirin Enteric Coated 81 MG Tablet PO SCH (09:09)
[2018-07-28] MEDS: Apixaban 5 MG TABLET PO SCH (09:09)
[2018-07-28] MEDS: Chlorhexidine Rinse 15 ML MOUTHWASH MM SCH (09:10)
[2018-07-28] MEDS: Spironolactone 25 MG TABLET PO SCH (09:10)
[2018-07-28] MEDS: Potassium Chloride Elixir 20 MEQ/15 ML UDC PO SCH ×2 (09:10→11:17)
--- NOTE | 2018-07-28 09:36 | Nephrology Progress Note ---
Addendum entered and electronically signed by Rex Hernandez DO 07/29/18 07:37: I have personally performed a face to face evaluation on this patient. I have reviewed and agree with the care plan. History and Exam by me shows: SCr has trended better so as to safely allow resumption of his home diuretics and KCl. Okday to d/c and follow up with Neph as described below. Delayed documentation from 07/28/18. Original Note: Date of Encounter: 07/28/18 Time of Encounter: 09:33 - Assessment and Plan (1) Acute kidney injury superimposed on chronic kidney disease Current Visit: Yes Status: Acute Patient with ARCADIO on CKD multifactorial. Scr is 0.98 and GFR is > 60. Continue Bumex home medication. Continue home dose of 60 meq of potassium with d/c to ECF. BMP this Thursday07/30/18 and again on 08/04/18. F/U with Dr. Doshi in 4-6 weeks. Avoid nephrotoxins (2) HTN (hypertension) Current Visit: No Status: Chronic Stable Qualifiers: Hypertension type: essential hypertension Qualified Code(s): I10 - Essential (primary) hypertension (3) Elevated blood urea nitrogen Current Visit: Yes Status: Acute BUN is 35. (4) Cardiac arrest Current Visit: Yes Status: Acute (5) Edema, peripheral Current Visit: Yes Status: Acute 1.5 Liter fluid restriction. (6) Hypernatremia Current Visit: Yes Status: Acute Improved from yesterday 143 today. Subjective Principal diagnosis: cardiac arrest Interval history: PT seen and examined is much more alert today. Alert and oriented x 3. Denies chest pain or shortness of breath. Denies nausea and vomiting. Admits to some abdominal discomfort. Objective - Vital Signs Vital signs: Vital Signs Temp Pulse Resp BP Pulse Ox 07/28/18 07:52 18 99 07/28/18 07:03 98.0 F 55 18 119/66 99 07/28/18 03:41 98.4 F 54 16 127/69 100 07/27/18 23:16 98.9 F 55 18 130/69 100 07/27/18 20:11 16 99 07/27/18 19:17 98.2 F 61 18 124/63 100 07/27/18 16:05 97.7 F 61 18 165/75 100 07/27/18 11:21 97.4 F L 61 18 165/76 100 Intake and Output 07/27/18 07/28/18 07/28/18 23:59 07:59 15:59 Intake Total 480 / 480 Output Total 1100 / 1100 900 / 900 Balance -1100 / -1100 -900 / -900 480 / 480 Intake: Oral 480 / 480 Output: Catheter 1100 / 1100 900 / 900 Urethral (Todd) 1100 / 1100 900 / 900 Other: Meal Breakfast Percent of Meal Consumed 90% Weight 102.1 kg Blood Glucose* 260 75 Patient Weight 07/28/18 23:59 Weight 102.1 kg - General Appearance General appearance: Present: well-developed, well-nourished EENT: Present: ATNC, hearing intact, vision intact Neck: Present: supple Respiratory: Present: clear Cardiology: Present: edema (Trace edema noted to upper extremities.), normal S1, normal S2 Gastrointestinal: Present: normoactive bowel sounds, no tenderness, no guarding Integumentary: Present: no rash, warm and dry Neurologic: Present: alert and oriented x3 Psychiatric: Present: mood/affect appropriate, cooperative - Lab 07/28/18 04:37 07/28/18 04:37 Most recent lab results ABG pH 7.58 pH Units (7.32-7.45) H 07/23/18 04:54 ABG pCO2 48 mmHg (35-45) H 07/23/18 04:54 ABG pO2 154 mmHg (85-104) H 07/23/18 04:54 ABG HCO3 45 mEq/L (21-27) H 07/23/18 04:54 ABG O2 Saturation 100 % (95-98) H 07/23/18 04:54 Calcium 8.5 mg/dL (8.6-10.3) L 07/28/18 04:37 Phosphorus 9.1 mg/dL (2.7-4.5) H 07/22/18 11:53 Magnesium 2.3 mg/dL (1.6-2.6) 07/28/18 04:37 - VTE Documentation of Mechanical Device: Intermittent pneumatic compression device Consult Discharge Plan - Plan Referrals: NONE,PCP [Primary Care Provider] -
[2018-07-28 11:14] VITALS: BP 115/68
[2018-07-28] MEDS: cefTRIAXone 2,000 MG in Water for inj. (sterile) 20 ML 20 ML IVP SCH (11:18)
--- NOTE | 2018-07-28 11:30 | Discharge Summary ---
- NOTES TO OUTPATIENT PROVIDER Notes to Outpatient Provider: Patient initially presented with cardiac arrest secondary to electrolyte abnormalities and septic shock. Suspect pulmonary source with Streptococcus bacteremia. Will be discharged on a total of 14 days of antibiotics. Also had acute on chronic kidney failure associated with hypokalemia. Upon discharge, spironolactone and Bumex were restarted but metolazone remains on hold. Pt had been on 60meq of potassium TID and will be discharged home on the same dose with BMP on 07/30, 08/04. Follow up with nephrology. Also need outpatient follow up for RHC for pulmonary HTN evaluation. Orders not resulted at time of discharge: Pending orders 07/24/18 15:11 Culture,Blood [BC] Routine 07/28/18 13:00 BMP [Basic Metabolic Panel] Routine Date of Encounter: 07/28/18 Time of Encounter: 09:00 - Discharge Diagnosis (1) Cardiac arrest Priority: Primary Status: Acute (2) Acute kidney injury superimposed on chronic kidney disease Priority: Secondary Status: Acute (3) Hypokalemia Priority: Secondary Status: Acute (4) Hypernatremia Priority: Secondary Status: Acute (5) Gram-positive bacteremia Priority: Secondary Status: Acute (6) Respiratory failure Priority: Secondary Status: Acute Qualifiers: Chronicity: acute on chronic Respiratory failure complication: hypoxia and hypercapnia Qualified Code(s): J96.21 - Acute and chronic respiratory failure with hypoxia; J96.22 - Acute and chronic respiratory failure with hypercapnia (7) Atrial fibrillation Priority: Secondary Status: Chronic Qualifiers: Atrial fibrillation type: unspecified Qualified Code(s): I48.91 - Unspecified atrial fibrillation (8) Pneumonia Priority: Secondary Status: Suspected Qualifiers: Pneumonia type: due to unspecified organism Laterality: bilateral Lung location: unspecified part of lung Qualified Code(s): J18.9 - Pneumonia, unspecified organism (9) Adrenal insufficiency Priority: Secondary Status: Chronic (10) Pulmonary hypertension Priority: Secondary Status: Acute (11) Diabetes Priority: Secondary Status: Chronic Qualifiers: Diabetes mellitus type: type 2 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 Noriega is a 68 year old male Discharge discussed with: patient, family, social work - Time Spent with Patient Total time spent providing and/or coordinating discharge services: 33 mins - Discharge Medications Prescriptions: Morphine Sulfate SR (12 HR) [MS Contin] 15 mg PO Q12HR 5 Days #10 tablet.er Cefdinir [Omnicef] 300 mg PO BID 10 Days #20 capsule predniSONE [PredniSONE] 10 mg PO DAILY #20 tablet Home Medications: Levothyroxine [Synthroid] 88 mcg PO Q48H 02/18/16 [History] Aspirin Enteric Coated [Aspirin EC] 81 mg PO DAILY 03/09/18 [History] Atorvastatin [Lipitor] 10 mg PO HS 03/09/18 [History] Insulin ASPART [NovoLOG] 4 - 18 unit SQ TIDAC 03/09/18 [History] Multivitamin [One Daily Essential] 1 tab PO DAILY 03/09/18 [History] Nitroglycerin [Nitrostat] 0.4 mg SL Q5MIN PRN 03/09/18 [History] Polyethylene Glycol 3350 [MiraLAX] 17 gm PO DAILY 03/09/18 [History] Potassium Chloride [K-Tab ER] 60 meq PO TID 03/09/18 [History] Apixaban [Eliquis] 5 mg PO BID #60 tablet 03/11/18 [Rx] Bumetanide 4 mg PO TID 05/31/18 [History] Cabergoline 0.5 mg PO MALDONADO 05/31/18 [History] Gabapentin [Neurontin] 800 mg PO BID 05/31/18 [History] Metoprolol Succinate 12.5 mg PO DAILY 05/31/18 [History] Spironolactone [Aldactone] 50 mg PO DAILY 30 Days #60 tablet 06/07/18 [Rx] Albuterol Sulfate [Ventolin Hfa] 2 puff IH Q6H PRN 07/04/18 [History] Budesonide/Formoterol 80/4.5 [Symbicort 80/4.5] 2 puff IH BID 07/04/18 [History] Metoclopramide [Reglan] 10 mg PO DAILY 07/04/18 [History] Cefdinir [Omnicef] 300 mg PO BID 10 Days #20 capsule 07/28/18 [Rx] Morphine Sulfate SR (12 HR) [MS Contin] 15 mg PO Q12HR 5 Days #10 tablet.er 07/28/18 [Rx] predniSONE [PredniSONE] 10 mg PO DAILY #20 tablet 07/28/18 [Rx] Allergies/Adverse Reactions: Allergy/AdvReac Type Severity Reaction Status Date / Time Penicillins Allergy Hives Verified 03/09/18 13:46 Sulfa (Sulfonamide Allergy Nausea Verified 03/09/18 13:46 Antibiotics) carvedilol [From Coreg] AdvReac Hypotension Verified 03/09/18 13:46 lisinopril AdvReac Hypotension Verified 03/09/18 13:46 Date of admission: 07/22/18 13:29 Primary care physician: PCP NONE Consults: 07/22/18 13:35 Consult to Cardiology [CONS] Stat Comment: Consulting Provider: Cardiology Letty Reason for Consult: v-fib arrest Time Notified: 13:35 Call Completed: Yes 07/23/18 13:10 Consult to Palliative Care [CONS] Routine Comment: Consulting Provider: Palliative Care Letty Reason for Consult: DNRI Time Notified: 13:10 Call Completed: Yes 07/25/18 09:53 Consult to Garage Door Installer [CONS] Routine Reason for SW Consult: pt will likely need rehab. Has been at [facility] in past with good experience there 07/25/18 11:10 Consult to Nephrology [CONS] Routine Consulting Provider: Kidney Letty/RONNIE/RANDY/CHERI Reason for Consult: AoCKD, ?uremia Call Completed: Yes 07/26/18 10:50 Consult to Occupational Therapy [CONS] Routine Comment: Evaluate, develop and implement POC Reason for Consult: s/p cardiac arrest, rehab Does patient have active BEDREST order?: No Is patient medically & hemodynamically stable?: Yes Consult to Physical Therapy [CONS] Routine Comment: Evaluate, develop and implement POC Reason for Consult: s/p cardiac arrest, rehab Does patient have active BEDREST order?: No Is patient medically & hemodynamically stable?: Yes - Constitutional Vitals: Temp Pulse Resp BP Pulse Ox 98.5 F 61 19 115/68 100 07/28/18 11:13 07/28/18 11:13 07/28/18 11:13 07/28/18 11:13 07/28/18 11:13 Exam: General: alert and oriented 4, not in acute distress. Cardiovascular:Normal S1 & S2, No JVD. Pulse regular. Lungs: scattered rhonchi Abdomen:Soft, non-tender, no rigidity. : cline with clear urine - Patient Status Disposition: Transfer SNF Condition: Critical Overall status at discharge: patient is progressing back to baseline - Discharge Instructions Instructions: Atrial Fibrillation (DC) Follow Up With: NONE,PCP [Primary Care Provider] - Additional Instructions: Complete abx as prescribed BMP on 07/30, 08/04. Results to be faxed to Marine Steam Fitter Helper - Diet and Activity Activity: as per physical therapy Diet: diabetic diet - VTE Documentation of Mechanical Device: Intermittent pneumatic compression device
--- NOTE | 2018-07-28 11:43 | Physician Discharge Referral ---
ExtendedCare Referral Info Institutional Level of Care: Skilled - Diagnosis (1) Cardiac arrest Priority: Primary Status: Acute (2) Acute kidney injury superimposed on chronic kidney disease Priority: Secondary Status: Acute (3) Hypokalemia Priority: Secondary Status: Acute (4) Hypernatremia Priority: Secondary Status: Acute (5) Gram-positive bacteremia Priority: Secondary Status: Acute (6) Respiratory failure Priority: Secondary Status: Acute (7) Atrial fibrillation Priority: Secondary Status: Chronic (8) Pneumonia Priority: Secondary Status: Suspected (9) Adrenal insufficiency Priority: Secondary Status: Chronic (10) Pulmonary hypertension Priority: Secondary Status: Acute (11) Diabetes Priority: Secondary Status: Chronic Prognosis: Fair - Transfer Medications Prescriptions: Morphine Sulfate SR (12 HR) [MS Contin] 15 mg PO Q12HR 5 Days #10 tablet.er Cefdinir [Omnicef] 300 mg PO BID 10 Days #20 capsule predniSONE [PredniSONE] 10 mg PO DAILY #20 tablet Home Medications: Levothyroxine [Synthroid] 88 mcg PO Q48H 02/18/16 [History] Aspirin Enteric Coated [Aspirin EC] 81 mg PO DAILY 03/09/18 [History] Atorvastatin [Lipitor] 10 mg PO HS 03/09/18 [History] Insulin ASPART [NovoLOG] 4 - 18 unit SQ TIDAC 03/09/18 [History] Multivitamin [One Daily Essential] 1 tab PO DAILY 03/09/18 [History] Nitroglycerin [Nitrostat] 0.4 mg SL Q5MIN PRN 03/09/18 [History] Polyethylene Glycol 3350 [MiraLAX] 17 gm PO DAILY 03/09/18 [History] Potassium Chloride [K-Tab ER] 60 meq PO TID 03/09/18 [History] Apixaban [Eliquis] 5 mg PO BID #60 tablet 03/11/18 [Rx] Bumetanide 4 mg PO TID 05/31/18 [History] Cabergoline 0.5 mg PO MALDONADO 05/31/18 [History] Gabapentin [Neurontin] 800 mg PO BID 05/31/18 [History] Metoprolol Succinate 12.5 mg PO DAILY 05/31/18 [History] Spironolactone [Aldactone] 50 mg PO DAILY 30 Days #60 tablet 06/07/18 [Rx] Albuterol Sulfate [Ventolin Hfa] 2 puff IH Q6H PRN 07/04/18 [History] Budesonide/Formoterol 80/4.5 [Symbicort 80/4.5] 2 puff IH BID 07/04/18 [History] Metoclopramide [Reglan] 10 mg PO DAILY 07/04/18 [History] Cefdinir [Omnicef] 300 mg PO BID 10 Days #20 capsule 07/28/18 [Rx] Morphine Sulfate SR (12 HR) [MS Contin] 15 mg PO Q12HR 5 Days #10 tablet.er 07/28/18 [Rx] predniSONE [PredniSONE] 10 mg PO DAILY #20 tablet 07/28/18 [Rx] Allergies/Adverse Reactions: Allergy/AdvReac Type Severity Reaction Status Date / Time Penicillins Allergy Hives Verified 03/09/18 13:46 Sulfa (Sulfonamide Allergy Nausea Verified 03/09/18 13:46 Antibiotics) carvedilol [From Coreg] AdvReac Hypotension Verified 03/09/18 13:46 lisinopril AdvReac Hypotension Verified 03/09/18 13:46 - Respiratory Orders Smoking Cessation: Smoking cessation has been advised. For more information, call the [place] Tobacco Quit Line at 2-827-TYKU-NOW. - Rehabiliation Orders Rehab Orders: Evaluation for Physical Therapy, Evaluation for Occupational Therapy (Complete Omnicef through 08/07 BMP 07/30, 08/04 and fax to nephrology) CERTIFICATION: I certify that the transfer of the above named patient to an Extended Care Facility is necessary for the continuing treatment of the diagnosis listed. The above information is true and accurate reflection of patient's current condition. Confidential - Redisclosure prohibited without a patient's written consent.
[2018-07-28 13:38] LABS: BUN/Creatinine Ratio 31 (6-26); Blood Urea Nitrogen 31 mg/dL (8-23); Calcium 8.4 mg/dL (8.6-10.3); Carbon Dioxide 39 mEq/L (23-29); Chloride 96 mEq/L (98-107); Glucose 248 mg/dL (70-105); Osmolality,Calculated 299 (280-300); Potassium 3.8 mEq/L (3.5-5.1); Sodium 137 mEq/L (136-145); eGFR For Non-African Americans > 60 (> 60)
[2018-07-31] MEDS ORDERED: predniSONE 5 MG TABLET PO SCH (09:00)
== END 2018-07-28 15:05 | DRG 682 ==
LOC: EMEROOARM 10:34 → ICNU 13:29 → SUATTDRO 13:29 → ICNU 14:15 → 2ANU 07-24 13:05
PROVIDERS: ADMIT Internal Medicine Pulmonary Disease; ATTEND Internal Medicine

== ENCOUNTER 2021-12-09 23:01 | Inpatient (IN) ==
[2021-12-10 02:54] LABS: Basophils % 0.3 %; Eosinophils # 0.1 K/mcL (0.0-0.6); Eosinophils % 0.8 %; Hematocrit 36.6 % (37.5-50.1); Hemoglobin 12.3 g/dL (12.9-16.9); Immature Granulocytes % 0.5 % (0-4); Lymphocytes # 0.5 K/mcL (0.6-4.6); Lymphocytes % 3.3 %; Mean Corpuscular HGB Conc 33.6 g/dL (31.6-35.5); Mean Corpuscular Hemoglobin 29.4 pg (28.0-33.3); Mean Corpuscular Volume 87.6 fL (83.0-100.0); Mean Platelet Volume 9.9 fL (9.4-12.4); Monocytes % 7.2 %; Neutrophils # 11.9 K/mcL (1.6-8.9); Platelet Count 210 K/mcL (140-400); Red Blood Count 4.18 M/mcL (4.19-5.50); Red Cell Distribution Width 14.4 % (11.5-14.5); Segmented Neutrophils % 87.9 %; White Blood Count 13.6 K/mcL (4.3-11.1)
[2021-12-10 05:05] LABS: Calcium 9.3 mg/dL (8.6-10.3)
[2021-12-10 05:37] LABS: Potassium 3.1 mEq/L (3.5-5.1)
[2021-12-10 06:10] LABS: VBG HCO3 40 mEq/L (21-27); VBG PCO2 64 mmHg (41-51); VBG PO2 85 mmHg (25-50)
[2021-12-10 06:19] LABS: Troponin I 0.08 ng/mL (< 0.04)
[2021-12-10 06:45] LABS: Albumin 3.8 g/dL (3.5-5.7); Albumin/Globulin Ratio 1.3 (1.1-2.2); Bilirubin,Direct 0.2 mg/dL (0.0-0.2); Bilirubin,Indirect 0.7 mg/dL (0.0-1.0); Bilirubin,Total 0.9 mg/dL (0.3-1.0); Total Protein 6.8 g/dL (6.4-8.9)
[2021-12-10] MEDS ORDERED: Naloxone 0.4 MG/ML INJ IVP PRN (06:57)
[2021-12-10] MEDS ORDERED: Ondansetron 4 MG/2 ML VIAL IVP PRN (06:57)
[2021-12-10 07:07] LABS: Magnesium 2.6 mg/dL (1.6-2.6)
[2021-12-10] MEDS ORDERED: D5% in Water 1,000 ML IVC PRN (12:10)
[2021-12-10] MEDS ORDERED: *HR* Dextrose 50 % in Water (Syg) 50 ML SYRINGE IVP PRN (12:10)
[2021-12-10] MEDS ORDERED: Dextrose 4 GM Chewable Tablets PO PRN ×2 (12:10)
[2021-12-10 15:19] LABS: Chloride,Urine < 15 mEq/L; Creatinine,Urine 45 mg/dL; Potassium,Urine 14.3 mEq/L; Sodium, Urine 30.3 mEq/L
[2021-12-10] MEDS: Bumetanide 1 MG/4 ML VIAL IVP SCH ×2 (15:22→18:10)
[2021-12-10] MEDS: Insulin LISPRO 300 UNITS/3 ML VIAL SUBQ SCH (15:25)
[2021-12-10] MEDS ORDERED: Morphine Sulfate Immed Rel 15 MG TABLET PO PRN (18:23)
[2021-12-10 19:13] LABS: BUN/Creatinine Ratio 23 (6-26); Blood Urea Nitrogen 32 mg/dL (8-23); Carbon Dioxide 38 mEq/L (23-29); Chloride 73 mEq/L (98-107); Glucose 244 mg/dL (70-105); Osmolality,Calculated 269 (280-300); Potassium 3.7 mEq/L (3.5-5.1); Sodium 122 mEq/L (136-145); eGFR For African Americans > 60 (> 60); eGFR For Non-African Americans 51 (> 60)
[2021-12-10] MEDS: *HR* Dabigatran 150 MG CAPSULE PO SCH (20:03)
[2021-12-10] MEDS: Gabapentin 400 MG CAPSULE PO SCH (20:03)
[2021-12-10] MEDS: Sildenafil Citrate 20 MG TABLET PO SCH (20:03)
[2021-12-10] MEDS ORDERED: Insulin DETEMIR 100 UNIT/ML X5UNITS SUBQ SCH (21:00)
[2021-12-11 02:06] LABS: Hematocrit 37.7 % (37.5-50.1); Hemoglobin 12.7 g/dL (12.9-16.9); Mean Corpuscular HGB Conc 33.7 g/dL (31.6-35.5); Mean Corpuscular Hemoglobin 29.1 pg (28.0-33.3); Mean Corpuscular Volume 86.3 fL (83.0-100.0); Mean Platelet Volume 9.4 fL (9.4-12.4); Platelet Count 214 K/mcL (140-400); Red Blood Count 4.37 M/mcL (4.19-5.50); Red Cell Distribution Width 14.1 % (11.5-14.5); White Blood Count 15.5 K/mcL (4.3-11.1)
[2021-12-11 03:07] LABS: BUN/Creatinine Ratio 25 (6-26); Blood Urea Nitrogen 35 mg/dL (8-23); Calcium 9.2 mg/dL (8.6-10.3); Carbon Dioxide 32 mEq/L (23-29); Chloride 73 mEq/L (98-107); Glucose 243 mg/dL (70-105); Osmolality,Calculated 276 (280-300); Potassium 3.2 mEq/L (3.5-5.1); Sodium 125 mEq/L (136-145); eGFR For African Americans > 60 (> 60); eGFR For Non-African Americans 50 (> 60)
[2021-12-11] MEDS: polyethylene glycoL 3350 17 GM POWD.PACK PO SCH (08:24)
[2021-12-11] MEDS: Sildenafil Citrate 20 MG TABLET PO SCH ×3 (08:24→20:43)
[2021-12-11] MEDS: predniSONE 5 MG TABLET PO SCH (08:24)
[2021-12-11] MEDS: Bumetanide 1 MG/4 ML VIAL IVP SCH ×2 (08:25→12:43)
[2021-12-11] MEDS: *HR* Dabigatran 150 MG CAPSULE PO SCH ×2 (08:25→20:43)
[2021-12-11] MEDS: Insulin LISPRO 300 UNITS/3 ML VIAL SUBQ SCH ×3 (08:26→17:52)
[2021-12-11] MEDS: Gabapentin 400 MG CAPSULE PO SCH ×3 (08:26→20:44)
[2021-12-11] MEDS: Magnesium Oxide 400 MG TABLET PO SCH (08:26)
[2021-12-11] MEDS: Artificial Tears SOLN 15 ML BOTTLE RIGHT EYE SCH (08:40)
[2021-12-11] MEDS: Aspirin Enteric Coated 81 MG Tablet PO SCH (08:40)
[2021-12-11] MEDS: Insulin DETEMIR 100 UNIT/ML X5UNITS SUBQ SCH ×2 (08:41→09:36)
[2021-12-11] MEDS ORDERED: Budesonide/Formoterol 160/4.5 1 PUFF INH IH SCH (09:00)
[2021-12-11] MEDS: Tolvaptan 15 MG TABLET PO SCH (15:23)
[2021-12-11] MEDS: *HR* OxyCODONE Immed Rel 5 MG TABLET PO PRN (20:47)
[2021-12-11] MEDS ORDERED: Spironolactone 25 MG TABLET PO SCH (21:00)
[2021-12-11 22:38] LABS: Bilirubin,Urine Negative (Negative); Blood,Urine Negative (Negative); Clarity,Urine Clear (Clear); Color,Urine Colorless (Yellow); Glucose,Urine (UA) Normal (Normal); Ketones,Urine Negative (Negative); Leukocyte Esterase,Urine Negative (Negative); Nitrite,Urine Negative (Negative); PH,Urine 7.5 pH Units (5.0-8.0); Protein,Urine Negative (Neg-Trace); Specific Gravity,Urine 1.008 (1.010-1.025); Urobilinogen,Urine Normal (Normal)
[2021-12-12] MEDS: *HR* OxyCODONE Immed Rel 5 MG TABLET PO PRN ×3 (03:55→19:49)
[2021-12-12 05:41] LABS: Hematocrit 37.7 % (37.5-50.1); Hemoglobin 12.5 g/dL (12.9-16.9); Mean Corpuscular HGB Conc 33.2 g/dL (31.6-35.5); Mean Corpuscular Hemoglobin 28.9 pg (28.0-33.3); Mean Corpuscular Volume 87.3 fL (83.0-100.0); Mean Platelet Volume 9.4 fL (9.4-12.4); Platelet Count 223 K/mcL (140-400); Red Blood Count 4.32 M/mcL (4.19-5.50); Red Cell Distribution Width 14.1 % (11.5-14.5); White Blood Count 12.9 K/mcL (4.3-11.1)
[2021-12-12 06:01] LABS: Calcium 9.1 mg/dL (8.6-10.3); Potassium 4.1 mEq/L (3.5-5.1)
[2021-12-12 06:10] LABS: Thyroid Stimulating Hormone 3.247 mcIU/mL (0.340-5.600)
[2021-12-12] MEDS: Aspirin Enteric Coated 81 MG Tablet PO SCH (08:33)
[2021-12-12] MEDS: Gabapentin 400 MG CAPSULE PO SCH ×3 (08:33→19:49)
[2021-12-12] MEDS: Sildenafil Citrate 20 MG TABLET PO SCH ×3 (08:33→19:50)
[2021-12-12] MEDS: Magnesium Oxide 400 MG TABLET PO SCH (08:33)
[2021-12-12] MEDS: predniSONE 5 MG TABLET PO SCH (08:34)
[2021-12-12] MEDS: *HR* Dabigatran 150 MG CAPSULE PO SCH ×2 (08:37→19:49)
[2021-12-12] MEDS: Insulin LISPRO 300 UNITS/3 ML VIAL SUBQ SCH ×3 (08:40→18:51)
[2021-12-12] MEDS: polyethylene glycoL 3350 17 GM POWD.PACK PO SCH (08:48)
[2021-12-12] MEDS: Artificial Tears SOLN 15 ML BOTTLE RIGHT EYE SCH (08:48)
[2021-12-12] MEDS ORDERED: Insulin DETEMIR 100 UNIT/ML X5UNITS SUBQ SCH (09:00)
[2021-12-12] MEDS: Tolvaptan 15 MG TABLET PO SCH (09:22)
[2021-12-12] MEDS: Hydrocortisone Sodium Succ 100 MG/2 ML VIAL IVP SCH ×3 (11:43→23:08)
[2021-12-12] MEDS ORDERED: Insulin DETEMIR 100 UNIT/ML X5UNITS SUBQ ONE (20:28)
[2021-12-12] MEDS ORDERED: Insulin Human Regular 10 UNIT in 0.9 % Sodium Chloride 10 ML IV ONE (20:28)
[2021-12-12 21:55] LABS: Calcium 9.2 mg/dL (8.6-10.3)
[2021-12-12 21:56] LABS: Potassium 7.3 mEq/L (3.5-5.1)
[2021-12-12] MEDS ORDERED: Isovue-370 500 ML BOTTLE IVP ONE (22:19)
[2021-12-12] MEDS ORDERED: D5% in 0.45% NACL w KCl 20 MEQ/1,000 ML MLS IVC PRN (22:20)
[2021-12-12] MEDS ORDERED: Insulin Regular, Human 100 UNIT/ML IV ONE (22:20)
[2021-12-12] MEDS ORDERED: D5% in 0.45% NACL 1,000 ML IVC PRN (22:20)
[2021-12-12] MEDS ORDERED: Insulin Regular, Human 100 UNIT/ML IV PRN (22:20)
[2021-12-12] MEDS ORDERED: Calcium Gluconate 1gm/50mL 1 GM/50 ML BAG IVPB ONE (22:34)
[2021-12-12] MEDS ORDERED: Albuterol 2.5 MG/3 ML NEBULIZER IH ONE (22:57)
[2021-12-12 23:18] LABS: VBG HCO3 30 mEq/L (21-27); VBG PCO2 47 mmHg (41-51); VBG PH 7.42 pH Units (7.32-7.42); VBG PO2 210 mmHg (25-50)
[2021-12-13 04:20] LABS: Hematocrit 36.8 % (37.5-50.1); Hemoglobin 12.3 g/dL (12.9-16.9); Mean Corpuscular HGB Conc 33.4 g/dL (31.6-35.5); Mean Corpuscular Hemoglobin 29.6 pg (28.0-33.3); Mean Corpuscular Volume 88.7 fL (83.0-100.0); Mean Platelet Volume 9.2 fL (9.4-12.4); Platelet Count 211 K/mcL (140-400); Red Blood Count 4.15 M/mcL (4.19-5.50); Red Cell Distribution Width 14.2 % (11.5-14.5); White Blood Count 16.6 K/mcL (4.3-11.1)
[2021-12-13 04:27] LABS: VBG HCO3 31 mEq/L (21-27); VBG PCO2 59 mmHg (41-51); VBG PH 7.33 pH Units (7.32-7.42); VBG PO2 68 mmHg (25-50)
[2021-12-13 04:40] LABS: Calcium 9.3 mg/dL (8.6-10.3); Potassium 7.1 mEq/L (3.5-5.1)
[2021-12-13] MEDS ORDERED: SODIUM ZIRCONIUM CYCLOSILICATE 5 GM POWD.PACK PO ONE ×2 (04:48→05:19)
[2021-12-13] MEDS: Hydrocortisone Sodium Succ 100 MG/2 ML VIAL IVP SCH (05:26)
[2021-12-13] MEDS ORDERED: Sodium Bicarbonate 75 MEQ in 0.45 % Sodium Chloride 1,000 ML IVC SCH (05:30)
[2021-12-13] MEDS: Budesonide/Formoterol 160/4.5 1 PUFF INH IH SCH ×2 (06:02→19:51)
[2021-12-13] MEDS ORDERED: *HR* Dextrose 50 % in Water (Syg) 50 ML SYRINGE IVP ONE (06:06)
[2021-12-13] MEDS ORDERED: Sodium Bicarbonate 75 MEQ in D5% in 0.45% NACL 1,000 ML IVC SCH ×2 (06:15)
[2021-12-13] MEDS: polyethylene glycoL 3350 17 GM POWD.PACK PO SCH (08:01)
[2021-12-13] MEDS ORDERED: Sodium Bicarbonate 150 MEQ in D5% in Water 1,000 ML IVC SCH (08:15)
[2021-12-13] MEDS: Insulin DETEMIR 100 UNIT/ML X5UNITS SUBQ SCH (08:25)
[2021-12-13] MEDS: Magnesium Oxide 400 MG TABLET PO SCH (08:26)
[2021-12-13] MEDS: Sildenafil Citrate 20 MG TABLET PO SCH ×3 (08:26→20:30)
[2021-12-13] MEDS: *HR* Dabigatran 150 MG CAPSULE PO SCH ×2 (08:26→20:30)
[2021-12-13] MEDS: cefTRIAXone 1,000 MG in Water for inj. (sterile) 10 ML IVP SCH (08:27)
[2021-12-13] MEDS: Gabapentin 400 MG CAPSULE PO SCH ×3 (08:27→20:30)
[2021-12-13] MEDS: Aspirin Enteric Coated 81 MG Tablet PO SCH (08:27)
[2021-12-13] MEDS: Artificial Tears SOLN 15 ML BOTTLE RIGHT EYE SCH (08:29)
[2021-12-13 08:34] LABS: VBG HCO3 28 mEq/L (21-27); VBG PCO2 39 mmHg (41-51); VBG PH 7.45 pH Units (7.32-7.42); VBG PO2 202 mmHg (25-50)
[2021-12-13] MEDS: Hydrocortisone 10 MG TABLET PO SCH ×2 (08:48→17:23)
[2021-12-13] MEDS: *HR* OxyCODONE Immed Rel 5 MG TABLET PO PRN ×3 (08:48→21:56)
[2021-12-13] MEDS ORDERED: Calcium Gluconate 1gm/50mL 1 GM/50 ML BAG IVPB ONE ×2 (11:14→16:17)
[2021-12-13 11:17] LABS: BUN/Creatinine Ratio 22 (6-26); Blood Urea Nitrogen 28 mg/dL (8-23); Calcium 9.3 mg/dL (8.6-10.3); Carbon Dioxide 28 mEq/L (23-29); Chloride 91 mEq/L (98-107); Glucose 102 mg/dL (70-105); Osmolality,Calculated 264 (280-300); Sodium 124 mEq/L (136-145); eGFR For African Americans > 60 (> 60); eGFR For Non-African Americans 55 (> 60)
[2021-12-13] MEDS ORDERED: SODIUM ZIRCONIUM CYCLOSILICATE 5 GM POWD.PACK PO SCH (12:00)
[2021-12-13 14:05] LABS: BUN/Creatinine Ratio 21 (6-26); Blood Urea Nitrogen 27 mg/dL (8-23); Calcium 9.3 mg/dL (8.6-10.3); Carbon Dioxide 32 mEq/L (23-29); Chloride 87 mEq/L (98-107); Glucose 222 mg/dL (70-105); Osmolality,Calculated 266 (280-300); Potassium 6.2 mEq/L (3.5-5.1); Sodium 122 mEq/L (136-145); eGFR For African Americans > 60 (> 60); eGFR For Non-African Americans 56 (> 60)
[2021-12-13] MEDS: MetroNIDAZOLE 500 MG/100 ML 500 MG/100 ML BAG IVPB SCH (15:54)
[2021-12-13 17:04] LABS: BUN/Creatinine Ratio 21 (6-26); Blood Urea Nitrogen 25 mg/dL (8-23); Calcium 8.9 mg/dL (8.6-10.3); Carbon Dioxide 31 mEq/L (23-29); Chloride 90 mEq/L (98-107); Glucose 214 mg/dL (70-105); Osmolality,Calculated 269 (280-300); Potassium 4.8 mEq/L (3.5-5.1); Sodium 124 mEq/L (136-145); eGFR For African Americans > 60 (> 60); eGFR For Non-African Americans 59 (> 60)
[2021-12-13 21:04] LABS: BUN/Creatinine Ratio 20 (6-26); Blood Urea Nitrogen 25 mg/dL (8-23); Calcium 9.3 mg/dL (8.6-10.3); Carbon Dioxide 33 mEq/L (23-29); Chloride 87 mEq/L (98-107); Glucose 76 mg/dL (70-105); Osmolality,Calculated 263 (280-300); Potassium 5.1 mEq/L (3.5-5.1); Sodium 125 mEq/L (136-145); eGFR For African Americans > 60 (> 60); eGFR For Non-African Americans 56 (> 60)
[2021-12-14] MEDS: MetroNIDAZOLE 500 MG/100 ML 500 MG/100 ML BAG IVPB SCH ×3 (00:18→16:58)
[2021-12-14] MEDS: *HR* OxyCODONE Immed Rel 5 MG TABLET PO PRN ×3 (04:37→20:27)
[2021-12-14 04:59] LABS: Hemoglobin 11.7 g/dL (12.9-16.9); Mean Corpuscular HGB Conc 32.5 g/dL (31.6-35.5); Mean Corpuscular Hemoglobin 28.7 pg (28.0-33.3); Mean Corpuscular Volume 88.5 fL (83.0-100.0); Mean Platelet Volume 9.2 fL (9.4-12.4); Platelet Count 220 K/mcL (140-400); Red Blood Count 4.07 M/mcL (4.19-5.50); Red Cell Distribution Width 14.3 % (11.5-14.5); White Blood Count 24.8 K/mcL (4.3-11.1)
[2021-12-14 05:17] LABS: BUN/Creatinine Ratio 21 (6-26); Blood Urea Nitrogen 24 mg/dL (8-23); Calcium 8.9 mg/dL (8.6-10.3); Carbon Dioxide 29 mEq/L (23-29); Chloride 89 mEq/L (98-107); Glucose 130 mg/dL (70-105); Magnesium 2.2 mg/dL (1.6-2.6); Osmolality,Calculated 262 (280-300); Sodium 123 mEq/L (136-145); eGFR For African Americans > 60 (> 60); eGFR For Non-African Americans > 60 (> 60)
[2021-12-14] MEDS: Insulin LISPRO 300 UNITS/3 ML VIAL SUBQ SCH ×4 (07:40→21:15)
[2021-12-14] MEDS: Budesonide/Formoterol 160/4.5 1 PUFF INH IH SCH ×2 (07:44→19:52)
[2021-12-14] MEDS: Sildenafil Citrate 20 MG TABLET PO SCH ×3 (08:03→20:28)
[2021-12-14] MEDS: Gabapentin 400 MG CAPSULE PO SCH ×3 (08:04→20:27)
[2021-12-14] MEDS: Magnesium Oxide 400 MG TABLET PO SCH (08:04)
[2021-12-14] MEDS: *HR* Dabigatran 150 MG CAPSULE PO SCH ×2 (08:04→20:27)
[2021-12-14] MEDS: cefTRIAXone 1,000 MG in Water for inj. (sterile) 10 ML IVP SCH (08:04)
[2021-12-14] MEDS: Hydrocortisone 10 MG TABLET PO SCH ×2 (08:04→16:58)
[2021-12-14] MEDS: Aspirin Enteric Coated 81 MG Tablet PO SCH (08:04)
[2021-12-14] MEDS: polyethylene glycoL 3350 17 GM POWD.PACK PO SCH ×2 (08:05→09:15)
[2021-12-14] MEDS: Artificial Tears SOLN 15 ML BOTTLE RIGHT EYE SCH (08:07)
[2021-12-14] MEDS: Insulin DETEMIR 100 UNIT/ML X5UNITS SUBQ SCH (09:17)
[2021-12-14] MEDS: Simethicone 80 MG TAB.CHEW PO PRN ×2 (15:33→20:27)
[2021-12-15] MEDS: MetroNIDAZOLE 500 MG/100 ML 500 MG/100 ML BAG IVPB SCH ×3 (00:15→17:01)
[2021-12-15] MEDS: *HR* OxyCODONE Immed Rel 5 MG TABLET PO PRN ×3 (02:26→20:53)
[2021-12-15 03:16] LABS: Basophils # 0.1 K/mcL (0.0-0.2); Basophils % 0.5 %; Eosinophils # 0.3 K/mcL (0.0-0.6); Eosinophils % 2.5 %; Hematocrit 35.2 % (37.5-50.1); Hemoglobin 11.4 g/dL (12.9-16.9); Immature Granulocytes % 0.8 % (0-4); Lymphocytes # 0.4 K/mcL (0.6-4.6); Lymphocytes % 4.2 %; Mean Corpuscular HGB Conc 32.4 g/dL (31.6-35.5); Mean Corpuscular Hemoglobin 29.5 pg (28.0-33.3); Mean Platelet Volume 9.5 fL (9.4-12.4); Monocytes # 0.7 K/mcL (0.0-1.3); Monocytes % 7.3 %; Platelet Count 211 K/mcL (140-400); Red Blood Count 3.87 M/mcL (4.19-5.50); Red Cell Distribution Width 14.5 % (11.5-14.5); Segmented Neutrophils % 84.7 %
[2021-12-15 03:33] LABS: Alanine Aminotransferase 7 Units/L (7-52); Albumin 3.1 g/dL (3.5-5.7); Alkaline Phosphatase 50 Units/L (34-104); Aspartate Amino Transferase 14 Units/L (13-39); BUN/Creatinine Ratio 21 (6-26); Bilirubin,Total 0.4 mg/dL (0.3-1.0); Blood Urea Nitrogen 24 mg/dL (8-23); Calcium 8.7 mg/dL (8.6-10.3); Carbon Dioxide 32 mEq/L (23-29); Chloride 90 mEq/L (98-107); Glucose 179 mg/dL (70-105); Osmolality,Calculated 271 (280-300); Potassium 4.8 mEq/L (3.5-5.1); Sodium 126 mEq/L (136-145); Total Protein 6.1 g/dL (6.4-8.9); eGFR For African Americans > 60 (> 60); eGFR For Non-African Americans > 60 (> 60)
[2021-12-15 03:43] LABS: Neutrophils # 8.6 K/mcL (1.6-8.9); White Blood Count 10.1 K/mcL (4.3-11.1)
[2021-12-15] MEDS: Insulin LISPRO 300 UNITS/3 ML VIAL SUBQ SCH ×4 (07:21→20:55)
[2021-12-15] MEDS: Budesonide/Formoterol 160/4.5 1 PUFF INH IH SCH ×2 (07:39→20:00)
[2021-12-15] MEDS: Insulin DETEMIR 100 UNIT/ML X5UNITS SUBQ SCH (08:29)
[2021-12-15] MEDS: cefTRIAXone 1,000 MG in Water for inj. (sterile) 10 ML IVP SCH (08:29)
[2021-12-15] MEDS: Hydrocortisone 10 MG TABLET PO SCH ×2 (08:30→17:00)
[2021-12-15] MEDS: polyethylene glycoL 3350 17 GM POWD.PACK PO SCH (08:30)
[2021-12-15] MEDS: *HR* Dabigatran 150 MG CAPSULE PO SCH ×2 (08:30→20:53)
[2021-12-15] MEDS: Sildenafil Citrate 20 MG TABLET PO SCH ×3 (08:31→20:53)
[2021-12-15] MEDS: Gabapentin 400 MG CAPSULE PO SCH ×3 (08:32→20:53)
[2021-12-15] MEDS: Aspirin Enteric Coated 81 MG Tablet PO SCH (08:32)
[2021-12-15] MEDS: Artificial Tears SOLN 15 ML BOTTLE RIGHT EYE SCH (08:32)
[2021-12-15] MEDS: Magnesium Oxide 400 MG TABLET PO SCH (08:32)
[2021-12-15] MEDS ORDERED: Tolvaptan 15 MG TABLET PO ONE (14:23)
[2021-12-15] MEDS: Simethicone 80 MG TAB.CHEW PO PRN (21:02)
[2021-12-16] MEDS: MetroNIDAZOLE 500 MG/100 ML 500 MG/100 ML BAG IVPB SCH ×4 (00:05→23:57)
[2021-12-16] MEDS: *HR* OxyCODONE Immed Rel 5 MG TABLET PO PRN ×3 (05:18→22:57)
[2021-12-16 06:04] LABS: BUN/Creatinine Ratio 21 (6-26); Blood Urea Nitrogen 27 mg/dL (8-23); Calcium 8.7 mg/dL (8.6-10.3); Carbon Dioxide 30 mEq/L (23-29); Chloride 90 mEq/L (98-107); Glucose 286 mg/dL (70-105); Osmolality,Calculated 274 (280-300); Potassium 4.8 mEq/L (3.5-5.1); Sodium 124 mEq/L (136-145); eGFR For African Americans > 60 (> 60); eGFR For Non-African Americans 55 (> 60)
[2021-12-16] MEDS: Budesonide/Formoterol 160/4.5 1 PUFF INH IH SCH ×2 (07:35→22:08)
[2021-12-16] MEDS: Gabapentin 400 MG CAPSULE PO SCH ×3 (08:51→20:23)
[2021-12-16] MEDS: cefTRIAXone 1,000 MG in Water for inj. (sterile) 10 ML IVP SCH (08:51)
[2021-12-16] MEDS: Sildenafil Citrate 20 MG TABLET PO SCH ×3 (08:51→20:22)
[2021-12-16] MEDS: Aspirin Enteric Coated 81 MG Tablet PO SCH (08:52)
[2021-12-16] MEDS: Hydrocortisone 10 MG TABLET PO SCH ×2 (08:52→17:02)
[2021-12-16] MEDS: *HR* Dabigatran 150 MG CAPSULE PO SCH ×2 (08:52→20:23)
[2021-12-16] MEDS: Insulin DETEMIR 100 UNIT/ML X5UNITS SUBQ SCH (08:54)
[2021-12-16] MEDS: Magnesium Oxide 400 MG TABLET PO SCH (08:54)
[2021-12-16] MEDS: Insulin LISPRO 300 UNITS/3 ML VIAL SUBQ SCH ×5 (08:55→20:24)
[2021-12-16] MEDS: polyethylene glycoL 3350 17 GM POWD.PACK PO SCH (08:55)
[2021-12-16] MEDS: Artificial Tears SOLN 15 ML BOTTLE RIGHT EYE SCH (08:58)
[2021-12-16] MEDS: Bumetanide 1 MG TABLET PO SCH ×2 (08:58→17:02)
[2021-12-16] MEDS: Simethicone 80 MG TAB.CHEW PO PRN ×2 (09:12→20:34)
[2021-12-17 04:11] LABS: Hematocrit 34.2 % (37.5-50.1); Mean Corpuscular HGB Conc 32.2 g/dL (31.6-35.5); Mean Corpuscular Hemoglobin 28.6 pg (28.0-33.3); Mean Corpuscular Volume 88.8 fL (83.0-100.0); Mean Platelet Volume 9.8 fL (9.4-12.4); Platelet Count 230 K/mcL (140-400); Red Blood Count 3.85 M/mcL (4.19-5.50); Red Cell Distribution Width 14.5 % (11.5-14.5); White Blood Count 11.6 K/mcL (4.3-11.1)
[2021-12-17 04:37] LABS: Calcium 8.1 mg/dL (8.6-10.3); Potassium 3.8 mEq/L (3.5-5.1)
[2021-12-17] MEDS: Budesonide/Formoterol 160/4.5 1 PUFF INH IH SCH ×2 (07:41→20:31)
[2021-12-17] MEDS: cefTRIAXone 1,000 MG in Water for inj. (sterile) 10 ML IVP SCH (08:14)
[2021-12-17] MEDS: Aspirin Enteric Coated 81 MG Tablet PO SCH (08:15)
[2021-12-17] MEDS: Sildenafil Citrate 20 MG TABLET PO SCH ×3 (08:15→20:15)
[2021-12-17] MEDS: Hydrocortisone 10 MG TABLET PO SCH ×2 (08:15→16:28)
[2021-12-17] MEDS: Magnesium Oxide 400 MG TABLET PO SCH (08:16)
[2021-12-17] MEDS: *HR* Dabigatran 150 MG CAPSULE PO SCH ×2 (08:16→20:15)
[2021-12-17] MEDS: Gabapentin 400 MG CAPSULE PO SCH ×3 (08:16→20:14)
[2021-12-17] MEDS: MetroNIDAZOLE 500 MG/100 ML 500 MG/100 ML BAG IVPB SCH (08:19)
[2021-12-17] MEDS: polyethylene glycoL 3350 17 GM POWD.PACK PO SCH (08:19)
[2021-12-17] MEDS: Artificial Tears SOLN 15 ML BOTTLE RIGHT EYE SCH (08:22)
[2021-12-17] MEDS: Bumetanide 1 MG TABLET PO SCH ×2 (08:25→16:28)
[2021-12-17] MEDS: Insulin LISPRO 300 UNITS/3 ML VIAL SUBQ SCH ×7 (08:29→20:18)
[2021-12-17] MEDS: Insulin DETEMIR 100 UNIT/ML X5UNITS SUBQ SCH (08:30)
[2021-12-17] MEDS: *HR* OxyCODONE Immed Rel 5 MG TABLET PO PRN ×3 (08:33→22:55)
[2021-12-18 04:38] LABS: Hematocrit 33.9 % (37.5-50.1); Hemoglobin 11.1 g/dL (12.9-16.9); Mean Corpuscular HGB Conc 32.7 g/dL (31.6-35.5); Mean Corpuscular Hemoglobin 29.1 pg (28.0-33.3); Mean Platelet Volume 9.4 fL (9.4-12.4); Platelet Count 245 K/mcL (140-400); Red Blood Count 3.81 M/mcL (4.19-5.50); Red Cell Distribution Width 14.7 % (11.5-14.5); White Blood Count 12.3 K/mcL (4.3-11.1)
[2021-12-18 04:55] LABS: Calcium 8.2 mg/dL (8.6-10.3); Potassium 4.1 mEq/L (3.5-5.1)
[2021-12-18] MEDS: Budesonide/Formoterol 160/4.5 1 PUFF INH IH SCH ×2 (07:26→19:47)
[2021-12-18] MEDS: Insulin LISPRO 300 UNITS/3 ML VIAL SUBQ SCH ×7 (08:58→21:24)
[2021-12-18] MEDS: Gabapentin 400 MG CAPSULE PO SCH ×3 (08:58→21:23)
[2021-12-18] MEDS: Sildenafil Citrate 20 MG TABLET PO SCH ×3 (08:58→21:24)
[2021-12-18] MEDS: Magnesium Oxide 400 MG TABLET PO SCH (08:58)
[2021-12-18] MEDS: Aspirin Enteric Coated 81 MG Tablet PO SCH (08:58)
[2021-12-18] MEDS: Hydrocortisone 10 MG TABLET PO SCH ×2 (08:58→18:20)
[2021-12-18] MEDS: Insulin DETEMIR 100 UNIT/ML X5UNITS SUBQ SCH (08:58)
[2021-12-18] MEDS: Bumetanide 1 MG TABLET PO SCH ×2 (08:58→16:03)
[2021-12-18] MEDS: *HR* Dabigatran 150 MG CAPSULE PO SCH ×2 (08:59→21:23)
[2021-12-18] MEDS: Artificial Tears SOLN 15 ML BOTTLE RIGHT EYE SCH (08:59)
[2021-12-18] MEDS: polyethylene glycoL 3350 17 GM POWD.PACK PO SCH (08:59)
[2021-12-18] MEDS: *HR* OxyCODONE Immed Rel 5 MG TABLET PO PRN ×3 (09:07→21:23)
[2021-12-18] MEDS: Simethicone 80 MG TAB.CHEW PO PRN (16:02)
[2021-12-19 06:18] LABS: Basophils # 0.1 K/mcL (0.0-0.2); Basophils % 0.6 %; Eosinophils # 0.5 K/mcL (0.0-0.6); Eosinophils % 4.1 %; Hematocrit 33.1 % (37.5-50.1); Hemoglobin 10.7 g/dL (12.9-16.9); Lymphocytes # 0.5 K/mcL (0.6-4.6); Lymphocytes % 3.7 %; Mean Corpuscular HGB Conc 32.3 g/dL (31.6-35.5); Mean Corpuscular Hemoglobin 28.7 pg (28.0-33.3); Mean Corpuscular Volume 88.7 fL (83.0-100.0); Mean Platelet Volume 9.7 fL (9.4-12.4); Monocytes # 0.9 K/mcL (0.0-1.3); Monocytes % 6.6 %; Neutrophils # 10.8 K/mcL (1.6-8.9); Platelet Count 245 K/mcL (140-400); Red Blood Count 3.73 M/mcL (4.19-5.50); Red Cell Distribution Width 14.7 % (11.5-14.5); White Blood Count 12.9 K/mcL (4.3-11.1)
[2021-12-19] MEDS: Budesonide/Formoterol 160/4.5 1 PUFF INH IH SCH ×2 (07:26→20:31)
[2021-12-19] MEDS: Insulin LISPRO 300 UNITS/3 ML VIAL SUBQ SCH ×7 (07:52→21:51)
[2021-12-19] MEDS: polyethylene glycoL 3350 17 GM POWD.PACK PO SCH (08:33)
[2021-12-19 09:15] LABS: BUN/Creatinine Ratio 25 (6-26); Blood Urea Nitrogen 31 mg/dL (8-23); Carbon Dioxide 30 mEq/L (23-29); Chloride 89 mEq/L (98-107); Glucose 132 mg/dL (70-105); Osmolality,Calculated 268 (280-300); Potassium 3.9 mEq/L (3.5-5.1); Sodium 125 mEq/L (136-145); eGFR For African Americans > 60 (> 60); eGFR For Non-African Americans 57 (> 60)
[2021-12-19] MEDS: Gabapentin 400 MG CAPSULE PO SCH ×3 (09:16→21:48)
[2021-12-19] MEDS: Artificial Tears SOLN 15 ML BOTTLE RIGHT EYE SCH (09:16)
[2021-12-19] MEDS: Aspirin Enteric Coated 81 MG Tablet PO SCH (09:16)
[2021-12-19] MEDS: *HR* Dabigatran 150 MG CAPSULE PO SCH ×2 (09:16→21:47)
[2021-12-19] MEDS: Magnesium Oxide 400 MG TABLET PO SCH (09:16)
[2021-12-19] MEDS: Insulin DETEMIR 100 UNIT/ML X5UNITS SUBQ SCH (09:22)
[2021-12-19] MEDS: *HR* OxyCODONE Immed Rel 5 MG TABLET PO PRN ×3 (09:22→21:49)
[2021-12-19] MEDS: Sildenafil Citrate 20 MG TABLET PO SCH ×3 (10:30→21:46)
[2021-12-19] MEDS: Bumetanide 1 MG TABLET PO SCH ×3 (10:30→21:48)
[2021-12-19] MEDS ORDERED: Tolvaptan 15 MG TABLET PO ONE (11:14)
[2021-12-19] MEDS: Simethicone 80 MG TAB.CHEW PO PRN (21:49)
[2021-12-20 03:28] LABS: Basophils # 0.1 K/mcL (0.0-0.2); Basophils % 0.6 %; Eosinophils # 0.5 K/mcL (0.0-0.6); Eosinophils % 3.3 %; Hematocrit 33.9 % (37.5-50.1); Hemoglobin 11.1 g/dL (12.9-16.9); Immature Granulocytes % 1.4 % (0-4); Lymphocytes # 0.5 K/mcL (0.6-4.6); Mean Corpuscular HGB Conc 32.7 g/dL (31.6-35.5); Mean Corpuscular Hemoglobin 29.4 pg (28.0-33.3); Mean Corpuscular Volume 89.7 fL (83.0-100.0); Mean Platelet Volume 9.6 fL (9.4-12.4); Monocytes # 1.1 K/mcL (0.0-1.3); Monocytes % 7.4 %; Neutrophils # 13.1 K/mcL (1.6-8.9); Platelet Count 253 K/mcL (140-400); Red Blood Count 3.78 M/mcL (4.19-5.50); Red Cell Distribution Width 14.9 % (11.5-14.5); Segmented Neutrophils % 84.3 %; White Blood Count 15.5 K/mcL (4.3-11.1)
[2021-12-20 05:05] LABS: BUN/Creatinine Ratio 26 (6-26); Blood Urea Nitrogen 36 mg/dL (8-23); Calcium 8.3 mg/dL (8.6-10.3); Carbon Dioxide 32 mEq/L (23-29); Chloride 90 mEq/L (98-107); Glucose 74 mg/dL (70-105); Osmolality,Calculated 271 (280-300); Sodium 127 mEq/L (136-145); eGFR For African Americans > 60 (> 60); eGFR For Non-African Americans 50 (> 60)
[2021-12-20] MEDS: Insulin LISPRO 300 UNITS/3 ML VIAL SUBQ SCH ×5 (07:46→20:16)
[2021-12-20] MEDS: Insulin DETEMIR 100 UNIT/ML X5UNITS SUBQ SCH (07:46)
[2021-12-20] MEDS: polyethylene glycoL 3350 17 GM POWD.PACK PO SCH (07:59)
[2021-12-20] MEDS: Gabapentin 400 MG CAPSULE PO SCH ×3 (08:02→20:15)
[2021-12-20] MEDS: Magnesium Oxide 400 MG TABLET PO SCH (08:02)
[2021-12-20] MEDS: Aspirin Enteric Coated 81 MG Tablet PO SCH (08:02)
[2021-12-20] MEDS: Bumetanide 1 MG TABLET PO SCH ×3 (08:02→20:15)
[2021-12-20] MEDS: *HR* Dabigatran 150 MG CAPSULE PO SCH ×2 (08:02→20:14)
[2021-12-20] MEDS: Sildenafil Citrate 20 MG TABLET PO SCH ×3 (08:03→20:15)
[2021-12-20] MEDS: Artificial Tears SOLN 15 ML BOTTLE RIGHT EYE SCH (08:03)
[2021-12-20] MEDS: Budesonide/Formoterol 160/4.5 1 PUFF INH IH SCH ×2 (10:29→20:10)
[2021-12-20] MEDS ORDERED: Tolvaptan 15 MG TABLET PO ONE (11:00)
[2021-12-20] MEDS: Simethicone 80 MG TAB.CHEW PO PRN ×2 (11:28→20:19)
[2021-12-20] MEDS: *HR* OxyCODONE Immed Rel 5 MG TABLET PO PRN ×2 (11:28→20:19)
[2021-12-21] MEDS: *HR* OxyCODONE Immed Rel 5 MG TABLET PO PRN ×4 (00:59→23:53)
[2021-12-21 01:17] LABS: Basophils # 0.1 K/mcL (0.0-0.2); Basophils % 0.6 %; Eosinophils # 0.5 K/mcL (0.0-0.6); Eosinophils % 3.4 %; Hematocrit 32.6 % (37.5-50.1); Hemoglobin 10.7 g/dL (12.9-16.9); Lymphocytes # 0.4 K/mcL (0.6-4.6); Lymphocytes % 3.1 %; Mean Corpuscular HGB Conc 32.8 g/dL (31.6-35.5); Mean Corpuscular Hemoglobin 29.4 pg (28.0-33.3); Mean Corpuscular Volume 89.6 fL (83.0-100.0); Mean Platelet Volume 9.3 fL (9.4-12.4); Monocytes # 1.1 K/mcL (0.0-1.3); Monocytes % 7.5 %; Neutrophils # 11.8 K/mcL (1.6-8.9); Platelet Count 242 K/mcL (140-400); Red Blood Count 3.64 M/mcL (4.19-5.50); Red Cell Distribution Width 14.9 % (11.5-14.5); Segmented Neutrophils % 84.4 %
[2021-12-21 01:36] LABS: BUN/Creatinine Ratio 28 (6-26); Blood Urea Nitrogen 37 mg/dL (8-23); Calcium 8.1 mg/dL (8.6-10.3); Carbon Dioxide 32 mEq/L (23-29); Chloride 89 mEq/L (98-107); Glucose 207 mg/dL (70-105); Osmolality,Calculated 281 (280-300); Potassium 3.7 mEq/L (3.5-5.1); Sodium 128 mEq/L (136-145); eGFR For African Americans > 60 (> 60); eGFR For Non-African Americans 54 (> 60)
[2021-12-21] MEDS: Aspirin Enteric Coated 81 MG Tablet PO SCH (07:50)
[2021-12-21] MEDS: Bumetanide 1 MG TABLET PO SCH ×3 (07:51→20:26)
[2021-12-21] MEDS: Magnesium Oxide 400 MG TABLET PO SCH (07:51)
[2021-12-21] MEDS: Artificial Tears SOLN 15 ML BOTTLE RIGHT EYE SCH (07:51)
[2021-12-21] MEDS: *HR* Dabigatran 150 MG CAPSULE PO SCH ×2 (07:51→20:26)
[2021-12-21] MEDS: Gabapentin 400 MG CAPSULE PO SCH ×3 (07:51→20:26)
[2021-12-21] MEDS: Insulin LISPRO 300 UNITS/3 ML VIAL SUBQ SCH ×4 (07:51→20:33)
[2021-12-21] MEDS: Simethicone 80 MG TAB.CHEW PO PRN ×2 (07:52→20:32)
[2021-12-21] MEDS: Sildenafil Citrate 20 MG TABLET PO SCH ×3 (07:52→20:26)
[2021-12-21] MEDS: polyethylene glycoL 3350 17 GM POWD.PACK PO SCH (07:52)
[2021-12-21] MEDS: Budesonide/Formoterol 160/4.5 1 PUFF INH IH SCH ×2 (10:22→19:49)
[2021-12-21] MEDS ORDERED: Tolvaptan 15 MG TABLET PO ONE (11:13)
[2021-12-22 07:06] LABS: Basophils # 0.1 K/mcL (0.0-0.2); Basophils % 0.5 %; Eosinophils # 0.3 K/mcL (0.0-0.6); Eosinophils % 2.7 %; Hematocrit 34.3 % (37.5-50.1); Hemoglobin 11.1 g/dL (12.9-16.9); Immature Granulocytes % 0.8 % (0-4); Lymphocytes # 0.4 K/mcL (0.6-4.6); Lymphocytes % 3.3 %; Mean Corpuscular HGB Conc 32.4 g/dL (31.6-35.5); Mean Corpuscular Hemoglobin 29.1 pg (28.0-33.3); Mean Platelet Volume 8.9 fL (9.4-12.4); Monocytes # 0.9 K/mcL (0.0-1.3); Monocytes % 7.5 %; Neutrophils # 9.9 K/mcL (1.6-8.9); Platelet Count 231 K/mcL (140-400); Red Blood Count 3.81 M/mcL (4.19-5.50); Segmented Neutrophils % 85.2 %; White Blood Count 11.7 K/mcL (4.3-11.1)
[2021-12-22 07:26] LABS: BUN/Creatinine Ratio 26 (6-26); Blood Urea Nitrogen 29 mg/dL (8-23); Calcium 8.4 mg/dL (8.6-10.3); Carbon Dioxide 33 mEq/L (23-29); Chloride 88 mEq/L (98-107); Glucose 247 mg/dL (70-105); Osmolality,Calculated 280 (280-300); Sodium 128 mEq/L (136-145); eGFR For African Americans > 60 (> 60); eGFR For Non-African Americans > 60 (> 60)
[2021-12-22] MEDS: Bumetanide 1 MG TABLET PO SCH ×2 (08:38→15:37)
[2021-12-22] MEDS: *HR* Dabigatran 150 MG CAPSULE PO SCH (08:38)
[2021-12-22] MEDS: Magnesium Oxide 400 MG TABLET PO SCH (08:38)
[2021-12-22] MEDS: Aspirin Enteric Coated 81 MG Tablet PO SCH (08:38)
[2021-12-22] MEDS: Gabapentin 400 MG CAPSULE PO SCH ×2 (08:39→15:37)
[2021-12-22] MEDS: Sildenafil Citrate 20 MG TABLET PO SCH ×2 (08:39→15:37)
[2021-12-22] MEDS: Insulin LISPRO 300 UNITS/3 ML VIAL SUBQ SCH ×2 (08:39→12:28)
[2021-12-22] MEDS: Artificial Tears SOLN 15 ML BOTTLE RIGHT EYE SCH (08:39)
[2021-12-22] MEDS: *HR* OxyCODONE Immed Rel 5 MG TABLET PO PRN ×2 (08:39→15:36)
[2021-12-22] MEDS: polyethylene glycoL 3350 17 GM POWD.PACK PO SCH (08:39)
[2021-12-22] MEDS: Simethicone 80 MG TAB.CHEW PO PRN (08:47)
[2021-12-22] MEDS: Budesonide/Formoterol 160/4.5 1 PUFF INH IH SCH (09:20)
[2021-12-22 11:20] VITALS: O2SAT 100
[2021-12-22 14:51] VITALS: BP 107/61; PULSE 74; TEMP 98.1
== END 2021-12-22 16:15 | DRG 280 ==
LOC: 2NENU 23:01 → EMEROOARM 23:01 → 2NENU 12-10 08:03 → SUATTDRO 12-11 11:07 → 2NNU 12-13 00:12 → 2ANU 12-18 12:42
PROVIDERS: ADMIT Internal Medicine; ATTEND Family Medicine

== ENCOUNTER 2021-12-28 22:12 | Inpatient (IN) ==
[2021-12-29] MEDS ORDERED: Naloxone 0.4 MG/ML INJ IVP PRN (10:33)
[2021-12-29 13:24] LABS: Basophils # 0.1 K/mcL (0.0-0.2); Eosinophils # 0.3 K/mcL (0.0-0.6); Eosinophils % 4.2 %; Hematocrit 33.2 % (37.5-50.1); Immature Granulocytes % 1.9 % (0-4); Lymphocytes # 0.4 K/mcL (0.6-4.6); Lymphocytes % 4.6 %; Mean Corpuscular HGB Conc 33.1 g/dL (31.6-35.5); Mean Corpuscular Hemoglobin 28.7 pg (28.0-33.3); Mean Corpuscular Volume 86.7 fL (83.0-100.0); Mean Platelet Volume 9.3 fL (9.4-12.4); Monocytes # 0.8 K/mcL (0.0-1.3); Monocytes % 10.1 %; Neutrophils # 6.3 K/mcL (1.6-8.9); Platelet Count 200 K/mcL (140-400); Red Blood Count 3.83 M/mcL (4.19-5.50); Red Cell Distribution Width 14.9 % (11.5-14.5); Segmented Neutrophils % 78.2 %; White Blood Count 8.1 K/mcL (4.3-11.1)
[2021-12-29 13:38] LABS: Alanine Aminotransferase 7 Units/L (7-52); Alkaline Phosphatase 73 Units/L (34-104); Aspartate Amino Transferase 21 Units/L (13-39); BUN/Creatinine Ratio 18 (6-26); Bilirubin,Total 0.7 mg/dL (0.3-1.0); Blood Urea Nitrogen 21 mg/dL (8-23); Carbon Dioxide 27 mEq/L (23-29); Chloride 83 mEq/L (98-107); Globulin 2.9 g/dL (2.4-3.5); Glucose 358 mg/dL (70-105); Osmolality,Calculated 271 (280-300); Potassium 3.6 mEq/L (3.5-5.1); Sodium 122 mEq/L (136-145); Total Protein 5.9 g/dL (6.4-8.9); eGFR For African Americans > 60 (> 60); eGFR For Non-African Americans 60 (> 60)
[2021-12-29] MEDS ORDERED: D5% in Water 1,000 ML IVC PRN (14:04)
[2021-12-29] MEDS ORDERED: Dextrose 4 GM Chewable Tablets PO PRN ×2 (14:04)
[2021-12-29] MEDS ORDERED: *HR* Dextrose 50 % in Water (Syg) 50 ML SYRINGE IVP PRN (14:04)
[2021-12-29] MEDS ORDERED: Fluconazole 200 MG/100 ML 200 MG/100 ML BAG IVPB ONE (15:03)
[2021-12-29] MEDS: Furosemide 40 MG/4 ML VIAL IVP SCH (16:02)
[2021-12-29] MEDS: Insulin LISPRO 300 UNITS/3 ML VIAL SUBQ SCH (16:02)
[2021-12-29] MEDS: Nystatin POWDER 30 GM BOTTLE TP SCH ×2 (16:03→20:58)
[2021-12-29] MEDS: cefTRIAXone 1,000 MG in 0.9 % Sodium Chloride 10 ML IVP SCH (17:03)
[2021-12-29] MEDS: *HR* Dabigatran 150 MG CAPSULE PO SCH (20:57)
[2021-12-29] MEDS: Spironolactone 25 MG TABLET PO SCH (20:57)
[2021-12-29] MEDS: Sildenafil Citrate 20 MG TABLET PO SCH (20:57)
[2021-12-29] MEDS: *HR* OxyCODONE Immed Rel 5 MG TABLET PO PRN (20:57)
[2021-12-29] MEDS ORDERED: Insulin DETEMIR 100 UNIT/ML X5UNITS SUBQ SCH (21:00)
[2021-12-29] MEDS ORDERED: Spironolactone 25 MG TABLET PO SCH (21:00)
[2021-12-30] MEDS: *HR* OxyCODONE Immed Rel 5 MG TABLET PO PRN ×2 (03:44→16:40)
[2021-12-30] MEDS: cefTRIAXone 1,000 MG in 0.9 % Sodium Chloride 10 ML IVP SCH (07:34)
[2021-12-30] MEDS: Insulin LISPRO 300 UNITS/3 ML VIAL SUBQ SCH ×3 (07:34→16:42)
[2021-12-30] MEDS: Spironolactone 25 MG TABLET PO SCH ×2 (07:35→21:13)
[2021-12-30] MEDS: Nystatin POWDER 30 GM BOTTLE TP SCH ×2 (07:35→21:14)
[2021-12-30] MEDS: *HR* Dabigatran 150 MG CAPSULE PO SCH ×2 (07:35→21:13)
[2021-12-30] MEDS: Aspirin Enteric Coated 81 MG Tablet PO SCH (07:35)
[2021-12-30] MEDS: Fluconazole 100 MG TABLET PO SCH (07:35)
[2021-12-30] MEDS: Sildenafil Citrate 20 MG TABLET PO SCH ×3 (07:35→21:13)
[2021-12-30 08:33] LABS: Basophils # 0.1 K/mcL (0.0-0.2); Eosinophils # 0.3 K/mcL (0.0-0.6); Eosinophils % 4.9 %; Hematocrit 33.8 % (37.5-50.1); Immature Granulocytes % 1.1 % (0-4); Lymphocytes # 0.4 K/mcL (0.6-4.6); Lymphocytes % 6.3 %; Mean Corpuscular HGB Conc 32.5 g/dL (31.6-35.5); Mean Corpuscular Hemoglobin 28.2 pg (28.0-33.3); Mean Corpuscular Volume 86.7 fL (83.0-100.0); Mean Platelet Volume 8.9 fL (9.4-12.4); Monocytes # 0.8 K/mcL (0.0-1.3); Monocytes % 13.7 %; Neutrophils # 4.5 K/mcL (1.6-8.9); Platelet Count 210 K/mcL (140-400); Red Cell Distribution Width 14.9 % (11.5-14.5); White Blood Count 6.2 K/mcL (4.3-11.1)
[2021-12-30 08:50] LABS: BUN/Creatinine Ratio 14 (6-26); Blood Urea Nitrogen 16 mg/dL (8-23); Carbon Dioxide 35 mEq/L (23-29); Chloride 84 mEq/L (98-107); Glucose 183 mg/dL (70-105); Osmolality,Calculated 266 (280-300); Potassium 3.4 mEq/L (3.5-5.1); Sodium 125 mEq/L (136-145); eGFR For African Americans > 60 (> 60); eGFR For Non-African Americans > 60 (> 60)
[2021-12-30] MEDS ORDERED: Potassium Chloride Elixir 20 MEQ/15 ML UDC PO ONE (09:32)
[2021-12-30 09:38] LABS: Adenovirus F 40/41 PCR Not detected (Not detect); Astrovirus PCR Not detected (Not detect); Campylobacter by PCR Not detected (Not detect); Cryptosporidium by PCR Not detected (Not detect); Cyclospora cayetanensis PCR Not detected (Not detect); Entamoeba histolytica PCR Not detected (Not detect); Enteroaggregative E.coli(EAEC) Not detected (Not detect); Enteropathogenic E.coli(EPEC) Not detected (Not detect); Enterotoxigenic E.coli (ETEC) Not detected (Not detect); Giardia lamblia PCR Not detected (Not detect); Norovirus GI/GII PCR DETECTED (Not detect); Plesiomonas shigelloides PCR Not detected (Not detect); Rotavirus A PCR Not detected (Not detect); Salmonella PCR Not detected (Not detect); Sapovirus PCR Not detected (Not detect); Shig/EnteroinvasiveE coli EIEC Not detected (Not detect); Shigalike tox-prod E coli STEC Not detected (Not detect); Vibrio PCR Not detected (Not detect); Vibrio cholerae PCR Not detected (Not detect); Yersinia enterocolitica PCR Not detected (Not detect)
[2021-12-30 09:47] LABS: C.difficile Toxin A/B Gene PCR DETECTED (Not detect)
[2021-12-30] MEDS: Gabapentin 300 MG CAPSULE PO SCH ×3 (10:06→21:13)
[2021-12-30] MEDS: Magnesium Oxide 400 MG TABLET PO SCH (10:06)
[2021-12-30] MEDS: Furosemide 40 MG/4 ML VIAL IVP SCH ×2 (10:06→16:41)
[2021-12-30] MEDS: Vancomycin Oral Soln 125 MG/2.5 ML UDC PO SCH ×4 (11:57→21:14)
[2021-12-30] MEDS ORDERED: Perflutren Lipid Microsphere 1.3 ML in 0.9 % Sodium Chloride 8.7 ML IVP PRN (14:44)
[2021-12-30] MEDS ORDERED: Insulin DETEMIR 100 UNIT/ML X5UNITS SUBQ SCH (21:00)
[2021-12-30] MEDS: Lactobacillus 1 EACH CAP.SPRINK PO SCH (21:13)
[2021-12-31] MEDS: *HR* OxyCODONE Immed Rel 5 MG TABLET PO PRN ×3 (05:24→20:17)
[2021-12-31 06:04] LABS: Basophils # 0.1 K/mcL (0.0-0.2); Basophils % 0.8 %; Eosinophils # 0.6 K/mcL (0.0-0.6); Eosinophils % 9.2 %; Hematocrit 30.3 % (37.5-50.1); Hemoglobin 9.7 g/dL (12.9-16.9); Immature Granulocytes % 0.8 % (0-4); Lymphocytes # 0.3 K/mcL (0.6-4.6); Lymphocytes % 4.7 %; Mean Corpuscular Hemoglobin 28.1 pg (28.0-33.3); Mean Corpuscular Volume 87.8 fL (83.0-100.0); Mean Platelet Volume 9.5 fL (9.4-12.4); Monocytes # 0.8 K/mcL (0.0-1.3); Monocytes % 12.3 %; Neutrophils # 4.7 K/mcL (1.6-8.9); Platelet Count 219 K/mcL (140-400); Red Blood Count 3.45 M/mcL (4.19-5.50); Red Cell Distribution Width 14.9 % (11.5-14.5); Segmented Neutrophils % 72.2 %; White Blood Count 6.4 K/mcL (4.3-11.1)
[2021-12-31] MEDS: Aspirin Enteric Coated 81 MG Tablet PO SCH (07:26)
[2021-12-31] MEDS: Fluconazole 100 MG TABLET PO SCH (07:26)
[2021-12-31] MEDS: Gabapentin 300 MG CAPSULE PO SCH ×3 (07:26→20:19)
[2021-12-31] MEDS: cefTRIAXone 1,000 MG in 0.9 % Sodium Chloride 10 ML IVP SCH (07:26)
[2021-12-31] MEDS: Spironolactone 25 MG TABLET PO SCH ×2 (07:26→20:20)
[2021-12-31] MEDS: Sildenafil Citrate 20 MG TABLET PO SCH ×3 (07:26→20:18)
[2021-12-31] MEDS: Magnesium Oxide 400 MG TABLET PO SCH (07:26)
[2021-12-31] MEDS: Lactobacillus 1 EACH CAP.SPRINK PO SCH ×2 (07:26→20:18)
[2021-12-31] MEDS: Vancomycin Oral Soln 125 MG/2.5 ML UDC PO SCH ×4 (07:29→20:20)
[2021-12-31] MEDS: *HR* Dabigatran 150 MG CAPSULE PO SCH ×2 (07:29→20:18)
[2021-12-31] MEDS: Nystatin POWDER 30 GM BOTTLE TP SCH ×2 (07:30→20:29)
[2021-12-31] MEDS: Insulin LISPRO 300 UNITS/3 ML VIAL SUBQ SCH ×3 (07:30→16:57)
[2021-12-31] MEDS: Furosemide 40 MG/4 ML VIAL IVP SCH ×2 (07:30→16:47)
[2021-12-31 07:46] LABS: BUN/Creatinine Ratio 14 (6-26); Blood Urea Nitrogen 16 mg/dL (8-23); Carbon Dioxide 36 mEq/L (23-29); Chloride 83 mEq/L (98-107); Glucose 316 mg/dL (70-105); Magnesium 2.1 mg/dL (1.6-2.6); Osmolality,Calculated 269 (280-300); Potassium 3.8 mEq/L (3.5-5.1); Sodium 123 mEq/L (136-145); eGFR For African Americans > 60 (> 60); eGFR For Non-African Americans > 60 (> 60)
[2021-12-31] MEDS ORDERED: Insulin DETEMIR 100 UNIT/ML X5UNITS SUBQ SCH (09:00)
[2021-12-31] MEDS ORDERED: Tolvaptan 15 MG TABLET PO ONE (12:00)
[2021-12-31] MEDS ORDERED: Insulin DETEMIR 100 UNIT/ML X5UNITS SUBQ ONE (21:00)
[2022-01-01 04:04] LABS: Basophils % 0.5 %; Eosinophils # 0.6 K/mcL (0.0-0.6); Eosinophils % 7.7 %; Hematocrit 29.7 % (37.5-50.1); Hemoglobin 9.6 g/dL (12.9-16.9); Immature Granulocytes % 0.8 % (0-4); Lymphocytes # 0.4 K/mcL (0.6-4.6); Lymphocytes % 5.5 %; Mean Corpuscular HGB Conc 32.3 g/dL (31.6-35.5); Mean Corpuscular Hemoglobin 28.1 pg (28.0-33.3); Mean Corpuscular Volume 86.8 fL (83.0-100.0); Mean Platelet Volume 9.4 fL (9.4-12.4); Monocytes # 0.7 K/mcL (0.0-1.3); Monocytes % 9.4 %; Neutrophils # 5.7 K/mcL (1.6-8.9); Platelet Count 228 K/mcL (140-400); Red Blood Count 3.42 M/mcL (4.19-5.50); Red Cell Distribution Width 14.8 % (11.5-14.5); Segmented Neutrophils % 76.1 %; White Blood Count 7.4 K/mcL (4.3-11.1)
[2022-01-01 04:46] LABS: BUN/Creatinine Ratio 17 (6-26); Blood Urea Nitrogen 20 mg/dL (8-23); Calcium 8.3 mg/dL (8.6-10.3); Carbon Dioxide 33 mEq/L (23-29); Chloride 79 mEq/L (98-107); Glucose 335 mg/dL (70-105); Magnesium 2.1 mg/dL (1.6-2.6); Osmolality,Calculated 264 (280-300); Potassium 4.2 mEq/L (3.5-5.1); Sodium 119 mEq/L (136-145); eGFR For African Americans > 60 (> 60); eGFR For Non-African Americans > 60 (> 60)
[2022-01-01] MEDS: cefTRIAXone 1,000 MG in 0.9 % Sodium Chloride 10 ML IVP SCH (07:20)
[2022-01-01] MEDS: Furosemide 40 MG/4 ML VIAL IVP SCH ×2 (07:20→17:26)
[2022-01-01] MEDS: Insulin DETEMIR 100 UNIT/ML X5UNITS SUBQ SCH (07:21)
[2022-01-01] MEDS: Insulin LISPRO 300 UNITS/3 ML VIAL SUBQ SCH ×3 (07:21→17:26)
[2022-01-01] MEDS: Vancomycin Oral Soln 125 MG/2.5 ML UDC PO SCH ×4 (07:21→20:54)
[2022-01-01] MEDS: Magnesium Oxide 400 MG TABLET PO SCH (07:23)
[2022-01-01] MEDS: Aspirin Enteric Coated 81 MG Tablet PO SCH (07:23)
[2022-01-01] MEDS: *HR* Dabigatran 150 MG CAPSULE PO SCH ×2 (07:23→20:53)
[2022-01-01] MEDS: Lactobacillus 1 EACH CAP.SPRINK PO SCH ×2 (07:23→20:54)
[2022-01-01] MEDS: Fluconazole 100 MG TABLET PO SCH (07:23)
[2022-01-01] MEDS: Gabapentin 300 MG CAPSULE PO SCH ×3 (07:23→20:54)
[2022-01-01] MEDS: Spironolactone 25 MG TABLET PO SCH ×2 (07:24→20:53)
[2022-01-01] MEDS: Sildenafil Citrate 20 MG TABLET PO SCH ×3 (07:24→20:53)
[2022-01-01] MEDS: Nystatin POWDER 30 GM BOTTLE TP SCH ×2 (07:24→20:55)
[2022-01-01] MEDS: *HR* OxyCODONE Immed Rel 5 MG TABLET PO PRN ×2 (07:24→17:25)
[2022-01-01] MEDS ORDERED: Tolvaptan 15 MG TABLET PO ONE (08:50)
[2022-01-02] MEDS: *HR* OxyCODONE Immed Rel 5 MG TABLET PO PRN ×2 (05:02→11:28)
[2022-01-02 05:23] LABS: Basophils # 0.1 K/mcL (0.0-0.2); Basophils % 0.9 %; Eosinophils # 0.6 K/mcL (0.0-0.6); Hemoglobin 9.7 g/dL (12.9-16.9); Immature Granulocytes % 1.5 % (0-4); Lymphocytes # 0.7 K/mcL (0.6-4.6); Lymphocytes % 8.1 %; Mean Corpuscular HGB Conc 32.3 g/dL (31.6-35.5); Mean Corpuscular Volume 86.5 fL (83.0-100.0); Monocytes # 0.7 K/mcL (0.0-1.3); Monocytes % 8.1 %; Neutrophils # 5.9 K/mcL (1.6-8.9); Platelet Count 252 K/mcL (140-400); Red Blood Count 3.47 M/mcL (4.19-5.50); Red Cell Distribution Width 14.7 % (11.5-14.5); Segmented Neutrophils % 73.4 %
[2022-01-02 05:48] LABS: Calcium 8.6 mg/dL (8.6-10.3); Potassium 4.4 mEq/L (3.5-5.1)
[2022-01-02] MEDS: Sildenafil Citrate 20 MG TABLET PO SCH ×3 (07:59→21:58)
[2022-01-02] MEDS: *HR* Dabigatran 150 MG CAPSULE PO SCH ×2 (07:59→21:59)
[2022-01-02] MEDS: Lactobacillus 1 EACH CAP.SPRINK PO SCH ×2 (07:59→21:59)
[2022-01-02] MEDS: Aspirin Enteric Coated 81 MG Tablet PO SCH (07:59)
[2022-01-02] MEDS: cefTRIAXone 1,000 MG in 0.9 % Sodium Chloride 10 ML IVP SCH (07:59)
[2022-01-02] MEDS: Vancomycin Oral Soln 125 MG/2.5 ML UDC PO SCH ×4 (08:00→22:05)
[2022-01-02] MEDS: Insulin LISPRO 300 UNITS/3 ML VIAL SUBQ SCH ×3 (08:00→17:33)
[2022-01-02] MEDS: Nystatin POWDER 30 GM BOTTLE TP SCH ×2 (08:00→22:04)
[2022-01-02] MEDS: Insulin DETEMIR 100 UNIT/ML X5UNITS SUBQ SCH (08:00)
[2022-01-02] MEDS ORDERED: Tolvaptan 15 MG TABLET PO ONE (10:30)
[2022-01-02] MEDS ORDERED: Ondansetron 4 MG/2 ML VIAL IVP PRN (10:31)
[2022-01-03 04:00] LABS: Basophils # 0.1 K/mcL (0.0-0.2); Eosinophils # 0.6 K/mcL (0.0-0.6); Eosinophils % 6.4 %; Hematocrit 29.7 % (37.5-50.1); Hemoglobin 9.6 g/dL (12.9-16.9); Immature Granulocytes % 1.8 % (0-4); Lymphocytes # 0.6 K/mcL (0.6-4.6); Lymphocytes % 7.1 %; Mean Corpuscular HGB Conc 32.3 g/dL (31.6-35.5); Mean Corpuscular Hemoglobin 27.9 pg (28.0-33.3); Mean Corpuscular Volume 86.3 fL (83.0-100.0); Mean Platelet Volume 9.7 fL (9.4-12.4); Monocytes # 0.8 K/mcL (0.0-1.3); Monocytes % 8.5 %; Neutrophils # 6.8 K/mcL (1.6-8.9); Platelet Count 280 K/mcL (140-400); Red Blood Count 3.44 M/mcL (4.19-5.50); Red Cell Distribution Width 14.8 % (11.5-14.5); Segmented Neutrophils % 75.2 %; White Blood Count 9.1 K/mcL (4.3-11.1)
[2022-01-03 04:18] LABS: Calcium 8.4 mg/dL (8.6-10.3); Potassium 5.1 mEq/L (3.5-5.1)
[2022-01-03] MEDS: Aspirin Enteric Coated 81 MG Tablet PO SCH (07:52)
[2022-01-03] MEDS: cefTRIAXone 1,000 MG in 0.9 % Sodium Chloride 10 ML IVP SCH (07:52)
[2022-01-03] MEDS: Vancomycin Oral Soln 125 MG/2.5 ML UDC PO SCH ×4 (07:52→20:35)
[2022-01-03] MEDS: Lactobacillus 1 EACH CAP.SPRINK PO SCH ×2 (07:52→20:35)
[2022-01-03] MEDS: *HR* Dabigatran 150 MG CAPSULE PO SCH ×2 (07:52→20:36)
[2022-01-03] MEDS: Sildenafil Citrate 20 MG TABLET PO SCH ×3 (07:53→20:35)
[2022-01-03] MEDS: Insulin LISPRO 300 UNITS/3 ML VIAL SUBQ SCH ×3 (07:59→17:46)
[2022-01-03] MEDS: Nystatin POWDER 30 GM BOTTLE TP SCH ×2 (08:00→20:36)
[2022-01-03] MEDS: Insulin DETEMIR 100 UNIT/ML X5UNITS SUBQ SCH (08:54)
[2022-01-03 11:36] LABS: Thyroid Stimulating Hormone 1.406 mcIU/mL (0.340-5.600)
[2022-01-04] MEDS: *HR* OxyCODONE Immed Rel 5 MG TABLET PO PRN ×2 (05:00→21:09)
[2022-01-04] MEDS: Insulin DETEMIR 100 UNIT/ML X5UNITS SUBQ SCH (08:17)
[2022-01-04] MEDS: Vancomycin Oral Soln 125 MG/2.5 ML UDC PO SCH ×4 (08:17→22:08)
[2022-01-04] MEDS: Aspirin Enteric Coated 81 MG Tablet PO SCH (08:17)
[2022-01-04] MEDS: Sildenafil Citrate 20 MG TABLET PO SCH ×3 (08:17→21:44)
[2022-01-04] MEDS: Insulin LISPRO 300 UNITS/3 ML VIAL SUBQ SCH ×3 (08:18→17:21)
[2022-01-04] MEDS: Lactobacillus 1 EACH CAP.SPRINK PO SCH ×2 (08:18→21:44)
[2022-01-04] MEDS: *HR* Dabigatran 150 MG CAPSULE PO SCH ×2 (08:18→21:44)
[2022-01-04] MEDS: Nystatin POWDER 30 GM BOTTLE TP SCH ×2 (08:18→21:44)
[2022-01-04] MEDS: cefTRIAXone 1,000 MG in 0.9 % Sodium Chloride 10 ML IVP SCH (08:19)
[2022-01-04 08:29] LABS: Basophils # 0.1 K/mcL (0.0-0.2); Eosinophils # 0.6 K/mcL (0.0-0.6); Eosinophils % 7.1 %; Hematocrit 28.3 % (37.5-50.1); Hemoglobin 9.1 g/dL (12.9-16.9); Immature Granulocytes % 3.9 % (0-4); Lymphocytes # 0.6 K/mcL (0.6-4.6); Lymphocytes % 8.1 %; Mean Corpuscular HGB Conc 32.2 g/dL (31.6-35.5); Mean Corpuscular Volume 87.1 fL (83.0-100.0); Mean Platelet Volume 9.8 fL (9.4-12.4); Monocytes # 0.8 K/mcL (0.0-1.3); Monocytes % 9.6 %; Neutrophils # 5.6 K/mcL (1.6-8.9); Platelet Count 309 K/mcL (140-400); Red Blood Count 3.25 M/mcL (4.19-5.50); Red Cell Distribution Width 15.1 % (11.5-14.5); Segmented Neutrophils % 70.3 %; White Blood Count 7.9 K/mcL (4.3-11.1)
[2022-01-04 09:19] LABS: BUN/Creatinine Ratio 20 (6-26); Blood Urea Nitrogen 27 mg/dL (8-23); Calcium 8.4 mg/dL (8.6-10.3); Carbon Dioxide 34 mEq/L (23-29); Chloride 82 mEq/L (98-107); Glucose 161 mg/dL (70-105); Osmolality,Calculated 259 (280-300); Potassium 4.3 mEq/L (3.5-5.1); Sodium 120 mEq/L (136-145); eGFR For African Americans > 60 (> 60); eGFR For Non-African Americans 51 (> 60)
[2022-01-05] MEDS: *HR* OxyCODONE Immed Rel 5 MG TABLET PO PRN ×4 (03:16→23:42)
[2022-01-05 04:12] LABS: Basophils # 0.1 K/mcL (0.0-0.2); Basophils % 0.9 %; Eosinophils # 0.6 K/mcL (0.0-0.6); Eosinophils % 6.4 %; Hematocrit 27.2 % (37.5-50.1); Hemoglobin 8.8 g/dL (12.9-16.9); Immature Granulocytes % 3.4 % (0-4); Lymphocytes # 0.6 K/mcL (0.6-4.6); Lymphocytes % 6.4 %; Mean Corpuscular HGB Conc 32.4 g/dL (31.6-35.5); Mean Corpuscular Hemoglobin 28.1 pg (28.0-33.3); Mean Corpuscular Volume 86.9 fL (83.0-100.0); Mean Platelet Volume 9.2 fL (9.4-12.4); Monocytes # 0.9 K/mcL (0.0-1.3); Neutrophils # 6.7 K/mcL (1.6-8.9); Platelet Count 299 K/mcL (140-400); Red Blood Count 3.13 M/mcL (4.19-5.50); Red Cell Distribution Width 15.1 % (11.5-14.5); Segmented Neutrophils % 72.9 %; White Blood Count 9.1 K/mcL (4.3-11.1)
[2022-01-05 04:35] LABS: BUN/Creatinine Ratio 20 (6-26); Blood Urea Nitrogen 23 mg/dL (8-23); Calcium 8.3 mg/dL (8.6-10.3); Carbon Dioxide 34 mEq/L (23-29); Chloride 84 mEq/L (98-107); Glucose 110 mg/dL (70-105); Osmolality,Calculated 258 (280-300); Potassium 4.2 mEq/L (3.5-5.1); Sodium 122 mEq/L (136-145); eGFR For African Americans > 60 (> 60); eGFR For Non-African Americans > 60 (> 60)
[2022-01-05] MEDS: Insulin LISPRO 300 UNITS/3 ML VIAL SUBQ SCH ×3 (07:00→17:42)
[2022-01-05] MEDS: Vancomycin Oral Soln 125 MG/2.5 ML UDC PO SCH ×4 (08:24→21:29)
[2022-01-05] MEDS: *HR* Dabigatran 150 MG CAPSULE PO SCH ×2 (08:24→21:28)
[2022-01-05] MEDS: Lactobacillus 1 EACH CAP.SPRINK PO SCH ×2 (08:24→21:28)
[2022-01-05] MEDS: Aspirin Enteric Coated 81 MG Tablet PO SCH (08:24)
[2022-01-05] MEDS: cefTRIAXone 1,000 MG in 0.9 % Sodium Chloride 10 ML IVP SCH (08:25)
[2022-01-05] MEDS: Nystatin POWDER 30 GM BOTTLE TP SCH ×2 (08:25→21:26)
[2022-01-05] MEDS: Insulin DETEMIR 100 UNIT/ML X5UNITS SUBQ SCH (08:25)
[2022-01-05] MEDS: Sildenafil Citrate 20 MG TABLET PO SCH ×3 (12:06→21:28)
[2022-01-05] MEDS ORDERED: Gabapentin 300 MG CAPSULE PO SCH (12:15)
[2022-01-05] MEDS: Gabapentin 300 MG CAPSULE PO SCH ×2 (16:55→21:28)
[2022-01-06 03:25] LABS: Basophils # 0.1 K/mcL (0.0-0.2); Basophils % 1.4 %; Eosinophils # 0.6 K/mcL (0.0-0.6); Eosinophils % 7.5 %; Hematocrit 27.9 % (37.5-50.1); Hemoglobin 8.8 g/dL (12.9-16.9); Immature Granulocytes % 4.6 % (0-4); Lymphocytes # 0.5 K/mcL (0.6-4.6); Mean Corpuscular HGB Conc 31.5 g/dL (31.6-35.5); Mean Corpuscular Hemoglobin 27.5 pg (28.0-33.3); Mean Corpuscular Volume 87.2 fL (83.0-100.0); Mean Platelet Volume 9.4 fL (9.4-12.4); Monocytes # 0.9 K/mcL (0.0-1.3); Monocytes % 11.4 %; Neutrophils # 5.3 K/mcL (1.6-8.9); Platelet Count 350 K/mcL (140-400); Segmented Neutrophils % 69.1 %; White Blood Count 7.6 K/mcL (4.3-11.1)
[2022-01-06 03:38] LABS: BUN/Creatinine Ratio 17 (6-26); Blood Urea Nitrogen 19 mg/dL (8-23); Calcium 8.3 mg/dL (8.6-10.3); Carbon Dioxide 33 mEq/L (23-29); Chloride 85 mEq/L (98-107); Glucose 120 mg/dL (70-105); Osmolality,Calculated 257 (280-300); Potassium 4.3 mEq/L (3.5-5.1); Sodium 122 mEq/L (136-145); eGFR For African Americans > 60 (> 60); eGFR For Non-African Americans > 60 (> 60)
[2022-01-06] MEDS: Insulin LISPRO 300 UNITS/3 ML VIAL SUBQ SCH ×4 (08:21→16:41)
[2022-01-06] MEDS: Vancomycin Oral Soln 125 MG/2.5 ML UDC PO SCH ×4 (08:37→20:14)
[2022-01-06] MEDS: *HR* Dabigatran 150 MG CAPSULE PO SCH ×2 (08:38→20:15)
[2022-01-06] MEDS: *HR* OxyCODONE Immed Rel 5 MG TABLET PO PRN (08:38)
[2022-01-06] MEDS: Gabapentin 300 MG CAPSULE PO SCH ×3 (08:38→20:15)
[2022-01-06] MEDS: Aspirin Enteric Coated 81 MG Tablet PO SCH (08:39)
[2022-01-06] MEDS: Lactobacillus 1 EACH CAP.SPRINK PO SCH ×2 (08:39→20:15)
[2022-01-06] MEDS: Sildenafil Citrate 20 MG TABLET PO SCH ×3 (08:43→20:34)
[2022-01-06] MEDS: Nystatin POWDER 30 GM BOTTLE TP SCH ×2 (08:43→20:15)
[2022-01-06] MEDS: Insulin DETEMIR 100 UNIT/ML X5UNITS SUBQ SCH (08:45)
[2022-01-06] MEDS: cefTRIAXone 1,000 MG in 0.9 % Sodium Chloride 10 ML IVP SCH (08:46)
[2022-01-06] MEDS ORDERED: Tolvaptan 15 MG TABLET PO ONE (11:26)
[2022-01-07 05:26] LABS: BUN/Creatinine Ratio 17 (6-26); Blood Urea Nitrogen 20 mg/dL (8-23); Calcium 8.3 mg/dL (8.6-10.3); Carbon Dioxide 31 mEq/L (23-29); Chloride 85 mEq/L (98-107); Glucose 129 mg/dL (70-105); Osmolality,Calculated 258 (280-300); Potassium 4.5 mEq/L (3.5-5.1); Sodium 122 mEq/L (136-145); eGFR For African Americans > 60 (> 60); eGFR For Non-African Americans 59 (> 60)
[2022-01-07 05:30] LABS: Basophils # 0.1 K/mcL (0.0-0.2); Basophils % 1.3 %; Eosinophils # 0.6 K/mcL (0.0-0.6); Eosinophils % 7.1 %; Hematocrit 27.8 % (37.5-50.1); Immature Granulocytes % 5.2 % (0-4); Lymphocytes # 0.6 K/mcL (0.6-4.6); Lymphocytes % 7.4 %; Mean Corpuscular HGB Conc 32.4 g/dL (31.6-35.5); Mean Corpuscular Hemoglobin 28.1 pg (28.0-33.3); Mean Corpuscular Volume 86.9 fL (83.0-100.0); Mean Platelet Volume 9.5 fL (9.4-12.4); Monocytes % 12.2 %; Neutrophils # 5.5 K/mcL (1.6-8.9); Platelet Count 351 K/mcL (140-400); Red Cell Distribution Width 15.2 % (11.5-14.5); Segmented Neutrophils % 66.8 %; White Blood Count 8.3 K/mcL (4.3-11.1)
[2022-01-07 06:20] LABS: Anisocytosis 1+ (Not Present); Hypochromasia Present (Not Present); Platelet Estimate Normal (Normal); Polychromasia 1+ (Not Present)
[2022-01-07] MEDS: Insulin LISPRO 300 UNITS/3 ML VIAL SUBQ SCH ×3 (08:52→17:04)
[2022-01-07] MEDS: *HR* OxyCODONE Immed Rel 5 MG TABLET PO PRN ×2 (08:53→21:02)
[2022-01-07] MEDS: Vancomycin Oral Soln 125 MG/2.5 ML UDC PO SCH ×4 (08:53→21:03)
[2022-01-07] MEDS: Sildenafil Citrate 20 MG TABLET PO SCH ×3 (08:53→21:02)
[2022-01-07] MEDS: Insulin DETEMIR 100 UNIT/ML X5UNITS SUBQ SCH (08:53)
[2022-01-07] MEDS: *HR* Dabigatran 150 MG CAPSULE PO SCH ×2 (08:53→21:02)
[2022-01-07] MEDS: Aspirin Enteric Coated 81 MG Tablet PO SCH (08:53)
[2022-01-07] MEDS: Lactobacillus 1 EACH CAP.SPRINK PO SCH ×2 (08:54→21:01)
[2022-01-07] MEDS: Nystatin POWDER 30 GM BOTTLE TP SCH ×2 (08:54→21:02)
[2022-01-07] MEDS: cefTRIAXone 1,000 MG in 0.9 % Sodium Chloride 10 ML IVP SCH (08:54)
[2022-01-07] MEDS: Gabapentin 300 MG CAPSULE PO SCH ×3 (08:54→21:01)
[2022-01-07] MEDS: Bumetanide 1 MG TABLET PO SCH ×2 (12:09→17:20)
[2022-01-08 04:30] LABS: White Blood Count 7.7 K/mcL (4.3-11.1)
[2022-01-08 04:31] LABS: Basophils # 0.1 K/mcL (0.0-0.2); Basophils % 1.7 %; Eosinophils # 0.7 K/mcL (0.0-0.6); Eosinophils % 9.5 %; Hematocrit 27.6 % (37.5-50.1); Hemoglobin 8.9 g/dL (12.9-16.9); Immature Granulocytes % 4.3 % (0-4); Lymphocytes # 0.5 K/mcL (0.6-4.6); Lymphocytes % 6.5 %; Mean Corpuscular HGB Conc 32.2 g/dL (31.6-35.5); Mean Corpuscular Hemoglobin 28.3 pg (28.0-33.3); Mean Corpuscular Volume 87.6 fL (83.0-100.0); Mean Platelet Volume 9.4 fL (9.4-12.4); Monocytes # 1.1 K/mcL (0.0-1.3); Monocytes % 13.8 %; Neutrophils # 4.9 K/mcL (1.6-8.9); Platelet Count 321 K/mcL (140-400); Red Blood Count 3.15 M/mcL (4.19-5.50); Red Cell Distribution Width 15.1 % (11.5-14.5); Segmented Neutrophils % 64.2 %
[2022-01-08 04:49] LABS: BUN/Creatinine Ratio 16 (6-26); Blood Urea Nitrogen 18 mg/dL (8-23); Calcium 8.2 mg/dL (8.6-10.3); Carbon Dioxide 31 mEq/L (23-29); Chloride 88 mEq/L (98-107); Glucose 153 mg/dL (70-105); Osmolality,Calculated 263 (280-300); Potassium 4.5 mEq/L (3.5-5.1); Sodium 124 mEq/L (136-145); eGFR For African Americans > 60 (> 60); eGFR For Non-African Americans > 60 (> 60)
[2022-01-08] MEDS: Sildenafil Citrate 20 MG TABLET PO SCH ×3 (08:52→20:09)
[2022-01-08] MEDS: Bumetanide 1 MG TABLET PO SCH ×2 (08:53→16:42)
[2022-01-08] MEDS: Insulin DETEMIR 100 UNIT/ML X5UNITS SUBQ SCH (08:53)
[2022-01-08] MEDS: Gabapentin 300 MG CAPSULE PO SCH ×3 (08:53→20:09)
[2022-01-08] MEDS: Lactobacillus 1 EACH CAP.SPRINK PO SCH ×2 (08:53→20:09)
[2022-01-08] MEDS: Aspirin Enteric Coated 81 MG Tablet PO SCH (08:53)
[2022-01-08] MEDS: cefTRIAXone 1,000 MG in 0.9 % Sodium Chloride 10 ML IVP SCH (08:53)
[2022-01-08] MEDS: Vancomycin Oral Soln 125 MG/2.5 ML UDC PO SCH ×4 (08:53→20:09)
[2022-01-08] MEDS: *HR* Dabigatran 150 MG CAPSULE PO SCH ×2 (08:53→20:09)
[2022-01-08] MEDS: Insulin LISPRO 300 UNITS/3 ML VIAL SUBQ SCH ×3 (08:54→16:42)
[2022-01-08] MEDS: Nystatin POWDER 30 GM BOTTLE TP SCH ×2 (09:03→20:10)
[2022-01-08] MEDS: *HR* OxyCODONE Immed Rel 5 MG TABLET PO PRN ×2 (10:50→16:47)
[2022-01-09 05:41] LABS: Basophils # 0.1 K/mcL (0.0-0.2); Basophils % 1.4 %; Eosinophils # 0.7 K/mcL (0.0-0.6); Eosinophils % 8.5 %; Hemoglobin 8.8 g/dL (12.9-16.9); Immature Granulocytes % 3.1 % (0-4); Lymphocytes # 0.6 K/mcL (0.6-4.6); Mean Corpuscular HGB Conc 31.4 g/dL (31.6-35.5); Mean Corpuscular Hemoglobin 27.2 pg (28.0-33.3); Mean Corpuscular Volume 86.4 fL (83.0-100.0); Monocytes # 1.1 K/mcL (0.0-1.3); Monocytes % 12.4 %; Neutrophils # 5.9 K/mcL (1.6-8.9); Platelet Count 335 K/mcL (140-400); Red Blood Count 3.24 M/mcL (4.19-5.50); Red Cell Distribution Width 15.2 % (11.5-14.5); Segmented Neutrophils % 67.6 %; White Blood Count 8.7 K/mcL (4.3-11.1)
[2022-01-09 06:01] LABS: BUN/Creatinine Ratio 15 (6-26); Blood Urea Nitrogen 17 mg/dL (8-23); Calcium 8.4 mg/dL (8.6-10.3); Carbon Dioxide 32 mEq/L (23-29); Chloride 87 mEq/L (98-107); Glucose 61 mg/dL (70-105); Osmolality,Calculated 257 (280-300); Potassium 4.3 mEq/L (3.5-5.1); Sodium 124 mEq/L (136-145); eGFR For African Americans > 60 (> 60); eGFR For Non-African Americans > 60 (> 60)
[2022-01-09] MEDS: Insulin LISPRO 300 UNITS/3 ML VIAL SUBQ SCH ×3 (08:41→16:34)
[2022-01-09] MEDS: *HR* Dabigatran 150 MG CAPSULE PO SCH ×2 (09:05→21:09)
[2022-01-09] MEDS: Bumetanide 1 MG TABLET PO SCH ×2 (09:05→16:33)
[2022-01-09] MEDS: Lactobacillus 1 EACH CAP.SPRINK PO SCH ×2 (09:05→21:09)
[2022-01-09] MEDS: Gabapentin 300 MG CAPSULE PO SCH ×3 (09:05→21:09)
[2022-01-09] MEDS: Nystatin POWDER 30 GM BOTTLE TP SCH ×2 (09:05→21:09)
[2022-01-09] MEDS: Insulin DETEMIR 100 UNIT/ML X5UNITS SUBQ SCH (09:05)
[2022-01-09] MEDS: *HR* OxyCODONE Immed Rel 5 MG TABLET PO PRN ×2 (09:05→16:36)
[2022-01-09] MEDS: Aspirin Enteric Coated 81 MG Tablet PO SCH (09:05)
[2022-01-09] MEDS: Sildenafil Citrate 20 MG TABLET PO SCH ×3 (09:05→21:09)
[2022-01-10] MEDS: *HR* OxyCODONE Immed Rel 5 MG TABLET PO PRN ×2 (05:44→17:48)
[2022-01-10 05:55] LABS: Basophils # 0.1 K/mcL (0.0-0.2); Basophils % 1.8 %; Eosinophils # 0.9 K/mcL (0.0-0.6); Eosinophils % 11.6 %; Hematocrit 27.2 % (37.5-50.1); Hemoglobin 8.5 g/dL (12.9-16.9); Immature Granulocytes % 3.4 % (0-4); Lymphocytes # 0.5 K/mcL (0.6-4.6); Lymphocytes % 6.7 %; Mean Corpuscular HGB Conc 31.3 g/dL (31.6-35.5); Mean Corpuscular Hemoglobin 27.6 pg (28.0-33.3); Mean Corpuscular Volume 88.3 fL (83.0-100.0); Mean Platelet Volume 9.2 fL (9.4-12.4); Monocytes % 12.7 %; Neutrophils # 4.9 K/mcL (1.6-8.9); Platelet Count 293 K/mcL (140-400); Red Blood Count 3.08 M/mcL (4.19-5.50); Red Cell Distribution Width 15.5 % (11.5-14.5); Segmented Neutrophils % 63.8 %; White Blood Count 7.6 K/mcL (4.3-11.1)
[2022-01-10 06:15] LABS: BUN/Creatinine Ratio 21 (6-26); Blood Urea Nitrogen 25 mg/dL (8-23); Carbon Dioxide 28 mEq/L (23-29); Chloride 89 mEq/L (98-107); Glucose 176 mg/dL (70-105); Osmolality,Calculated 265 (280-300); Potassium 4.5 mEq/L (3.5-5.1); Sodium 123 mEq/L (136-145); eGFR For African Americans > 60 (> 60); eGFR For Non-African Americans > 60 (> 60)
[2022-01-10] MEDS: Sildenafil Citrate 20 MG TABLET PO SCH ×3 (08:08→20:28)
[2022-01-10] MEDS: Aspirin Enteric Coated 81 MG Tablet PO SCH (08:09)
[2022-01-10] MEDS: *HR* Dabigatran 150 MG CAPSULE PO SCH ×2 (08:09→20:28)
[2022-01-10] MEDS: Insulin LISPRO 300 UNITS/3 ML VIAL SUBQ SCH ×3 (08:09→16:22)
[2022-01-10] MEDS: Bumetanide 1 MG TABLET PO SCH ×2 (08:09→17:45)
[2022-01-10] MEDS: Lactobacillus 1 EACH CAP.SPRINK PO SCH ×2 (08:09→20:28)
[2022-01-10] MEDS: Gabapentin 300 MG CAPSULE PO SCH ×3 (08:09→20:28)
[2022-01-10] MEDS: Nystatin POWDER 30 GM BOTTLE TP SCH ×2 (08:10→20:40)
[2022-01-10] MEDS: Insulin DETEMIR 100 UNIT/ML X5UNITS SUBQ SCH (08:22)
[2022-01-11 02:57] LABS: Basophils # 0.2 K/mcL (0.0-0.2); Basophils % 1.7 %; Eosinophils % 10.5 %; Hematocrit 28.2 % (37.5-50.1); Hemoglobin 8.7 g/dL (12.9-16.9); Immature Granulocytes % 2.2 % (0-4); Lymphocytes # 0.6 K/mcL (0.6-4.6); Lymphocytes % 5.9 %; Mean Corpuscular HGB Conc 30.9 g/dL (31.6-35.5); Mean Corpuscular Hemoglobin 27.1 pg (28.0-33.3); Mean Corpuscular Volume 87.9 fL (83.0-100.0); Mean Platelet Volume 9.4 fL (9.4-12.4); Monocytes % 10.5 %; Neutrophils # 6.6 K/mcL (1.6-8.9); Platelet Count 329 K/mcL (140-400); Red Blood Count 3.21 M/mcL (4.19-5.50); Red Cell Distribution Width 15.4 % (11.5-14.5); Segmented Neutrophils % 69.2 %; White Blood Count 9.5 K/mcL (4.3-11.1)
[2022-01-11 03:16] LABS: BUN/Creatinine Ratio 26 (6-26); Blood Urea Nitrogen 33 mg/dL (8-23); Calcium 8.6 mg/dL (8.6-10.3); Carbon Dioxide 31 mEq/L (23-29); Chloride 91 mEq/L (98-107); Glucose 144 mg/dL (70-105); Osmolality,Calculated 274 (280-300); Potassium 4.4 mEq/L (3.5-5.1); Sodium 127 mEq/L (136-145); eGFR For African Americans > 60 (> 60); eGFR For Non-African Americans 56 (> 60)
[2022-01-11] MEDS: *HR* Dabigatran 150 MG CAPSULE PO SCH ×2 (09:07→21:43)
[2022-01-11] MEDS: Sildenafil Citrate 20 MG TABLET PO SCH ×4 (09:07→21:43)
[2022-01-11] MEDS: Gabapentin 300 MG CAPSULE PO SCH ×3 (09:07→21:43)
[2022-01-11] MEDS: Lactobacillus 1 EACH CAP.SPRINK PO SCH ×2 (09:07→21:43)
[2022-01-11] MEDS: Aspirin Enteric Coated 81 MG Tablet PO SCH (09:07)
[2022-01-11] MEDS: Bumetanide 1 MG TABLET PO SCH ×2 (09:07→16:56)
[2022-01-11] MEDS: Nystatin POWDER 30 GM BOTTLE TP SCH ×2 (09:08→21:44)
[2022-01-11] MEDS: Insulin LISPRO 300 UNITS/3 ML VIAL SUBQ SCH ×3 (09:12→16:15)
[2022-01-11] MEDS: *HR* OxyCODONE Immed Rel 5 MG TABLET PO PRN ×2 (09:17→16:57)
[2022-01-11] MEDS: Insulin DETEMIR 100 UNIT/ML X5UNITS SUBQ SCH (09:18)
[2022-01-12 05:39] LABS: BUN/Creatinine Ratio 30 (6-26); Blood Urea Nitrogen 38 mg/dL (8-23); Calcium 8.5 mg/dL (8.6-10.3); Carbon Dioxide 31 mEq/L (23-29); Chloride 93 mEq/L (98-107); Glucose 124 mg/dL (70-105); Osmolality,Calculated 276 (280-300); Potassium 4.3 mEq/L (3.5-5.1); Sodium 128 mEq/L (136-145); eGFR For African Americans > 60 (> 60); eGFR For Non-African Americans 57 (> 60)
[2022-01-12] MEDS: *HR* OxyCODONE Immed Rel 5 MG TABLET PO PRN ×2 (05:44→14:03)
[2022-01-12] MEDS: Insulin LISPRO 300 UNITS/3 ML VIAL SUBQ SCH ×3 (07:44→17:31)
[2022-01-12] MEDS: Insulin DETEMIR 100 UNIT/ML X5UNITS SUBQ SCH (09:29)
[2022-01-12] MEDS: *HR* Dabigatran 150 MG CAPSULE PO SCH ×2 (09:29→21:12)
[2022-01-12] MEDS: Bumetanide 1 MG TABLET PO SCH ×2 (09:29→17:31)
[2022-01-12] MEDS: Nystatin POWDER 30 GM BOTTLE TP SCH ×2 (09:30→21:13)
[2022-01-12] MEDS: Gabapentin 300 MG CAPSULE PO SCH ×3 (09:30→21:12)
[2022-01-12] MEDS: Aspirin Enteric Coated 81 MG Tablet PO SCH (09:30)
[2022-01-12] MEDS: Sildenafil Citrate 20 MG TABLET PO SCH ×3 (09:30→21:13)
[2022-01-12] MEDS: Lactobacillus 1 EACH CAP.SPRINK PO SCH ×2 (09:30→21:12)
[2022-01-13] MEDS: *HR* HYDROcodone/Acet 5/325 mg TABLET PO PRN ×2 (01:16→20:12)
[2022-01-13 02:08] LABS: BUN/Creatinine Ratio 35 (6-26); Blood Urea Nitrogen 45 mg/dL (8-23); Calcium 8.7 mg/dL (8.6-10.3); Carbon Dioxide 29 mEq/L (23-29); Chloride 90 mEq/L (98-107); Glucose 166 mg/dL (70-105); Osmolality,Calculated 277 (280-300); Potassium 4.5 mEq/L (3.5-5.1); Sodium 126 mEq/L (136-145); eGFR For African Americans > 60 (> 60); eGFR For Non-African Americans 55 (> 60)
[2022-01-13] MEDS: Sildenafil Citrate 20 MG TABLET PO SCH ×3 (07:51→20:08)
[2022-01-13] MEDS: *HR* Dabigatran 150 MG CAPSULE PO SCH ×2 (07:51→20:08)
[2022-01-13] MEDS: Gabapentin 300 MG CAPSULE PO SCH ×3 (07:51→20:08)
[2022-01-13] MEDS: Bumetanide 1 MG TABLET PO SCH ×2 (07:51→16:25)
[2022-01-13] MEDS: Lactobacillus 1 EACH CAP.SPRINK PO SCH ×2 (07:51→20:08)
[2022-01-13] MEDS: Insulin DETEMIR 100 UNIT/ML X5UNITS SUBQ SCH (07:51)
[2022-01-13] MEDS: Aspirin Enteric Coated 81 MG Tablet PO SCH (07:51)
[2022-01-13] MEDS: Nystatin POWDER 30 GM BOTTLE TP SCH ×2 (07:52→20:10)
[2022-01-13] MEDS: Insulin LISPRO 300 UNITS/3 ML VIAL SUBQ SCH ×3 (07:52→16:25)
[2022-01-13] MEDS: Spironolactone 25 MG TABLET PO SCH (20:08)
[2022-01-14 04:02] LABS: Albumin 2.6 g/dL (3.5-5.7); BUN/Creatinine Ratio 37 (6-26); Blood Urea Nitrogen 50 mg/dL (8-23); Calcium 8.5 mg/dL (8.6-10.3); Carbon Dioxide 30 mEq/L (23-29); Chloride 92 mEq/L (98-107); Glucose 172 mg/dL (70-105); Osmolality,Calculated 281 (280-300); Potassium 4.6 mEq/L (3.5-5.1); Sodium 127 mEq/L (136-145); eGFR For African Americans > 60 (> 60); eGFR For Non-African Americans 53 (> 60)
[2022-01-14] MEDS: Albumin 25% 25gram/100mL 25 GM/100 ML IV.SOLN IVPB SCH ×2 (10:00→19:55)
[2022-01-14] MEDS: Gabapentin 300 MG CAPSULE PO SCH ×3 (10:02→19:56)
[2022-01-14] MEDS: Sildenafil Citrate 20 MG TABLET PO SCH ×3 (10:02→19:56)
[2022-01-14] MEDS: Lactobacillus 1 EACH CAP.SPRINK PO SCH ×2 (10:02→19:56)
[2022-01-14] MEDS: Aspirin Enteric Coated 81 MG Tablet PO SCH (10:02)
[2022-01-14] MEDS: Spironolactone 25 MG TABLET PO SCH ×2 (10:02→19:56)
[2022-01-14] MEDS: Nystatin POWDER 30 GM BOTTLE TP SCH (10:03)
[2022-01-14] MEDS: *HR* Dabigatran 150 MG CAPSULE PO SCH (10:04)
[2022-01-14] MEDS: Insulin DETEMIR 100 UNIT/ML X5UNITS SUBQ SCH (10:04)
[2022-01-14] MEDS: Insulin LISPRO 300 UNITS/3 ML VIAL SUBQ SCH ×3 (10:05→16:53)
[2022-01-14] MEDS: Bumetanide 1 MG TABLET PO SCH ×2 (10:10→16:57)
[2022-01-14 17:04] LABS: Hematocrit 25.6 % (37.5-50.1); Hemoglobin 8.1 g/dL (12.9-16.9)
[2022-01-14] MEDS: *HR* HYDROcodone/Acet 5/325 mg TABLET PO PRN (20:09)
[2022-01-15] MEDS: Nystatin POWDER 30 GM BOTTLE TP SCH ×2 (00:16→10:17)
[2022-01-15 03:57] LABS: BUN/Creatinine Ratio 38 (6-26); Blood Urea Nitrogen 53 mg/dL (8-23); Calcium 8.7 mg/dL (8.6-10.3); Carbon Dioxide 29 mEq/L (23-29); Chloride 90 mEq/L (98-107); Glucose 67 mg/dL (70-105); Osmolality,Calculated 273 (280-300); Potassium 4.3 mEq/L (3.5-5.1); Sodium 125 mEq/L (136-145); eGFR For African Americans > 60 (> 60); eGFR For Non-African Americans 51 (> 60)
[2022-01-15] MEDS: Insulin LISPRO 300 UNITS/3 ML VIAL SUBQ SCH ×2 (10:03→12:20)
[2022-01-15] MEDS: Sildenafil Citrate 20 MG TABLET PO SCH (10:16)
[2022-01-15] MEDS: Spironolactone 25 MG TABLET PO SCH (10:16)
[2022-01-15] MEDS: Albumin 25% 25gram/100mL 25 GM/100 ML IV.SOLN IVPB SCH (10:16)
[2022-01-15] MEDS: Lactobacillus 1 EACH CAP.SPRINK PO SCH (10:16)
[2022-01-15] MEDS: Gabapentin 300 MG CAPSULE PO SCH (10:16)
[2022-01-15] MEDS: Bumetanide 1 MG TABLET PO SCH (10:16)
[2022-01-15] MEDS: Insulin DETEMIR 100 UNIT/ML X5UNITS SUBQ SCH (10:17)
[2022-01-15 12:05] VITALS: BP 96/63; PULSE 69; TEMP 98.3; O2SAT 96
== END 2022-01-15 15:51 | disposition short-term general hospital (02) | DRG 291 ==
LOC: 2ANU → SUATTDRO 12-29 10:13
PROVIDERS: ADMIT Internal Medicine; ATTEND Family Medicine